=== PATIENT | female | born 1935 | race Caucasian/White ===

== ENCOUNTER → 2017-12-01 10:55 | Outpatient (CLI) | payer MEDICARE, OTHER, SELFPAY ==
[2017-12-01 11:23] LABS: Add Manual Diff / Slide Review NO; Basophils Percent Auto 1.1 % (0-2); Eosinophils Percent Auto 0.9 % (2-4); Hematocrit 36.5 % (36-46); Hemoglobin 12.8 g/dL (12.0-16.0); Lymphocytes Percent Auto 34.7 % (25-40); Mean Corpuscular HGB Conc 35.2 % (30-36); Mean Corpuscular Hemoglobin 32.9 PG (26-34); Mean Corpuscular Volume 93.5 fL (80-100); Monocytes Percent Auto 8.8 % (3-14); Neutrophils Absolute Auto 2200 /uL (3000-5900); Neutrophils Percent Auto 54.5 % (50-75); Platelet Count 419 X10^3/uL (150-400); Red Cell Distribution Width 13.7 % (11.6-14.8); White Blood Cell Count 4.1 X10^3/uL (4.5-11.0)
[2017-12-01 11:38] LABS: Alanine Aminotransferase 19 IU/L (9-52); Albumin 3.9 g/dL (3.5-5.0); Alkaline Phosphatase 72 U/L (38-126); Aspartate Aminotransferase 31 IU/L (14-36); Bilirubin Total 0.7 mg/dL (0.2-1.3); Calcium 10.1 mg/dL (8.4-10.2); Estimated Glomerular Filt Rate 53.1 mL/min (>60); Glucose 104 mg/dL (80-110); Potassium 4.3 mmol/L (3.4-5.1); Sodium 134 mmol/L (137-145)
[2017-12-01 11:43] LABS: Albumin Globulin Ratio 0.7 (1.0-2.8); HEMOLYSIS < 15 (0-50)
[2017-12-01 12:11] LABS: Total Protein 9.9 g/dL (6.3-8.2)
--- NOTE | 2017-12-01 12:11 | TAR.TRANSNT ---
cv protein value 9.9 per Rade. Triage notified
[2017-12-02 13:39] LABS: Free Kappa Light Chain 30.8 mg/L (3.3-19.4); Free Kappa/ Lambda Ratio 7.26 (0.26-1.65); Free Lambda 4.2 mg/L (5.7-26.3)
[2017-12-04 13:20] LABS: Beta-2-Microglobulin 2.74 mg/L (< 2.52)
[2017-12-06 17:15] LABS: Abnormal Protein Band 1 3.5 g/dL (NONE DETECTED); Albumin 3.8 g/dL (3.8-4.8); Alpha 1 Globulin 0.3 g/dL (0.2-0.3); Alpha 2 Globulin 1.1 g/dL (0.5-0.9); Beta 1 Globulin 0.5 g/dL (0.4-0.6); Gamma Globulin 3.7 g/dL (0.8-1.7); Protein, Total 9.6 g/dL (6.1-8.1)
== END ==
PROVIDERS: Family Provider Family Medicine; PCP Family Medicine; Visit Provider Nurse Practitioner Gerontology
DX: C90.00 Multiple myeloma not having achieved remission (principal)
CPT/HCPCS: 36415; 80053; 82232; 83883; 84155; 84165; 85025

== ENCOUNTER → 2017-12-18 10:14 | Outpatient (CLI) | payer MEDICARE, OTHER, SELFPAY ==
--- NOTE | 2017-12-18 | DI.RAD.S_ITS ---
PROCEDURE: XR SKULL<4V INDICATIONS: MULTIPLE MYELOMA IN REMISSION TECHNIQUE: 3 view(s) of the skull acquired. COMPARISON: [facility], CR, BONE SURVEY ADULT METS, 01/19/2016, 9:21. [facility], CR, BONE SURVEY ADULT METS, 01/14/2008, 9:57. [facility], CT, HEAD AND NECK ANGIO, 10/19/2017, 10:14. [facility], , BONE SURVEY ADULT METS, 08/29/2017, 11:33. FINDINGS: Bones: No fractures. 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 Along the posterior margin of the sclerosis is again noted a 5 mm radiolucency, unchanged from last exam, probably present on the 2015 exam but not seen on the 2007 study. There is also an indistinct radiolucency in the far posterior parietal bone, not apparent previously. No other lytic process is apparent. Visualized sinuses appear clear. Soft tissues: No soft tissue calcifications. No suspicious soft tissue densities. IMPRESSION: 1. Small 5 mm lytic lesion in the frontal bone is indeterminant, possibly associated with hyperostosis frontalis. Other possibilities include venous hector, pacchionian granulation or metastatic disease. No interval change from last exam. 2. Ill-defined 6 mm radiolucency in the posterior parietal bone with similar differential although not definite on previous exams. Dictated by: Alexi Garcia M.D. on 12/18/2017 at 11:34 Approved by: Alexi Garcia M.D. on 12/18/2017 at 11:47
--- NOTE | 2018-01-04 09:59 | PC.NURSE ---
Pt notified of stable nature of skull x-ray(indeterminate lytic lesion frontal bone likely related to hyperostosis frontalis) Likely an incidental finding but f/u X-ray scheduled for 3 [facility].Pt notified and is aware of f/u X-ray.Asked her to notify us when it is complete
== END ==
PROVIDERS: Family Provider Family Medicine; PCP Family Medicine; Visit Provider Nurse Practitioner Gerontology
DX: C90.01 Multiple myeloma in remission (principal); R93.7 Abnormal findings on diagnostic imaging of other parts of musculoskeletal system
CPT/HCPCS: 70250

== ENCOUNTER → 2018-01-24 13:57 | Outpatient (CLI) | payer MEDICARE, OTHER, SELFPAY ==
--- NOTE | 2018-01-24 | DI.MRI.S_ITS ---
PROCEDURE: MR CERVICAL SPINE WO CON INDICATIONS: NECK PAIN. RIGHT ARM TINGLING TECHNIQUE: Noncontrast sagittal T1 spin echo and T2 fast spin echo, sagittal STIR, foraminal oblique sagittal T2 fast spin echo, and axial gradient echo or T2 fast spin echo through the cervical spine. COMPARISON: None. FINDINGS: Image quality: Excellent. Alignment and Curvature: Grade 1 retrolisthesis of C3 on C4 and grade one anterolisthesis of C5 on C6. There is grade 1 anterolisthesis of T2 on T3. Bone Marrow: Marrow demonstrates normal overall signal. Bridging osteophyte seen at C4-C5 Spinal Cord: Visualized spinal cord has normal size and signal. No cerebellar tonsillar herniation. Paraspinous Soft Tissues: No paravertebral masses. Prevertebral soft tissues are normal in thickness. C2-C3: Bilateral uncovertebral arthropathy and posterior intervening disc osteophyte complex, bilateral facet arthropathy. Mild canal narrowing. Mild bilateral foraminal stenoses. C3-C4: Bilateral uncovertebral arthropathy and posterior intervening disc osteophyte complex, and bilateral facet arthropathy. Moderate canal stenosis is present with effacement of the anterior and posterior aspect of the thecal sac. There is severe left foraminal stenosis. Moderate to severe right foraminal narrowing C4-C5: Bilateral uncovertebral arthropathy and posterior intervening disc osteophyte complex, and bilateral facet disease. Mild canal narrowing. Moderate right and mild left foraminal stenoses C5-C6: Bilateral uncovertebral arthropathy and posterior intervening disc osteophyte complex, and bilateral facet arthropathy. Moderate canal narrowing. Severe bilateral foraminal narrowing. C6-C7: Bilateral uncovertebral arthropathy and posterior intervening disc osteophyte complex, and bilateral facet disease. Mild canal narrowing. Moderate left mild right foraminal stenoses C7-T1: Normal appearance. There is also moderate canal stenosis at T2-T3. There is probable at least moderate to severe bilateral foraminal stenoses although not well evaluated (in addition to at the T1-T2 level) given cervical spine protocol. IMPRESSION: Diffuse cervical disc degeneration as detailed above with moderate canal stenosis at C3-C4 and C5-C6. Multilevel bilateral cervical foraminal stenoses, most prominently at C3-C4 (bilateral), C5-C6 (bilateral). Moderate canal stenosis at T2-T3 with moderate to severe bilateral foraminal stenoses Moderate to severe bilateral T1-T2 foraminal stenoses Dictated by: Syed Sultana M.D. on 01/24/2018 at 15:08 Approved by: Syed Sultana M.D. on 01/24/2018 at 15:20
== END ==
PROVIDERS: Family Provider Family Medicine; PCP Family Medicine; Visit Provider Family Medicine
DX: M54.2 Cervicalgia (principal); R20.2 Paresthesia of skin; M47.892 Other spondylosis, cervical region; M48.02 Spinal stenosis, cervical region; M48.04 Spinal stenosis, thoracic region
CPT/HCPCS: 72141

== ENCOUNTER → 2018-02-01 13:45 | Outpatient (CLI) | payer MEDICARE, OTHER, SELFPAY | PROVIDERS: Family Provider Family Medicine; PCP Family Medicine; Visit Provider Family Medicine | DX: M54.12 Radiculopathy, cervical region (principal) | CPT/HCPCS: 95885; 95886; 95911 ==

== ENCOUNTER → 2018-02-28 10:42 | Outpatient (CLI) | payer MEDICARE, OTHER, SELFPAY ==
[2018-03-06 09:32] LABS: Alpha 1 Globulin 0.3
[2018-03-06 09:33] LABS: Beta 1 Globulin 0.4
== END ==
PROVIDERS: Family Provider Family Medicine; PCP Family Medicine; Visit Provider Nurse Practitioner Gerontology
DX: C90.00 Multiple myeloma not having achieved remission (principal)
CPT/HCPCS: 36415; 82232; 83883; 84155; 84165

== ENCOUNTER → 2018-03-08 13:46 | Outpatient (CLI) | payer MEDICARE, OTHER, SELFPAY ==
[2018-03-08 14:05] LABS: Add Manual Diff / Slide Review NO; Basophils Percent Auto 0.6 % (0-2); Eosinophils Percent Auto 0.6 % (2-4); Hematocrit 35.5 % (36-46); Hemoglobin 12.2 g/dL (12.0-16.0); Lymphocytes Percent Auto 31.2 % (25-40); Mean Corpuscular HGB Conc 34.3 % (30-36); Mean Corpuscular Hemoglobin 32.2 PG (26-34); Monocytes Percent Auto 9.2 % (3-14); Neutrophils Absolute Auto 4200 /uL (3000-5900); Neutrophils Percent Auto 58.4 % (50-75); Platelet Count 433 X10^3/uL (150-400); Red Blood Cell Count 3.78 X10^6/uL (4.0-5.2); Red Cell Distribution Width 14.4 % (11.6-14.8); White Blood Cell Count 7.1 X10^3/uL (4.5-11.0)
[2018-03-08 14:30] LABS: Alanine Aminotransferase 21 IU/L (9-52); Albumin Globulin Ratio 0.7 (1.0-2.8); Alkaline Phosphatase 66 U/L (38-126); Aspartate Aminotransferase 34 IU/L (14-36); BUN Creatinine Ratio 11.8 (6-22); Bilirubin Total 0.6 mg/dL (0.2-1.3); Blood Urea Nitrogen 13 mg/dL (7-17); Calcium 10.5 mg/dL (8.4-10.2); Carbon Dioxide 25 mmol/L (22-32); Chloride 100 mmol/L (98-107); Estimated Glomerular Filt Rate 47.6 mL/min (>60); Globulin 5.4 g/dL (1.7-4.1); Glucose 99 mg/dL (80-110); HEMOLYSIS < 15 (0-50); Potassium 4.6 mmol/L (3.4-5.1); Sodium 134 mmol/L (137-145); Total Protein 9.4 g/dL (6.3-8.2)
== END ==
PROVIDERS: PCP Family Medicine; Visit Provider Internal Medicine Hematology & Oncology
DX: C90.00 Multiple myeloma not having achieved remission (principal)
CPT/HCPCS: 36415; 80053; 85025

== ENCOUNTER → 2018-04-04 09:19 | Outpatient (CLI) | payer MEDICARE, OTHER, SELFPAY ==
--- NOTE | 2018-04-04 | DI.RAD.S_ITS ---
PROCEDURE: XR SKULL<4V INDICATIONS: MULTIPLE MYELOMA TECHNIQUE: 3 view(s) of the skull acquired. COMPARISON: [facility], CT, HEAD AND NECK ANGIO, 10/19/2017, 10:14. [facility], CT, HEAD WITHOUT CONTRAST, 10/19/2017, 9:36. [facility], CR, BONE SURVEY ADULT METS, 08/29/2017, 11:33. [facility], CT, HEAD WITHOUT CONTRAST, 01/09/2017, 0:44. [facility], CT, HEAD WITHOUT CONTRAST, 11/09/2016, 2:30. [facility], CR, BONE SURVEY ADULT METS, 01/19/2016, 9:21. [facility], CR, BONE SURVEY ADULT METS, 01/14/2008, 9:57. [facility], , XR SKULL<4V, 12/18/2017, 10:16. FINDINGS: Bones: No fractures. No new suspicious bony lesions. Visualized sinuses appear clear. Soft tissues: No soft tissue calcifications. No suspicious soft tissue densities. IMPRESSION: With reference to prior plain films and agrees some degree of concern for possible osteolytic lesions along the calvarium there has been subsequent head CT scans which do not show osteolytic lesions. Overall, in my opinion, recurrent multiple myeloma is not established by plain films given the available CT scanning through the same areas. Dictated by: Obi Baron M.D. on 04/04/2018 at 10:33 Approved by: Obi Baron M.D. on 04/04/2018 at 10:39
== END ==
PROVIDERS: PCP Family Medicine; Visit Provider Nurse Practitioner Gerontology
DX: C90.00 Multiple myeloma not having achieved remission (principal)
CPT/HCPCS: 70250

== ENCOUNTER → 2018-06-04 11:14 | Outpatient (CLI) | payer MEDICARE, OTHER, SELFPAY ==
[2018-06-04 11:49] LABS: Add Manual Diff / Slide Review NO; Basophils Percent Auto 0.9 % (0-2); Eosinophils Percent Auto 0.6 % (2-4); Hematocrit 37.9 % (36-46); Hemoglobin 12.9 g/dL (12.0-16.0); Lymphocytes Percent Auto 23.9 % (25-40); Mean Corpuscular HGB Conc 34.1 % (30-36); Mean Corpuscular Hemoglobin 31.6 PG (26-34); Mean Corpuscular Volume 92.6 fL (80-100); Monocytes Percent Auto 6.8 % (3-14); Neutrophils Absolute Auto 3900 /uL (3000-5900); Neutrophils Percent Auto 67.8 % (50-75); Platelet Count 472 X10^3/uL (150-400); Red Blood Cell Count 4.09 X10^6/uL (4.0-5.2); Red Cell Distribution Width 13.7 % (11.6-14.8); White Blood Cell Count 5.7 X10^3/uL (4.5-11.0)
[2018-06-04 12:09] LABS: Alanine Aminotransferase 18 IU/L (9-52); Albumin 3.9 g/dL (3.5-5.0); Alkaline Phosphatase 66 U/L (38-126); Aspartate Aminotransferase 26 IU/L (14-36); BUN Creatinine Ratio 11.7 (6-22); Bilirubin Total 0.4 mg/dL (0.2-1.3); Blood Urea Nitrogen 14 mg/dL (7-17); Carbon Dioxide 25 mmol/L (22-32); Chloride 103 mmol/L (98-107); Estimated Glomerular Filt Rate 42.9 mL/min (>60); Glucose 123 mg/dL (80-110); HEMOLYSIS < 15 (0-50); Potassium 4.3 mmol/L (3.4-5.1); Sodium 139 mmol/L (137-145)
[2018-06-04 12:38] LABS: Albumin Globulin Ratio 0.7 (1.0-2.8)
[2018-06-04 12:39] LABS: Globulin 5.8 g/dL (1.7-4.1)
[2018-06-04 12:40] LABS: Total Protein 9.7 g/dL (6.3-8.2)
[2018-06-06 14:59] LABS: Free Kappa Light Chain 31.4 mg/L (3.3-19.4); Free Kappa/ Lambda Ratio 5.74 (0.26-1.65); Free Lambda 5.5 mg/L (5.7-26.3)
[2018-06-12 23:43] LABS: Abnormal Protein Band 1 3.5 g/dL (NONE DETECTED); Albumin 3.7 g/dL (3.8-4.8); Alpha 1 Globulin 0.3 g/dL (0.2-0.3); Beta 1 Globulin 0.4 g/dL (0.4-0.6); Gamma Globulin 3.7 g/dL (0.8-1.7)
== END ==
PROVIDERS: Internal Medicine Hematology & Oncology; Family Provider Family Medicine; PCP Family Medicine; Visit Provider Nurse Practitioner Gerontology
DX: C90.00 Multiple myeloma not having achieved remission (principal)
CPT/HCPCS: 36415; 80053; 82784; 83883; 84155; 84165; 85025; 86334

== ENCOUNTER → 2018-08-28 10:42 | Outpatient (CLI) | payer MEDICARE, OTHER, SELFPAY ==
[2018-08-28 11:17] LABS: Alanine Aminotransferase 18 IU/L (9-52); Albumin Globulin Ratio 0.7 (1.0-2.8); Alkaline Phosphatase 68 U/L (38-126); Aspartate Aminotransferase 27 IU/L (14-36); BUN Creatinine Ratio 9.2 (6-22); Bilirubin Total 0.4 mg/dL (0.2-1.3); Blood Urea Nitrogen 11 mg/dL (7-17); Calcium 10.3 mg/dL (8.4-10.2); Carbon Dioxide 28 mmol/L (22-32); Chloride 101 mmol/L (98-107); Estimated Glomerular Filt Rate 42.9 mL/min (>60); Globulin 5.7 g/dL (1.7-4.1); Glucose 106 mg/dL (80-110); HEMOLYSIS < 15 (0-50); Potassium 4.2 mmol/L (3.4-5.1); Sodium 135 mmol/L (137-145)
[2018-08-28 11:18] LABS: Add Manual Diff / Slide Review NO; Basophils Absolute Auto 0 /uL (0-100); Basophils Percent Auto 0.8 % (0-2); Eosinophils Absolute Auto 100 /uL (0-450); Eosinophils Percent Auto 1.6 % (2-4); Hematocrit 37.2 % (36-46); Hemoglobin 12.7 g/dL (12.0-16.0); Lymphocytes Absolute Auto 1500 /uL (1100-4500); Lymphocytes Percent Auto 34.5 % (25-40); Mean Corpuscular HGB Conc 34.3 % (30-36); Mean Corpuscular Volume 93.5 fL (80-100); Monocytes Absolute Auto 400 /uL (0-900); Monocytes Percent Auto 9.3 % (3-14); Neutrophils Absolute Auto 2300 /uL (1500-7000); Neutrophils Percent Auto 53.8 % (50-75); Platelet Count 463 X10^3/uL (150-400); Red Blood Cell Count 3.98 X10^6/uL (4.0-5.2); Red Cell Distribution Width 14.1 % (11.6-14.8); White Blood Cell Count 4.4 X10^3/uL (4.5-11.0)
[2018-08-28 11:34] LABS: Total Protein 9.7 g/dL (6.3-8.2)
--- NOTE | 2018-08-28 11:34 | PC.NURSE ---
Addendum entered by Christen English R.N. 08/28/18 16:40: This note printed off and placed in provider box. Pt coming in for appt on 09/04 and this value is consistent with her previous total protein values. Original Note: critical total protein result received from lab, 9.7. Triage aware.
[2018-08-30 16:43] LABS: Free Kappa Light Chain 27.7 mg/L (3.3-19.4); Free Kappa/ Lambda Ratio 8.73 (0.26-1.65); Free Lambda 3.2 mg/L (5.7-26.3)
[2018-08-31 18:14] LABS: Abnormal Protein Band 1 3.4 g/dL (NONE DETECTED); Albumin 3.8 g/dL (3.8-4.8); Alpha 1 Globulin 0.3 g/dL (0.2-0.3); Beta 1 Globulin 0.5 g/dL (0.4-0.6); Gamma Globulin 3.6 g/dL (0.8-1.7); Protein, Total 9.4 g/dL (6.1-8.1)
== END ==
PROVIDERS: Family Provider Family Medicine; PCP Family Medicine; Visit Provider Nurse Practitioner Gerontology
DX: C90.00 Multiple myeloma not having achieved remission (principal)
CPT/HCPCS: 36415; 80053; 83883; 84155; 84165; 85025

== ENCOUNTER → 2018-10-04 10:59 | Outpatient (REF) | payer MEDICARE, OTHER, SELFPAY ==
[2018-10-04 11:24] LABS: INR 2.8 (0.9-1.3); Prothrombin Time 32.6 SECONDS (10.1-12.7)
== END ==
LOC: LAB 10:59
PROVIDERS: Family Provider Family Medicine; PCP Family Medicine; Visit Provider Family Medicine
DX: I48.0 Paroxysmal atrial fibrillation (principal)
CPT/HCPCS: 85610

== ENCOUNTER → 2018-11-01 08:26 | Outpatient (REF) | payer MEDICARE, OTHER, SELFPAY ==
[2018-11-01 08:39] LABS: INR 2.4 (0.9-1.3); Prothrombin Time 28.7 SECONDS (10.1-12.7)
== END ==
LOC: LAB 08:26
PROVIDERS: Family Provider Family Medicine; PCP Family Medicine; Visit Provider Family Medicine
DX: Z79.01 Long term (current) use of anticoagulants (principal)
CPT/HCPCS: 85610

== ENCOUNTER → 2018-12-17 07:54 | Outpatient (ROUT) | payer MEDICARE, OTHER, SELFPAY ==
[2018-12-17 08:02] LABS: INR 1.7 (0.9-1.3); Prothrombin Time 19.2 SECONDS (10.1-12.7)
== END ==
PROVIDERS: Family Provider Family Medicine; PCP Family Medicine; Visit Provider Family Medicine
DX: Z79.01 Long term (current) use of anticoagulants (principal)
CPT/HCPCS: 85610

== ENCOUNTER → 2018-12-31 08:30 | Outpatient (ROUT) | payer MEDICARE, OTHER, SELFPAY ==
[2018-12-31 08:37] LABS: INR 1.8 (0.9-1.3); Prothrombin Time 20.3 SECONDS (10.1-12.7)
== END ==
PROVIDERS: Family Provider Family Medicine; PCP Family Medicine; Visit Provider Family Medicine
DX: Z79.01 Long term (current) use of anticoagulants (principal)
CPT/HCPCS: 85610

== ENCOUNTER → 2019-01-04 09:26 | Outpatient (CLI) | payer MEDICARE, OTHER, SELFPAY | PROVIDERS: Family Provider Family Medicine; PCP Family Medicine; Visit Provider Family Medicine | DX: Z13.820 Encounter for screening for osteoporosis (principal); Z78.0 Asymptomatic menopausal state; R29.890 Loss of height | CPT/HCPCS: 77080 ==

== ENCOUNTER → 2019-01-14 08:10 | Outpatient (ROUT) | payer MEDICARE, OTHER, SELFPAY ==
[2019-01-14 08:20] LABS: INR 2.4 (0.9-1.3); Prothrombin Time 28.6 SECONDS (10.1-12.7)
== END ==
PROVIDERS: Family Provider Family Medicine; PCP Family Medicine; Visit Provider Family Medicine
DX: Z79.01 Long term (current) use of anticoagulants (principal)
CPT/HCPCS: 85610

== ENCOUNTER → 2019-02-04 08:20 | Outpatient (ROUT) | payer MEDICARE, OTHER, SELFPAY ==
[2019-02-04 08:32] LABS: INR 2.5 (0.9-1.3)
== END ==
PROVIDERS: Family Provider Family Medicine; PCP Family Medicine; Visit Provider Family Medicine
DX: Z79.01 Long term (current) use of anticoagulants (principal)
CPT/HCPCS: 85610

== ENCOUNTER → 2019-03-04 09:30 | Outpatient (ROUT) | payer MEDICARE, OTHER, SELFPAY ==
[2019-03-04 09:36] LABS: INR 2.5 (0.9-1.3); Prothrombin Time 29.5 SECONDS (10.1-12.7)
== END ==
PROVIDERS: Family Provider Family Medicine; PCP Family Medicine; Visit Provider Family Medicine
DX: Z79.01 Long term (current) use of anticoagulants (principal)
CPT/HCPCS: 85610

== ENCOUNTER 2019-05-16 11:35 | Emergency (ER) | payer MEDICARE, OTHER, SELFPAY ==
[2019-05-16] VITALS (11 sets, daily range): BP systolic 138–189; BP diastolic 58–95; PULSE 62–80; RESP 13–22; TEMP 36.4; O2SAT 93–100
[2019-05-16 12:29] LABS: Add Manual Diff / Slide Review NO; Basophils Absolute Auto 100 /uL (0-100); Basophils Percent Auto 1.3 % (0-2); Eosinophils Absolute Auto 100 /uL (0-450); Eosinophils Percent Auto 1.9 % (2-4); Hematocrit 36.6 % (36-46); Hemoglobin 12.9 g/dL (12.0-16.0); Lymphocytes Absolute Auto 1700 /uL (1100-4500); Lymphocytes Percent Auto 35.4 % (25-40); Mean Corpuscular HGB Conc 35.3 % (30-36); Mean Corpuscular Volume 93.5 fL (80-100); Monocytes Absolute Auto 500 /uL (0-900); Monocytes Percent Auto 9.5 % (3-14); Neutrophils Absolute Auto 2500 /uL (1500-7000); Neutrophils Percent Auto 51.9 % (50-75); Platelet Count 355 X10^3/uL (150-400); Red Blood Cell Count 3.92 X10^6/uL (4.0-5.2); Red Cell Distribution Width 13.7 % (11.6-14.8); White Blood Cell Count 4.8 X10^3/uL (4.5-11.0)
[2019-05-16 12:39] LABS: BUN Creatinine Ratio 10.8 (6-22); Blood Urea Nitrogen 13 mg/dL (7-17); Calcium 10.8 mg/dL (8.4-10.2); Carbon Dioxide 30 mmol/L (22-32); Chloride 100 mmol/L (98-107); Estimated Glomerular Filt Rate 42.8 mL/min (>60); Glucose 99 mg/dL (80-110); HEMOLYSIS < 15 (0-50); Potassium 3.9 mmol/L (3.4-5.1); Sodium 135 mmol/L (137-145)
[2019-05-16 12:51] LABS: Troponin I < 0.012 ng/mL (0.01-0.034)
[2019-05-16] MEDS: SODIUM CHLORIDE 0.9% 1,000 ML 150 ML IV (13:08)
--- NOTE | 2019-05-16 14:18 | DI.CT.S_ITS ---
PROCEDURE: CT HEAD/BRAIN WO CON INDICATIONS: vertigo TECHNIQUE: Noncontrast 4.5 mm thick angled axial sections acquired from the foramen magnum to the vertex, with coronal and sagittal reformats. For radiation dose reduction, the following was used: automated exposure control, adjustment of mA and/or kV according to patient size. COMPARISON: [facility], CT, HEAD WITHOUT CONTRAST, 01/09/2017, 0:44. FINDINGS: Image quality: Excellent. CSF spaces: Basal cisterns are patent. No extra-axial fluid collections. Ventricles are normal in size and shape. Brain: No midline shift. No intracranial masses or hemorrhage. Brenner-white matter interface is normal. Skull and face: Calvarium and visualized facial bones are intact, without suspicious lesions. Sinuses: Visualized sinuses and mastoids are clear. IMPRESSION: No acute intracranial disease process. Dictated by: Ana Bruner MD, PhD on 05/16/2019 at 13:38 Approved by: Ana Bruner MD, PhD on 05/16/2019 at 13:40
[2019-05-16 14:28] LABS: Bacteria Urine None Seen
[2019-05-16 14:35] LABS: Culture Indicated Urine Cult Not Indicated; RBC Urine 0-1/HPF (0-5/HPF); WBC Urine 0-1/HPF (0-5/HPF)
[2019-05-16] MEDS: LABETALOL 20 MG/4 ML SYRINGE 10 MG IV (15:35)
--- NOTE | 2019-05-16 16:55 | ED_ITS ---
HPI - Dizziness General Chief Complaint: Dizziness Stated Complaint: ?afibdizzy/throat dry/diff. moving/red face x1hour Time Seen by Provider: 05/16/19 13:28 Source: patient and family Mode of arrival: Ambulatory Limitations: no limitations History of Present Illness HPI Narrative: Patient is brought to the emergency department complaining of dizziness today. Patient states that she was sitting in her chair when she suddenly had a dizzy sensation. She tried to get up, but states that she felt too dizzy to she to down. Patient clarifies that her dizziness a sense of spinning, not of lightheadedness. She states that she is feeling better now. The symptoms lasted at their worst about 10 minutes, and then improved. She states that now, she is not feeling and was able to get up to the bedside commode without difficulty. She denies any nausea or vomiting. no tinnitus. No focal deficits. No difficulty speaking or swallowing, and no visual changes. Patient has a history of Meniere's disease, but states that usually these episodes dizziness are worse than today's, and accompanied by nausea and vomi ting. The patient states she has a mild headache. Related Data Home Medications Medication Instructions Recorded Confirmed cholecalciferol (vitamin D3) 1,000 unit PO DAILY #0 10/01/12 05/16/19 [Vitamin D3] cyanocobalamin (vitamin B-12) 1,000 mcg PO DAILY #0 10/01/12 05/16/19 [Vitamin B-12] warfarin [Coumadin] See Rx Instructions .ROUTE 12/14/16 05/16/19 .COMPLEX #0 Lipo-Flavonoid Plus 1 tab PO DAILY #0 04/12/17 05/16/19 omega 5-tkp-trg-fish oil [Fish Oil] 1,000 mg PO DAILY #0 04/12/17 05/16/19 Ocuvite Vitamin 1 tab PO DAILY 05/16/19 05/16/19 amlodipine 2.5 mg PO DAILY 05/16/19 05/16/19 losartan 100 mg PO DAILY 05/16/19 05/16/19 sotalol 80 mg PO BID 05/16/19 05/16/19 Allergies Allergy/AdvReac Type Severity Reaction Status Date / Time amoxicillin Allergy Mild BREAK OUT Verified 03/07/18 11:07 ampicillin Allergy Mild BREAK OUT Verified 03/07/18 11:07 cephalexin Allergy Mild BREAK OUT Verified 03/07/18 11:07 piroxicam AdvReac Unknown ITCHING Verified 03/07/18 11:07 Review of Systems Constitutional Constitutional: Denies chills, Denies fatigue, Denies fever(s), Denies frequent falls, Denies lethargy and Denies weakness Eyes Eyes: Denies change in vision, Denies eye discharge, Denies irritation and Denies loss of vision ENT Ears, Nose, Mouth, and Throat: Denies change in voice, Reports vertigo, Reports dizziness, Denies neck pain, Denies sore throat and Denies throat swelling Cardiovascular Cardiovascular: Denies chest pain, Denies irregular heart rhythm, Denies lightheadedness, Denies palpitations, Denies dyspnea, Denies dyspnea on exertion and Denies orthopnea Respiratory Respiratory: Denies cough, Denies dyspnea, Denies dyspnea on exertion and Denies wheezing Gastrointestinal Gastrointestinal: Denies abdominal pain, Denies change in bowel habits, Denies diarrhea, Denies nausea and Denies vomiting Genitourinary Genitourinary: Denies hematuria, Denies flank pain, Denies urinary incontinence and Denies urinary urgency Musculoskeletal Musculoskeletal: Denies back pain, Denies muscle weakness, Denies neck pain, Denies numbness and Denies tingling Integumentary/Breasts Skin/Breast: Denies pruritus, Denies erythema, Denies rash and Denies wounds Neurologic Neurologic: Denies behavioral changes, Denies confusion, Reports vertigo, Reports dizziness, Denies frequent falls, Denies loss of vision, Denies numbness, Denies tingling and Denies weakness Psychiatric Psychiatric: Denies anxiety, Denies behavioral changes, Denies confusion, Denies depression, Denies homicidal ideation and Denies suicidal ideation Endocrine Endocrine: Denies fatigue, Denies flushing and Denies palpitations Hematologic/Lymphatic Hematologic/Lymphatic: Denies easy bruising Allergic/Immunologic Allergic/Immunologic: Denies urticaria, Denies throat swelling and Denies wheezing Patient History Medical History (Updated 05/16/19 @ 17:00 by Senait Lerma MD) Acute postoperative pain of knee (Acute) Atrial fibrillation (Acute) Atrial fibrillation with RVR (Acute) CVA (cerebral vascular accident) (Acute) Dehydration (Inactive) Diarrhea (Inactive) Multiple myeloma not having achieved remission (Acute) Vertigo (Acute) Social History Smoking Status: Never smoker Social History Smoking Status: Never smoker alcohol intake frequency: holidays/special occasions only Substance Use Type: does not use Exam Initial Vital Signs Initial Vital Signs: Vital Signs Temperature 97.5 F L 05/16/19 11:40 Pulse Rate 80 05/16/19 11:40 Respiratory Rate 22 05/16/19 11:40 Blood Pressure 189/95 H 05/16/19 11:40 Pulse Oximetry 100 05/16/19 11:40 Const General: cooperative and well developed Nutritional Appearance: well nourished Orientation: alert, awake, oriented x3 and not confused [facility] Head: normocephalic and atraumatic Ears: external ears normal Nose: external nose normal and No nasal discharge Face and sinus: face symmetric and No dry mucous membranes Mouth: oral mucosae normal and moist mucous membranes Teeth and gingiva: dentition normal Eyes General: appearance normal, both eyes and all related structures Eyelids: eyelids normal Conjunctivae: conjunctivae normal Sclera: sclerae normal Pupils: PERRL EOM: EOM intact bilaterally Neck Neck: normal visual inspection, trachea midline, No lymphadenopathy, No midline deformity and No JVD Lymphatic: No lymphedema Chest Chest: normal inspection of the chest Resp Effort & Inspection: normal respiratory effort, able to speak in complete sentences, no respiratory distress and no use of accessory muscles Auscultation: clear to auscultation bilaterally, no rales, no rhonchi and no wheezes Cardio Rate: regular rate Rhythm: regular rhythm Heart Sounds: no click, no gallops, no murmurs and no rubs Pulses: normal peripheral pulses GI Inspection: non-distended Palpation: soft, no hepatosplenomegaly, No guarding, No pulsatile mass and No tender Back/Spine/Pelvis Back: No CVA tenderness Cervical Spine: cervical ROM normal and No pain with cervical ROM Thoracic/Lumbar Spine: thoracic and lumbar spine normal to inspection Skin General: no rashes or lesions noted, No jaundice and No petechiae Neuro General: alert, oriented x3, gait normal and no focal motor deficits Speech: speech normal Extrem General: full ROM, no clubbing, cyanosis or edema, no pedal edema and no calf tenderness Psych Appearance: well kempt Mental Status: mental status grossly normal Attitude: cooperative Thought Content: normal and suicidality Judgment: judgment good Course Course Course Narrative: Patient was worked up in the emergency department with labs, EKG, and head CT, all of which were unremarkable. The patient's blood pressure was found to be quite high upon arrival, and she was treated with labetalol for this the emergency this did bring blood pressure down to a more acceptable 142/60. Workup did not reveal an emergent condition. We have discussed keeping track of the blood pressure at home, and continue the patient's current medication regimen. Patient and family report that this regimen has previously kept patient's blood pressure very well controlled, until today, and as such, I do not see any reason to change the patient's medications. I have discussed wit h her that if the hypertensive readings continue for more than the next several days, she should follow up with her primary care physician to discuss whether her medication need to be adjusted. Patient and daughter agreeable to this plan. We have discussed the usual indications for return. Orders Ordered: Discontinued Medications Diltiazem HCl (Cardizem) 20 mg IV NOW ONE Stop: 05/16/19 14:56 Last Admin: 05/16/19 15:26 Dose: Not Given Documented by: MAMI Sodium Chloride (Normal Saline 0.9%) 1,000 mls @ 150 mls/hr IV CONT OSIRIS Last Infusion: 05/16/19 15:48 Dose: 0 mls/hr Documented by: Admin: 05/16/19 13:08 Dose: 150 mls/hr Documented by: MAMI Labetalol HCl (Trandate) 10 mg IV NOW ONE Stop: 05/16/19 15:23 Last Admin: 05/16/19 15:35 Dose: 10 mg Documented by: MAMI Vital Signs Vital signs: Vital Signs - 8 hr 05/16/19 11:40 05/16/19 12:45 05/16/19 13:07 Temperature 97.5 F L Pulse Rate 80 64 63 Respiratory Rate 22 19 16 Blood Pressure 189/95 H Blood Pressure [Left Arm] 165/71 H 154/63 H Pulse Oximetry 100 98 96 05/16/19 13:30 05/16/19 15:00 05/16/19 15:30 Temperature Pulse Rate 65 64 77 Respiratory Rate 15 17 18 Blood Pressure Blood Pressure [Left Arm] 162/66 H 185/83 H 181/78 H Pulse Oximetry 98 93 98 05/16/19 15:35 05/16/19 15:44 05/16/19 15:49 Temperature Pulse Rate 77 62 63 Respiratory Rate 17 14 Blood Pressure 183/63 H Blood Pressure [Left Arm] 138/58 L 146/68 H Pulse Oximetry 100 98 MDM - Dizziness Medical Records Attestation: I reviewed the patient's medical records. Lab Data Attestation: I reviewed the patient's lab results. Result diagrams: 05/16/19 12:18 05/16/19 12:18 Labs: Lab Results 05/16/19 05/16/19 05/16/19 Range/Units 12:18 12:18 14:22 WBC 4.8 (4.5-11.0) X10^3/uL RBC 3.92 L (4.0-5.2) X10^6/uL Hgb 12.9 (12.0-16.0) g/dL Hct 36.6 (36-46) % MCV 93.5 (80-100) fL MCH 33.0 (26-34) PG MCHC 35.3 (30-36) % RDW 13.7 (11.6-14.8) % Plt Count 355 (150-400) X10^3/uL Neut % (Auto) 51.9 (50-75) % Lymph % (Auto) 35.4 (25-40) % [place] % (Auto) 9.5 (3-14) % Eos % (Auto) 1.9 L (2-4) % Baso % (Auto) 1.3 (0-2) % Neut # (Auto) 2500 (0952-0877) /uL Lymph # (Auto) 1700 (5303-5745) /uL [place] # (Auto) 500 (0-900) /uL Eos # (Auto) 100 (0-450) /uL Baso # (Auto) 100 (0-100) /uL Sodium 135 L (137-145) mmol/L Potassium 3.9 (3.4-5.1) mmol/L Chloride 100 (98-107) mmol/L Carbon Dioxide 30 (22-32) mmol/L BUN 13 (7-17) mg/dL Creatinine 1.20 H (0.52-1.04) mg/dL Estimated GFR 42.8 L (>60) mL/min BUN/Creatinine Ratio 10.8 (6-22) Glucose 99 (80-110) mg/dL Calcium 10.8 H (8.4-10.2) mg/dL Troponin I < 0.012 (0.01-0.034) ng/mL Urine RBC 0-1/hpf (0-5/HPF) Urine WBC 0-1/hpf (0-5/HPF) Urine Bacteria None seen (None) Ur Culture Indicated? Cult not indicated Urine Dip Bedside Urine Glucose Negative Bedside Urine Bilirubin - Negative Bedside Urine Ketone - Negative Urine Specific [place] 1.010 Bedside Urine Occult Blood +/- Bedside Urine pH 7.0 Bedside Urine Protein - Negative Bedside Urine Urobilinogen - Negative Bedside Urine Nitrite - Negative Bedside Urine Leukocytes + [address] scan - head: Radiologist's impression: ROCEDURE: CT HEAD/BRAIN WO CON INDICATIONS: vertigo TECHNIQUE: Noncontrast 4.5 mm thick angled axial sections acquired from the foramen magnum to the vertex, with coronal and sagittal reformats. For radiation dose reduction, the following was used: automated exposure control, adjustment of mA and/or kV according to patient size. COMPARISON: [facility], CT, HEAD WITHOUT CONTRAST, 01/09/2017, 0:44. FINDINGS: Image quality: Excellent. CSF spaces: Basal cisterns are patent. No extra-axial fluid collections. Ventricles are normal in size and shape. Brain: No midline shift. No intracranial masses or hemorrhage. Brenner-white matter interface is normal. Skull and face: Calvarium and visualized facial bones are intact, without suspicious lesions. Sinuses: Visualized sinuses and mastoids are clear. IMPRESSION: No acute intracranial disease process. Dictated by: Ana Bruner MD, PhD on 05/16/2019 at 13:38 Approved by: Ana Bruner MD, PhD on 05/16/2019 at 13:40 ECG Data Attestation: I personally reviewed and interpreted this ECG as follows: (See below) Interpretation: Twelve lead EKG performed May 16, 2019 at 11:48 a.m., as follows: Regular ventricular rhythm with a rate of 73 beats per minute NC interval 194 millisecond QRS duration 83 millisecond QTC interval 430 millisecond No ectopy No significant ST T wave changes Interpretation: Normal sinus rhythm; nonspecific ST T wave abnormality; no signs of acute ischemia; borderline EKG as interpreted by ED MD. Discharge Plan Departure Patient Disposition: Home Clinical Impression: Vertigo Discharge Date/Time: 05/16/19 17:08 Instructions: DI for Vertigo Activity Restrictions/Additional Instructions: Your labs and CT scan look good. You have been given an extra dose of blood pressure medicine in the emergency department, through the IV. You should continue to take your home medications as directed. If you continue to have elevated blood pressures over the next few days, then you will need to make an appointment your primary care physician to discuss whether your current medication regimen is still appropriate. Prescriptions: No Action cyanocobalamin (vitamin B-12) [Vitamin B-12] 1,000 mcg Tablet 1,000 mcg PO DAILY Qty: 0 RF: 0 cholecalciferol (vitamin D3) [Vitamin D3] 1,000 unit Capsule 1,000 unit PO DAILY Qty: 0 RF: 0 warfarin [Coumadin] 5 MG tablet See Rx Instructions .ROUTE .COMPLEX Qty: 0 RF: 0 omega 3-rkc-zjb-fish oil [Fish Oil] 1,000 MG capsule 1,000 mg PO DAILY Qty: 0 RF: 0 Lipo-Flavonoid Plus 1 tab PO DAILY Qty: 0 RF: 0 amlodipine 2.5 mg tablet 2.5 mg PO DAILY RF: 0 sotalol 80 mg tablet 80 mg PO BID RF: 0 losartan 100 mg tablet 100 mg PO DAILY RF: 0 Ocuvite Vitamin 1 tab PO DAILY RF: 0 Referrals: Tainna Cartagena MD [Primary Care Provider] -
--- NOTE | 2019-05-16 17:01 | PC.NURSE ---
HOT DIP PLATER/GUIDE TOUR Note: Ambulated patient down the [place] per MD request. Patient did not complain of dizziness. Patient walked around the nurses station with barley no assists. patient was very stable. RN and MD notified.
== END 2019-05-16 17:08 | disposition home or self-care (01) ==
PROVIDERS: Internal Medicine; Emergency Provider Emergency Medicine; Family Provider Family Medicine; PCP Family Medicine
DX: R42 Dizziness and giddiness (principal)
CPT/HCPCS: 70450; 80048; 81003; 81015; 84484; 85025; 93005; 96361; 96374; 99284; 99285

== ENCOUNTER → 2019-05-31 12:53 | Outpatient (CLI) | payer MEDICARE, OTHER, SELFPAY ==
--- NOTE | 2019-05-31 13:36 | DI.MRI.S_ITS ---
PROCEDURE: MR STROKE Pre- and post-contrast brain MRI, non-contrast brain MR angiogram, pre- and postcontrast neck MR angiogram INDICATIONS: Transient cerebral ischemic attack, unspecified TECHNIQUE: Brain: Noncontrast axial T1 spin echo, axial T2 fast spin echo, sagittal and axial FLAIR, coronal T2 fast spin echo, axial gradient echo, axial diffusion and ADC through the brain. After the administration of contrast, axial 3D VIBE of the cranial vasculature and brain. Brain MRA: Non-contrast 3-D time of flight MR angiogram, with multiple mdtgtps-jdoqsbhis-txewmgtyom (MIP) reformats performed. Neck MRA: Axial and sagittal TruFISP through the neck. Coronal dynamic MR angiogram during administration of contrast in the arterial and venous phases, with 3-dimenstional gvwyaji-qddrplmfw-mrzhlvzufn (MIP) reformats constructed from subtraction images. COMPARISON: [facility], CT, CT HEAD/BRAIN WO CON, 05/16/2019, 14:20. [facility], CT, HEAD AND NECK ANGIO, 10/19/2017, 10:14. FINDINGS: Image quality: Excellent. BRAIN: CSF spaces: Ventricles are normal in size and shape. Basal cisterns are patent. No extra-axial fluid collections. Brain: No intracranial bleeds or mass effects. Brenner-white matter interface is normal. Diffusion weighted images show no acute ischemic insults. Age-appropriate brain parenchymal volume loss can be seen. Scalp foci of T2 hyperintensity can be seen within the periventricular and deep white matter. Brainstem appears normal. Normal intravascular flow voids are present. No abnormal intracranial enhancement. Skull and face: Calvarial marrow signal is normal. Orbits appear normal. Note is made of bilateral lens replacements. Sinuses: Sinuses and mastoids are clear. BRAIN MR ANGIOGRAM: Anterior circulation: Intracranial internal carotid arteries are normal in size and enhancement. The flow within the paired anterior cerebral arteries is normal and symmetric. The flow within the middle cerebral arteries is normal and symmetric. The anterior communicating artery is only faintly seen. No stenoses, occlusions, or aneurysms. Posterior circulation: The distal left vertebral artery demonstrates subtotal narrowing within the V4 segment. The vertebral arteries join to form a normal appearing basilar artery. The flow within the posterior cerebral arteries is normal and symmetric. NECK MR ANGIOGRAM: Carotids: Great vessels demonstrate a conventional anatomy as they arise from the aortic arch. The origins of the common carotid arteries appear patent. The calibers and courses of both common carotid arteries are normal. The bifurcation regions appear normal bilaterally. The internal carotid arteries demonstrate normal course and caliber. Posterior circulation: The origins of both vertebral arteries appear widely patent. On the prior CT angiogram, there was a short segment of occlusion of the mid vertebral artery. This is no longer seen, although there are areas where focal narrowing can be seen within the left vertebral artery within its V2 segment. The right vertebral artery is unremarkable. There is subtotal narrowing seen involving the distal left vertebral artery. The vertebral arteries join to form a normal appearing basilar artery. Miscellaneous: Subclavian arteries appear patent. Pre-contrast images through the neck show no soft tissue abnormalities. IMPRESSION: BRAIN MRI: No findings of acute or subacute infarction can be seen. Note is made of age-appropriate brain parenchymal volume loss and chronic small vessel ischemic changes. BRAIN MR ANGIOGRAM: No significant intracranial arterial abnormality is seen. NECK MR ANGIOGRAM: Several areas of high-grade narrowing can be seen involving the left vertebral artery, including its midportion (V2) and distally (V4). The right vertebral artery is unremarkable. No carotid stenosis is seen. Dictated by: Tariq Michael M.D. on 05/31/2019 at 14:42 Approved by: Tariq Michael M.D. on 05/31/2019 at 14:49
== END ==
PROVIDERS: Family Provider Family Medicine; PCP Family Medicine; Visit Provider Family Medicine
DX: I65.02 Occlusion and stenosis of left vertebral artery (principal)
CPT/HCPCS: 70548; 70553; A9579

== ENCOUNTER → 2019-06-24 12:07 | Outpatient (ROUT) | payer MEDICARE, OTHER, SELFPAY ==
[2019-06-24 12:31] LABS: INR 2.2 (0.9-1.3); Prothrombin Time 26.2 SECONDS (10.1-12.7)
== END ==
PROVIDERS: Family Provider Family Medicine; PCP Family Medicine; Visit Provider Family Medicine
DX: Z79.01 Long term (current) use of anticoagulants (principal)
CPT/HCPCS: 85610

== ENCOUNTER → 2019-07-26 09:40 | Outpatient (ROUT) | payer MEDICARE, OTHER, SELFPAY ==
[2019-07-26 09:49] LABS: INR 1.7 (0.9-1.3); Prothrombin Time 19.7 SECONDS (10.1-12.7)
== END ==
PROVIDERS: Family Provider Family Medicine; PCP Family Medicine; Visit Provider Family Medicine
DX: Z79.01 Long term (current) use of anticoagulants (principal)
CPT/HCPCS: 85610

== ENCOUNTER → 2019-08-12 12:07 | Outpatient (ROUT) | payer MEDICARE, OTHER, SELFPAY ==
[2019-08-12 12:15] LABS: INR 2.2 (0.9-1.3); Prothrombin Time 25.7 SECONDS (10.1-12.7)
== END ==
PROVIDERS: Family Provider Family Medicine; PCP Family Medicine; Visit Provider Family Medicine
DX: Z79.01 Long term (current) use of anticoagulants (principal)
CPT/HCPCS: 85610

== ENCOUNTER → 2019-09-03 11:55 | Outpatient (ROUT) | payer MEDICARE, OTHER, SELFPAY ==
[2019-09-03 12:02] LABS: INR 1.9 (0.9-1.3); Prothrombin Time 21.1 SECONDS (10.1-12.7)
== END ==
PROVIDERS: Family Provider Family Medicine; PCP Family Medicine; Visit Provider Family Medicine
DX: Z79.01 Long term (current) use of anticoagulants (principal)
CPT/HCPCS: 85610

== ENCOUNTER → 2019-09-03 13:11 | Outpatient (CLI) | payer MEDICARE, OTHER, SELFPAY ==
[2019-09-03 13:59] LABS: Add Manual Diff / Slide Review NO; Basophils Absolute Auto 0 /uL (0-100); Basophils Percent Auto 0.8 % (0-2); Eosinophils Absolute Auto 100 /uL (0-450); Hematocrit 36.5 % (36-46); Hemoglobin 12.4 g/dL (12.0-16.0); Lymphocytes Absolute Auto 1900 /uL (1100-4500); Lymphocytes Percent Auto 37.4 % (25-40); Mean Corpuscular Hemoglobin 32.2 PG (26-34); Mean Corpuscular Volume 94.5 fL (80-100); Monocytes Absolute Auto 400 /uL (0-900); Monocytes Percent Auto 7.5 % (3-14); Neutrophils Absolute Auto 2600 /uL (1500-7000); Neutrophils Percent Auto 52.3 % (50-75); Platelet Count 354 X10^3/uL (150-400); Red Blood Cell Count 3.86 X10^6/uL (4.0-5.2); Red Cell Distribution Width 14.2 % (11.6-14.8)
[2019-09-03 14:16] LABS: Alanine Aminotransferase 20 IU/L (<35); Albumin 4.1 g/dL (3.5-5.0); Albumin Globulin Ratio 0.7 (1.0-2.8); Alkaline Phosphatase 62 U/L (38-126); Aspartate Aminotransferase 31 IU/L (14-36); Bilirubin Total 0.5 mg/dL (0.2-1.3); Blood Urea Nitrogen 14 mg/dL (7-17); Calcium 10.7 mg/dL (8.4-10.2); Carbon Dioxide 26 mmol/L (22-32); Chloride 104 mmol/L (98-107); Estimated Glomerular Filt Rate 52.8 mL/min (>60); Globulin 6.2 g/dL (1.7-4.1); Glucose 130 mg/dL (80-110); HEMOLYSIS 19 (0-50); Potassium 4.3 mmol/L (3.4-5.1); Sodium 137 mmol/L (137-145)
[2019-09-03 14:29] LABS: Total Protein 10.3 g/dL (6.3-8.2)
[2019-09-06 16:49] LABS: Abnormal Protein Band 1 3.9 g/dL (NONE DETECTED); Albumin 3.9 g/dL (3.8-4.8); Alpha 1 Globulin 0.3 g/dL (0.2-0.3); Beta 1 Globulin 0.4 g/dL (0.4-0.6); Protein, Total 9.8 g/dL (6.1-8.1)
== END ==
PROVIDERS: Family Provider Family Medicine; PCP Family Medicine
DX: C90.00 Multiple myeloma not having achieved remission (principal); Z79.01 Long term (current) use of anticoagulants
CPT/HCPCS: 80053; 84155; 84165; 85025; 85610

== ENCOUNTER → 2019-10-01 09:41 | Outpatient (ROUT) | payer MEDICARE, OTHER, SELFPAY ==
[2019-10-01 09:49] LABS: INR 3.5 (0.9-1.3); Prothrombin Time 40.2 SECONDS (10.1-12.7)
== END ==
PROVIDERS: Family Provider Family Medicine; PCP Family Medicine; Visit Provider Family Medicine
DX: Z79.01 Long term (current) use of anticoagulants (principal)
CPT/HCPCS: 85610

== ENCOUNTER → 2019-10-07 09:05 | Outpatient (ROUT) | payer MEDICARE, OTHER, SELFPAY ==
[2019-10-07 09:21] LABS: INR 3.2 (0.9-1.3); Prothrombin Time 36.7 SECONDS (10.1-12.7)
== END ==
PROVIDERS: Family Provider Family Medicine; PCP Family Medicine; Visit Provider Family Medicine
DX: Z79.01 Long term (current) use of anticoagulants (principal)
CPT/HCPCS: 85610

== ENCOUNTER → 2019-10-15 09:12 | Outpatient (ROUT) | payer MEDICARE, OTHER, SELFPAY ==
[2019-10-15 09:30] LABS: INR 2.9 (0.9-1.3); Prothrombin Time 32.7 SECONDS (10.1-12.7)
== END ==
PROVIDERS: Family Provider Family Medicine; PCP Family Medicine; Visit Provider Family Medicine
DX: Z79.01 Long term (current) use of anticoagulants (principal)
CPT/HCPCS: 85610

== ENCOUNTER → 2019-10-22 09:18 | Outpatient (ROUT) | payer MEDICARE, OTHER, SELFPAY ==
[2019-10-22 09:31] LABS: INR 2.7 (0.9-1.3); Prothrombin Time 30.4 SECONDS (10.1-12.7)
== END ==
PROVIDERS: Family Provider Family Medicine; PCP Family Medicine; Visit Provider Family Medicine
DX: Z79.01 Long term (current) use of anticoagulants (principal)
CPT/HCPCS: 85610

== ENCOUNTER → 2019-11-12 09:36 | Outpatient (ROUT) | payer MEDICARE, OTHER, SELFPAY ==
[2019-11-12 09:43] LABS: INR 1.3 (0.9-1.3); Prothrombin Time 15.2 SECONDS (10.1-12.7)
== END ==
PROVIDERS: Family Provider Family Medicine; PCP Family Medicine; Visit Provider Family Medicine
DX: Z79.01 Long term (current) use of anticoagulants (principal)
CPT/HCPCS: 85610

== ENCOUNTER → 2019-11-22 08:21 | Outpatient (ROUT) | payer MEDICARE, OTHER, SELFPAY ==
[2019-11-22 08:38] LABS: Prothrombin Time 22.5 SECONDS (10.1-12.7)
== END ==
PROVIDERS: Family Provider Family Medicine; PCP Family Medicine; Visit Provider Family Medicine
DX: Z79.01 Long term (current) use of anticoagulants (principal)
CPT/HCPCS: 85610

== ENCOUNTER → 2019-12-06 09:17 | Outpatient (ROUT) | payer MEDICARE, OTHER, SELFPAY ==
[2019-12-06 09:23] LABS: Prothrombin Time 23.1 SECONDS (10.1-12.7)
== END ==
PROVIDERS: Family Provider Family Medicine; PCP Family Medicine; Visit Provider Family Medicine
DX: Z79.01 Long term (current) use of anticoagulants (principal)
CPT/HCPCS: 85610

== ENCOUNTER → 2019-12-20 09:21 | Outpatient (ROUT) | payer MEDICARE, OTHER, SELFPAY ==
[2019-12-20 09:27] LABS: INR 3.5 (0.9-1.3); Prothrombin Time 40.1 SECONDS (10.1-12.7)
== END ==
PROVIDERS: Family Provider Family Medicine; PCP Family Medicine; Visit Provider Family Medicine
DX: Z79.01 Long term (current) use of anticoagulants (principal)
CPT/HCPCS: 85610

== ENCOUNTER → 2020-01-17 08:46 | Outpatient (ROUT) | payer MEDICARE, OTHER, SELFPAY ==
[2020-01-17 08:52] LABS: INR 3.4 (0.9-1.3); Prothrombin Time 39.1 SECONDS (10.1-12.7)
== END ==
PROVIDERS: Family Provider Family Medicine; PCP Family Medicine; Visit Provider Family Medicine
DX: Z79.01 Long term (current) use of anticoagulants (principal)
CPT/HCPCS: 85610

== ENCOUNTER → 2020-01-29 08:40 | Outpatient (CLI) | payer MEDICARE, OTHER, SELFPAY ==
[2020-01-29 09:29] LABS: Add Manual Diff / Slide Review NO; Basophils Absolute Auto 0 /uL (0-100); Eosinophils Absolute Auto 100 /uL (0-450); Eosinophils Percent Auto 1.9 % (2-4); Hematocrit 34.6 % (36-46); Hemoglobin 12.3 g/dL (12.0-16.0); Lymphocytes Absolute Auto 1600 /uL (1100-4500); Lymphocytes Percent Auto 42.7 % (25-40); Mean Corpuscular HGB Conc 35.5 % (30-36); Mean Corpuscular Hemoglobin 33.8 PG (26-34); Mean Corpuscular Volume 95.2 fL (80-100); Monocytes Absolute Auto 300 /uL (0-900); Monocytes Percent Auto 7.5 % (3-14); Neutrophils Absolute Auto 1700 /uL (1500-7000); Neutrophils Percent Auto 46.9 % (50-75); Platelet Count 326 X10^3/uL (150-400); Red Blood Cell Count 3.63 X10^6/uL (4.0-5.2); Red Cell Distribution Width 13.9 % (11.6-14.8); White Blood Cell Count 3.7 X10^3/uL (4.5-11.0)
[2020-01-29 09:41] LABS: Alanine Aminotransferase 16 IU/L (<35); Albumin 3.8 g/dL (3.5-5.0); Albumin Globulin Ratio 0.7 (1.0-2.8); Alkaline Phosphatase 62 U/L (38-126); Aspartate Aminotransferase 29 IU/L (14-36); BUN Creatinine Ratio 13.6 (6-22); Bilirubin Total 0.5 mg/dL (0.2-1.3); Blood Urea Nitrogen 14 mg/dL (7-17); Calcium 10.1 mg/dL (8.4-10.2); Carbon Dioxide 29 mmol/L (22-32); Chloride 99 mmol/L (98-107); Estimated Glomerular Filt Rate 51.1 mL/min (>60); Globulin 5.8 g/dL (1.7-4.1); Glucose 114 mg/dL (80-110); HEMOLYSIS 17 (0-50); Lactate Dehydrogenase 414 U/L (313-618); Potassium 4.5 mmol/L (3.4-5.1); Sodium 132 mmol/L (137-145); Total Protein 9.6 g/dL (6.3-8.2)
[2020-01-30 05:12] LABS: Immunoglobulin A 6 mg/dL (64-422); Immunoglobulin G, Quantitative 5205 mg/dL (586-1602); Immunoglobulin M, Quantitative 15 mg/dL (26-217)
[2020-01-31 04:08] LABS: Beta-2-Microglobulin 1.9 mg/L (0.6-2.4)
[2020-01-31 18:09] LABS: Albumin 3.5 g/dL (2.9-4.4); Alpha 1 Globulin 0.2 g/dL (0.0-0.4); Alpha 2 Globulin 0.9 g/dL (0.4-1.0); Beta 1 Globulin 0.8 g/dL (0.7-1.3); Gamma Globulin 3.6 g/dL (0.4-1.8); Immunoglobulin A 6 mg/dL (64-422); Immunoglobulin G 5448 mg/dL (586-1602); Immunoglobulin M 16 mg/dL (26-217)
[2020-02-09 14:19] LABS: Free Kappa Lt Chains, Serum 28.3
[2020-02-09 14:20] LABS: Free Lambda Lt Chains,Serum 3.3
== END ==
PROVIDERS: Family Provider Family Medicine; PCP Family Medicine; Referring Provider Internal Medicine Hematology & Oncology; Visit Provider Internal Medicine Hematology & Oncology
DX: C90.00 Multiple myeloma not having achieved remission (principal)
CPT/HCPCS: 36415; 80053; 82232; 82784; 83615; 83883; 84155; 84165; 85025

== ENCOUNTER → 2020-02-04 09:14 | Outpatient (ROUT) | payer MEDICARE, OTHER, SELFPAY ==
[2020-02-04 09:26] LABS: INR 2.9 (0.9-1.3); Prothrombin Time 32.7 SECONDS (10.1-12.7)
== END ==
PROVIDERS: Family Provider Family Medicine; PCP Family Medicine; Visit Provider Family Medicine
DX: Z79.01 Long term (current) use of anticoagulants (principal)
CPT/HCPCS: 85610

== ENCOUNTER → 2020-02-18 08:59 | Outpatient (ROUT) | payer MEDICARE, OTHER, SELFPAY ==
[2020-02-18 09:16] LABS: INR 1.9 (0.9-1.3); Prothrombin Time 21.7 SECONDS (10.1-12.7)
== END ==
PROVIDERS: Family Provider Family Medicine; PCP Family Medicine; Visit Provider Family Medicine
DX: Z79.01 Long term (current) use of anticoagulants (principal)
CPT/HCPCS: 85610

== ENCOUNTER → 2020-03-17 08:40 | Outpatient (ROUT) | payer MEDICARE, OTHER, SELFPAY ==
[2020-03-17 08:52] LABS: Prothrombin Time 53.1 SECONDS (10.1-12.7)
[2020-03-17 08:59] LABS: INR 4.7 (0.9-1.3)
== END ==
PROVIDERS: Family Provider Family Medicine; PCP Family Medicine; Visit Provider Family Medicine
DX: Z79.01 Long term (current) use of anticoagulants (principal)
CPT/HCPCS: 85610

== ENCOUNTER → 2020-03-19 08:39 | Outpatient (ROUT) | payer MEDICARE, OTHER, SELFPAY ==
[2020-03-19 08:47] LABS: INR 2.2 (0.9-1.3); Prothrombin Time 25.2 SECONDS (10.1-12.7)
== END ==
PROVIDERS: Family Provider Family Medicine; PCP Family Medicine; Visit Provider Family Medicine
DX: Z79.01 Long term (current) use of anticoagulants (principal)
CPT/HCPCS: 85610

== ENCOUNTER → 2020-03-24 09:49 | Outpatient (ROUT) | payer MEDICARE, OTHER, SELFPAY ==
[2020-03-24 10:02] LABS: INR 1.7 (0.9-1.3); Prothrombin Time 19.3 SECONDS (10.1-12.7)
== END ==
PROVIDERS: Family Provider Family Medicine; PCP Family Medicine; Visit Provider Family Medicine
DX: Z79.01 Long term (current) use of anticoagulants (principal)
CPT/HCPCS: 85610

== ENCOUNTER → 2020-03-31 09:03 | Outpatient (ROUT) | payer MEDICARE, OTHER, SELFPAY ==
[2020-03-31 09:18] LABS: INR 1.4 (0.9-1.3); Prothrombin Time 16.4 SECONDS (10.1-12.7)
== END ==
PROVIDERS: Family Provider Family Medicine; PCP Family Medicine; Visit Provider Family Medicine
DX: Z79.01 Long term (current) use of anticoagulants (principal)
CPT/HCPCS: 85610

== ENCOUNTER → 2020-04-07 08:49 | Outpatient (ROUT) | payer MEDICARE, OTHER, SELFPAY ==
[2020-04-07 08:57] LABS: INR 2.7 (0.9-1.3); Prothrombin Time 30.6 SECONDS (10.1-12.7)
== END ==
PROVIDERS: Family Provider Family Medicine; PCP Family Medicine; Visit Provider Family Medicine
DX: Z79.01 Long term (current) use of anticoagulants (principal)
CPT/HCPCS: 85610

== ENCOUNTER → 2020-04-15 08:02 | Outpatient (ROUT) | payer MEDICARE, OTHER, SELFPAY ==
[2020-04-15 08:19] LABS: INR 3.9 (0.9-1.3); Prothrombin Time 44.6 SECONDS (10.1-12.7)
== END ==
PROVIDERS: Family Provider Family Medicine; PCP Family Medicine; Visit Provider Family Medicine
DX: Z79.01 Long term (current) use of anticoagulants (principal)
CPT/HCPCS: 85610

== ENCOUNTER → 2020-04-16 08:00 | Outpatient (ROUT) | payer MEDICARE, OTHER, SELFPAY ==
[2020-04-16 08:15] LABS: INR 2.8 (0.9-1.3); Prothrombin Time 31.5 SECONDS (10.1-12.7)
== END ==
PROVIDERS: Family Provider Family Medicine; PCP Family Medicine; Visit Provider Family Medicine
DX: Z79.01 Long term (current) use of anticoagulants (principal)
CPT/HCPCS: 85610

== ENCOUNTER → 2020-04-21 08:47 | Outpatient (ROUT) | payer MEDICARE, OTHER, SELFPAY ==
[2020-04-21 08:55] LABS: INR 2.2 (0.9-1.3); Prothrombin Time 25.3 SECONDS (10.1-12.7)
== END ==
PROVIDERS: Family Provider Family Medicine; PCP Family Medicine; Visit Provider Family Medicine
DX: Z79.01 Long term (current) use of anticoagulants (principal)
CPT/HCPCS: 85610

== ENCOUNTER → 2020-05-05 08:19 | Outpatient (ROUT) | payer MEDICARE, OTHER, SELFPAY ==
[2020-05-05 08:30] LABS: Prothrombin Time 22.9 SECONDS (10.1-12.7)
== END ==
PROVIDERS: Family Provider Family Medicine; PCP Family Medicine; Visit Provider Family Medicine
DX: Z79.01 Long term (current) use of anticoagulants (principal); I48.0 Paroxysmal atrial fibrillation
CPT/HCPCS: 85610

== ENCOUNTER → 2020-05-25 07:55 | Outpatient (ROUT) | payer MEDICARE, OTHER, SELFPAY ==
[2020-05-25 08:04] LABS: Prothrombin Time 22.5 SECONDS (10.1-12.7)
== END ==
PROVIDERS: Family Provider Family Medicine; PCP Family Medicine; Visit Provider Family Medicine
DX: Z79.01 Long term (current) use of anticoagulants (principal)
CPT/HCPCS: 85610

== ENCOUNTER 2020-06-16 06:23 | Emergency (ER) | payer MEDICARE, OTHER, SELFPAY ==
[2020-06-16] VITALS (11 sets, daily range): BP systolic 134–174; BP diastolic 66–118; PULSE 93–111; RESP 14–23; TEMP 36.9; O2SAT 95–98; BMI 27.4
--- NOTE | 2020-06-16 07:03 | ED_ITS ---
HPI - General Adult General Chief complaint: Hypertension Stated complaint: High BP Time Seen by Provider: 06/16/20 06:34 Source: patient and EMS Mode of arrival: EMS Limitations: no limitations History of Present Illness HPI narrative: This is a pleasant 85-year-old female who comes in for hypertension. Patient states that when she ?just did not feel right? and she checked her blood pressure and noted it was 177/108 with a pulse of 117 which is elevated for her. She had similar symptoms on Monday. She states she feels a little bit off balance when she tries to walk. She also had this on Monday as well. Patient states that it lasted most of the day Monday and had resolved by the afternoon. She had similar symptoms today and became concerned because it was still present. Patient states not dizzy feeling but more of an off-balance feeling. She does not have a headache, no vision changes, no numbness, tingling or weakness, no chest pain or shortness of breath. No abdominal pain. She does feel that she is in AFib which she is. She had somewhat slight nausea earlier this morning but no vomiting. She had some loose stools this morning but no black or bloody stools. And she denies any constipation. Patient states that she often has a sensation of being off balance and states sometimes can be as frequently as twice a week. She has a history of atrial fibrillation and is on warfarin, hypertension and has not had her morning antihypertensive medications including amlodipine, losartan or amiodarone. She normally takes these about 8:00 a.m.. She denies any dyslipidemia, no diabetes or chronic kidney disease. She denies any prior heart catheterization for ablation. She has follows with Dr. Early these office for her cardiology care. They did decrease her losartan from 100 mg to 50 mg on her last visit about a month ago. Related Data Home Medications Medication Instructions Recorded Confirmed cholecalciferol (vitamin D3) 1,000 unit PO DAILY #0 10/01/12 09/17/19 [Vitamin D3] cyanocobalamin (vitamin B-12) 1,000 mcg PO DAILY #0 10/01/12 09/17/19 [Vitamin B-12] warfarin [Coumadin] See Rx Instructions .ROUTE 12/14/16 09/17/19 .COMPLEX #0 Lipo-Flavonoid Plus 1 tab PO DAILY #0 04/12/17 09/17/19 omega 2-kwk-xpz-fish oil [Fish Oil] 1,000 mg PO DAILY #0 04/12/17 09/17/19 Ocuvite Vitamin 1 tab PO DAILY 05/16/19 09/17/19 amlodipine 2.5 mg PO DAILY 05/16/19 09/17/19 losartan 100 mg PO DAILY 05/16/19 09/17/19 sotalol 80 mg PO BID 05/16/19 09/17/19 Allergies Allergy/AdvReac Type Severity Reaction Status Date / Time amoxicillin Allergy Mild BREAK OUT Verified 03/07/18 11:07 ampicillin Allergy Mild BREAK OUT Verified 03/07/18 11:07 cephalexin Allergy Mild BREAK OUT Verified 03/07/18 11:07 piroxicam AdvReac Unknown ITCHING Verified 03/07/18 11:07 Review of Systems Review of Systems ROS Unobtainable: All systems reviewed & are unremarkable except as noted in HPI and below Patient History Medical History (Updated 06/16/20 @ 07:38 by Solange Gtz DO) Acute postoperative pain of knee Atrial fibrillation Atrial fibrillation with RVR CVA (cerebral vascular accident) Dehydration Diarrhea Multiple myeloma not having achieved remission Vertigo Surgical History (Updated 06/16/20 @ 07:32 by Solange Gtz DO) History of bilateral knee replacement Social History Smoking Status: Never smoker Smoking Status: Never smoker alcohol intake frequency: holidays/special occasions only Substance Use Type: does not use Exam Narrative Exam Narrative: GEN: well nourished, well appearing elderly female, alert and oriented x 3, patient appears to be in mild distress. HEENT: Atraumatic, pupils are equal round reactive to light, extraocular movements are intact, no nystagmus, nares are clear, TMs are clear with no fluid, there is no conjunctival pallor. Throat is clear without any exudates, erythema, tonsillar enlargement or uvular deviation HEART: Regular rate and rhythm without murmur, clicks, rubs. Pulses are equal in upper and lower extremities LUNGS:Lungs clear to auscultation, no wheezes, rales, crackles, chest moves symmetrically ABD:bowel sounds normal, soft, non-tender, no guarding, rebound, rigidity, no masses noted, no hepatosplenomegaly :No CVA tenderness MSCL: Non-tender, no muscle atrophy, muscles strength 5/5 upper and lower extremities, full range of motion NEURO:CN 2-12 intact, sensation normal, reflexes 2/4 upper and lower extremities. finger nose finger test normal, heel singh test normal Initial Vital Signs Initial Vital Signs: Vital Signs Temperature 98.5 F 06/16/20 06:25 Pulse Rate 111 H 06/16/20 06:25 Respiratory Rate 18 06/16/20 06:25 Blood Pressure 174/99 H 06/16/20 06:25 Pulse Oximetry 97 06/16/20 06:25 Scores NIH Stroke Scale Level of Conciousness: Alert, keenly responsive Ask month/age: Answers both questions correctly. Open/close eyes, close hand: Performs both tasks correctly Best gaze horizontal: Normal Visual lafleur: No visual loss Facial palsy: Normal symetrical movement Left arm drift: No drift for full 10 sec Right arm drift: No drift for full 10 sec Left leg drift: No drift for full 5 sec Right leg drift: No drift for full 5 sec Limb ataxia: Absent Sensory on face/arms/legs: Normal, no sensory loss Best language: No aphasia, normal Dysarthria: Normal Extinction or inattention: No abnormality Total NIH Stroke scale score: 0 Course Orders Ordered: Discontinued Medications Amiodarone HCl (Amiodarone 200 Mg Tablet) 200 mg PO NOW ONE Stop: 06/16/20 07:30 Last Admin: 06/16/20 08:27 Dose: 200 mg Documented by: BERNARD Amlodipine Besylate (Amlodipine 5 Mg Tablet) 2.5 mg PO NOW ONE Stop: 06/16/20 07:30 Last Admin: 06/16/20 08:28 Dose: 2.5 mg Documented by: BERNARD Sodium Chloride (Normal Saline 0.9%) 1,000 mls @ 1,000 mls/hr IV BOLUS ONE Stop: 06/16/20 08:38 Last Admin: 06/16/20 08:27 Dose: 1,000 mls/hr Documented by: BERNARD Losartan Potassium (Losartan 50 Mg Tablet) 50 mg PO NOW ONE Stop: 06/16/20 07:30 Last Admin: 06/16/20 08:25 Dose: 50 mg Documented by: BERNARD Reevaluation(s) Reevaluation #1: Patient is feeling improved we reviewed her lab work, she still in AFib but her heart rate has been improving. Plan for ambulation trial. We did discuss her INR is low at 1.6 she is normally between 2-3. Time: 09:05 Consultations Consultation #1: Spoke with Dr. Cartagena, recommends an additional dose of her Coumadin. Plan to have her follow up this week in the office. Patient is feeling significantly better she still in AFib but her heart rate has been improving. Time: 10:45 Vital Signs Vital signs: Vital Signs - 8 hr 06/16/20 06:25 06/16/20 07:00 06/16/20 07:30 Temperature 98.5 F Pulse Rate 111 H 106 H 100 H Respiratory Rate 18 16 14 Blood Pressure 174/99 H 144/74 H 137/75 Pulse Oximetry 97 97 96 06/16/20 07:56 06/16/20 08:00 06/16/20 08:25 Temperature Pulse Rate 107 H 99 H 102 H Respiratory Rate 16 14 Blood Pressure 153/118 H 134/97 H 134/97 H Pulse Oximetry 98 97 06/16/20 08:30 06/16/20 09:00 Temperature Pulse Rate 93 H 100 H Respiratory Rate 16 14 Blood Pressure 137/75 139/75 Pulse Oximetry 95 96 Medical Decision Making Lab Data Lab results reviewed: Yes I reviewed the patient's lab results. Result diagrams: 06/16/20 07:05 06/16/20 07:05 Labs: Lab Results 06/16/20 06/16/20 06/16/20 Range/Units 07:05 07:05 07:05 WBC 4.0 L (4.5-11.0) X10^3/uL RBC 3.86 L (4.0-5.2) X10^6/uL Hgb 12.3 (12.0-16.0) g/dL Hct 36.7 (36-46) % MCV 95.0 (80-100) fL MCH 31.9 (26-34) PG MCHC 33.6 (30-36) % RDW 14.4 (11.6-14.8) % Plt Count 358 (150-400) X10^3/uL Neut % (Auto) 65.3 (50-75) % Lymph % (Auto) 24.2 L (25-40) % [place] % (Auto) 8.4 (3-14) % Eos % (Auto) 1.2 L (2-4) % Baso % (Auto) 0.9 (0-2) % Neut # (Auto) 2600 (9074-6590) /uL Lymph # (Auto) 1000 L (7705-2940) /uL [place] # (Auto) 300 (0-900) /uL Eos # (Auto) 0 (0-450) /uL Baso # (Auto) 0 (0-100) /uL PT 18.5 H (10.1-12.7) SECONDS INR 1.6 H (0.9-1.3) APTT 40 H (26.4-36.2) SECONDS Sodium 136 L (137-145) mmol/L Potassium 4.1 (3.4-5.1) mmol/L Chloride 104 (98-107) mmol/L Carbon Dioxide 30 (22-32) mmol/L BUN 12 (7-17) mg/dL Creatinine 1.33 H (0.52-1.04) mg/dL Estimated GFR 37.9 L (>60) mL/min BUN/Creatinine Ratio 9.0 (6-22) Glucose 122 H (80-110) mg/dL Calcium 9.9 (8.4-10.2) mg/dL Total Bilirubin 0.5 (0.2-1.3) mg/dL AST 39 H (14-36) IU/L ALT 36 H (<35) IU/L Alkaline Phosphatase 76 (38-126) U/L Total Creatine Kinase (30-135) U/L CK-MB (CK-2) (<2.37) ng/mL CK-MB (CK-2) Rel Index (1.5-5.0) % Troponin I (0.01-0.034) ng/mL Total Protein 10.2 H* (6.3-8.2) g/dL Albumin 4.1 (3.5-5.0) g/dL Globulin 6.1 H (1.7-4.1) g/dL Albumin/Globulin Ratio 0.7 L (1.0-2.8) Lipase 168 (23-300) U/L Urine RBC (0-5/HPF) Urine WBC (0-5/HPF) Urine Bacteria (None) Ur Culture Indicated? Micro UA Comment 06/16/20 06/16/20 Range/Units 07:05 07:49 WBC (4.5-11.0) X10^3/uL RBC (4.0-5.2) X10^6/uL Hgb (12.0-16.0) g/dL Hct (36-46) % MCV (80-100) fL MCH (26-34) PG MCHC (30-36) % RDW (11.6-14.8) % Plt Count (150-400) X10^3/uL Neut % (Auto) (50-75) % Lymph % (Auto) (25-40) % [place] % (Auto) (3-14) % Eos % (Auto) (2-4) % Baso % (Auto) (0-2) % Neut # (Auto) (4878-1604) /uL Lymph # (Auto) (8531-9066) /uL [place] # (Auto) (0-900) /uL Eos # (Auto) (0-450) /uL Baso # (Auto) (0-100) /uL PT (10.1-12.7) SECONDS INR (0.9-1.3) APTT (26.4-36.2) SECONDS Sodium (137-145) mmol/L Potassium (3.4-5.1) mmol/L Chloride (98-107) mmol/L Carbon Dioxide (22-32) mmol/L BUN (7-17) mg/dL Creatinine (0.52-1.04) mg/dL Estimated GFR (>60) mL/min BUN/Creatinine Ratio (6-22) Glucose (80-110) mg/dL Calcium (8.4-10.2) mg/dL Total Bilirubin (0.2-1.3) mg/dL AST (14-36) IU/L ALT (<35) IU/L Alkaline Phosphatase (38-126) U/L Total Creatine Kinase 264 H (30-135) U/L CK-MB (CK-2) 2.30 (<2.37) ng/mL CK-MB (CK-2) Rel Index 0.9 L (1.5-5.0) % Troponin I < 0.012 (0.01-0.034) ng/mL Total Protein (6.3-8.2) g/dL Albumin (3.5-5.0) g/dL Globulin (1.7-4.1) g/dL Albumin/Globulin Ratio (1.0-2.8) Lipase (23-300) U/L Urine RBC None seen (0-5/HPF) Urine WBC None seen (0-5/HPF) Urine Bacteria None seen (None) Ur Culture Indicated? Cult not indicated Micro UA Comment Microscopic normal Urine Dip Bedside Urine Glucose Negative Bedside Urine Bilirubin - Negative Bedside Urine Ketone - Negative Urine Specific [place] 1.015 Bedside Urine Occult Blood +/- Bedside Urine pH 7.5 Bedside Urine Protein +/- 15 Bedside Urine Urobilinogen - Negative Bedside Urine Nitrite - Negative Bedside Urine Leukocytes - Negative Esterase Point of care testing: Urine Dip Bedside Urine Glucose Negative Bedside Urine Bilirubin - Negative Bedside Urine Ketone - Negative Urine Specific [place] 1.015 Bedside Urine Occult Blood +/- Bedside Urine pH 7.5 Bedside Urine Protein +/- 15 Bedside Urine Urobilinogen - Negative Bedside Urine Nitrite - Negative Bedside Urine Leukocytes - Negative Esterase Imaging Data CT scan - head: Radiologist's Impression: [address] [id number] Scan ReportSigned Patient: Monica Rodgers CMR#: [id number]: 5Acct:[id number]/Sex: 85 / FDate of Service: 06/16/20Loc: EDAccession Number: [id number] Procedure: CT head/brain wo con Ordering Provider: Solange Gtz D.O. PROCEDURE: CT HEAD/BRAIN WO CON INDICATIONS: off balance feeling, worse than normal, afib TECHNIQUE: Noncontrast 4.5 mm thick angled axial sections acquired from the foramen magnum to the vertex, with coronal and sagittal reformats. For radiation dose reduction, the following was used: automated exposure control, adjustment of mA and/or kV according to patient size. COMPARISON: [facility], CT, CT HEAD/BRAIN WO CON, 05/16/2019, 14:20. [facility], CT, HEAD WITHOUT CONTRAST, 10/19/2017, 9:36. FINDINGS: Image quality: Excellent. CSF spaces: Basal cisterns are patent. No extra-axial fluid collections. The ventricles are symmetric in size and shape. Brain: No intracranial bleeds or masses. There is cerebral volume loss for age, with resultant ventricular and sulcal prominence. There are periventricular and deep white matter chronic small vessel ischemic changes. There is intracranial internal carotid artery atherosclerosis. Skull and face: Calvarium and visualized facial bones appear intact, without suspicious lesions. Sinuses: Visualized sinuses and mastoids are clear. IMPRESSION: Normal for age. Dictated by: Obi Baron M.D. on 06/16/2020 at 8:08 Approved by: Obi Baron M.D. on 06/16/2020 at 8:08 Chest x-ray: Radiologist's Impression: [place] [id number] [place] [id number] ReportSigned Patient: Monica Rodgers CMR#: [id number]: 5Acct:[id number]/Sex: 85 / FDate of Service: 06/16/20Loc: EDAccession Number: [id number] Procedure: XR chest 1V Ordering Provider: Solange Gtz D.O. PROCEDURE: XR CHEST 1V INDICATIONS: hypertension TECHNIQUE: One view of the chest was acquired. COMPARISON: [facility], CHEST 1 VIEW, 10/19/2017, 9:23. [facility], CHEST 1 VIEW, 11/13/2016, 10:17. FINDINGS: Surgical changes and devices: None. Lungs and pleura: Lungs are clear. No pleural effusions or pneumothorax. Mediastinum: Mediastinal contours appear normal. Heart size is normal. Bones and chest wall: No suspicious bony lesions. Overlying soft tissues appear unremarkable. IMPRESSION: No cardiomegaly or CHF. Dictated by: Obi Baron M.D. on 06/16/2020 at 7:45 Approved by: Obi Baron M.D. on 06/16/2020 at 7:45 ECG Data Attestation: I personally reviewed and interpreted this ECG as follows: Prior ECG tracings: available for review Interpretation: AFib rate of 99, QRS of 90 and QTC of 495. Patient has ST depression in V5, J-point elevation 3 2 and 3, and nonspecific change. Patient has prior EKG from 05/16/2019 which appears similar. Discharge Plan Departure Patient Disposition: Home Clinical Impression: Hypertension, Atrial fibrillation Activity Restrictions/Additional Instructions: Follow-up with Dr. Cartagena in the next week, call for an appointment. Continue home meds as prescribed. I do recommend taking an extra dose of your warfarin today as your INR is only 1.5. Return to the ER for fevers, headaches, new shortness of breath or chest pain, lightheadedness or passing out, persistent vomiting or other new or concerning symptoms. Prescriptions: No Action cyanocobalamin (vitamin B-12) [Vitamin B-12] 1,000 mcg Tablet 1,000 mcg PO DAILY Qty: 0 RF: 0 cholecalciferol (vitamin D3) [Vitamin D3] 1,000 unit Capsule 1,000 unit PO DAILY Qty: 0 RF: 0 warfarin [Coumadin] 5 MG tablet See Rx Instructions .ROUTE .COMPLEX Qty: 0 RF: 0 omega 2-wfm-rsp-fish oil [Fish Oil] 1,000 MG capsule 1,000 mg PO DAILY Qty: 0 RF: 0 Lipo-Flavonoid Plus 1 tab PO DAILY Qty: 0 RF: 0 amlodipine 2.5 mg tablet 2.5 mg PO DAILY RF: 0 sotalol 80 mg tablet 80 mg PO BID RF: 0 losartan 100 mg tablet 100 mg PO DAILY RF: 0 Ocuvite Vitamin 1 tab PO DAILY RF: 0 Referrals: Tianna Cartagena MD [Primary Care Provider] -
[2020-06-16 07:18] LABS: Add Manual Diff / Slide Review NO; Basophils Absolute Auto 0 /uL (0-100); Basophils Percent Auto 0.9 % (0-2); Eosinophils Absolute Auto 0 /uL (0-450); Eosinophils Percent Auto 1.2 % (2-4); Hematocrit 36.7 % (36-46); Hemoglobin 12.3 g/dL (12.0-16.0); INR 1.6 (0.9-1.3); Lymphocytes Absolute Auto 1000 /uL (1100-4500); Lymphocytes Percent Auto 24.2 % (25-40); Mean Corpuscular HGB Conc 33.6 % (30-36); Mean Corpuscular Hemoglobin 31.9 PG (26-34); Monocytes Absolute Auto 300 /uL (0-900); Monocytes Percent Auto 8.4 % (3-14); Neutrophils Absolute Auto 2600 /uL (1500-7000); Neutrophils Percent Auto 65.3 % (50-75); Platelet Count 358 X10^3/uL (150-400); Prothrombin Time 18.5 SECONDS (10.1-12.7); Red Blood Cell Count 3.86 X10^6/uL (4.0-5.2); Red Cell Distribution Width 14.4 % (11.6-14.8)
[2020-06-16 07:21] LABS: PTT Partial Thromboplastin Tim 40 SECONDS (26.4-36.2)
[2020-06-16 07:22] LABS: Alanine Aminotransferase 36 IU/L (<35); Albumin 4.1 g/dL (3.5-5.0); Alkaline Phosphatase 76 U/L (38-126); Aspartate Aminotransferase 39 IU/L (14-36); Bilirubin Total 0.5 mg/dL (0.2-1.3); Blood Urea Nitrogen 12 mg/dL (7-17); Calcium 9.9 mg/dL (8.4-10.2); Carbon Dioxide 30 mmol/L (22-32); Chloride 104 mmol/L (98-107); Creatine Kinase 264 U/L (30-135); Estimated Glomerular Filt Rate 37.9 mL/min (>60); Glucose 122 mg/dL (80-110); HEMOLYSIS < 15 (0-50); Lipase 168 U/L (23-300); Potassium 4.1 mmol/L (3.4-5.1); Sodium 136 mmol/L (137-145)
[2020-06-16 07:29] LABS: Albumin Globulin Ratio 0.7 (1.0-2.8); Globulin 6.1 g/dL (1.7-4.1)
[2020-06-16 07:30] LABS: Total Protein 10.2 g/dL (6.3-8.2)
--- NOTE | 2020-06-16 07:30 | DI.CT.S_ITS ---
PROCEDURE: CT HEAD/BRAIN WO CON INDICATIONS: off balance feeling, worse than normal, afib TECHNIQUE: Noncontrast 4.5 mm thick angled axial sections acquired from the foramen magnum to the vertex, with coronal and sagittal reformats. For radiation dose reduction, the following was used: automated exposure control, adjustment of mA and/or kV according to patient size. COMPARISON: [facility], CT, CT HEAD/BRAIN WO CON, 05/16/2019, 14:20. [facility], CT, HEAD WITHOUT CONTRAST, 10/19/2017, 9:36. FINDINGS: Image quality: Excellent. CSF spaces: Basal cisterns are patent. No extra-axial fluid collections. The ventricles are symmetric in size and shape. Brain: No intracranial bleeds or masses. There is cerebral volume loss for age, with resultant ventricular and sulcal prominence. There are periventricular and deep white matter chronic small vessel ischemic changes. There is intracranial internal carotid artery atherosclerosis. Skull and face: Calvarium and visualized facial bones appear intact, without suspicious lesions. Sinuses: Visualized sinuses and mastoids are clear. IMPRESSION: Normal for age. Dictated by: Obi Baron M.D. on 06/16/2020 at 8:08 Approved by: Obi Baron M.D. on 06/16/2020 at 8:08
[2020-06-16 07:33] LABS: Troponin I < 0.012 ng/mL (0.01-0.034)
[2020-06-16 07:37] LABS: CKMB % Relative Index 0.9 % (1.5-5.0)
[2020-06-16 08:23] LABS: Bacteria Urine None Seen; RBC Urine None Seen (0-5/HPF); WBC Urine None Seen (0-5/HPF)
[2020-06-16] MEDS: LOSARTAN 50 MG TABLET PO (08:25)
[2020-06-16] MEDS: SODIUM CHLORIDE 0.9% 1,000 ML 1000 ML IV (08:27)
[2020-06-16] MEDS: AMIODARONE 200 MG TABLET PO (08:27)
[2020-06-16] MEDS: AMLODIPINE 5 MG TABLET 2.5 MG PO (08:28)
[2020-06-16 08:29] LABS: Culture Indicated Urine Cult Not Indicated; Urine Comments Microscopic Normal
--- NOTE | 2020-06-24 17:25 | PC.NURSE ---
late entry, iv ns 200mg infused on 06/16/20 at 1000.
== END 2020-06-16 10:58 | disposition home or self-care (01) ==
PROVIDERS: Emergency Medicine; Emergency Provider Emergency Medicine; Family Provider Family Medicine; PCP Family Medicine
DX: I10 Essential (primary) hypertension (principal); I48.91 Unspecified atrial fibrillation; R26.81 Unsteadiness on feet; Z79.01 Long term (current) use of anticoagulants
CPT/HCPCS: 36415; 70450; 71045; 80053; 81003; 81015; 82550; 82553; 83690; 84484; 85025; 85610; 85730; 93005; 96360; 96361; 99284

== ENCOUNTER → 2020-06-19 08:33 | Outpatient (CLI) | payer MEDICARE, OTHER, SELFPAY ==
[2020-06-18 15:28] LABS: COVID19 -Nasal RAPID Negative (Negative)
--- NOTE | 2020-06-28 10:34 | P.PFT.S_ITS ---
Pulmonary Function Test Referral & Results Date Patient Seen: 06/19/20 Requesting provider: Harry Diaz Results: The spirometry demonstrates an FVC of 2.05 L which is 85% of predicted. The FEV1 was measured at 1.56 L which is 88% of predicted. The FEV1/FVC ratio was 76 which is 104% of predicted. Following the administration of bronchodilator there was a 21% improvement in FEV1 and a 92% improvement in FEF 25-75%. Lung volumes show an SVC of 2.23 L which is 86% of predicted. The diffusing capacity was measured at 17.75 which is 73% of predicted. No hemoglobin value was provided, so no correction for potential anemia could be made, if appropriate. The maximum voluntary ventilation was reduced Interpretation: This study demonstrates perhaps mild obstructive lung disease based on reduction FEV1 although the FEV1/FVC ratio is preserved. However there was a 21% improvement in FEV1 and a 90+% improvement in FEF 25-75% after bronchodilator suggesting an element of reversible lung disease. Shape of flow volume loop however does not support any significant obstructive lung disease being present. Lung volumes were minimally reduced suggesting at worst perhaps very mild rest rictive lung disease There is also minimal reduction diffusing capacity raising the possibility of potential disease at the capillary alveolar level Clinical correlation suggested
== END ==
PROVIDERS: Family Provider Family Medicine; PCP Family Medicine; Referring Provider Physician Assistant; Visit Provider Physician Assistant
DX: Z11.59 Encounter for screening for other viral diseases (principal); Z79.899 Other long term (current) drug therapy
CPT/HCPCS: 87635; 94060; 94726; 94729

== ENCOUNTER → 2020-06-23 10:55 | Outpatient (ROUT) | payer MEDICARE, OTHER, SELFPAY ==
[2020-06-23 11:04] LABS: INR 2.5 (0.9-1.3); Prothrombin Time 28.2 SECONDS (10.1-12.7)
== END ==
PROVIDERS: Family Provider Family Medicine; PCP Family Medicine; Visit Provider Family Medicine
DX: I48.0 Paroxysmal atrial fibrillation (principal); Z79.01 Long term (current) use of anticoagulants
CPT/HCPCS: 85610

== ENCOUNTER → 2020-07-21 08:51 | Outpatient (ROUT) | payer MEDICARE, OTHER, SELFPAY ==
[2020-07-21 08:56] LABS: INR 1.7 (0.9-1.3); Prothrombin Time 19.3 SECONDS (10.1-12.7)
== END ==
PROVIDERS: Family Provider Family Medicine; PCP Family Medicine; Visit Provider Family Medicine
DX: Z79.01 Long term (current) use of anticoagulants (principal)
CPT/HCPCS: 85610

== ENCOUNTER → 2020-08-04 08:11 | Outpatient (ROUT) | payer MEDICARE, OTHER, SELFPAY ==
[2020-08-04 08:18] LABS: INR 1.5 (0.9-1.3); Prothrombin Time 17.8 SECONDS (10.1-12.7)
== END ==
PROVIDERS: Family Provider Family Medicine; PCP Family Medicine; Visit Provider Family Medicine
DX: Z79.01 Long term (current) use of anticoagulants (principal)
CPT/HCPCS: 85610

== ENCOUNTER → 2020-08-11 07:58 | Outpatient (ROUT) | payer MEDICARE, OTHER, SELFPAY ==
[2020-08-11 08:09] LABS: INR 1.8 (0.9-1.3)
== END ==
PROVIDERS: Family Provider Family Medicine; PCP Family Medicine; Visit Provider Family Medicine
DX: Z79.01 Long term (current) use of anticoagulants (principal)
CPT/HCPCS: 85610

== ENCOUNTER → 2020-08-18 07:47 | Outpatient (ROUT) | payer MEDICARE, OTHER, SELFPAY ==
[2020-08-18 07:54] LABS: INR 1.8 (0.9-1.3); Prothrombin Time 20.7 SECONDS (10.1-12.7)
== END ==
PROVIDERS: Family Provider Family Medicine; PCP Family Medicine; Visit Provider Family Medicine
DX: Z79.01 Long term (current) use of anticoagulants (principal)
CPT/HCPCS: 85610

== ENCOUNTER → 2020-08-25 08:17 | Outpatient (ROUT) | payer MEDICARE, OTHER, SELFPAY ==
[2020-08-25 08:24] LABS: INR 2.5 (0.9-1.3); Prothrombin Time 28.6 SECONDS (10.1-12.7)
== END ==
PROVIDERS: Family Provider Family Medicine; PCP Family Medicine; Visit Provider Family Medicine
DX: Z79.01 Long term (current) use of anticoagulants (principal)
CPT/HCPCS: 85610

== ENCOUNTER → 2020-09-08 08:29 | Outpatient (ROUT) | payer MEDICARE, OTHER, SELFPAY ==
[2020-09-08 08:55] LABS: INR 2.1 (0.9-1.3); Prothrombin Time 23.9 SECONDS (10.1-12.7)
== END ==
PROVIDERS: Family Provider Family Medicine; PCP Family Medicine; Visit Provider Family Medicine
DX: I48.0 Paroxysmal atrial fibrillation (principal); Z79.01 Long term (current) use of anticoagulants
CPT/HCPCS: 85610

== ENCOUNTER → 2020-09-29 10:46 | Outpatient (ROUT) | payer MEDICARE, OTHER, SELFPAY ==
[2020-09-29 11:10] LABS: INR 1.8 (0.9-1.3); Prothrombin Time 20.3 SECONDS (10.1-12.7)
== END ==
PROVIDERS: Family Provider Family Medicine; PCP Family Medicine; Visit Provider Family Medicine
DX: Z79.01 Long term (current) use of anticoagulants (principal)
CPT/HCPCS: 85610

== ENCOUNTER → 2020-10-06 07:44 | Outpatient (ROUT) | payer MEDICARE, OTHER, SELFPAY ==
[2020-10-06 07:52] LABS: INR 1.7 (0.9-1.3); Prothrombin Time 18.9 SECONDS (10.1-12.7)
== END ==
PROVIDERS: Family Provider Family Medicine; PCP Family Medicine; Visit Provider Family Medicine
DX: Z79.01 Long term (current) use of anticoagulants (principal)
CPT/HCPCS: 85610

== ENCOUNTER 2020-10-08 06:29 | Observation (INO) | payer MEDICARE, OTHER, SELFPAY ==
[2020-10-08] VITALS (17 sets, daily range): BP systolic 124–187; BP diastolic 67–87; PULSE 63–87; RESP 14–21; TEMP 36.4–36.8; O2SAT 92–99; BMI 26.9
[2020-10-08 06:40] LABS: Add Manual Diff / Slide Review NO; Basophils Absolute Auto 0 /uL (0-100); Basophils Percent Auto 0.6 % (0-2); Eosinophils Absolute Auto 100 /uL (0-450); Hematocrit 36.2 % (36-46); Hemoglobin 12.1 g/dL (12.0-16.0); Lymphocytes Absolute Auto 4100 /uL (1100-4500); Lymphocytes Percent Auto 58.8 % (25-40); Mean Corpuscular HGB Conc 33.3 % (30-36); Mean Corpuscular Hemoglobin 31.4 PG (26-34); Mean Corpuscular Volume 94.2 fL (80-100); Monocytes Absolute Auto 600 /uL (0-900); Monocytes Percent Auto 9.3 % (3-14); Neutrophils Absolute Auto 2000 /uL (1500-7000); Neutrophils Percent Auto 29.3 % (50-75); Platelet Count 370 X10^3/uL (150-400); Red Blood Cell Count 3.85 X10^6/uL (4.0-5.2); Red Cell Distribution Width 14.4 % (11.6-14.8); White Blood Cell Count 6.9 X10^3/uL (4.5-11.0)
[2020-10-08 06:47] LABS: INR 2.1 (0.9-1.3); Prothrombin Time 23.1 SECONDS (10.1-12.7)
[2020-10-08 06:50] LABS: PTT Partial Thromboplastin Tim 42 SECONDS (26.4-36.2)
--- NOTE | 2020-10-08 06:51 | DI.CT.S_ITS ---
PROCEDURE: CT HEAD/BRAIN WO CON INDICATIONS: Dizziness, fall on blood thinners TECHNIQUE: Noncontrast 4.5 mm thick angled axial sections acquired from the foramen magnum to the vertex, with coronal and sagittal reformats. For radiation dose reduction, the following was used: automated exposure control, adjustment of mA and/or kV according to patient size. COMPARISON: [facility], CT, CT HEAD/BRAIN WO CON, 06/16/2020, 7:48. FINDINGS: Image quality: Excellent. CSF spaces: Basal cisterns are patent. No extra-axial fluid collections. The ventricles are symmetric in size and shape. Brain: No intracranial bleeds or masses. There is cerebral volume loss for age, with resultant ventricular and sulcal prominence. There are periventricular and deep white matter chronic small vessel ischemic changes. There is intracranial internal carotid artery atherosclerosis. Skull and face: Calvarium and visualized facial bones appear intact, without suspicious lesions. Sinuses: Visualized sinuses and mastoids are clear. IMPRESSION: 1. CT head without acute intracranial abnormalities or acute calvarial fractures. 2. Age-related senescent changes and sequela of chronic small vessel ischemic disease. No significant discrepancy with the manager shift radiology preliminary report. Dictated by: Leonidas Alamo M.D. on 10/08/2020 at 7:26 Approved by: Leonidas Alamo M.D. on 10/08/2020 at 7:28
[2020-10-08 06:56] LABS: Alanine Aminotransferase 44 IU/L (<35); Albumin Globulin Ratio 0.6 (1.0-2.8); Alkaline Phosphatase 83 U/L (38-126); Aspartate Aminotransferase 53 IU/L (14-36); Bilirubin Total 0.7 mg/dL (0.2-1.3); Blood Urea Nitrogen 15 mg/dL (7-17); Calcium 10.2 mg/dL (8.4-10.2); Carbon Dioxide 25 mmol/L (22-32); Chloride 103 mmol/L (98-107); Creatine Kinase 129 U/L (30-135); Estimated Glomerular Filt Rate 40.7 mL/min (>60); Globulin 6.2 g/dL (1.7-4.1); Glucose 147 mg/dL (80-110); HEMOLYSIS 16 (0-50); Potassium 3.4 mmol/L (3.4-5.1); Sodium 135 mmol/L (137-145)
[2020-10-08 07:08] LABS: Troponin I < 0.012 ng/mL (0.01-0.034)
[2020-10-08 07:11] LABS: CKMB % Relative Index 0.8 % (1.5-5.0); Creatine Kinase MB 1.09 ng/mL (<2.37)
[2020-10-08 07:13] LABS: Total Protein 10.2 g/dL (6.3-8.2)
--- NOTE | 2020-10-08 07:28 | ED.DIZZY ---
HPI - Dizziness General Chief Complaint: Dizziness Stated Complaint: Dizzy Time Seen by Provider: 10/08/20 06:29 Source: patient and EMS Mode of arrival: EMS Limitations: no limitations History of Present Illness HPI Narrative: 87-year-old female nonsmoker with history of AFib, stroke stroke, multiple myeloma presents by EMS for evaluation of dizziness with fall and head injury. She states she went to bed in her normal state of health when upon waking this morning attempted to get out of bed and ambulate to the restroom. She was profoundly dizzy and fell back into her bed before taking a few steps and falling and striking her head. She denies any loss of consciousness, nausea or vomiting. She denies any chest pain or shortness of breath. She denies any neck or back pain. She states she has had a few falls in the past week or so. She lives at home alone with very little support. She is dizzy when laying still and it is worse when she moves. She denies any recent changes in medications or diet. She denies any runny nose, sore throat or cough. She has had no ear pain. She denies any obvious focal neurologic findings such as numbness, tingling or weakness Related Data Home Medications Medication Instructions Recorded Confirmed cholecalciferol (vitamin D3) 1,000 unit PO DAILY #0 10/01/12 09/17/19 [Vitamin D3] cyanocobalamin (vitamin B-12) 1,000 mcg PO DAILY #0 10/01/12 09/17/19 [Vitamin B-12] warfarin [Coumadin] See Rx Instructions .ROUTE 12/14/16 09/17/19 .COMPLEX #0 Lipo-Flavonoid Plus 1 tab PO DAILY #0 04/12/17 09/17/19 omega 7-gnb-zkx-fish oil [Fish Oil] 1,000 mg PO DAILY #0 04/12/17 09/17/19 Ocuvite Vitamin 1 tab PO DAILY 05/16/19 09/17/19 amlodipine 2.5 mg PO DAILY 05/16/19 09/17/19 losartan 100 mg PO DAILY 05/16/19 09/17/19 sotalol 80 mg PO BID 05/16/19 09/17/19 Allergies Allergy/AdvReac Type Severity Reaction Status Date / Time amoxicillin Allergy Mild BREAK OUT Verified 03/07/18 11:07 ampicillin Allergy Mild BREAK OUT Verified 03/07/18 11:07 cephalexin Allergy Mild BREAK OUT Verified 03/07/18 11:07 piroxicam AdvReac Unknown ITCHING Verified 03/07/18 11:07 Review of Systems Constitutional Constitutional: Denies chills, Denies fatigue, Denies fever(s), Denies frequent falls, Denies lethargy and Denies weakness Eyes Eyes: Denies change in vision, Denies eye discharge, Denies irritation and Denies loss of vision ENT Ears, Nose, Mouth, and Throat: Denies change in voice, Reports dizziness, Denies neck pain, Denies sore throat and Denies throat swelling Cardiovascular Cardiovascular: Denies chest pain, Denies irregular heart rhythm, Denies lightheadedness, Denies palpitations, Denies dyspnea, Denies dyspnea on exertion and Denies orthopnea Respiratory Respiratory: Denies cough, Denies dyspnea, Denies dyspnea on exertion and Denies wheezing Gastrointestinal Gastrointestinal: Denies abdominal pain, Denies change in bowel habits, Denies diarrhea, Denies nausea and Denies vomiting Musculoskeletal Musculoskeletal: Denies neck pain and Denies numbness Integumentary/Breasts Skin/Breast: Denies pruritus, Denies erythema, Denies rash and Denies wounds Neurologic Neurologic: Denies behavioral changes, Denies confusion, Reports dizziness, Denies frequent falls, Denies loss of vision, Denies numbness and Denies weakness Psychiatric Psychiatric: Denies anxiety, Denies behavioral changes, Denies confusion, Denies depression, Denies homicidal ideation and Denies suicidal ideation Endocrine Endocrine: Denies fatigue, Denies flushing and Denies palpitations Hematologic/Lymphatic Hematologic/Lymphatic: Denies easy bruising Allergic/Immunologic Allergic/Immunologic: Denies urticaria, Denies throat swelling and Denies wheezing Patient History Medical History Acute postoperative pain of knee Atrial fibrillation Atrial fibrillation with RVR CVA (cerebral vascular accident) Dehydration Diarrhea Multiple myeloma not having achieved remission Vertigo Surgical History History of bilateral knee replacement Social History household members: none Smoking Status: Never smoker Smoking Status: Never smoker alcohol intake frequency: holidays/special occasions only Substance Use Type: does not use Exam Narrative Exam Narrative: GENERAL: [85] year old patient appears stated age. Well-nourished, well-developed patient, in mild distress. HEAD: Atraumatic. Normocephalic. EYES: Pupils equal round and reactive. Extraocular motions intact. No scleral icterus. No injection or drainage. Horizontal nystagmus while at rest, fast which to the left ENT: Nose without bleeding, purulent drainage. Throat without erythema, tonsillar hypertrophy or exudate. Airway patent. NECK: Trachea midline. Non tender CARDIOVASCULAR: Regular rate and rhythm without murmurs, gallops, or rubs. RESPIRATORY: Clear to auscultation. Breath sounds equal bilaterally. No wheezes, rales, or rhonchi. GASTROINTESTINAL: Abdomen soft, non-tender, nondistended. EXTREMITIES: No edema or joint tenderness. BACK: Nontender without deformity or crepitance. No flank tenderness. NEURO: AOx3. SKIN: No rash or erythema of visible areas NIH Stroke Scale 1a. LOC: Patient is alert and keenly responsive (0) 1b. LOC Questions: Patient answers both LOC questions accurately (0) 1c. LOC Commands: Patient performs both tasks correctly (0) 2. Best Gaze: Normal (0) 3. Visual: No visual loss (0) 4. Facial palsy: Normal symmetrical movements (0) 5. Motor arm: No drift (0) 6. Motor leg: No drift (0) 7. Limb ataxia: Absent (0) 8. Sensory: Normal (0) 9. Best language: No aphasia; normal (0) 10. Dysarthria: Normal (0) 11. Extinction and inattention: No abnormality (0) NIHSS: 0 Initial Vital Signs Initial Vital Signs: Vital Signs Temperature 97.8 F 10/08/20 06:29 Pulse Rate 82 10/08/20 06:29 Respiratory Rate 16 10/08/20 06:29 Blood Pressure 187/87 H 10/08/20 06:29 Pulse Oximetry 98 10/08/20 06:29 Course Course Course Narrative: patient orthostatic vitals evaluated and reassuring. No change in dizziness with position. Unable to ambulate safely, too unstable and dizzy Orders Ordered: ED Orders 10/08/20 06:30 EKG-12 Lead Stat 10/08/20 06:36 Complete Blood Count AUTO DIFF Stat Comprehensive Metabolic Panel Stat Partial Thromboplastin Time Stat Prothrombin Time INR Stat Troponin & CK Cardiac Panel Stat 10/08/20 06:51 CT head/brain wo con Stat 10/08/20 11:05 COVID19 - ADMIT ([facility] [employer] swab/PCR) Stat 10/08/20 12:05 EC echo doppler complete Stat MR stroke Stat Sodium Chloride (Normal Saline 0.9%) 1,000 mls @ 125 mls/hr IV CONT OSIRIS Last Admin: 10/08/20 12:30 Dose: 125 mls/hr Documented by: SHAKIR Discontinued Medications Aspirin (Aspirin 81 Mg Chew Tab) 324 mg PO NOW ONE Stop: 10/08/20 10:03 Last Admin: 10/08/20 10:57 Dose: 324 mg Documented by: MAMI Meclizine HCl (Meclizine Hcl 12.5 Mg Tablet) 25 mg PO NOW ONE Stop: 10/08/20 07:33 Last Admin: 10/08/20 08:33 Dose: 25 mg Documented by: LISSETTE Vital Signs Vital signs: Vital Signs - 8 hr 10/08/20 06:29 10/08/20 07:25 10/08/20 07:30 Temperature 97.8 F Pulse Rate 82 71 71 Pulse Rate [Orthostatic Lying] Pulse Rate [Orthostatic Sitting] Pulse Rate [Orthostatic Standing] Respiratory Rate 16 15 15 Blood Pressure 187/87 H 156/67 H Blood Pressure [Orthostatic Lying] Blood Pressure [Orthostatic Sitting] Blood Pressure [Orthostatic Standing] Pulse Oximetry 98 92 93 10/08/20 08:00 10/08/20 08:07 10/08/20 08:09 Temperature Pulse Rate 75 75 84 Pulse Rate [Orthostatic Lying] Pulse Rate [Orthostatic Sitting] Pulse Rate [Orthostatic Standing] Respiratory Rate 16 15 17 Blood Pressure 174/74 H 169/79 H 168/78 H Blood Pressure [Orthostatic Lying] Blood Pressure [Orthostatic Sitting] Blood Pressure [Orthostatic Standing] Pulse Oximetry 95 95 99 10/08/20 08:11 10/08/20 08:13 10/08/20 08:30 Temperature Pulse Rate 87 72 Pulse Rate [Orthostatic Lying] 75 Pulse Rate [Orthostatic Sitting] 84 Pulse Rate [Orthostatic Standing] 87 Respiratory Rate 21 16 Blood Pressure 169/79 H 163/76 H Blood Pressure [Orthostatic Lying] 169/79 H Blood Pressure [Orthostatic Sitting] 168/78 H Blood Pressure [Orthostatic Standing] 169/79 H Pulse Oximetry 99 96 10/08/20 09:00 10/08/20 09:30 10/08/20 10:00 Temperature Pulse Rate 66 66 74 Pulse Rate [Orthostatic Lying] Pulse Rate [Orthostatic Sitting] Pulse Rate [Orthostatic Standing] Respiratory Rate 14 15 17 Blood Pressure 157/70 H 152/68 H 161/76 H Blood Pressure [Orthostatic Lying] Blood Pressure [Orthostatic Sitting] Blood Pressure [Orthostatic Standing] Pulse Oximetry 96 96 98 10/08/20 11:06 Temperature Pulse Rate 71 Pulse Rate [Orthostatic Lying] Pulse Rate [Orthostatic Sitting] Pulse Rate [Orthostatic Standing] Respiratory Rate 17 Blood Pressure 156/76 H Blood Pressure [Orthostatic Lying] Blood Pressure [Orthostatic Sitting] Blood Pressure [Orthostatic Standing] Pulse Oximetry 99 MDM - Dizziness Lab Data Result diagrams: 10/08/20 06:36 10/08/20 06:36 Labs: Lab Results 10/08/20 10/08/20 10/08/20 Range/Units 06:36 06:36 06:36 WBC 6.9 (4.5-11.0) X10^3/uL RBC 3.85 L (4.0-5.2) X10^6/uL Hgb 12.1 (12.0-16.0) g/dL Hct 36.2 (36-46) % MCV 94.2 (80-100) fL MCH 31.4 (26-34) PG MCHC 33.3 (30-36) % RDW 14.4 (11.6-14.8) % Plt Count 370 (150-400) X10^3/uL Neut % (Auto) 29.3 L (50-75) % Lymph % (Auto) 58.8 H (25-40) % [place] % (Auto) 9.3 (3-14) % Eos % (Auto) 2.0 (2-4) % Baso % (Auto) 0.6 (0-2) % Neut # (Auto) 2000 (4525-3913) /uL Lymph # (Auto) 4100 (6433-8743) /uL [place] # (Auto) 600 (0-900) /uL Eos # (Auto) 100 (0-450) /uL Baso # (Auto) 0 (0-100) /uL PT 23.1 H (10.1-12.7) SECONDS INR 2.1 H (0.9-1.3) APTT 42 H (26.4-36.2) SECONDS Sodium 135 L (137-145) mmol/L Potassium 3.4 (3.4-5.1) mmol/L Chloride 103 (98-107) mmol/L Carbon Dioxide 25 (22-32) mmol/L BUN 15 (7-17) mg/dL Creatinine 1.25 H (0.52-1.04) mg/dL Estimated GFR 40.7 L (>60) mL/min BUN/Creatinine Ratio 12.0 (6-22) Glucose 147 H (80-110) mg/dL Calcium 10.2 (8.4-10.2) mg/dL Total Bilirubin 0.7 (0.2-1.3) mg/dL AST 53 H (14-36) IU/L ALT 44 H (<35) IU/L Alkaline Phosphatase 83 (38-126) U/L Total Creatine Kinase 129 (30-135) U/L CK-MB (CK-2) 1.09 (<2.37) ng/mL CK-MB (CK-2) Rel Index 0.8 L (1.5-5.0) % Troponin I < 0.012 (0.01-0.034) ng/mL Total Protein 10.2 H* (6.3-8.2) g/dL Albumin 4.0 (3.5-5.0) g/dL Globulin 6.2 H (1.7-4.1) g/dL Albumin/Globulin Ratio 0.6 L (1.0-2.8) SARS-CoV-2 (PCR) (Negative) 10/08/20 Range/Units 11:05 WBC (4.5-11.0) X10^3/uL RBC (4.0-5.2) X10^6/uL Hgb (12.0-16.0) g/dL Hct (36-46) % MCV (80-100) fL MCH (26-34) PG MCHC (30-36) % RDW (11.6-14.8) % Plt Count (150-400) X10^3/uL Neut % (Auto) (50-75) % Lymph % (Auto) (25-40) % [place] % (Auto) (3-14) % Eos % (Auto) (2-4) % Baso % (Auto) (0-2) % Neut # (Auto) (5802-7969) /uL Lymph # (Auto) (1246-1081) /uL [place] # (Auto) (0-900) /uL Eos # (Auto) (0-450) /uL Baso # (Auto) (0-100) /uL PT (10.1-12.7) SECONDS INR (0.9-1.3) APTT (26.4-36.2) SECONDS Sodium (137-145) mmol/L Potassium (3.4-5.1) mmol/L Chloride (98-107) mmol/L Carbon Dioxide (22-32) mmol/L BUN (7-17) mg/dL Creatinine (0.52-1.04) mg/dL Estimated GFR (>60) mL/min BUN/Creatinine Ratio (6-22) Glucose (80-110) mg/dL Calcium (8.4-10.2) mg/dL Total Bilirubin (0.2-1.3) mg/dL AST (14-36) IU/L ALT (<35) IU/L Alkaline Phosphatase (38-126) U/L Total Creatine Kinase (30-135) U/L CK-MB (CK-2) (<2.37) ng/mL CK-MB (CK-2) Rel Index (1.5-5.0) % Troponin I (0.01-0.034) ng/mL Total Protein (6.3-8.2) g/dL Albumin (3.5-5.0) g/dL Globulin (1.7-4.1) g/dL Albumin/Globulin Ratio (1.0-2.8) SARS-CoV-2 (PCR) Negative (Negative) Imaging Data CT scan - head: Radiologist's Impression: [address] [id number] Scan ReportSigned Patient: Monica Rodgers CMR#: [id number]: [id number]:[id number]/Sex: 85 / FDate of Service: 10/08/20Loc: EDAccession Number: [id number] Procedure: CT head/brain wo con Ordering Provider: Kilo Giordano D.O. PROCEDURE: CT HEAD/BRAIN WO CON INDICATIONS: Dizziness, fall on blood thinners TECHNIQUE: Noncontrast 4.5 mm thick angled axial sections acquired from the foramen magnum to the vertex, with coronal and sagittal reformats. For radiation dose reduction, the following was used: automated exposure control, adjustment of mA and/or kV according to patient size. COMPARISON: [facility], CT, CT HEAD/BRAIN WO CON, 06/16/2020, 7:48. FINDINGS: Image quality: Excellent. CSF spaces: Basal cisterns are patent. No extra-axial fluid collections. The ventricles are symmetric in size and shape. Brain: No intracranial bleeds or masses. There is cerebral volume loss for age, with resultant ventricular and sulcal prominence. There are periventricular and deep white matter chronic small vessel ischemic changes. There is intracranial internal carotid artery atherosclerosis. Skull and face: Calvarium and visualized facial bones appear intact, without suspicious lesions. Sinuses: Visualized sinuses and mastoids are clear. IMPRESSION: 1. CT head without acute intracranial abnormalities or acute calvarial fractures. 2. Age-related senescent changes and sequela of chronic small vessel ischemic disease. No significant discrepancy with the contact lens molder radiology preliminary report. Dictated by: Leonidas Alamo M.D. on 10/08/2020 at 7:26 Approved by: Leonidas Alamo M.D. on 10/08/2020 at 7:28 ECG Data Interpretation: EKG is normal sinus rhythm rate [ 78] and free of any signs of ischemia or ectopy. No ST segmental elevation or depression. No T wave inversions Discharge Plan Departure Patient Disposition: Admitted as Observation Clinical Impression: Brain TIA, Dizziness Admit Date/Time: 10/08/20 11:06 Admit Provider: Tianna Cartagena
--- NOTE | 2020-10-08 08:14 | PC.NURSE ---
Patient stated that she was feeling dizzy and shaky. She did not feel comfortable walking to the restroom for an ambulation trial.
[2020-10-08] MEDS: MECLIZINE HCL 12.5 MG TABLET 25 MG PO (08:33)
[2020-10-08] MEDS: ASPIRIN 81 MG CHEW TAB 324 MG PO (10:57)
--- NOTE | 2020-10-08 12:05 | DI.MRI.S_ITS ---
PROCEDURE: MR STROKE Pre- and post-contrast brain MRI, non-contrast brain MR angiogram, pre- and postcontrast neck MR angiogram INDICATIONS: dizziness, ataxia TECHNIQUE: Brain: Noncontrast axial T1 spin echo, axial T2 fast spin echo, sagittal and axial FLAIR, coronal T2 fast spin echo, axial gradient echo, axial diffusion and ADC through the brain. After the administration of contrast, axial 3D VIBE of the cranial vasculature and brain. Brain MRA: Non-contrast 3-D time of flight MR angiogram, with multiple glxctmw-omzcycmpq-wfmcsuygvy (MIP) reformats performed. Neck MRA: Axial and sagittal TruFISP through the neck. Coronal dynamic MR angiogram during administration of contrast in the arterial and venous phases, with 3-dimenstional lztwrqf-cqwbtowsd-lfcsmddiug (MIP) reformats constructed from subtraction images. COMPARISON: [facility], , MR STROKE, 05/31/2019, 13:27. FINDINGS: Image quality: Excellent. BRAIN: CSF spaces: Ventricles are symmetric in size and shape. Basal cisterns are patent. No extra-axial fluid collections. Brain: No intracranial hemorrhage or mass effect. Scattered foci of T2/FLAIR hyperintense signal in the subcortical and periventricular white matter are compatible with mild chronic microvascular ischemic changes. Diffusion weighted images show no acute ischemic insults. Brainstem appears normal. No abnormal intracranial enhancement. Skull and face: Calvarial marrow signal is normal. Thinning of the intra-articular lenses is compatible with prior cataracts/cataract surgery Sinuses: Sinuses and mastoids are clear. BRAIN MR ANGIOGRAM: Anterior circulation: Intracranial internal carotid arteries are normal in size and enhancement. The flow within the paired anterior cerebral arteries is normal and symmetric. The flow within the middle cerebral arteries is normal and symmetric. The anterior communicating artery is seen. No stenoses, occlusions, or aneurysms. Posterior circulation: There is high-grade narrowing of the V4 portion of the left distal vertebral artery that appears more severe when compared to the MRA from 05/31/2019. The visualized portions of the vertebral arteries demonstrate normal caliber, and join to form a normal appearing basilar artery. The flow within the posterior cerebral arteries is normal and symmetric. No stenoses, occlusions, or aneurysms. NECK MR ANGIOGRAM: Carotids: Great vessels demonstrate a conventional anatomy as they arise from the aortic arch. The origins of the common carotid arteries appear patent. The calibers and courses of both common carotid arteries are normal. The bifurcation regions appear normal bilaterally. The internal carotid arteries demonstrate normal course and caliber. Posterior circulation: There is moderate to high-grade narrowing in the distal feet 2 segment of the left vertebral artery. The V3 segment and the proximal V4 segment also appear narrowed. The right vertebral artery is patent. Miscellaneous: Subclavian arteries appear patent. Pre-contrast images through the neck show no soft tissue abnormalities. IMPRESSION: BRAIN MRI: No acute intracranial hemorrhage or infarct. No abnormal intracranial enhancement. Mild chronic microvascular ischemic changes. BRAIN MR ANGIOGRAM: No hemodynamically significant arterial stenosis or occlusion. 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 Findings appear to have progressed when compared to the MRA from 05/31/2019. Dictated by: Thaddeus Peters M.D. on 10/08/2020 at 15:56 Approved by: Thaddeus Peters M.D. on 10/08/2020 at 16:12
--- NOTE | 2020-10-08 12:05 | DI.ECHO.S_ITS ---
[facility] +---------+ : : [address] [place] : : : : [id number] : : : : Phone: [phone] Echocardiogram Report + + :Name: VANDANA OLIVER Study Date: 10/08/2020 Height: 64 in : :[facility] ReadingLocation: Weight: 157 lb : : Gender: Female BSA: 1.8 m2 : :: 1935 Age: 85 yrs BP: 161/76 mmHg: :Reason For Study: STROKE ADMISSION : :Ordering Physician: ARGELIA, : :BOYD Performed By: Donya Monroy : :Referring: BOYD STOUT : + + Interpretation Summary Left ventricular systolic function remains normal with an estimated ejection fraction of 65 to 70% without any focal wall motion abnormality. There is mild concentric LVH with probable moderate diastolic dysfunction with possible elevated filling pressures. The right ventricle appears normal in size and systolic function and appears unchanged from the previous study. Right ventricular systolic pressure is estimated at 26 mmHg with a CVP of 3 mmHg and is likely unchanged from the previous study. The left atrium is mildly enlarged while right atrial size is normal and both are grossly unchanged since the previous exam. There is mild mitral and aortic valve calcific sclerosis without functional abnormality and mild pulmonic valve regurgitation that is unchanged.but no other functional valvular abnormality. Procedure: A two-dimensional transthoracic echocardiogram with color flow and Doppler was performed. The study quality was technically adequate. Comparison is made with the echocardiogram of 11/09/2016. The patient was in sinus rhythm with heart rates between 60-75 bpm during the exam. Left Ventricle: The left ventricle is normal in size. There is mild concentric left ventricular hypertrophy. There is mild proximal septal thickening noted. Left ventricular systolic function appears normal without focal wall motion abnormalities. The ejection fraction is estimated to be 65- 70%. This is unchanged compared to the previous study. Diastolic parameters suggest a pseudonormalization pattern, consistent with probable elevated filling pressures. Right Ventricle: The right ventricle is normal in size and function. This is unchanged compared to the previous study. Atria: The left atrium is mildly dilated. Right atrial size is normal. This is unchanged compared to the previous study. There is no Doppler evidence for an interatrial shunt. Mitral Valve: There is moderate mitral annular calcification. The mitral valve leaflets are mildly calcified. There is no mitral valve stenosis. There is trace mitral regurgitation. Aortic Valve: The aortic valve is trileaflet. The aortic valve opens well. There is no aortic valve stenosis. No aortic regurgitation is present. Tricuspid Valve: The tricuspid valve is not well visualized, but is grossly normal. There is trace tricuspid regurgitation. The right ventricular systolic pressure is estimated to be at least 26 mmHg based on an estimated right atrial pressure of 3 mm Hg. This is unchanged compared to the previous study. Pulmonic Valve: The pulmonic valve is not well visualized. There is mild pulmonic regurgitation. This is unchanged compared to the previous study. Great Vessels: The aortic root is normal size. The dimensions of the ascending aorta are normal. The IVC is of normal diameter and collapses greater than 50% with a sniff. This suggests a low right atrial pressure of 3 mm Hg. Pericardium/ Pleura There is no pericardial effusion. There is no pleural effusion. MMode/2D Measurements & Calculations LVIDd: 4.7 cm LVOT diam: 2.2 cm LVIDs: 2.9 cm Ao root diam: 3.2 cm FS: 38.9 % asc Aorta Diam: 3.1 cm EPSS: 0.93 cm Ao Arch Diam (Prox Trans): 2.6 cm IVSd: 1.2 cm LVPWd: 1.1 cm LV arreola. diameter/BSA (cm/m^2): 2.7 LV sys. diameter/BSA (cm/m^2): 1.6 LA A2 area: 22.1 cm2 RA long axis: 4.9 cm LA A4 area: 20.3 cm2 RA area: 14.8 cm2 LA length (vol): 5.6 cm RA vol: 38.1 ml LA vol: 68.3 ml RA : 21.6 ml/m2 LA vol index: 38.7 ml/m2 IVC diam: 0.35 cm RVD1 (basal): 2.5 cm TAPSE: 2.7 cm Doppler Measurements & Calculations Ao V2 max: 135.3 cm/sec LVOT Max Eliezer: 106.6 cm/sec Ao V2 mean: 92.6 cm/sec LV V1 max P.5 mmHg Ao max P.3 mmHg LV V1 VTI: 28.1 cm Ao mean P.0 mmHg PRISCILLA(I,D): 3.4 cm2 Ao V2 VTI: 30.3 cm PRISCILLA(V,D): 2.9 cm2 sev ratio: 0.93 PRISCILLA indexed to BSA (cm^2/m^2): 1.9 MV E max eliezer: 96.6 cm/sec TR max eliezer: 240.6 cm/sec Med Peak E' Eliezer: 4.5 cm/sec TR max P.1 mmHg E/E' med: 21.3 PA V2 max: 88.0 cm/sec Lat Peak E' Eliezer: 6.7 cm/sec PA V2 mean: 59.5 cm/sec E/E' lat: 14.4 PA mean P.7 mmHg E/e' average: 17.9 PA pr(Accel): 70.4 mmHg MV dec time: 0.27 sec MVA(VTI): 2.6 cm2 MV V2 mean: 62.7 cm/sec SV(LVOT): 103.7 ml MV mean P.8 mmHg MV V2 VTI: 39.9 cm Reading Physician:03:36 PM
--- NOTE | 2020-10-08 12:12 | PC.NURSE ---
Addendum entered by Jenny Rubio R.N. 10/08/20 14:40: Patient verbalized feeling anxious prior to scheduled MRI. MD notified, Ativan ordered and administered. Original Note: Assumed care of patient at 1119. Patient arrived via stretcher from the ED. Transferred to bed, 1p assist. Patient denies dizziness at this time. Tele placed, HR regular, murmer noted, pulses equal bilaterally, no edema noted. Patient reports last fall on Monday (10/05). Small bruise noted on R elbow. Does not use walker or cane at home. BT active x 4, patient reports last bowel movement 10/07. Patient on NS 125cc/hr, IV in R AC, patent. Patient voiding BSC.
[2020-10-08] MEDS: SODIUM CHLORIDE 0.9% 1,000 ML 125 ML IV (12:30)
[2020-10-08 12:44] LABS: COVID19 - ADMIT (NP swab/PCR) Negative (Negative)
[2020-10-08] MEDS: LORazepam 0.5 MG TABLET PO (14:20)
[2020-10-08 15:10] LABS: Magnesium 2.1 mg/dL (1.6-2.3)
--- NOTE | 2020-10-08 16:29 | PC.NURSE ---
Shift note: Patient returned to the floor from MRI at 1610, reconnect to tele, notified ICU staff, and reconnect patient to IV fluids.
--- NOTE | 2020-10-08 18:38 | P.HP_ITS ---
History of Present Illness History of Present Illness Date Patient Seen: 10/08/20 Time Patient Seen: 18:38 Date of Onset of Symptoms: 10/08/20 Chief complaint: Dizzy Narrative: This very pleasant 85-year-old female who is well known to me pre sents to the emergency room for complaints of severe persistent dizziness. She has a long history of vertigo as well as atrial fibrillation has been quite symptomatic over the last several years and then difficulty with medications. She has however been doing very well over the last several months until today. In the ER she was found to have horizontal nystagmus not associated with movement and was persistently unable to stand. Due to this and history of falls on Coumadin she had a CT scan of her head that was unremarkable. Her symptoms persisted and it was felt that hospitalization with further evaluation for a central deficit causing the dizziness or posterior circulation contributing to the dizziness was felt to be warranted. Past medical history: 1. Atrial fibrillation with chronic anticoagulation 2. Chronic kidney disease stage 3 3. Vertigo 4. Monoclonal gammopathy has been very stable over many years 5. Hypertension 6. Previous TIA 7. COPD, mild 8. Depression, currently mild and being treated 9. Degenerative joint disease with significant impact on knees and back 10. Cervical radiculopathy 11. Hyponatremia 10. Psoriasis 11. Meniere's disease Allergies to amoxicillin and ampicillin cephalexin causes hives and proxy cam causes itching and patient did not do well on sotalol or hydrochlorothiazide Past surgical history 1. Two thousand six she had lumbar spinal stenosis laminectomy decompression June 2008 she had right hammertoe surgery 3. Lumbar laminectomy 10/05/2009 4. Left total knee replacement 03/18/2011 5. Right total knee replacement November of 2014 6. 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 Hemorrhoid banding Family history: Father age 85 Mom at age 90 Patient with a sister who had breast cancer Sister with colon cancer in her 60s One brother who is healthy Social history. Patient is within the last 2 years. She lives alone independently in in a [place]. She has 2 sons and a daughter. Her daughter lives here in town. Health related behavior Patient never has used tobacco Patient does not drink alcohol Tdap in 2011; flu shot 05/01/2020; Pneumovax 07/10/2008 Patient History Medical History Acute postoperative pain of knee Atrial fibrillation Atrial fibrillation with RVR CVA (cerebral vascular accident) Dehydration Diarrhea Multiple myeloma not having achieved remission Vertigo Surgical History History of bilateral knee replacement Family & Social History Social History: household members none Prior Living Arrangements House Safety & Behavioral: Feels Safe in Current Yes Environment Been Physically Hurt or No Threatened By a Person Suicidal Ideation Description None Suicide Plan Description No Plan Tobacco & Substance use: Smoking Status Never smoker alcohol intake frequency holiday/special occasion Substance Use Type does not use Meds Home Medications and Allergies Home Medications Medication Instructions Recorded Confirmed Type cholecalciferol (vitamin D3) 1,000 unit PO DAILY #0 10/01/12 10/08/20 History [Vitamin D3] cyanocobalamin (vitamin B-12) 1,000 mcg PO DAILY #0 10/01/12 10/08/20 History [Vitamin B-12] warfarin [Coumadin] See Rx Instructions .ROUTE 12/14/16 10/08/20 History .COMPLEX #0 Lipo-Flavonoid Plus 1 tab PO DAILY #0 04/12/17 10/08/20 History omega 3-qup-fpg-fish oil [Fish Oil] 1,000 mg PO DAILY #0 04/12/17 10/08/20 History Ocuvite Vitamin 1 tab PO DAILY 05/16/19 10/08/20 History amlodipine 2.5 mg PO DAILY 05/16/19 10/08/20 History losartan 100 mg PO DAILY 05/16/19 10/08/20 History sotalol 80 mg PO BID 05/16/19 10/08/20 History Allergies Allergy/AdvReac Type Severity Reaction Status Date / Time amoxicillin Allergy Mild BREAK OUT Verified 03/07/18 11:07 ampicillin Allergy Mild BREAK OUT Verified 03/07/18 11:07 cephalexin Allergy Mild BREAK OUT Verified 03/07/18 11:07 piroxicam AdvReac Unknown ITCHING Verified 03/07/18 11:07 Review of Systems Review of Systems Narrative: negative ros other than hpi Exam Vital Signs (past 8 hours): - 10/08/20 11:06 10/08/20 11:19 10/08/20 14:58 Temperature 97.8 F 97.5 F L Pulse Rate 71 77 67 Respiratory Rate 17 16 16 Blood Pressure 156/76 H 162/82 H 124/68 Pulse Oximetry 99 97 95 10/08/20 16:32 Temperature Pulse Rate Respiratory Rate Blood Pressure Pulse Oximetry 95 Oxygen Delivery Method Room Air Oxygen Flow Rate 0 Narrative Exam Narrative: Patient is alert and oriented x3 in no apparent distress. She is lying in a hospital bed with no symptoms. She appears younger than her stated age of 85 HEENT is unremarkable. Specifically do not see any nystagmus Neck: Supple without adenopathy or bruit or thyromegaly Chest: Clear to auscultation without wheezes rhonchi or crackles Cor: Regular rate and rhythm with no evidence of ectopy or atrial fibrillation with a unchanged 2/6 murmur Abdomen: Positive bowel sounds, soft, nontender, nondistended, no hepatosplenomegaly, no guarding Extremities: No edema, pulses intact Neurologic exam is nonfocal Objective Labs Result Diagrams: 10/08/20 06:36 10/08/20 06:36 Labs: Laboratory Results - last 24 hr 10/08/20 10/08/20 10/08/20 06:36 06:36 06:36 WBC 6.9 RBC 3.85 L Hgb 12.1 Hct 36.2 MCV 94.2 MCH 31.4 MCHC 33.3 RDW 14.4 Plt Count 370 Neut % (Auto) 29.3 L Lymph % (Auto) 58.8 H Bureau % (Auto) 9.3 Eos % (Auto) 2.0 Baso % (Auto) 0.6 Neut # (Auto) 2000 Lymph # (Auto) 4100 Bureau # (Auto) 600 Eos # (Auto) 100 Baso # (Auto) 0 PT 23.1 H INR 2.1 H APTT 42 H Sodium 135 L Potassium 3.4 Chloride 103 Carbon Dioxide 25 BUN 15 Creatinine 1.25 H Estimated GFR 40.7 L BUN/Creatinine Ratio 12.0 Glucose 147 H Calcium 10.2 Magnesium Total Bilirubin 0.7 AST 53 H ALT 44 H Alkaline Phosphatase 83 Total Creatine Kinase 129 CK-MB (CK-2) 1.09 CK-MB (CK-2) Rel Index 0.8 L Troponin I < 0.012 Total Protein 10.2 H* Albumin 4.0 Globulin 6.2 H Albumin/Globulin Ratio 0.6 L SARS-CoV-2 (PCR) 10/08/20 10/08/20 06:36 11:05 WBC RBC Hgb Hct MCV MCH MCHC RDW Plt Count Neut % (Auto) Lymph % (Auto) Bureau % (Auto) Eos % (Auto) Baso % (Auto) Neut # (Auto) Lymph # (Auto) Bureau # (Auto) Eos # (Auto) Baso # (Auto) PT INR APTT Sodium Potassium Chloride Carbon Dioxide BUN Creatinine Estimated GFR BUN/Creatinine Ratio Glucose Calcium Magnesium 2.1 Total Bilirubin AST ALT Alkaline Phosphatase Total Creatine Kinase CK-MB (CK-2) CK-MB (CK-2) Rel Index Troponin I Total Protein Albumin Globulin Albumin/Globulin Ratio SARS-CoV-2 (PCR) Negative Assessment & Plan Assessment & Plan narrative: 65 minutes spent with patient consulting with nursing and reviewing chart and workup in the ER and meeting with patient and formulating a plan and documenting. 85-year-old female well known to me with episode of what sounds like severe vertigo. It was more debilitating and has been previously and patient was not able to stand was not able to get out of bed. Oddly enough she slept very soundly yesterday and the wonder if this had to do with positioning. She was admitted to the hospital for further workup and to rule out central etiology of her dizziness such as CVA. Her initial CT scan was negative. Plan: Will admit to the hospital and do MRI, MRA stroke protocol as well as echo Will continue telemetry Will continue outpatient medications. Will consult physical therapy Assessment 2. Hypertension Plan: Appears well controlled. Will continue outpatient medications losartan amlodipine and will monitor blood pressure Assessment 3. Atrial fibrillation, paroxysmal on chronic anticoagulation. No acute issues Plan: Continue on amiodarone. Will continue on Coumadin. Will do daily INRs. Assessment 4. Hypo magnesemia Plan: Will check magnesium Assessment 5. Degenerative joint disease without acute symptoms N: Will continue to follow Assessment 6. Previous history of hyponatremia without current symptoms. Will stop her IV fluid Code status is do not resuscitate. Initially this was put in as a full code but I discussed with patient and she does not want any heroic efforts and wants to be DNR. COVID-19 COVID-19 status: Negative Quality VTE Deep Vein Thrombosis/Pulmonary Embolism Present on Admission: No
[2020-10-08] MEDS: WARFARIN 5 MG TABLET PO (19:04)
[2020-10-08] MEDS: SERTRALINE 50 MG TABLET PO (20:26)
[2020-10-08] MEDS: DOCUSATE 100 MG CAPSULE PO (20:26)
[2020-10-09] VITALS: O2SAT 97
[2020-10-09 01:10] VITALS: BP 122/70; PULSE 61; RESP 18; TEMP 36.3; O2SAT 96
[2020-10-09 05:01] LABS: Add Manual Diff / Slide Review NO; Basophils Absolute Auto 0 /uL (0-100); Basophils Percent Auto 0.9 % (0-2); Eosinophils Absolute Auto 100 /uL (0-450); Eosinophils Percent Auto 1.9 % (2-4); Hematocrit 34.3 % (36-46); Hemoglobin 11.5 g/dL (12.0-16.0); Lymphocytes Absolute Auto 1300 /uL (1100-4500); Lymphocytes Percent Auto 23.8 % (25-40); Mean Corpuscular HGB Conc 33.5 % (30-36); Mean Corpuscular Hemoglobin 31.4 PG (26-34); Mean Corpuscular Volume 93.7 fL (80-100); Monocytes Absolute Auto 500 /uL (0-900); Monocytes Percent Auto 9.4 % (3-14); Neutrophils Absolute Auto 3500 /uL (1500-7000); Platelet Count 338 X10^3/uL (150-400); Red Blood Cell Count 3.66 X10^6/uL (4.0-5.2); Red Cell Distribution Width 14.4 % (11.6-14.8); White Blood Cell Count 5.5 X10^3/uL (4.5-11.0)
[2020-10-09 05:10] LABS: Alanine Aminotransferase 46 IU/L (<35); Albumin 3.6 g/dL (3.5-5.0); Albumin Globulin Ratio 0.7 (1.0-2.8); Alkaline Phosphatase 57 U/L (38-126); Aspartate Aminotransferase 54 IU/L (14-36); BUN Creatinine Ratio 10.4 (6-22); Bilirubin Total 0.4 mg/dL (0.2-1.3); Blood Urea Nitrogen 13 mg/dL (7-17); Calcium 9.9 mg/dL (8.4-10.2); Carbon Dioxide 32 mmol/L (22-32); Chloride 104 mmol/L (98-107); Estimated Glomerular Filt Rate 40.7 mL/min (>60); Globulin 5.5 g/dL (1.7-4.1); Glucose 94 mg/dL (80-110); HEMOLYSIS < 15 (0-50); Potassium 4.3 mmol/L (3.4-5.1); Sodium 136 mmol/L (137-145); Total Protein 9.1 g/dL (6.3-8.2)
[2020-10-09 05:14] LABS: INR 2.2 (0.9-1.3); Prothrombin Time 24.1 SECONDS (10.1-12.7)
[2020-10-09] MEDS: PANTOPRAZOLE 20 MG TABLET PO (06:23)
[2020-10-09 08:00] VITALS: BP 159/80; PULSE 66; RESP 19; TEMP 36.9; O2SAT 97
--- NOTE | 2020-10-09 08:55 | PM.DS.1 ---
History of Present Illness History of Present Illness Chief complaint: Dizzy Narrative: This very pleasant 85-year-old female who is well known to me presents to the emergency room for complaints of severe persistent dizziness. She has a long history of vertigo as well as atrial fibrillation has been quite symptomatic over the last several years and then difficulty with medications. She has however been doing very well over the last several months until today. In the ER she was found to have horizontal nystagmus not associated with movement and was persistently unable to stand. Due to this and history of falls on Coumadin she had a CT scan of her head that was unremarkable. Her symptoms persisted and it was felt that hospitalization with further evaluation for a central deficit causing the dizziness or posterior circulation contributing to the dizziness was felt to be warranted. Past medical history: 1. Atrial fibrillation with chronic anticoagulation 2. Chronic kidney disease stage 3 3. Vertigo 4. Monoclonal gammopathy has been very stable over many years 5. Hypertension 6. Previous TIA 7. COPD, mild 8. Depression, currently mild and being treated 9. Degenerative joint disease with significant impact on knees and back 10. Cervical radiculopathy 11. Hyponatremia 10. Psoriasis 11. Meniere's disease Allergies to amoxicillin and ampicillin cephalexin causes hives and proxy cam causes itching and patient did not do well on sotalol or hydrochlorothiazide Past surgical history 1. Two thousand six she had lumbar spinal stenosis laminectomy decompression June 2008 she had right hammertoe surgery 3. Lumbar laminectomy 10/05/2009 4. Left total knee replacement 03/18/2011 5. Right total knee replacement November of 2014 6. 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 Hemorrhoid banding Family history: Father age 85 Mom at age 90 Patient with a sister who had breast cancer Sister with colon cancer in her 60s One brother who is healthy Social history. Patient is within the last 2 years. She lives alone independently in in a [place]. She has 2 sons and a daughter. Her daughter lives here in town. Health related behavior Patient never has used tobacco Patient does not drink alcohol Tdap in 2011; flu shot 05/01/2020; Pneumovax 07/10/2008 Discharge Providers Provider Date of admission: 10/08/20 11:06 Discharge Date: 10/09/20 Primary care physician: Tianna Cartagena MD Consults: 10/08/20 18:56 Consult to Physical Therapy Evaluate & Treat Comment: Physician Instructions: Evaluate and Treat Discharge provider: Tianna Cartagena MD Summary Hospital Course Discharge Diagnosis: Vertigo, improved Rule out TIA or CVA which MRI/MRA stroke protocol showed no significant change from 2019 there was significant and slightly worsening vertebral artery narrowing and I suspect this is the etiology of her symptoms that occurred after sleeping for a long time in 1 position. Echo showed no significant change Paroxysmal atrial fibrillation, remained in sinus rhythm with a well-controlled rate Hypertension, well controlled Hospital Course: 35 minutes spent with patient in preparing for discharge Patient admitted with vertigo and unable to supervisor drying and softening the ER which completely resolved by the time that she was on the floor. She was monitored overnight and ambulated with PT in the a.m. and her symptoms were completely resolved and there was no significant abnormalities found on her workup and she was discharged home in stable condition on her same outpatient medications and we will start atorvastatin 10 mg daily when I see her at follow-up next week. Status at Discharge Cognitive/behavioral status at discharge: oriented Functional status at discharge: independent ambulation Overall status at discharge: patient is back to baseline Exam Vital Signs (past 8 hours): - 10/09/20 01:10 10/09/20 08:00 Temperature 97.3 F L 98.4 F Pulse Rate 61 66 Respiratory Rate 18 19 Blood Pressure 122/70 159/80 H Pulse Oximetry 96 97 Oxygen Delivery Method Room Air Oxygen Flow Rate 0 Narrative Exam Narrative: Afebrile, vital signs are stable Alert and oriented x3 in no apparent distress HEENT unremarkable. No nystagmus Chest: Clear to auscultation without wheezes rhonchi or crackles Cor: Regular rate and rhythm without murmur, no ectopy Abdomen: Positive bowel sounds, soft, nontender, nondistended Extremities: No edema Neurologic exam nonfocal Objective Labs Result Diagrams: 10/09/20 04:40 10/09/20 04:40 Labs: Laboratory Results - last 24 hr 10/08/20 10/08/20 10/09/20 06:36 11:05 04:40 WBC RBC Hgb Hct MCV MCH MCHC RDW Plt Count Neut % (Auto) Lymph % (Auto) Crane % (Auto) Eos % (Auto) Baso % (Auto) Neut # (Auto) Lymph # (Auto) Crane # (Auto) Eos # (Auto) Baso # (Auto) PT 24.1 H INR 2.2 H Sodium Potassium Chloride Carbon Dioxide BUN Creatinine Estimated GFR BUN/Creatinine Ratio Glucose Calcium Magnesium 2.1 Total Bilirubin AST ALT Alkaline Phosphatase Total Protein Albumin Globulin Albumin/Globulin Ratio SARS-CoV-2 (PCR) Negative 10/09/20 10/09/20 04:40 04:40 WBC 5.5 RBC 3.66 L Hgb 11.5 L Hct 34.3 L MCV 93.7 MCH 31.4 MCHC 33.5 RDW 14.4 Plt Count 338 Neut % (Auto) 64.0 D Lymph % (Auto) 23.8 L D Crane % (Auto) 9.4 Eos % (Auto) 1.9 L Baso % (Auto) 0.9 Neut # (Auto) 3500 Lymph # (Auto) 1300 Crane # (Auto) 500 Eos # (Auto) 100 Baso # (Auto) 0 PT INR Sodium 136 L Potassium 4.3 Chloride 104 Carbon Dioxide 32 BUN 13 Creatinine 1.25 H Estimated GFR 40.7 L BUN/Creatinine Ratio 10.4 Glucose 94 Calcium 9.9 Magnesium Total Bilirubin 0.4 AST 54 H ALT 46 H Alkaline Phosphatase 57 Total Protein 9.1 H Albumin 3.6 Globulin 5.5 H Albumin/Globulin Ratio 0.7 L SARS-CoV-2 (PCR) FOR[facility]LY [facility], [facility] Medical History Acute postoperative pain of knee Atrial fibrillation Atrial fibrillation with RVR CVA (cerebral vascular accident) Dehydration Diarrhea Multiple myeloma not having achieved remission Vertigo Surgical History History of bilateral knee replacement Social History household members: none Smoking Status: Never smoker Discharge Plan Discharge Plan Patient Disposition: Home Discharge orders & Medications Prescriptions: New amiodarone 200 mg Tablet 200 mg PO DAILY Qty: 60 RF: 0 sertraline [Zoloft] 50 mg Tablet 50 mg PO BEDTIME Qty: 1 RF: 0 Continued cyanocobalamin (vitamin B-12) [Vitamin B-12] 1,000 mcg Tablet 1,000 mcg PO DAILY Qty: 0 RF: 0 cholecalciferol (vitamin D3) [Vitamin D3] 1,000 unit Capsule 1,000 unit PO DAILY Qty: 0 RF: 0 warfarin [Coumadin] 5 MG tablet See Rx Instructions .ROUTE .COMPLEX Qty: 0 RF: 0 omega 9-ahr-nnj-fish oil [Fish Oil] 1,000 MG capsule 1,000 mg PO DAILY Qty: 0 RF: 0 Lipo-Flavonoid Plus 1 tab PO DAILY Qty: 0 RF: 0 amlodipine 2.5 mg tablet 2.5 mg PO DAILY RF: 0 Ocuvite Vitamin 1 tab PO DAILY RF: 0 Changed losartan 100 mg tablet 50 mg PO DAILY Qty: 0 RF: 0 Discontinued sotalol 80 mg tablet 80 mg PO BID RF: 0 Follow up/Referrals: Tianna Cartagena MD [Primary Care Provider] - Discharge Data Primary Care Provider: Tianna Cartagena Attending Provider: Tianna Cartagena Quality VTE Deep Vein Thrombosis/Pulmonary Embolism Present on Admission: No
--- NOTE | 2020-10-09 09:40 | PT.IIE ---
Surgical History (Last Reviewed 10/08/20 @ 18:39 by Tianna Cartagena MD) History of bilateral knee replacement Medical History (Last Reviewed 10/08/20 @ 18:39 by Tianna Cartagena MD) Acute postoperative pain of knee Atrial fibrillation Atrial fibrillation with RVR CVA (cerebral vascular accident) Dehydration Diarrhea Multiple myeloma not having achieved remission Vertigo Physical Therapy Inpatient Evaluation/Re-Eval M1 PT/OT-IP Prior Functional Status Start: 10/09/20 11:16 Freq: NEEDED Status: Active Protocol: Document 10/09/20 09:40 AB (Rec: 10/09/20 11:32 AB [id number]) Medical Review Prior Functional Status Medical History Reviewed Yes Communication able to make needs known Mobility and Gait pt stated that she is independent with all mobilities and ambulation without AD Social History Household Members none Living Arrangements House Number of Floors (Floors) One Floor Number of Stairs To Enter/Railing? 1 step to enter with B rail/ bars Home Environment High Toilet,Walk in Shower Home Equipment Four Wheel Walker,Straight Cane,Shower Seat without Backrest,Hand Held Shower,Grab Bars Near Toilet,Grab Bars In Shower Additional Social History Comment stated that she has children that lives ~ 1-3 block away from her and checked on her. M2 PT-IP Current Condition Start: 10/09/20 11:16 Freq: NEEDED Status: Active Protocol: Document 10/09/20 09:40 AB (Rec: 10/09/20 11:32 AB [id number]) Physical Therapy Current Condition Current Condition Evaluation Date 10/09/20 Treatment Diagnosis dizziness; difficulty in walking Onset Date 10/08/20 M3 PT-IP Subjective Start: 10/09/20 11:16 Freq: NEEDED Status: Active Protocol: Document 10/09/20 09:40 AB (Rec: 10/09/20 11:32 AB [email or web address]) Subjective Physical Therapy Visit Type Type Initial Evaluation Visit Start Time 09:40 Visit Stop Time 10:00 Total Visit Minutes 20 Number of APPLICATION ENGINEER Visits 0 Physical Therapy Visit Comments Patient Comments pt is agreeable to do PT Therapy Pain Assessment Pain Present Pain Present Denied Pain M4 PT-IP Mobility and Gait Start: 10/09/20 11:16 Freq: NEEDED Status: Active Protocol: Document 10/09/20 09:40 AB (Rec: 10/09/20 11:32 AB [email or web address]) PT-Bed Mobility Assessment Supine to Sit Supine to Sit Independent Sit to Supine Sit to Supine Independent PT-Transfer Assessment Sit to and From Stand Sit to and from Stand Standby Assistance Equipment Transfer Assistive Device Gait Belt Orthotic/Prosthetic Devices or Brace: No Transfers Transfer Destination Bed Transfer Technique ambulated without AD Transfer Ability Level of Assist Standby Assistance,Contact Guard Assistance Comments Mobility Comments pt stated that she does not have dizziness any more and has not c/o pain. completed sit to stand from chair SBA and ambulated to the bed without AD SBA. completed bed mobility supine <>sit mod I. pt then ambulated in room without AD ~ 40 ft SBA to CGA with (+) LOB with pt needing to reach for the wall. pt stated that she has balance problems even before hospitalization but able to manage at home and uses a cart for support when she has to go do her groceries. pt educated on safety and use of AD but pt refused. pt stated that she usually have her shoes on even inside the house and that she can balance herself better with her shoes. pt does not have her shoes here in the hospital. pt educated on increasing aware to posture and COG and weight shifting during ambulation and to slow down. ambulated again without AD and applying more awareness to body movement and pt completed without LOB. pt sat back on chair. call light and table placed within reach. Gait Assessment Gait Gait Assistance Required: Standby Assistance,Contact Guard Assist Distance (Feet) 40 Able to Maintain Weight Bearing Status Yes During Gait Assistive Devices Assistive Device None,Gait Belt Orthotic/Prosthetic Devices or Brace: No Gait Deviations General Gait Pattern Antalgic,Decreased Stride Length,Decreased Feet Clearance,Step-to Gait Factors Limiting Gait Function Factors Limiting Gait Function Decreased Activity Tolerance, Decreased Strength,Poor Balance,Poor Safety Awareness Stair Climbing Assessment Evaluation Level of Assist On Stairs Standby Assistance Devices Stair Climbing Assistive Devices Left Railing,Right Railing Technique/Endurance Stair Climbing Direction Ascend and Descend Stair Climbing Technique Step to Step Number of Steps Climbed 1 Query Text: Stair Climbing Set # Repetitions (reps) 2 PT-Balance Assessment Sitting Balance and Reactions Static Sitting Balance Ability Good Dynamic Sitting Balance Ability Good Standing Balance and Reactions Static Standing Balance Ability Good Dynamic Standing Balance Ability Fair Device Used without AD M5 PT-IP Objective Assessments Start: 10/09/20 11:16 Freq: NEEDED Status: Active Protocol: Document 10/09/20 09:40 AB (Rec: 10/09/20 11:32 AB [email or web address]) Orientation Orientation/Cognition Level of Alertness Alert Orientation Name,Age,Birthday,Month,Date, Year,Day of Week,Place, Situation Language Function Ability No Deficits Noted Safety Awareness Understands Safety Issues Memory Description No Deficits Noted M6 PT-IP Treatment Start: 10/09/20 11:16 Freq: NEEDED Status: Active Protocol: Document 10/09/20 09:40 AB (Rec: 10/09/20 11:32 AB [email or web address]) Physical Therapy Treatment Education Education Provided Safety M7 PT-IP Assessment and Plan Start: 10/09/20 11:16 Freq: NEEDED Status: Active Protocol: Document 10/09/20 09:40 AB (Rec: 10/09/20 11:32 AB [email or web address]) PT Summary Assessment and Plan Potential Rehabilitation Potential Good Status of Condition at Evaluation Stable Summary Impairments Pain,ROM,Strength,Balance, Coordination,Sensation,Tone, Cognition,Bed Mobility, Transfers,Gait,Activity Tolerance Assessment Summary pt rquiring SBA to CGA with mobility and ambulation without AD. educated pt on safety and use of AD but pt refused to use AD. informed regarding PT for balance training but pt also refused. stated that she had it before and does not want it again. Goals Transfer Goal Independent Gait Goal Independent Gait Distance 150 Days to Meet Goals 5 Frequency of Treatment Frequency Of Treatment Once a Day Treatment Plan Physical Therapy Treatment Plan Bed Mobility Training,Transfer Training,Gait Training, Therapeutic Exercise,Balance Retraining,Discharge Planning, Hot or Cold Pack,Neuromuscular Re-ed,Coordination Retraining Precautions Other Precautions falls Recommendations To Nursing Amount of Assist Needed 1 Person Assist Discharge Recommendations PT Discharge Recommendations Home with Assistance, Outpatient PT Transportation Needs at Discharge Private Vehicle
[2020-10-09] MEDS: DOCUSATE 100 MG CAPSULE PO (09:50)
[2020-10-09] MEDS: AMIODARONE 200 MG TABLET PO (09:51)
[2020-10-09] MEDS: AMLODIPINE 5 MG TABLET 2.5 MG PO (09:51)
[2020-10-09] MEDS: LOSARTAN 50 MG TABLET PO (09:53)
--- NOTE | 2020-10-09 10:40 | PC.NURSE ---
Addendum entered by Jenny Rubio R.N. 10/09/20 11:15: Patient given discharge instructions, verbalized understanding to f/u with Dr. Cartagena in one week. Education given regarding medication, fall risk, symptoms worsening and activity. Patient verbalized understanding. IV removed. Patient tolerated. Patient discharged via wheelchair with aide assist. Original Note: Patient A/O x 4. Ambulated with PT this AM. Tolerated. Denies pain. Lungs CTA. Voiding. Denies constipation, last BM 10/07/20. BT active x 4. Patient denies dizziness, lightheadedness, chest pain or SOB. HR WNL, pulses equal. IV site is patent. Patient denies further needs at this time.
--- NOTE | 2020-10-09 14:20 | CM.DPNOTE ---
Reviewed this admission w/Dr Cartagena this morning who expected no needs from this CURATORIAL SPECIALIST. Patient discharged back home w/assist from family, cleared by the therapy team for return home w/ outpatient PT follow up No needs from this CURATORIAL SPECIALIST before patient left the acute care floor, confirmed by JAYNE Alvarado. NANCY
== END 2020-10-09 11:16 | disposition home or self-care (01) ==
LOC: ED 10:03 → AC 11:07
PROVIDERS: Emergency Medicine; Admitting Provider Family Medicine; Emergency Provider Emergency Medicine; Family Provider Family Medicine; PCP Family Medicine; Referring Provider Emergency Medicine; Visit Provider Family Medicine
DX: R42 Dizziness and giddiness (principal); W01.10XA Fall on same level from slipping, tripping and stumbling with subsequent striking against unspecified object, initial encounter; Z91.81 History of falling; Y92.003 Bedroom of unspecified non-institutional (private) residence as the place of occurrence of the external cause; Z79.01 Long term (current) use of anticoagulants; N18.30 Chronic kidney disease, stage 3 unspecified; J44.9 Chronic obstructive pulmonary disease, unspecified; Z86.73 Personal history of transient ischemic attack (TIA), and cerebral infarction without residual deficits; F32.9 Major depressive disorder, single episode, unspecified; I48.0 Paroxysmal atrial fibrillation; Z20.822 Contact with and (suspected) exposure to COVID-19; I12.9 Hypertensive chronic kidney disease with stage 1 through stage 4 chronic kidney disease, or unspecified chronic kidney disease
CPT/HCPCS: 36415; 70450; 70548; 70553; 80053; 82550; 82553; 83735; 84484; 85025; 85610; 85730; 87635; 93005; 93306; 96360; 96361; 97161; 99284; G0378; A9579

== ENCOUNTER → 2020-10-19 09:43 | Outpatient (ROUT) | payer MEDICARE, OTHER, SELFPAY ==
[2020-10-08 11:26] VITALS: BMI 26.9
[2020-10-19 10:01] LABS: INR 2.8 (0.9-1.3); Prothrombin Time 31.8 SECONDS (10.1-12.7)
== END ==
PROVIDERS: Family Provider Family Medicine; PCP Family Medicine; Visit Provider Family Medicine
DX: Z79.01 Long term (current) use of anticoagulants (principal)
CPT/HCPCS: 85610

== ENCOUNTER → 2020-10-26 11:57 | Outpatient (ROUT) | payer MEDICARE, OTHER, SELFPAY ==
[2020-10-08 11:26] VITALS: BMI 26.9
[2020-10-26 12:09] LABS: INR 2.8 (0.9-1.3); Prothrombin Time 30.8 SECONDS (10.1-12.7)
== END ==
PROVIDERS: Family Provider Family Medicine; PCP Family Medicine; Visit Provider Family Medicine
DX: Z79.01 Long term (current) use of anticoagulants (principal)
CPT/HCPCS: 85610

== ENCOUNTER 2020-11-09 10:15 | Outpatient (RCR) | payer MEDICARE, OTHER, SELFPAY ==
[2020-10-08 11:26] VITALS: BMI 26.9
--- NOTE | 2020-10-20 16:00 | PT.OIE ---
Current Diagnoses Dizziness and giddiness (10/20/20) History of falling (10/20/20) Past Medical History (Last Reviewed 10/08/20 @ 18:39 by Tianna Cartagena MD) Acute postoperative pain of knee Atrial fibrillation Atrial fibrillation with RVR CVA (cerebral vascular accident) Dehydration Diarrhea Multiple myeloma not having achieved remission Vertigo Past Surgical History (Last Reviewed 10/08/20 @ 18:39 by Tianna Cartagena MD) History of bilateral knee replacement Visit Care Team Role Provider Type Tianna Cartagena MD Attending Provider Physician Family Provider Primary Care Provider Referring Provider Specialty: Family Practice Address: [address] [place] [address], [facility] Email: [email or web address] Physical Therapy Initial Evaluation PT-OP-A Visit Information Start: 10/20/20 08:13 Freq: Status: Active Protocol: Document 10/20/20 10:15 AMB (Rec: 10/20/20 11:59 AMB [id number]) Out-Patient Physical Therapy Visit Information Visit Information Visit Type Initial Evaluation Visit Start Time 10:15 Visit Stop Time 11:00 Total Visit Minutes 45 Visit Number 1 PT-OP-B Current Condition Start: 10/20/20 08:13 Freq: Status: Active Protocol: Document 10/20/20 10:15 AMB (Rec: 10/20/20 10:37 AMB [id number]) Current Condition History of Current Condition Onset Date chronic Current Complaints dizziness History of Current Condition Pt describes dizziness years ago that was diagnosed as Meniere's, but this dizziness is different, and she hasn't had that dizziness in years. Specificially she did have dizziness two different days at about 5am. Can feel it coming on. Denies nausea, denies neck pain, denies spinning. Moving from sit to stand brings on sx, is on blood pressure medication, just had it lowered by 50mg a few months ago. MRI showed vertebral artery severe occlusion. 3 falls in the last 6 months- in the yard on uneven terrain. May, September instances of dizziness approximately. Prior Functional Status Baseline Function- ADL's Modified Independent Baseline Function- Mobility Modified Independent Current Functional Impairments (Reported) Functional Limitations- ADL's Limited in standing and walking due to orthopedic issues. Unable to get up from floor without UE support. Personal Factors Other Personal Factors That May Effect Lives alone, hx a fib, history Therapy/Recovery of TIA, history lumbar surgery with continued back pain PT-OP-C Subjective Start: 10/20/20 08:13 Freq: Status: Active Protocol: Document 10/20/20 10:15 AMB (Rec: 10/20/20 15:55 AMB [email or web address]) Patient Questionnaires Dizziness Handicap Inventory DHI Score 58 DHI Functional Impairment 40 to 59% Impaired (Score 40- 59) PT-OP-G Mobility & Gait Start: 10/20/20 08:13 Freq: Status: Active Protocol: Document 10/20/20 10:15 AMB (Rec: 10/20/20 15:55 AMB [email or web address]) OP Gait Assessment Comments Gait Comments Stiffness in back and knees limit walking/standing PT-OP-O Vestibular Start: 10/20/20 08:13 Freq: Status: Active Protocol: Document 10/20/20 10:15 AMB (Rec: 10/20/20 15:55 AMB [email or web address]) Vestibular Assessment Vestibular Function Tests mCTSIB Position 1 WNL mCTSIB Position 2 3 seconds mCTSIB Position 3 5 seconds mCTSIB Position 4 2 seconds Comments Vestibular Comments deferred testing that required cervical extension, end range cervical rotation secondary to severe vertebral stenosis per recent MRA PT-OP-T Assessment and Plan Start: 10/20/20 08:13 Freq: Status: Active Protocol: Document 10/20/20 10:15 AMB (Rec: 10/20/20 16:08 AMB [email or web address]) Physical Therapy Assessment Rehab Potential Rehabilitation Potential Good Evaluation Complexity Number of Personal Factors/Comorbidities 1-2 Number of Body Systems Impaired 4 or More Clinical Presentation at Evaluation Evolving Impairments Impairments Balance,Functional Mobility, Gait,Vestibular Goals Three Impairment Dizziness Short Term Goal (STG) Monica will move from sit to stand without dizziness. STG Duration 4 weeks Two Impairment Gait Short Term Goal (STG) Monica will ambulate for 6 minutes without loss of balance over smooth terrain without assistive device. STG Duration 4 weeks Shear Operator Automatic Goal (LTG) Monica will ambulate over uneven terrain with SBA without assistive device. LTG Duration 8 weeks One Impairment Balance Short Term Goal (STG) Monica will improve her static balance, so that she can balance with eyes closed without loss of balance for 15 seconds. STG Duration 4 weeks Assessment Summary Assessment Monica attends physical therapy concerned about two instances of dizziness, denies spinning nausea, more of a dysequilibrium per her report, months apart. 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 Therefore much of a standard vestiblar eval was deferred. She did have difficulty with walking with horizontal head turns and eyes closed and foam static balance. She also has general deconditioning/ back pain/ LE weakness that impair her balance. Should also consider orthostatic hypotension considering her medication and description of symptoms. Considering her age , history of falls, and anticoagulation status she would benefit from physical therapy to reduce her falls. Managing her dizziness will be challenging considering her vetebral artery occlusion, but we will work on that as much as we can. Physical Therapy Plan Frequency and Duration Frequency of Treatment 2x/Week Duration of Treatment 8 weeks Plan of Care Start Date 10/20/20 Plan of Care End Date 12/15/20 Therapeutic Interventions Therapeutic Interventions Balance Training,Gait Training ,Home Exercise Program,Manual Therapy,Self-Care/Home Management,Therapeutic Activities,Therapeutic Exercises,Vestibular Rehabilitation Modalities Cold Pack/Ice Massage,Hot Packs
--- NOTE | 2020-10-20 16:00 | PT.OPPOC ---
Physical, Occupational & Speech Therapy At [facility] Current Diagnoses Dizziness and giddiness (10/20/20) History of falling (10/20/20) Visit Care Team Role Provider Type Tianna Cartagena MD Attending Provider Physician Family Provider Primary Care Provider Referring Provider Specialty: Family Practice Address: [address] [place] [address], [place], [place], [facility] Email: [email or web address] Plan Of Care PT-OP-T Assessment and Plan Start: 10/20/20 08:13 Freq: Status: Active Protocol: Document 10/20/20 10:15 AMB (Rec: 10/20/20 16:08 AMB [email or web address]) Physical Therapy Assessment Rehab Potential Rehabilitation Potential Good Evaluation Complexity Number of Personal Factors/Comorbidities 1-2 Number of Body Systems Impaired 4 or More Clinical Presentation at Evaluation Evolving Impairments Impairments Balance,Functional Mobility, Gait,Vestibular Goals Three Impairment Dizziness Short Term Goal (STG) Monica will move from sit to stand without dizziness. STG Duration 4 weeks Two Impairment Gait Short Term Goal (STG) Monica will ambulate for 6 minutes without loss of balance over smooth terrain without assistive device. STG Duration 4 weeks Mcc Goal (LTG) Monica will ambulate over uneven terrain with SBA without assistive device. LTG Duration 8 weeks One Impairment Balance Short Term Goal (STG) Monica will improve her static balance, so that she can balance with eyes closed without loss of balance for 15 seconds. STG Duration 4 weeks Assessment Summary Assessment Monica attends physical therapy concerned about two instances of dizziness, denies spinning nausea, more of a dysequilibrium per her report, months apart. 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 Therefore much of a standard vestiblar eval was deferred. She did have difficulty with walking with horizontal head turns and eyes closed and foam static balance. She also has general deconditioning/ back pain/ LE weakness that impair her balance. Should also consider orthostatic hypotension considering her medication and description of symptoms. Considering her age , history of falls, and anticoagulation status she would benefit from physical therapy to reduce her falls. Managing her dizziness will be challenging considering her vetebral artery occlusion, but we will work on that as much as we can. Physical Therapy Plan Frequency and Duration Frequency of Treatment 2x/Week Duration of Treatment 8 weeks Plan of Care Start Date 10/20/20 Plan of Care End Date 12/15/20 Therapeutic Interventions Therapeutic Interventions Balance Training,Gait Training ,Home Exercise Program,Manual Therapy,Self-Care/Home Management,Therapeutic Activities,Therapeutic Exercises,Vestibular Rehabilitation Modalities Cold Pack/Ice Massage,Hot Packs Plan of Care Dates Plan of Care Start Date 10/20/20 Plan of Care End Date 12/15/20 Electronically Signed by: Lubna Quach, PT 10/21/20 0842 Please Sign and Return: I have reviewed this Plan of Care and certify that the skilled therapy services above are required to meet the patient?s needs. Physician Signature Date Printed Name and Credentials Clinical Instructor Signature Printed Name and Credentials
--- NOTE | 2020-10-28 13:20 | PT.OTN ---
Current Diagnoses Dizziness and giddiness (10/28/20) History of falling (10/28/20) Physical Therapy Treatment Note PT-OP-A Visit Information Start: 10/20/20 08:13 Freq: Status: Active Protocol: Document 10/28/20 08:15 AMB (Rec: 10/28/20 09:00 AMB [id number]) Out-Patient Physical Therapy Visit Information Visit Information Visit Type Treatment Note Visit Start Time 08:15 Visit Stop Time 09:00 Total Visit Minutes 45 Visit Number 2 PT-OP-B Current Condition Start: 10/20/20 08:13 Freq: Status: Active Protocol: Document 10/20/20 10:15 AMB (Rec: 10/20/20 10:37 AMB [id number]) Current Condition History of Current Condition Onset Date chronic Current Complaints dizziness History of Current Condition Pt describes dizziness years ago that was diagnosed as Meniere's, but this dizziness is different, and she hasn't had that dizziness in years. Specificially she did have dizziness two different days at about 5am. Can feel it coming on. Denies nausea, denies neck pain, denies spinning. Moving from sit to stand brings on sx, is on blood pressure medication, just had it lowered by 50mg a few months ago. MRI showed vertebral artery severe occlusion. 3 falls in the last 6 months- in the yard on uneven terrain. May, instances of dizziness approximately. Prior Functional Status Baseline Function- ADL's Modified Independent Baseline Function- Mobility Modified Independent Current Functional Impairments (Reported) Functional Limitations- ADL's Limited in standing and walking due to orthopedic issues. Unable to get up from floor without UE support. Personal Factors Other Personal Factors That May Effect Lives alone, hx a fib, history Therapy/Recovery of TIA, history lumbar surgery with continued back pain PT-OP-C Subjective Start: 10/20/20 08:13 Freq: Status: Active Protocol: Document 10/28/20 13:16 AMB (Rec: 10/28/20 13:20 AMB [email or web address]) OP-PT Subjective Patient Comments Patient Comments Monica had to cancel an appointment last week due to dizziness. It happened twice last week. She can feel it coming on even when she is sitting in her chair, and then sometimes takes meclizine which she thinks helps. Sx last a while, difficulty walking once she stands up and it lasts until she goes back to sleep. Never had the sx during the day. Sometimes at night. PT-OP-G Mobility & Gait Start: 10/20/20 08:13 Freq: Status: Active Protocol: Document 10/20/20 10:15 AMB (Rec: 10/20/20 15:55 AMB [email or web address]) OP Gait Assessment Comments Gait Comments Stiffness in back and knees limit walking/standing PT-OP-O Vestibular Start: 10/20/20 08:13 Freq: Status: Active Protocol: Document 10/20/20 10:15 AMB (Rec: 10/20/20 15:55 AMB [email or web address]) Vestibular Assessment Vestibular Function Tests mCTSIB Position 1 WNL mCTSIB Position 2 3 seconds mCTSIB Position 3 5 seconds mCTSIB Position 4 2 seconds Comments Vestibular Comments deferred testing that required cervical extension, end range cervical rotation secondary to severe vertebral stenosis per recent MRA PT-OP-Q Treatments Start: 10/20/20 08:13 Freq: Status: Active Protocol: Document 10/28/20 08:15 AMB (Rec: 10/28/20 13:16 AMB [email or web address]) Neuro Re-Education Treatment Vestibular Rehabilitation VOR Retraining Details NBOS Background white Distance From Target 5' Speed slow Other Activities 1 Details orthostatic check Comments supine 136/70 standing 126/68 PT-OP-T Assessment and Plan Start: 10/20/20 08:13 Freq: Status: Active Protocol: Document 10/28/20 08:15 AMB (Rec: 10/28/20 09:00 AMB [id number]) Physical Therapy Assessment Assessment Summary Assessment Monica did not show signs of orthostatic hypotension. Supine 136/70; standing 126/68 . Physical Therapy Plan Next Visit Focus/Plan Next Visit Plan Recheck how VOR is tolerated
--- NOTE | 2020-11-09 11:02 | PT.OTN ---
Current Diagnoses Dizziness and giddiness (11/09/20) History of falling (11/09/20) Physical Therapy Treatment Note PT-OP-A Visit Information Start: 10/20/20 08:13 Freq: Status: Active Protocol: Document 11/09/20 10:19 AMB (Rec: 11/09/20 10:46 AMB [id number]) Out-Patient Physical Therapy Visit Information Visit Information Visit Type Treatment Note Visit Start Time 10:15 Visit Stop Time 11:00 Total Visit Minutes 45 Visit Number 3 PT-OP-B Current Condition Start: 10/20/20 08:13 Freq: Status: Active Protocol: Document 10/20/20 10:15 AMB (Rec: 10/20/20 10:37 AMB [id number]) Current Condition History of Current Condition Onset Date chronic Current Complaints dizziness History of Current Condition Pt describes dizziness years ago that was diagnosed as Meniere's, but this dizziness is different, and she hasn't had that dizziness in years. Specificially she did have dizziness two different days at about 5am. Can feel it coming on. Denies nausea, denies neck pain, denies spinning. Moving from sit to stand brings on sx, is on blood pressure medication, just had it lowered by 50mg a few months ago. MRI showed vertebral artery severe occlusion. 3 falls in the last 6 months- in the yard on uneven terrain. May, instances of dizziness approximately. Prior Functional Status Baseline Function- ADL's Modified Independent Baseline Function- Mobility Modified Independent Current Functional Impairments (Reported) Functional Limitations- ADL's Limited in standing and walking due to orthopedic issues. Unable to get up from floor without UE support. Personal Factors Other Personal Factors That May Effect Lives alone, hx a fib, history Therapy/Recovery of TIA, history lumbar surgery with continued back pain PT-OP-C Subjective Start: 10/20/20 08:13 Freq: Status: Active Protocol: Document 11/09/20 10:19 AMB (Rec: 11/09/20 10:46 AMB [id number]) OP-PT Subjective Patient Comments Patient Comments Yesterday morning had a little difficulty getting out of bed , so took some meclinzine and slept for another hour and then got up and felt ok. Today feels fine. PT-OP-G Mobility & Gait Start: 10/20/20 08:13 Freq: Status: Active Protocol: Document 10/20/20 10:15 AMB (Rec: 10/20/20 15:55 AMB [email or web address]) OP Gait Assessment Comments Gait Comments Stiffness in back and knees limit walking/standing PT-OP-O Vestibular Start: 10/20/20 08:13 Freq: Status: Active Protocol: Document 10/20/20 10:15 AMB (Rec: 10/20/20 15:55 AMB [email or web address]) Vestibular Assessment Vestibular Function Tests mCTSIB Position 1 WNL mCTSIB Position 2 3 seconds mCTSIB Position 3 5 seconds mCTSIB Position 4 2 seconds Comments Vestibular Comments deferred testing that required cervical extension, end range cervical rotation secondary to severe vertebral stenosis per recent MRA PT-OP-Q Treatments Start: 10/20/20 08:13 Freq: Status: Active Protocol: Document 11/09/20 11:00 AMB (Rec: 11/09/20 11:02 AMB [email or web address]) Neuro Re-Education Treatment Balance Activities 3 Details sit to stand Reps/Duration 10 2 Details stepping Comments fwd/lateral/backward with UE support 1 Details corner balance (HEP) Comments NBOS EC; semi tandem EO HT PT-OP-T Assessment and Plan Start: 10/20/20 08:13 Freq: Status: Active Protocol: Document 11/09/20 10:57 AMB (Rec: 11/09/20 11:00 AMB [email or web address]) Physical Therapy Assessment Goals Three Impairment Dizziness Short Term Goal (STG) Monica will move from sit to stand without dizziness. STG Duration Intermittent- able to do so in the clinic Two Impairment Gait Short Term Goal (STG) Monica will ambulate for 6 minutes without loss of balance over smooth terrain without assistive device. STG Duration MET Intermediate Goal (LTG) Monica will ambulate over uneven terrain with SBA without assistive device. LTG Duration NOT MET One Impairment Balance Short Term Goal (STG) Monica will improve her static balance, so that she can balance with eyes closed without loss of balance for 15 seconds. STG Duration PROGRESS MADE Assessment Summary Assessment Monica continues to have intermittent dizziness with sit to independent living instructor the mornings/ overnight. We could not reproduce her dizziness in the clinic. Given that her symptoms were not reproduceable, we worked on a home exercise program for her balance and then discharged her. She continues to have intermittent dizziness with sit to stand. She states she can feel it coming on, and sx sound more cardiovascular in nature, but she reports that meclizine helps, which would be more vestibular. Did not check for BPPV due to artery occlusion, but symptoms do not sound like BPPV as they last for a long period of time and she does not have any dizziness with rolling over in bed. Physical Therapy Plan Discharge Physical Therapy Discharge Reasons Plateau in Progress
== END 2020-11-10 08:38 | disposition home or self-care (01) ==
LOC: PHYS 10:15
PROVIDERS: Family Provider Family Medicine; PCP Family Medicine; Referring Provider Family Medicine; Visit Provider Family Medicine
DX: R42 Dizziness and giddiness (principal); Z91.81 History of falling
CPT/HCPCS: 97112; 97162

== ENCOUNTER → 2020-11-09 11:53 | Outpatient (ROUT) | payer MEDICARE, OTHER, SELFPAY ==
[2020-10-08 11:26] VITALS: BMI 26.9
[2020-11-09 12:01] LABS: INR 3.2 (0.9-1.3); Prothrombin Time 36.8 SECONDS (10.1-12.7)
== END ==
PROVIDERS: Family Provider Family Medicine; PCP Family Medicine; Visit Provider Family Medicine
DX: Z79.01 Long term (current) use of anticoagulants (principal)
CPT/HCPCS: 85610

== ENCOUNTER → 2020-11-27 10:43 | Outpatient (ROUT) | payer MEDICARE, OTHER, SELFPAY ==
[2020-10-08 11:26] VITALS: BMI 26.9
[2020-11-27 10:52] LABS: INR 2.7 (0.9-1.3); Prothrombin Time 31.1 SECONDS (10.1-12.7)
== END ==
PROVIDERS: Family Provider Family Medicine; PCP Family Medicine; Visit Provider Family Medicine
DX: S80.01XA Contusion of right knee, initial encounter (principal); L03.115 Cellulitis of right lower limb; G45.9 Transient cerebral ischemic attack, unspecified; I48.91 Unspecified atrial fibrillation; Z79.01 Long term (current) use of anticoagulants
CPT/HCPCS: 85610

== ENCOUNTER → 2020-11-27 10:51 | Outpatient (CLI) | payer MEDICARE, OTHER, SELFPAY ==
[2020-10-08 11:26] VITALS: BMI 26.9
--- NOTE | 2020-11-27 10:54 | DI.RAD.S_ITS ---
PROCEDURE: XR KNEE RT 3V INDICATIONS: right knee pain TECHNIQUE: 3 views of the knee were acquired. COMPARISON: [facility], KNEE 1-2 VIEWS RIGHT, 12/18/2014, 17:11. [facility], KNEE 1-2 VIEWS LEFT, 03/18/2011, 10:43. FINDINGS: Bones: No fractures or dislocations. No suspicious bony lesions. Soft tissues: No joint effusion. No suspicious soft tissue calcifications. IMPRESSION: Prior right total knee arthroplasty, no evidence of device loosening or disruption. Normal alignment. Dictated by: Obi Baron M.D. on 11/27/2020 at 12:45 Approved by: Obi Baron M.D. on 11/27/2020 at 12:45
== END ==
PROVIDERS: Family Provider Family Medicine; PCP Family Medicine; Referring Provider Family Medicine; Visit Provider Family Medicine
DX: M25.561 Pain in right knee (principal); S80.01XA Contusion of right knee, initial encounter; L03.115 Cellulitis of right lower limb; G45.9 Transient cerebral ischemic attack, unspecified; I48.91 Unspecified atrial fibrillation; Z79.01 Long term (current) use of anticoagulants; Z96.651 Presence of right artificial knee joint
CPT/HCPCS: 73562; 85610

== ENCOUNTER → 2020-12-03 07:42 | Outpatient (ROUT) | payer MEDICARE, OTHER, SELFPAY ==
[2020-10-08 11:26] VITALS: BMI 26.9
[2020-12-03 07:48] LABS: INR 4.1 (0.9-1.3); Prothrombin Time 48.7 SECONDS (10.1-12.7)
== END ==
PROVIDERS: Family Provider Family Medicine; PCP Family Medicine; Visit Provider Family Medicine
DX: Z79.01 Long term (current) use of anticoagulants (principal)
CPT/HCPCS: 85610

== ENCOUNTER → 2020-12-11 09:04 | Outpatient (ROUT) | payer MEDICARE, OTHER, SELFPAY ==
[2020-10-08 11:26] VITALS: BMI 26.9
[2020-12-11 09:13] LABS: INR 2.3 (0.9-1.3); Prothrombin Time 25.9 SECONDS (10.1-12.7)
== END ==
PROVIDERS: Family Provider Family Medicine; PCP Family Medicine; Visit Provider Family Medicine
DX: Z79.01 Long term (current) use of anticoagulants (principal)
CPT/HCPCS: 85610

== ENCOUNTER → 2020-12-18 09:12 | Outpatient (ROUT) | payer MEDICARE, OTHER, SELFPAY ==
[2020-10-08 11:26] VITALS: BMI 26.9
[2020-12-18 09:33] LABS: INR 3.2 (0.9-1.3); Prothrombin Time 36.4 SECONDS (10.1-12.7)
== END ==
PROVIDERS: Family Provider Family Medicine; PCP Family Medicine; Visit Provider Family Medicine
DX: Z79.01 Long term (current) use of anticoagulants (principal)
CPT/HCPCS: 36415; 85610

== ENCOUNTER → 2020-12-25 08:48 | Outpatient (ROUT) | payer MEDICARE, OTHER, SELFPAY ==
[2020-10-08 11:26] VITALS: BMI 26.9
[2020-12-25 08:54] LABS: INR 2.7 (0.9-1.3); Prothrombin Time 31.4 SECONDS (10.1-12.7)
== END ==
PROVIDERS: Family Provider Family Medicine; PCP Family Medicine; Visit Provider Family Medicine
DX: Z79.01 Long term (current) use of anticoagulants (principal)
CPT/HCPCS: 85610

== ENCOUNTER → 2021-01-01 08:45 | Outpatient (ROUT) | payer MEDICARE, OTHER, SELFPAY ==
[2020-10-08 11:26] VITALS: BMI 26.9
[2021-01-01 08:54] LABS: INR 3.5 (0.9-1.3); Prothrombin Time 40.3 SECONDS (10.1-12.7)
== END ==
PROVIDERS: Family Provider Family Medicine; PCP Family Medicine; Visit Provider Family Medicine
DX: Z79.01 Long term (current) use of anticoagulants (principal)
CPT/HCPCS: 85610

== ENCOUNTER → 2021-01-11 08:51 | Outpatient (ROUT) | payer MEDICARE, OTHER, SELFPAY ==
[2020-10-08 11:26] VITALS: BMI 26.9
[2021-01-11 09:00] LABS: INR 2.2 (0.9-1.3); Prothrombin Time 25.7 SECONDS (10.1-12.7)
== END ==
PROVIDERS: Family Provider Family Medicine; PCP Family Medicine; Visit Provider Family Medicine
DX: Z79.01 Long term (current) use of anticoagulants (principal)
CPT/HCPCS: 85610

== ENCOUNTER → 2021-01-18 08:18 | Outpatient (ROUT) | payer MEDICARE, OTHER, SELFPAY ==
[2020-10-08 11:26] VITALS: BMI 26.9
[2021-01-18 08:27] LABS: INR 2.7 (0.9-1.3); Prothrombin Time 31.4 SECONDS (10.1-12.7)
== END ==
PROVIDERS: Family Provider Family Medicine; PCP Family Medicine; Visit Provider Family Medicine
DX: Z79.01 Long term (current) use of anticoagulants (principal)
CPT/HCPCS: 85610

== ENCOUNTER → 2021-02-02 08:24 | Outpatient (ROUT) | payer MEDICARE, OTHER, SELFPAY ==
[2020-10-08 11:26] VITALS: BMI 26.9
[2021-02-02 08:38] LABS: INR 3.4 (0.9-1.3); Prothrombin Time 39.5 SECONDS (10.1-12.7)
== END ==
PROVIDERS: Family Provider Family Medicine; PCP Family Medicine; Visit Provider Family Medicine
DX: Z79.01 Long term (current) use of anticoagulants (principal)
CPT/HCPCS: 85610

== ENCOUNTER → 2021-02-16 08:16 | Outpatient (ROUT) | payer MEDICARE, OTHER, SELFPAY ==
[2020-10-08 11:26] VITALS: BMI 26.9
[2021-02-16 08:23] LABS: INR 2.9 (0.9-1.3); Prothrombin Time 33.6 SECONDS (10.1-12.7)
== END ==
PROVIDERS: Family Provider Family Medicine; PCP Family Medicine; Visit Provider Family Medicine
DX: Z79.01 Long term (current) use of anticoagulants (principal)
CPT/HCPCS: 85610

== ENCOUNTER → 2021-02-23 07:54 | Outpatient (ROUT) | payer MEDICARE, OTHER, SELFPAY ==
[2020-10-08 11:26] VITALS: BMI 26.9
== END ==
PROVIDERS: Family Provider Family Medicine; PCP Family Medicine; Visit Provider Family Medicine
DX: Z79.01 Long term (current) use of anticoagulants (principal)
CPT/HCPCS: 85610

== ENCOUNTER → 2021-03-09 08:08 | Outpatient (ROUT) | payer MEDICARE, OTHER, SELFPAY ==
[2020-10-08 11:26] VITALS: BMI 26.9
[2021-03-09 08:17] LABS: Prothrombin Time 22.6 SECONDS (10.1-12.7)
== END ==
PROVIDERS: Family Provider Family Medicine; PCP Family Medicine; Visit Provider Family Medicine
DX: Z79.1 Long term (current) use of non-steroidal anti-inflammatories (NSAID) (principal)
CPT/HCPCS: 85610

== ENCOUNTER → 2021-03-22 10:14 | Outpatient (ROUT) | payer MEDICARE, OTHER, SELFPAY ==
[2020-10-08 11:26] VITALS: BMI 26.9
[2021-03-22 10:35] LABS: INR 1.4 (0.9-1.3)
== END ==
PROVIDERS: Family Provider Family Medicine; PCP Family Medicine; Visit Provider Family Medicine
DX: Z79.01 Long term (current) use of anticoagulants (principal)
CPT/HCPCS: 85610

== ENCOUNTER → 2021-03-29 08:17 | Outpatient (ROUT) | payer MEDICARE, OTHER, SELFPAY ==
[2020-10-08 11:26] VITALS: BMI 26.9
[2021-03-29 08:34] LABS: INR 2.1 (0.9-1.3); Prothrombin Time 23.6 SECONDS (10.1-12.7)
== END ==
PROVIDERS: Family Provider Family Medicine; PCP Family Medicine; Visit Provider Family Medicine
DX: Z79.01 Long term (current) use of anticoagulants (principal)
CPT/HCPCS: 85610

== ENCOUNTER → 2021-04-06 08:14 | Outpatient (ROUT) | payer MEDICARE, OTHER, SELFPAY ==
[2020-10-08 11:26] VITALS: BMI 26.9
[2021-04-06 08:41] LABS: Prothrombin Time 22.7 SECONDS (10.1-12.7)
== END ==
PROVIDERS: Family Provider Family Medicine; PCP Family Medicine; Visit Provider Family Medicine
DX: Z79.01 Long term (current) use of anticoagulants (principal)
CPT/HCPCS: 85610

== ENCOUNTER → 2021-04-20 11:11 | Outpatient (ROUT) | payer MEDICARE, OTHER, SELFPAY ==
[2020-10-08 11:26] VITALS: BMI 26.9
[2021-04-20 11:45] LABS: INR 2.1 (0.9-1.3); Prothrombin Time 24.3 SECONDS (10.1-12.7)
== END ==
PROVIDERS: Family Provider Family Medicine; PCP Family Medicine; Visit Provider Family Medicine
DX: Z79.01 Long term (current) use of anticoagulants (principal)
CPT/HCPCS: 85610

== ENCOUNTER → 2021-05-17 09:58 | Outpatient (ROUT) | payer MEDICARE, OTHER, SELFPAY ==
[2020-10-08 11:26] VITALS: BMI 26.9
[2021-05-17 10:20] LABS: INR 3.4 (0.9-1.3); Prothrombin Time 38.9 SECONDS (10.1-12.7)
== END ==
PROVIDERS: Family Provider Family Medicine; PCP Family Medicine; Visit Provider Family Medicine
DX: I48.0 Paroxysmal atrial fibrillation (principal); Z79.01 Long term (current) use of anticoagulants
CPT/HCPCS: 85610

== ENCOUNTER → 2021-05-25 08:27 | Outpatient (ROUT) | payer MEDICARE, OTHER, SELFPAY ==
[2020-10-08 11:26] VITALS: BMI 26.9
[2021-05-25 08:37] LABS: INR 1.9 (0.9-1.3); Prothrombin Time 21.1 SECONDS (10.1-12.7)
== END ==
PROVIDERS: Family Provider Family Medicine; PCP Family Medicine; Visit Provider Family Medicine
DX: Z79.01 Long term (current) use of anticoagulants (principal)
CPT/HCPCS: 85610

== ENCOUNTER → 2021-06-01 08:04 | Outpatient (ROUT) | payer MEDICARE, OTHER, SELFPAY ==
[2020-10-08 11:26] VITALS: BMI 26.9
[2021-06-01 08:15] LABS: INR 2.4 (0.9-1.3); Prothrombin Time 27.4 SECONDS (10.1-12.7)
== END ==
PROVIDERS: Family Provider Family Medicine; PCP Family Medicine; Visit Provider Family Medicine
DX: Z79.01 Long term (current) use of anticoagulants (principal)
CPT/HCPCS: 85610

== ENCOUNTER → 2021-06-02 13:27 | Outpatient (CLI) | payer MEDICARE, OTHER, SELFPAY ==
[2020-10-08 11:26] VITALS: BMI 26.9
[2021-06-02 15:39] LABS: Alanine Aminotransferase 75 IU/L (<35); Albumin 3.9 g/dL (3.5-5.0); Albumin Globulin Ratio 0.7 (1.0-2.8); Alkaline Phosphatase 79 U/L (38-126); Aspartate Aminotransferase 70 IU/L (14-36); Bilirubin Total 0.4 mg/dL (0.2-1.3); Bilirubin Unconjugated 0.1 mg/dL (0.0-1.1); Globulin 5.4 g/dL (1.7-4.1); HEMOLYSIS 17 (0-50); Total Protein 9.3 g/dL (6.3-8.2)
[2021-06-02 16:11] LABS: Thyroid Stimulating Hormone 3.38 uIU/mL (0.47-4.68)
== END ==
PROVIDERS: Family Provider Family Medicine; PCP Family Medicine; Referring Provider Internal Medicine Cardiovascular Disease; Visit Provider Internal Medicine Cardiovascular Disease
DX: I48.91 Unspecified atrial fibrillation (principal); I48.0 Paroxysmal atrial fibrillation
CPT/HCPCS: 36415; 80076; 84443

== ENCOUNTER → 2021-06-15 10:21 | Outpatient (ROUT) | payer MEDICARE, OTHER, SELFPAY ==
[2020-10-08 11:26] VITALS: BMI 26.9
[2021-06-15 10:31] LABS: INR 1.8 (0.9-1.3)
== END ==
PROVIDERS: Family Provider Family Medicine; PCP Family Medicine; Visit Provider Family Medicine
DX: I48.0 Paroxysmal atrial fibrillation (principal); Z79.01 Long term (current) use of anticoagulants
CPT/HCPCS: 85610

== ENCOUNTER → 2021-06-29 08:59 | Outpatient (ROUT) | payer MEDICARE, OTHER, SELFPAY ==
[2020-10-08 11:26] VITALS: BMI 26.9
[2021-06-29 09:17] LABS: INR 1.8 (0.9-1.3); Prothrombin Time 20.8 SECONDS (10.1-12.7)
== END ==
PROVIDERS: Family Provider Family Medicine; PCP Family Medicine; Visit Provider Family Medicine
DX: Z79.01 Long term (current) use of anticoagulants (principal)
CPT/HCPCS: 85610

== ENCOUNTER → 2021-07-20 08:36 | Outpatient (ROUT) | payer MEDICARE, OTHER, SELFPAY ==
[2020-10-08 11:26] VITALS: BMI 26.9
[2021-07-20 08:51] LABS: INR 2.2 (0.9-1.3); Prothrombin Time 25.9 SECONDS (10.1-12.7)
== END ==
PROVIDERS: Family Provider Family Medicine; PCP Family Medicine; Visit Provider Family Medicine
DX: Z79.01 Long term (current) use of anticoagulants (principal)
CPT/HCPCS: 85610

== ENCOUNTER 2021-07-30 23:29 | Emergency (ER) | payer MEDICARE, OTHER, SELFPAY ==
[2020-10-08 11:26] VITALS: BMI 26.9
[2021-07-30 23:35] VITALS: BP 190/85; PULSE 82; RESP 20; TEMP 36.8; O2SAT 94
--- NOTE | 2021-07-30 23:38 | DI.US.S_ITS ---
PROCEDURE: US PERIPH VENOUS LOW EXTREM LT INDICATIONS: LEFT MEDIAL THIGH PAIN TECHNIQUE: Real-time imaging, as well as color and pulse Doppler interrogation, were performed of the lower extremity deep veins from the inguinal ligament to the popliteal fossa. COMPARISON: None. FINDINGS: The common femoral, femoral and popliteal veins are normally compressible, and free of intraluminal thrombus. Color and pulse Doppler demonstrate normal phasic intraluminal flow. There is normal augmentation response to distal compression maneuver. IMPRESSION: No evidence of deep venous thrombosis, left lower extremity Approved by: Figueroa Agrawal M.D. on 07/30/2021 at 23:51
--- NOTE | 2021-07-30 23:38 | ED_ITS ---
HPI - Extremity Problem General Chief complaint: Extremity Problem,Nontraumatic Stated complaint: upper left leg pain Time Seen by Provider: 07/30/21 23:31 History of Present Illness HPI Narrative: 86F nonsmoker with a history of AFib with RVR on Coumadin, prior stroke and multiple orthopedic surgeries presents with her son in the chief complaint of left anterior medial thigh pain for the past few weeks. She states she has no injury, no overuse and no memorable E vent that contributed to her pain. She denies any back pain, numbness, tingling or weakness. She denies any fever or chills. She denies any redness or swelling. She has had no loss of control of bowel or bladder. She states her pain worsens when she lifts her left leg up. It does not hurt with palpation. She states the pain improves after moving around a bit. She denies any change in her medications, specifically her anticoagulation, she denies missing any doses. Related Data Home Medications Medication Instructions Recorded Confirmed cholecalciferol (vitamin D3) 25 1,000 unit PO DAILY #0 10/01/12 10/08/20 mcg (1,000 unit) capsule (Vitamin D3) cyanocobalamin (vitamin B-12) 1,000 mcg PO DAILY #0 10/01/12 10/08/20 1,000 mcg tablet (Vitamin B-12) warfarin 5 mg tablet (Coumadin) See Rx Instructions .ROUTE 12/14/16 10/08/20 .COMPLEX #0 Lipo-Flavonoid Plus 1 tab PO DAILY #0 04/12/17 10/08/20 omega 2-fzs-wrw-fish oil 1,000 mg 1,000 mg PO DAILY #0 04/12/17 10/08/20 (120 mg-180 mg) capsule (Fish Oil) Ocuvite Vitamin 1 tab PO DAILY 05/16/19 10/08/20 amlodipine 2.5 mg tablet 2.5 mg PO DAILY 05/16/19 10/08/20 Previous Rx's Medication Instructions Recorded amiodarone 200 mg tablet 200 mg PO DAILY #60 tab 10/09/20 losartan 100 mg tablet 50 mg PO DAILY #0 tab 10/09/20 sertraline 50 mg tablet (Zoloft) 50 mg PO BEDTIME #1 tab 10/09/20 Allergies Allergy/AdvReac Type Severity Reaction Status Date / Time amoxicillin Allergy Mild BREAK OUT Verified 03/07/18 11:07 ampicillin Allergy Mild BREAK OUT Verified 03/07/18 11:07 cephalexin Allergy Mild BREAK OUT Verified 03/07/18 11:07 piroxicam AdvReac Unknown ITCHING Verified 03/07/18 11:07 Review of Systems Review of Systems Narrative: GENERAL: Denies chills, fatigue, malaise, fever, sweats. HEENT: Denies sinus pain, ear pain, sore throat, difficulty swallowing, dizziness. RESPIRATORY: Denies dyspnea, cough, wheezing, hemoptysis, sputum. CARDIOVASCULAR: Denies chest pain, palpitations, orthopnea, edema, GASTROINTESTINAL: Denies nausea, vomiting, abdominal pain, diarrhea, constipation, melena. : Denies dysuria, frequency, incontinence, hematuria, urinary retention. MUSCULOSKELETAL: See HPI SKIN: Denies rash, skin lesions, or other NEUROLOGIC: Denies weakness, headache, numbness, change in speech, confusion, seizures, incoordination. PSYCHIATRIC: No concerning psychosocial issues. 12 point review of systems is negative except for those stated above Patient History Medical History Acute postoperative pain of knee Atrial fibrillation Atrial fibrillation with RVR CVA (cerebral vascular accident) Dehydration Diarrhea Multiple myeloma not having achieved remission Vertigo Surgical History History of bilateral knee replacement Social History household members: none Smoking Status: Never smoker Smoking Status: Never smoker alcohol intake frequency: holidays/special occasions only Substance Use Type: does not use Exam Narrative Exam Narrative: GENERAL: [86 year old patient appears stated age. Well-developed patient, in mild distress. HEAD: Atraumatic. Normocephalic. EYES: Pupils equal round and reactive. Extraocular motions intact. No scleral icterus. No injection or drainage. ENT: Nose without bleeding, purulent drainage. Throat without erythema, tonsillar hypertrophy or exudate. Airway patent. NECK: Trachea midline. Non tender CARDIOVASCULAR: Irregular rate and rhythm without murmurs, gallops, or rubs. RESPIRATORY: Clear to auscultation. Breath sounds equal bilaterally. No wheezes, rales, or rhonchi. GASTROINTESTINAL: Abdomen soft, non-tender, nondistended. EXTREMITIES: No swelling, erythema, warmth of left hip or anterior thigh. No pain on palpation of thigh, hip, groin, knee. No pain with passive ROM or axial loading. Pain only when patient attempts to actively lift leg off cart. Distal sensation and pulses in tact. BACK: Nontender without deformity or crepitance. No flank tenderness. NEURO: AOx3. SKIN: No rash or erythema of visible areas Initial Vital Signs Initial Vital Signs: Vital Signs Temperature 98.2 F 07/30/21 23:35 Pulse Rate 82 07/30/21 23:35 Respiratory Rate 20 07/30/21 23:35 Blood Pressure 190/85 H 07/30/21 23:35 Pulse Oximetry 94 07/30/21 23:35 Course Orders Ordered: ED Orders 07/30/21 23:38 US periph venous low extrem lt Stat XR hip w pel if done LT 2V Stat Vital Signs Vital signs: Vital Signs - 8 hr 07/30/21 23:35 07/31/21 00:58 Temperature 98.2 F Pulse Rate 82 71 Respiratory Rate 20 20 Blood Pressure 190/85 H 137/63 Pulse Oximetry 94 91 MDM - Extremity (Nontraumatic) Imaging Data Xray Pelvis: Radiologist's Impression: [address] [address] XRay Report Signed Patient: Monica Rodgers MR#: [id number] : 1935 Acct:[id number] Age/Sex: 86 / F Date of Service: 07/30/21 Loc: ED Accession Number: [id number] ?? Procedure: XR hip w pel if done LT 2V Ordering Provider: Nathan Sprague D.O. PROCEDURE:? XR HIP W PEL IF DONE LT 2V ? INDICATIONS:? left groin and hip pain ? TECHNIQUE:? Single view of the pelvis and single additional view of the left hip was obtained. ? COMPARISON:? [facility], , HIP 2V RIGHT, 10/29/2008, 10:02. ? FINDINGS:? ? Bones:? No fractures or dislocations.? No suspicious bony lesions.? The visualized pelvic ring appears intact.? Bilateral acetabular joint space narrowing.? Degenerative disc disease noted in the lower lumbar spine ? Soft tissues:? No suspicious soft tissue calcifications or masses.? ? IMPRESSION:? ? Degenerative arthritis without fracture or subluxation ? ? ? Approved by: Figueroa Agrawal M.D. on 07/30/2021 at 23:13? [facility] Narrative Medical decision making narrative: Patient with a few weeks of left anterior leg pain despite no injury or reported overuse. Physical exam is very reassuring and there is no swelling, redness, warmth, induration, fluctuance, bruising or other abnormal finding. Patient has no pain on palpation, with passive range of motion or axial loading of her lower extremity. Her pain only occurs with active flexion at the hip, when she is recurring and using her own musculature. X-ray shows no fracture, only arthritis. Ultrasound is unremarkable and shows no DVT. Cellulitis is considered but thought unlikely given lack of erythema, warmth or reproduction of pain with palpation. Other vascular abnormalities considered but patient has intact distal pulses and sensation as well as reassuring ultrasound. History and physical are most consistent with soft tissue musculoskeletal injury, inflammation or spasm. We talked about the use of pain medications or muscle relaxers but patient would prefer to hold off for now given the fact that they will make her dizzy, lightheaded and more likely to fall, particularly concerning given the recent bad weather. She will follow closely with her PCP. She has been given extensive return precautions and is had questions answered to her apparent satisfaction Discharge Plan Departure Patient Disposition: Home Clinical Impression: Acute pain of left thigh Instructions: DI for Leg Pain Activity Restrictions/Additional Instructions: *You have been diagnosed with [chronic thigh pain. Your history, physical exam and images are very reassuring. There is no evidence of fracture or dislocation. There is no evidence of a blood clot or infection. As we discussed your story and exam suggest a likely musculoskeletal source of pain. *What to do: *Please continue to take your regular medications as directed. [ ] New medication prescriptions sent to your pharmacy: [ ] [ ] New medication written as a paper prescription [x ] No new medications given *Please follow up with your primary care provider in 2-3 days, call for an appointment. Let them know you were seen in the Emergency Department and that we ask that you be seen in follow up. We will electronically transmit a record of today's note if your PCP is in our system *If you do not have a primary care provider please contact the [facility] Resource line at [phone]. They will ask some questions about your medical history and help get you set up with a doctor in the community. *Return to Emergency Department if you should have any new, worsening or concerning symptoms, such as [fever greater than 101 F, shaking chills, worsening pain, persistent vomiting or other bothersome symptoms] Prescriptions: No Action cyanocobalamin (vitamin B-12) [Vitamin B-12] 1,000 mcg Tablet 1,000 mcg PO DAILY Qty: 0 0RF cholecalciferol (vitamin D3) [Vitamin D3] 1,000 unit Capsule 1,000 unit PO DAILY Qty: 0 0RF warfarin [Coumadin] 5 MG tablet See Rx Instructions .ROUTE .COMPLEX Qty: 0 0RF Label Comments: PATIENT TOOK 2.5 MG 10/07 Rx Instructions: 5 mg x 4 days. then 2.5mg. repeat omega 3-vbd-kxc-fish oil [Fish Oil] 1,000 MG capsule 1,000 mg PO DAILY Qty: 0 0RF Lipo-Flavonoid Plus 1 tab PO DAILY Qty: 0 0RF Label Comments: patient states takes sometimes. amlodipine 2.5 mg tablet 2.5 mg PO DAILY 0RF Ocuvite Vitamin 1 tab PO DAILY 0RF amiodarone 200 mg Tablet 200 mg PO DAILY Qty: 60 0RF sertraline [Zoloft] 50 mg Tablet 50 mg PO BEDTIME Qty: 1 0RF losartan 100 mg tablet 50 mg PO DAILY Qty: 0 0RF Label Comments: Patient only takes 50 mg Referrals: Tianna Cartagena MD [Primary Care Provider] -
--- NOTE | 2021-07-30 23:38 | DI.RAD.S_ITS ---
PROCEDURE: XR HIP W PEL IF DONE LT 2V INDICATIONS: left groin and hip pain TECHNIQUE: Single view of the pelvis and single additional view of the left hip was obtained. COMPARISON: [facility], , HIP 2V RIGHT, 10/29/2008, 10:02. FINDINGS: Bones: No fractures or dislocations. No suspicious bony lesions. The visualized pelvic ring appears intact. Bilateral acetabular joint space narrowing. Degenerative disc disease noted in the lower lumbar spine Soft tissues: No suspicious soft tissue calcifications or masses. IMPRESSION: Degenerative arthritis without fracture or subluxation Approved by: Figueroa Agrawal M.D. on 07/30/2021 at 23:13
[2021-07-31 00:58] VITALS: BP 137/63; PULSE 71; RESP 20; O2SAT 91
== END 2021-07-31 01:22 | disposition home or self-care (01) ==
PROVIDERS: Emergency Provider Emergency Medicine; Family Provider Family Medicine; PCP Family Medicine
DX: M79.652 Pain in left thigh (principal); Z79.01 Long term (current) use of anticoagulants
CPT/HCPCS: 73502; 93971; 99281; 99284

== ENCOUNTER → 2021-08-02 11:29 | Outpatient (CLI) | payer MEDICARE, OTHER, SELFPAY ==
[2020-10-08 11:26] VITALS: BMI 26.9
--- NOTE | 2021-08-02 | DI.RAD.S_ITS ---
PROCEDURE: XR LUMBAR SPINE 2-3V INDICATIONS: Radiculopathy, lumbar region TECHNIQUE: 3 views of the lumbar spine were acquired. COMPARISON: [facility], , L-SPINE 2-3 VIEWS, 08/08/2008, 9:07. FINDINGS: Bones: 5 [id number]-[id number] vertebrae are present. Trace levo curvature centered at the L3 level. Trace multilevel retrolisthesis. Multilevel disc degeneration, most notably and severe at the L4-L5 and L5-S1 levels. Prominent multilevel flowing syndesmophytes again noted. Moderate L4-L5 and L5-S1 facet joint arthropathy.. No vertebral body compression fractures. No suspicious bony lesions. Soft tissues: Overlying bowel gas pattern is normal. No suspicious soft tissue calcifications. Vascular calcifications indicate atherosclerosis. IMPRESSION: 1. Multilevel spondylosis. 2. Multilevel flowing syndesmophytes redemonstrated which can be associated with ankylosing spondylitis in the appropriate clinical setting. Dictated by: Sam SALAZAR Interpreted: Fransisco Darden MD on 08/02/2021 at 11:59 Transcribed by: GUILLAUME on 08/02/2021 at 12:00 Approved by: Fransisco Darden M.D. on 08/02/2021 at 16:33
== END ==
PROVIDERS: Family Provider Family Medicine; PCP Family Medicine; Referring Provider Family Medicine; Visit Provider Family Medicine
DX: M47.26 Other spondylosis with radiculopathy, lumbar region (principal); M47.27 Other spondylosis with radiculopathy, lumbosacral region
CPT/HCPCS: 72100

== ENCOUNTER → 2021-08-09 11:40 | Outpatient (ROUT) | payer MEDICARE, OTHER, SELFPAY ==
[2020-10-08 11:26] VITALS: BMI 26.9
[2021-08-09 11:55] LABS: INR 1.9 (0.9-1.3); Prothrombin Time 21.3 SECONDS (10.1-12.7)
== END ==
PROVIDERS: Family Provider Family Medicine; PCP Family Medicine; Visit Provider Family Medicine
DX: Z79.01 Long term (current) use of anticoagulants (principal)
CPT/HCPCS: 85610

== ENCOUNTER → 2021-09-07 10:33 | Outpatient (ROUT) | payer MEDICARE, OTHER, SELFPAY ==
[2020-10-08 11:26] VITALS: BMI 26.9
[2021-09-07 10:44] LABS: INR 2.2 (0.9-1.3); Prothrombin Time 24.5 SECONDS (10.1-12.7)
== END ==
PROVIDERS: Family Provider Family Medicine; PCP Family Medicine; Visit Provider Family Medicine
DX: Z79.01 Long term (current) use of anticoagulants (principal); I48.0 Paroxysmal atrial fibrillation
CPT/HCPCS: 85610

== ENCOUNTER → 2021-10-05 10:04 | Outpatient (ROUT) | payer MEDICARE, OTHER, SELFPAY ==
[2020-10-08 11:26] VITALS: BMI 26.9
[2021-10-05 10:12] LABS: INR 2.4 (0.9-1.3); Prothrombin Time 26.8 SECONDS (10.1-12.7)
== END ==
PROVIDERS: Family Provider Family Medicine; PCP Family Medicine; Visit Provider Family Medicine
DX: Z79.01 Long term (current) use of anticoagulants (principal)
CPT/HCPCS: 85610

== ENCOUNTER → 2021-11-03 09:04 | Outpatient (ROUT) | payer MEDICARE, OTHER, SELFPAY ==
[2020-10-08 11:26] VITALS: BMI 26.9
[2021-11-03 09:11] LABS: Prothrombin Time 22.7 SECONDS (10.1-12.7)
== END ==
PROVIDERS: Family Provider Family Medicine; PCP Family Medicine; Visit Provider Family Medicine
DX: Z79.01 Long term (current) use of anticoagulants (principal)
CPT/HCPCS: 85610

== ENCOUNTER → 2021-12-01 10:38 | Outpatient (ROUT) | payer MEDICARE, OTHER, SELFPAY ==
[2020-10-08 11:26] VITALS: BMI 26.9
[2021-12-01 10:48] LABS: INR 2.8 (0.9-1.3); Prothrombin Time 32.5 SECONDS (10.1-12.7)
== END ==
PROVIDERS: Family Provider Family Medicine; PCP Family Medicine; Visit Provider Family Medicine
DX: Z79.01 Long term (current) use of anticoagulants (principal)
CPT/HCPCS: 85610

== ENCOUNTER → 2021-12-29 10:03 | Outpatient (ROUT) | payer MEDICARE, OTHER, SELFPAY ==
[2020-10-08 11:26] VITALS: BMI 26.9
[2021-12-29 10:18] LABS: Prothrombin Time 22.6 SECONDS (10.1-12.7)
== END ==
PROVIDERS: Family Provider Family Medicine; PCP Family Medicine; Visit Provider Family Medicine
DX: Z79.01 Long term (current) use of anticoagulants (principal)
CPT/HCPCS: 85610

== ENCOUNTER → 2022-02-01 10:13 | Outpatient (ROUT) | payer MEDICARE, OTHER, SELFPAY ==
[2020-10-08 11:26] VITALS: BMI 26.9
[2022-02-01 10:27] LABS: Prothrombin Time 22.8 SECONDS (10.1-12.7)
== END ==
PROVIDERS: Family Provider Family Medicine; PCP Family Medicine; Visit Provider Family Medicine
DX: Z79.01 Long term (current) use of anticoagulants (principal)
CPT/HCPCS: 85610

== ENCOUNTER → 2022-03-02 10:56 | Outpatient (ROUT) | payer MEDICARE, OTHER, SELFPAY ==
[2020-10-08 11:26] VITALS: BMI 26.9
[2022-03-02 11:17] LABS: INR 2.6 (0.9-1.3); Prothrombin Time 30.2 SECONDS (10.1-12.7)
== END ==
PROVIDERS: Family Provider Family Medicine; PCP Family Medicine; Visit Provider Family Medicine
DX: Z79.01 Long term (current) use of anticoagulants (principal)
CPT/HCPCS: 85610

== ENCOUNTER → 2022-04-11 09:37 | Outpatient (ROUT) | payer MEDICARE, OTHER, SELFPAY ==
[2020-10-08 11:26] VITALS: BMI 26.9
[2022-04-11 10:06] LABS: INR 1.9 (0.9-1.3); Prothrombin Time 22.1 SECONDS (10.1-12.7)
== END ==
PROVIDERS: Family Provider Family Medicine; PCP Family Medicine; Visit Provider Family Medicine
DX: Z79.01 Long term (current) use of anticoagulants (principal)
CPT/HCPCS: 85610

== ENCOUNTER → 2022-05-09 09:10 | Outpatient (ROUT) | payer MEDICARE, OTHER, SELFPAY ==
[2020-10-08 11:26] VITALS: BMI 26.9
[2022-05-09 09:23] LABS: INR 1.9 (0.9-1.3); Prothrombin Time 21.7 SECONDS (10.1-12.7)
== END ==
PROVIDERS: Family Provider Family Medicine; PCP Family Medicine; Visit Provider Family Medicine
DX: I48.0 Paroxysmal atrial fibrillation (principal); Z79.01 Long term (current) use of anticoagulants
CPT/HCPCS: 85610

== ENCOUNTER → 2022-06-08 09:53 | Outpatient (ROUT) | payer MEDICARE, OTHER, SELFPAY ==
[2020-10-08 11:26] VITALS: BMI 26.9
[2022-06-08 10:01] LABS: INR 2.1 (0.9-1.3); Prothrombin Time 23.9 SECONDS (10.1-12.7)
== END ==
PROVIDERS: Family Provider Family Medicine; PCP Family Medicine; Visit Provider Family Medicine
DX: I48.0 Paroxysmal atrial fibrillation (principal); Z79.01 Long term (current) use of anticoagulants
CPT/HCPCS: 85610

== ENCOUNTER → 2022-07-11 08:46 | Outpatient (ROUT) | payer MEDICARE, OTHER, SELFPAY ==
[2020-10-08 11:26] VITALS: BMI 26.9
[2022-07-11 09:05] LABS: INR 2.3 (0.9-1.3); Prothrombin Time 26.5 SECONDS (10.1-12.7)
== END ==
PROVIDERS: Family Provider Family Medicine; PCP Family Medicine; Visit Provider Family Medicine
DX: Z79.01 Long term (current) use of anticoagulants (principal)
CPT/HCPCS: 85610

== ENCOUNTER → 2022-08-12 09:46 | Outpatient (ROUT) | payer MEDICARE, OTHER, SELFPAY ==
[2020-10-08 11:26] VITALS: BMI 26.9
== END ==
PROVIDERS: Family Provider Family Medicine; PCP Family Medicine; Visit Provider Family Medicine
DX: Z79.01 Long term (current) use of anticoagulants (principal)
CPT/HCPCS: 85610

== ENCOUNTER → 2022-09-09 08:56 | Outpatient (ROUT) | payer MEDICARE, OTHER, SELFPAY ==
[2020-10-08 11:26] VITALS: BMI 26.9
[2022-09-09 09:09] LABS: Prothrombin Time 22.8 SECONDS (10.1-12.7)
== END ==
PROVIDERS: Family Provider Family Medicine; PCP Family Medicine; Visit Provider Family Medicine
DX: Z79.01 Long term (current) use of anticoagulants (principal)
CPT/HCPCS: 85610

== ENCOUNTER → 2022-10-11 10:12 | Outpatient (ROUT) | payer MEDICARE, OTHER, SELFPAY ==
[2020-10-08 11:26] VITALS: BMI 26.9
[2022-10-11 10:39] LABS: Prothrombin Time 23.5 SECONDS (10.1-12.7)
== END ==
PROVIDERS: Family Provider Family Medicine; PCP Family Medicine; Visit Provider Family Medicine
DX: Z79.01 Long term (current) use of anticoagulants (principal)
CPT/HCPCS: 85610

== ENCOUNTER → 2022-11-08 09:52 | Outpatient (ROUT) | payer MEDICARE, OTHER, SELFPAY ==
[2020-10-08 11:26] VITALS: BMI 26.9
[2022-11-08 10:06] LABS: Prothrombin Time 22.6 SECONDS (10.1-12.7)
== END ==
PROVIDERS: Family Provider Family Medicine; PCP Family Medicine; Visit Provider Family Medicine
DX: Z79.01 Long term (current) use of anticoagulants (principal)
CPT/HCPCS: 85610

== ENCOUNTER 2022-11-27 20:47 | Inpatient (IN) | payer MEDICARE, OTHER, SELFPAY ==
[2020-10-08 11:26] VITALS: BMI 26.9
[2022-11-27] VITALS (10 sets, daily range): BP systolic 139–169; BP diastolic 65–74; PULSE 79–93; RESP 26; TEMP 38.2–38.8; O2SAT 90–96; BMI 27.4
--- NOTE | 2022-11-27 21:10 | PC.NURSE ---
pt c/o right shoulder pain, denies any injury, has been unable to tolerate food or fluids today, did tolerate some fluid prior to coming to ed
--- NOTE | 2022-11-27 21:11 | DI.RAD.S_ITS ---
PROCEDURE: XR CHEST 1V INDICATIONS: suspected sepsis TECHNIQUE: One view of the chest was acquired. COMPARISON: [facility], CR, XR CHEST 1V, 06/16/2020, 7:01. FINDINGS: Surgical changes and devices: None. Lungs and pleura: Lungs are clear. No pleural effusions or pneumothorax. Mediastinum: Mediastinal contours appear normal. Heart size is normal. Bones and chest wall: No suspicious bony lesions. Overlying soft tissues appear unremarkable. IMPRESSION: 1. No acute cardiopulmonary disease. Dictated by: Jose Edge M.D. on 11/27/2022 at 22:30 Approved by: Jose Edge M.D. on 11/27/2022 at 22:31
[2022-11-27] MEDS: SODIUM CHLORIDE 0.9% 1,000 ML 1000 ML IV (21:24)
[2022-11-27] MEDS: ONDANSETRON 4 MG/2 ML INJ IV (21:24)
[2022-11-27 21:26] LABS: Add Manual Diff / Slide Review NO; Basophils Absolute Auto 0 /uL (0-100); Basophils Percent Auto 0.2 % (0-2); Eosinophils Absolute Auto 0 /uL (0-450); Hematocrit 34.5 % (36-46); Hemoglobin 11.6 g/dL (12.0-16.0); Lymphocytes Absolute Auto 500 /uL (1100-4500); Lymphocytes Percent Auto 2.8 % (25-40); Mean Corpuscular HGB Conc 33.5 % (30-36); Mean Corpuscular Hemoglobin 30.4 PG (26-34); Mean Corpuscular Volume 90.8 fL (80-100); Monocytes Absolute Auto 700 /uL (0-900); Monocytes Percent Auto 4.1 % (3-14); Neutrophils Absolute Auto 15800 /uL (1500-7000); Neutrophils Percent Auto 92.9 % (50-75); Platelet Count 285 X10^3/uL (150-400); Red Cell Distribution Width 14.6 % (11.6-14.8)
[2022-11-27 21:31] LABS: INR 1.8 (0.9-1.3); Prothrombin Time 20.7 SECONDS (10.1-12.7)
[2022-11-27 21:34] LABS: PTT Partial Thromboplastin Tim 42 SECONDS (26-36)
[2022-11-27 21:36] LABS: Alanine Aminotransferase 60 IU/L (<35); Albumin Globulin Ratio 0.7 (1.0-2.8); Alkaline Phosphatase 71 U/L (38-126); Aspartate Aminotransferase 76 IU/L (14-36); BUN Creatinine Ratio 12.7 (6-22); Blood Urea Nitrogen 16 mg/dL (7-17); Calcium 9.4 mg/dL (8.4-10.2); Carbon Dioxide 24 mmol/L (22-32); Chloride 102 mmol/L (98-107); Estimated Glomerular Filt Rate 41 mL/min (>60); Globulin 5.6 g/dL (1.7-4.1); Glucose 186 mg/dL (80-110); HEMOLYSIS < 15 (0-50); Lactate (Lactic Acid) 1.7 mmol/L (0.7-2.1); Lipase 44 U/L (23-300); Potassium 3.9 mmol/L (3.4-5.1); Sodium 134 mmol/L (137-145); Total Protein 9.6 g/dL (6.3-8.2)
--- NOTE | 2022-11-27 21:50 | ED.NAVMDI ---
HPI - Nausea/Vomiting/Diarrhea General Chief complaint: Nausea/Vomiting/Diarrhea Stated complaint: Shaking, shoulder pain, can't keep water down Time Seen by Provider: 11/27/22 21:14 Source: patient and family Mode of arrival: Wheelchair History of Present Illness HPI Narrative: 87-year-old woman with a history of AFib anticoagulated on warfarin, chronic kidney disease, stable MUGA, COPD, prior TIA and hypertension who presents with 2 days of right shoulder pain. In trying to figure out exactly where that shoulder pain is radiates from the posterior lower thorax all the way up to the mid scapula. It is worse with moving. She notes that she is generally been feeling unwell but has not been coughing. 36 hours ago she started having shaking, mild headache and today she is been vomiting all day. She states she is been having bouts of diarrhea each time she vomits. Not complaining of palpitations or cough. Aside from global weakness secondary to feeling unwell no specific neurologic complaints. Related Data Home Medications Medication Instructions Recorded Confirmed cholecalciferol (vitamin D3) 25 1,000 unit PO DAILY ##0 10/01/12 10/08/20 mcg (1,000 unit) capsule (Vitamin D3) cyanocobalamin (vitamin B-12) 1,000 mcg PO DAILY ##0 10/01/12 10/08/20 1,000 mcg tablet (Vitamin B-12) warfarin 5 mg tablet (Coumadin) See Rx Instructions .Route 12/14/16 10/08/20 .COMPLEX ##0 Lipo-Flavonoid Plus 1 tab PO DAILY ##0 04/12/17 10/08/20 omega [id number]-fish oil 1,000 mg 1,000 mg PO DAILY ##0 04/12/17 10/08/20 (120 mg-180 mg) capsule (Fish Oil) Ocuvite Vitamin 1 tab PO DAILY 05/16/19 10/08/20 amlodipine 2.5 mg tablet 2.5 mg PO DAILY 05/16/19 10/08/20 Previous Rx's Medication Instructions Recorded amiodarone 200 mg tablet 200 mg PO DAILY #60 tabs 10/09/20 losartan 100 mg tablet 50 mg PO DAILY #0 tabs 10/09/20 sertraline 50 mg tablet (Zoloft) 50 mg PO BEDTIME #1 tab 03/12/21 Allergies Allergy/AdvReac Type Severity Reaction Status Date / Time amoxicillin Allergy Mild BREAK OUT Verified 03/07/18 11:07 ampicillin Allergy Mild BREAK OUT Verified 03/07/18 11:07 cephalexin Allergy Mild BREAK OUT Verified 03/07/18 11:07 piroxicam AdvReac Unknown ITCHING Verified 03/07/18 11:07 Review of Systems Review of Systems Narrative: Pertinent positive and negative findings as per HPI Patient History Medical History Acute postoperative pain of knee Atrial fibrillation Atrial fibrillation with RVR CVA (cerebral vascular accident) Dehydration Diarrhea Multiple myeloma not having achieved remission Vertigo Surgical History History of bilateral knee replacement Social History household members: none Smoking Status: Never smoker Smoking Status: Never smoker alcohol intake frequency: holidays/special occasions only Substance Use Type: does not use Exam Initial Vital Signs Initial Vital Signs: Vital Signs Temperature 100.8 F H 11/27/22 20:50 Pulse Rate 88 11/27/22 20:50 Respiratory Rate 26 H 11/27/22 20:50 Blood Pressure 169/74 H 11/27/22 20:50 Pulse Oximetry 96 11/27/22 20:50 Oxygen Delivery Method Room Air 11/27/22 20:50 General: Older-appearing woman who appears to feel unwell but is able to cooperate with history and exam. HEENT: Moist mucous membranes, normal sclera with reactive pupils, Neck: No JVD, supple Respiratory: Lungs are clear to auscultation, no wheezing no rales no rhonchi. Full and symmetrical air movement Chest: Area of tenderness is essentially entire right posterior thorax almost to right flank. There is no point specific area. There is no skin rashes over the area to suggest zoster. Cardiac: Irregular, rate controlled with no obvious murmurs. Murmurs no bruits Abdomen: Soft, nontender, good bowel tones, no specific flank pain Skin: Warm and dry, no rashes Neurologic: Globally weak but otherwise Grossly neurologically intact with no obvious asymmetries or abnormalities Extremities: No trauma, well perfused, no lower extremity edema Psych: Cooperative, appropriate insight and affect Course Orders Ordered: ED Orders 11/27/22 21:10 Blood Culture Stat Complete Blood Count AUTO DIFF Stat Comprehensive Metabolic Panel Stat Lactate (Lactic Acid) Stat Lipase Stat PTT Partial Thromboplastin Jake Stat Procalcitonin Stat Prothrombin Time INR Stat 11/27/22 21:11 XR chest 1V Stat EKG-12 Lead Stat 11/27/22 21:58 CT chest abd pel w con Stat 11/27/22 22:35 Urinalysis and Microscopic Stat Acetaminophen (Acetaminophen 325 Mg Tablet) 650 mg PO Q6H PRN PRN Reason: Fever/Mild Pain (1-3) Amlodipine Besylate (Amlodipine 5 Mg Tablet) 2.5 mg PO DAILY [facility] Calcium Carbonate (Calcium Carbonate 500 Mg Tab) 1,000 mg PO Q4HR PRN PRN Reason: Dyspepsia Cyanocobalamin (Cyanocobalamin (Vitamin B-12) 500 Mcg Tablet) 1,000 mcg PO DAILY [facility] Enoxaparin Sodium (Enoxaparin 40 Mg/0.4 Ml Syringe) 40 mg SUBCUT DAILY [facility] Sodium Chloride (Normal Saline 0.9%) 1,000 mls @ 100 mls/hr IV CONT OSIRIS Last Admin: 11/28/22 04:45 Dose: 100 mls/hr Documented By: CON Losartan Potassium (Losartan 50 Mg Tablet) 50 mg PO DAILY [facility] Naloxone HCl (Naloxone 0.4 Mg/Ml Vial) 0.2 mg IV Q2MIN PRN PRN Reason: Opiate Reversal Ondansetron HCl (Ondansetron 4 Mg/2 Ml Inj) 4 mg IV Q8HR PRN PRN Reason: Nausea And Vomiting Discontinued Medications Acetaminophen (Acetaminophen 325 Mg Tablet) 650 mg PO NOW ONE Stop: 11/27/22 22:40 Last Admin: 11/27/22 22:44 Dose: 650 mg Documented By: CARLOTTA Hydromorphone HCl (Hydromorphone 0.5 Mg Inj) 0.5 mg IV Q15MIN PRN PRN Reason: Pain, Last Admin: 11/28/22 01:54 Dose: 0.5 mg Documented By: Admin: 11/28/22 00:15 Dose: 0.5 mg Documented By: CARLOTTA Sodium Chloride (Normal Saline 0.9%) 1,000 mls @ 1,000 mls/hr IV BOLUS ONE Stop: 11/27/22 22:10 Last Infusion: 04/30/23 22:30 Dose: 0 mls/hr Documented By: Admin: 11/27/22 21:24 Dose: 1,000 mls/hr Documented By: CARLOTTA Meropenem 500 mg/ Sodium (Chloride) 100 mls @ 200 mls/hr IV NOW ONE Stop: 11/27/22 21:59 Last Infusion: 11/28/22 00:00 Dose: 0 mls/hr Documented By: Admin: 11/27/22 22:45 Dose: 200 mls/hr Documented By: CARLOTTA Ondansetron HCl (Ondansetron 4 Mg Odt) 4 mg SL NOW PRN PRN Reason: Nausea And Vomiting Ondansetron HCl (Ondansetron 4 Mg/2 Ml Inj) 4 mg IV NOW PRN PRN Reason: Nausea And Vomiting Last Admin: 11/27/22 21:24 Dose: 4 mg Documented By: CARLOTTA Vital Signs Vital signs: Vital Signs - 8 hr 11/27/22 22:40 11/27/22 21:30 11/27/22 21:30 Temperature 101.8 F H Pulse Rate 81 Blood Pressure 150/67 H Pulse Oximetry 93 11/27/22 22:00 11/27/22 22:00 11/27/22 22:30 Temperature Pulse Rate 89 93 H Blood Pressure 164/70 H Pulse Oximetry 94 90 L 11/28/22 00:00 11/27/22 23:00 11/27/22 23:30 Temperature 101.7 F H Pulse Rate 81 79 Blood Pressure Pulse Oximetry 92 92 11/27/22 23:58 11/27/22 23:58 11/28/22 00:00 Temperature Pulse Rate 82 Blood Pressure 139/65 133/63 Pulse Oximetry 95 11/28/22 00:00 Temperature Pulse Rate 81 Blood Pressure Pulse Oximetry 94 MDM - Nausea/Vomiting/Diarrhea Lab Data 11/27/22 21:10 11/27/22 21:10 Labs: Lab Results 11/27/22 11/27/22 11/27/22 Range/Units 21:10 21:10 21:10 WBC 17.0 H (4.5-11.0) X10^3/uL RBC 3.80 L (4.0-5.2) X10^6/uL Hgb 11.6 L (12.0-16.0) g/dL Hct 34.5 L (36-46) % MCV 90.8 (80-100) fL MCH 30.4 (26-34) PG MCHC 33.5 (30-36) % RDW 14.6 (11.6-14.8) % Plt Count 285 (150-400) X10^3/uL Neut % (Auto) 92.9 H (50-75) % Lymph % (Auto) 2.8 L (25-40) % Stone % (Auto) 4.1 (3-14) % Eos % (Auto) 0.0 L (2-4) % Baso % (Auto) 0.2 (0-2) % Neut # (Auto) 32839 H (0648-2244) /uL Lymph # (Auto) 500 L (2795-5743) /uL Stone # (Auto) 700 (0-900) /uL Eos # (Auto) 0 (0-450) /uL Baso # (Auto) 0 (0-100) /uL PT 20.7 H (10.1-12.7) SECONDS INR 1.8 H (0.9-1.3) APTT 42 H (26-36) SECONDS Sodium 134 L (137-145) mmol/L Potassium 3.9 (3.4-5.1) mmol/L Chloride 102 (98-107) mmol/L Carbon Dioxide 24 (22-32) mmol/L BUN 16 (7-17) mg/dL Creatinine 1.26 H (0.52-1.04) mg/dL Estimated GFR 41 L (>60) mL/min BUN/Creatinine Ratio 12.7 (6-22) Glucose 186 H (80-110) mg/dL Lactate (0.7-2.1) mmol/L Calcium 9.4 (8.4-10.2) mg/dL Total Bilirubin 1.0 (0.2-1.3) mg/dL AST 76 H (14-36) IU/L ALT 60 H (<35) IU/L Alkaline Phosphatase 71 (38-126) U/L Total Protein 9.6 H (6.3-8.2) g/dL Albumin 4.0 (3.5-5.0) g/dL Globulin 5.6 H (1.7-4.1) g/dL Albumin/Globulin Ratio 0.7 L (1.0-2.8) Lipase 44 (23-300) U/L Procalcitonin 3.20 H (<0.5) ng/mL Urine Color Urine Appearance Urine pH (4.5-8.0) Ur Specific [place] (1.000-1.035) Urine Protein (Negative) Urine Glucose (UA) (Negative) g/dL Urine Ketones (NEGATIVE) Urine Occult Blood (Negative) Urine Nitrate (Negative) Urine Bilirubin (NEGATIVE) Urine Urobilinogen (0.2) E.U./dL Ur Leukocyte Esterase (NEGATIVE) Urine RBC (0-5/HPF) Urine WBC (0-5/HPF) Ur Squamous Epith Cells (0-5/HPF) Urine Bacteria (None) Ur Culture Indicated? 11/27/22 11/27/22 Range/Units 21:10 22:35 WBC (4.5-11.0) X10^3/uL RBC (4.0-5.2) X10^6/uL Hgb (12.0-16.0) g/dL Hct (36-46) % MCV (80-100) fL MCH (26-34) PG MCHC (30-36) % RDW (11.6-14.8) % Plt Count (150-400) X10^3/uL Neut % (Auto) (50-75) % Lymph % (Auto) (25-40) % Stone % (Auto) (3-14) % Eos % (Auto) (2-4) % Baso % (Auto) (0-2) % Neut # (Auto) (3954-9133) /uL Lymph # (Auto) (6690-0144) /uL Stone # (Auto) (0-900) /uL Eos # (Auto) (0-450) /uL Baso # (Auto) (0-100) /uL PT (10.1-12.7) SECONDS INR (0.9-1.3) APTT (26-36) SECONDS Sodium (137-145) mmol/L Potassium (3.4-5.1) mmol/L Chloride (98-107) mmol/L Carbon Dioxide (22-32) mmol/L BUN (7-17) mg/dL Creatinine (0.52-1.04) mg/dL Estimated GFR (>60) mL/min BUN/Creatinine Ratio (6-22) Glucose (80-110) mg/dL Lactate 1.7 (0.7-2.1) mmol/L Calcium (8.4-10.2) mg/dL Total Bilirubin (0.2-1.3) mg/dL AST (14-36) IU/L ALT (<35) IU/L Alkaline Phosphatase (38-126) U/L Total Protein (6.3-8.2) g/dL Albumin (3.5-5.0) g/dL Globulin (1.7-4.1) g/dL Albumin/Globulin Ratio (1.0-2.8) Lipase (23-300) U/L Procalcitonin (<0.5) ng/mL Urine Color Yellow Urine Appearance Clear Urine pH 7.5 (4.5-8.0) Ur Specific [place] 1.015 (1.000-1.035) Urine Protein Trace H (Negative) Urine Glucose (UA) Negative (Negative) g/dL Urine Ketones 1+ H (NEGATIVE) Urine Occult Blood Trace-intact (Negative) Urine Nitrate Negative (Negative) Urine Bilirubin Negative (NEGATIVE) Urine Urobilinogen 0.2 (0.2) E.U./dL Ur Leukocyte Esterase Negative (NEGATIVE) Urine RBC 1-5/hpf (0-5/HPF) Urine WBC 0-1/hpf (0-5/HPF) Ur Squamous Epith Cells 0-1 /hpf (0-5/HPF) Urine Bacteria Occasional (0-1) (None) Ur Culture Indicated? Cult not indicated MDM Narrative Medical decision making narrative: CC: Right shoulder pain with persistent vomiting. Acute problem with uncertain prognosis Complicating co-morbidities: Anticoagulated, hypertension, hyperlipidemia, chronic atrial fibrillation Data collected from: patient, son and [id number] Social determinants of health that may influence the patients condition: Age Medical records reviewed: Discharge summary from September of 2020 is reviewed Differential considered: Given the area of concern in her age differential is wide and includes everything from musculoskeletal abnormalities to pulmonary abnormalities including pneumothorax, liver abnormality is radiating up to her shoulder and upper abdominal issues. Acute coronary syndrome remains within the differential. Exam documented above, pertinent findings include: Appears generally unwell but able to cooperate with exam. Right sided entire thorax pain without point tenderness. Lab Test results independently reviewed as above. Pertinent findings: CBC shows significant leukocytosis 17 with neutrophils at 92.9. No significant change to hemoglobin and hematocrit at 11.6 and 35.4 Chemistries appear stable with stable mildly elevated AST ALT and creatinine. Lipase is within normal limits Procalcitonin is elevated INR is 1.8 Catheterization urine sample is unremarkable Independently reviewed EKG as above Imaging studies independently reviewed: Chest x-ray does not show obvious abnormalities, no pneumothorax, pleural effusion, obvious rib fractures for air under her diaphragm CT chest/abd/pelvis does not show an obvious source for infection. There is evidence for sequelae of chronic pancreatitis, cholelithiasis without CT evidence of cholecystitis, no acute pulmonary findings. Treatments: With concern for sepsis after history physical and seeing this significant leukocytosis she is given a L of fluid. She is not hypotensive or tachycardic. Would like to start antibiotics she is allergic to Keflex and ampicillin both listed as critical. We will begin with carbapenem and narrow antibiotic choice as issues or further elucidated. Discussion: 87-year-old woman who presents with right-sided posterior thoracic pain, tachycardia meeting sepsis criteria with a white count at 17,000 with vomiting for the last 12 hours. Presumption is bacterial etiology however workup his proved unremarkable. There is no evidence pneumonia, intra-abdominal pathology or abscess. Urine is unremarkable and there is no skin changes to suggest cellulitis. Close examination of the right shoulder indicates pain consistent with osteoarthritis but no warmth, redness or dramatic tenderness that would suggest a septic arthritis in the joint. She is meeting septic criteria and there certainly is concern for infection. Will continue with antibiotics. At no point has she been hypotensive. She was febrile and was given Tylenol in the emergency department. Care is reviewed with Dr Medrano, covering for Dr Cartagena and she will be admitted for further observation and concern for high probability of bacteremia and positive blood cultures within the 1st 24 hours. Findings reviewed with patient questions are answered and she will be admitted. Discharge Plan Departure Patient Disposition: Admitted as Observation Clinical Impression: Nausea & vomiting Sepsis Qualifiers: Sepsis type: sepsis due to unspecified organism Sepsis acute organ dysfunction status: unspecified Qualified Code(s): A41.9 - Sepsis, unspecified organism Leukocytosis Qualifiers: Leukocytosis type: unspecified Qualified Code(s): D72.829 - Elevated white blood cell count, unspecified Acute shoulder pain Qualifiers: Laterality: right Qualified Code(s): M25.511 - Pain in right shoulder Admit Date/Time: 11/28/22 00:18 Admit Provider: Peace Medrano
--- NOTE | 2022-11-27 21:58 | DI.CT.S_ITS ---
PROCEDURE: CT CHEST ABD PEL W CON INDICATIONS: pain, sepsis unclear source TECHNIQUE: After the administration of intravenous contrast, axial sections acquired from the supraclavicular neck to the pubic symphysis. Coronal and sagittal reformats were performed. For radiation dose reduction, the following was used: automated exposure control, adjustment of mA and/or kV according to patient size. COMPARISON: [facility], CT, KIDNEY/ URETER/BLADDER, 01/29/2011, 3:58. FINDINGS: Image quality: There is beam hardening artifact from patient's upper extremities. CHEST: Lower Neck: No lymphadenopathy by size criteria. Thyroid: Visualized thyroid demonstrates no discrete nodules. Axillae: No lymphadenopathy by size criteria. Chest Wall: Unremarkable. Lungs and Airways: No acute consolidation. There is mild dependent atelectasis bilaterally. There is a small subpleural nodule laterally in the left lower lobe measuring up to 0.5 cm which appears unchanged from the prior study. The trachea and central airways are patent. Pleura: No pneumothorax or pleural effusions. Heart: Heart size is normal. No pericardial effusion. Thoracic Vessels: The aorta and pulmonary arteries are normal in size. Mediastinum and Tracy: No lymphadenopathy by size criteria. Esophagus: No wall thickening. No hiatal hernia. ABDOMEN: Liver: No mass lesion. Gallbladder: There are dependent filling defects within the gallbladder likely representing small clustered noncalcified gallstones. No wall thickening or pericholecystic fluid. Biliary ducts: No biliary ductal dilatation. Pancreas: There are small punctate calcifications within the pancreatic head and uncinate process suggests sequelae of chronic pancreatitis. Spleen: Normal in size. Adrenal Glands: No adrenal nodules. Kidneys and Ureters: No hydronephrosis. Stomach and Bowel: Stomach, small bowel loops, and colon are normal in caliber and wall thickness. The appendix is normal. There is colonic diverticulosis without acute diverticulitis. Peritoneum: No abnormal intraperitoneal fluid. No free air. Ventral Wall: No hernia. Abdominal Nodes: No retroperitoneal or mesenteric adenopathy by size criteria. Vessels: Aorta and inferior vena cava are normal in size. PELVIS: Pelvic Organs: There is a densely calcified right exophytic fibroid along the lower uterine segment. Bladder: Unremarkable. Pelvic Nodes: No enlarged lymph nodes. Miscellaneous: No inguinal hernias are seen. Bones: Visualized osseous structures demonstrate no suspicious focal lesions. IMPRESSION: 1. No definite acute abnormality in the chest, abdomen, or pelvis. 2. Colonic diverticulosis without acute diverticulitis. 3. Punctate pancreatic calcifications suggesting sequelae of chronic pancreatitis. 4. Cholelithiasis without CT evidence of acute cholecystitis. Dictated by: Jose Edge M.D. on 11/27/2022 at 23:26 Approved by: Jose Edge M.D. on 11/27/2022 at 23:37
[2022-11-27] MEDS: ACETAMINOPHEN 325 MG TABLET 650 MG PO (22:44)
[2022-11-27] MEDS: MEROPENEM 500 MG in SODIUM CHLORIDE 0.9% 100 ML 200 MG IV (22:45)
--- NOTE | 2022-11-27 22:55 | PC.NURSE ---
attempted to get pt up to [facility] to obtain urine specimen, pt unable to stand and was assisted back to the stretcher
--- NOTE | 2022-11-27 23:02 | PC.NURSE ---
cath urine obtained with 125 ml clear urine returned
[2022-11-27 23:18] LABS: Bacteria Urine Occasional (0-1); Culture Indicated Urine Cult Not Indicated; RBC Urine 1-5/HPF (0-5/HPF); Squamous Epithelial Cell Urine 0-1 /HPF (0-5/HPF); WBC Urine 0-1/HPF (0-5/HPF)
[2022-11-27 23:56] LABS: Appearance Urine UA CLEAR; Bilirubin Urine UA NEGATIVE (NEGATIVE); Color Urine UA YELLOW; Glucose Urine UA NEGATIVE (Negative); Ketones Urine UA 1+ (NEGATIVE); Leukocyte Esterase Urine UA NEGATIVE (NEGATIVE); Nitrite Urine UA NEGATIVE (Negative); Occult Blood Urine UA TRACE-INTACT (Negative); Protein Urine UA TRACE (Negative); Specific Gravity Urine UA 1.015 (1.000-1.035); Urobilinogen Urine UA 0.2 E.U./dL (0.2)
[2022-11-27 23:57] LABS: pH Urine UA 7.5 (4.5-8.0)
[2022-11-28] VITALS (17 sets, daily range): BP systolic 94–133; BP diastolic 47–82; PULSE 73–106; RESP 16–24; TEMP 36.6–38.7; O2SAT 92–98; BMI 25.5
[2022-11-28] MEDS: HYDROMORPHONE 0.5 MG INJ IV ×2 (00:15→01:54)
--- NOTE | 2022-11-28 02:10 | PC.NURSE ---
pt repositioned for comfort, pain med given and lights dimmed
[2022-11-28 02:56] LABS: COVID19 -Nasal RAPID Negative (Negative)
[2022-11-28] MEDS: SODIUM CHLORIDE 0.9% 1,000 ML 100 ML IV ×2 (04:45→14:25)
[2022-11-28 07:32] LABS: Acinetobacter calcoa-baumannii Not Detected (Not Detect); Bacteroides fragilis Not Detected (Not Detect); Candida albicans Not Detected (Not Detect); Candida auris Not Detected (Not Detect); Candida glabrata Not Detected (Not Detect); Candida krusei Not Detected (Not Detect); Candida parapsilosis Not Detected (Not Detect); Candida tropicalis Not Detected (Not Detect); Cryptococcus neoformans/gatti Not Detected (Not Detect); Enterobacter cloacae complex Not Detected (Not Detect); Enterobacterales Not Detected (Not Detect); Enterococcus faecalis Not Detected (Not Detect); Enterococcus faecium Not Detected (Not Detect); Haemophilus influenzae Not Detected (Not Detect); Klebsiella aerogenes Not Detected (Not Detect); Listeria monocytogenes Not Detected (Not Detect); Neisseria meningitidis Not Detected (Not Detect); Proteus species Not Detected (Not Detect); Pseudomonas aeruginosa Not Detected (Not Detect); Salmonella species Not Detected (Not Detect); Serratia marcescens Not Detected (Not Detect); Staphylococcus epidermidis Not Detected (Not Detect); Staphylococcus lugdunensis Not Detected (Not Detect); Staphylococcus species Not Detected (Not Detect); Stenotrophomonas maltophilia Not Detected (Not Detect); Streptococcus agalactiae (Gr B DETECTED (Not Detect); Streptococcus pneumonia Not Detected (Not Detect); Streptococcus pyogenes (Gr A) Not Detected (Not Detect); Streptococcus species DETECTED (Not Detect)
[2022-11-28] MEDS: AMLODIPINE 5 MG TABLET 2.5 MG PO (08:09)
[2022-11-28] MEDS: CYANOCOBALAMIN (VITAMIN B-12) 500 MCG TABLET 1000 MCG PO (08:09)
[2022-11-28] MEDS: ENOXAPARIN 40 MG/0.4 ML SYRINGE SUBCUT (08:10)
[2022-11-28] MEDS: LOSARTAN 50 MG TABLET PO (08:10)
[2022-11-28 09:29] LABS: Hematocrit 32.7 % (36-46); Hemoglobin 11.1 g/dL (12.0-16.0); Mean Corpuscular HGB Conc 33.9 % (30-36); Mean Corpuscular Hemoglobin 30.9 PG (26-34); Mean Corpuscular Volume 91.1 fL (80-100); Platelet Count 248 X10^3/uL (150-400); Red Blood Cell Count 3.59 X10^6/uL (4.0-5.2); Red Cell Distribution Width 14.6 % (11.6-14.8); White Blood Cell Count 19.7 X10^3/uL (4.5-11.0)
[2022-11-28] MEDS: MEROPENEM 500 MG in SODIUM CHLORIDE 0.9% 100 ML 200 MG IV (09:33)
[2022-11-28 09:46] LABS: Neutrophils Absolute Manual 17730 /uL (3000-5900); Total Cells Counted 100
[2022-11-28 09:47] LABS: RBC Morphology Normal Morphology
[2022-11-28 09:52] LABS: NT-proBNP (BNP-Adult 18+) 6170 pg/mL (<450)
[2022-11-28 09:59] LABS: Procalcitonin 3.99 ng/mL (<0.5)
--- NOTE | 2022-11-28 13:42 | DI.RAD.S_ITS ---
PROCEDURE: XR SHOULDER RT MIN 2V INDICATIONS: pain; sepsis TECHNIQUE: 3 views of the shoulder were acquired. COMPARISON: None. FINDINGS: Bones: No fractures or dislocations. No suspicious bony lesions. Visualized ribs appear intact. Periarticular osteophyte formation at the acromioclavicular and glenohumeral joints. Soft tissues: No suspicious soft tissue calcifications. IMPRESSION: Osteoarthritis. No acute fracture. No osseous lesion. If symptoms and/or clinical suspicion for pathology persist, further assessment with repeat, or advanced imaging (e.g., CT, MRI, or bone scan) may be helpful for further assessment. Dictated by: Amina Corcoran M.D. on 11/28/2022 at 14:48 Approved by: Amina Corcoran M.D. on 11/28/2022 at 14:49
--- NOTE | 2022-11-28 13:42 | DI.ECHO.S_ITS ---
[facility]---------[facility] +---------+ : : [address] : : : : [id number] : : : : Phone: [phone] Echocardiogram Report + + :Name: VANDANA OLIVER Study Date: 11/28/2022 Height: 64 in : :[facility] ReadingLocation: Weight: 148 lb : : Gender: Female BSA: 1.7 m2 : :: 1935 Age: 87 yrs BP: 107/56 mmHg: :Reason For Study: ATRIAL FIBRILLATION : :Ordering Physician: CLAYTON, : :LUCÍA Performed By: Donya Monroy : :Referring: LUCÍA ARNOLD : + + Interpretation Summary 1) Normal left ventricular thickness, size, wall motion, and systolic function (EF 60-65%). 2) Borderline enlarged right ventricular size with normal function. 3) No significant valvular stenoses or regurgitation. 4) Compared to the Echo done 10/08/2020, no significant change. Procedure: A two-dimensional transthoracic echocardiogram with color flow and Doppler was performed. The study quality was technically adequate. Comparison is made with the echocardiogram of 10/08/2020. The patient was in atrial fibrillation with heart rates between 75-115 bpm during the exam. Left Ventricle: Proximal septal thickening is noted. The left ventricle is normal in size and wall thickness. The ejection fraction is estimated to be 60-65%. Diastolic function could not be accurately assessed due to atrial fibrillation. Right Ventricle: The right ventricle is borderline dilated. The right ventricular systolic function is normal. Atria: The left atrium is moderately dilated. The right atrium is mildly dilated. There is no Doppler evidence for an interatrial shunt. Mitral Valve: There is moderate mitral annular calcification. The mitral valve leaflets are mildly calcified. The mitral papillary muscle appears thickened and/or calcified. The mitral valve mean gradient is 3.7 mmHg. There is trace mitral regurgitation. Aortic Valve: The aortic valve is trileaflet. The aortic valve is mildly calcified. There is mild aortic valve sclerosis. There is no aortic valve stenosis. No aortic regurgitation is present. Tricuspid Valve: The tricuspid valve is not well visualized, but is grossly normal. There is mild tricuspid regurgitation. The right ventricular systolic pressure is estimated to be at least 40 mmHg based on an estimated right atrial pressure of 3 mm Hg. Pulmonic Valve: The pulmonic valve is not well seen, but is grossly normal. There is mild to moderate pulmonic regurgitation. Great Vessels: The aortic root is normal size. The dimensions of the ascending aorta are normal. The IVC is of normal diameter and collapses greater than 50% with a sniff. This suggests a low right atrial pressure of 3 mm Hg. Pericardium/ Pleura There is no pericardial effusion. There is no pleural effusion. MMode/2D Measurements & Calculations LVIDd: 4.4 cm LVOT diam: 2.0 cm LVIDs: 3.1 cm Ao root diam: 3.3 cm FS: 29.7 % asc Aorta Diam: 3.4 cm IVSd: 0.90 cm Ao Arch Diam (Prox Trans): 2.8 cm LVPWd: 1.1 cm LV arreola. diameter/BSA (cm/m^2): 2.6 LV sys. diameter/BSA (cm/m^2): 1.8 LA A2 area: 21.9 cm2 RA long axis: 4.9 cm LA A4 area: 21.9 cm2 RA area: 18.9 cm2 LA length (vol): 5.3 cm RA vol: 61.6 ml LA vol: 76.5 ml RA : 35.8 ml/m2 LA vol index: 44.4 ml/m2 IVC diam: 1.0 cm RVD1 (basal): 4.1 cm TAPSE: 2.0 cm Doppler Measurements & Calculations Ao V2 max: 129.6 cm/sec LVOT Max Eliezer: 91.5 cm/sec Ao V2 mean: 94.3 cm/sec LV V1 max P.3 mmHg Ao max P.7 mmHg LV V1 VTI: 16.5 cm Ao mean P.9 mmHg PRISCILLA(I,D): 2.1 cm2 Ao V2 VTI: 23.6 cm PRISCILLA(V,D): 2.1 cm2 sev ratio: 0.70 PRISCILLA indexed to BSA (cm^2/m^2): 1.2 MV E max eliezer: 147.7 cm/sec TR max eliezer: 303.2 cm/sec MV A max eliezer: 2.7 cm/sec TR max P.8 mmHg MV E/A: 54.8 PA V2 max: 91.5 cm/sec Med Peak E' Eliezer: 7.2 cm/sec PA V2 mean: 63.5 cm/sec E/E' med: 20.7 PA mean P.8 mmHg Lat Peak E' Eliezer: 11.4 cm/sec PA pr(Accel): 55.0 mmHg E/E' lat: 12.9 E/e' average: 16.8 MV dec time: 0.19 sec MVA(VTI): 2.1 cm2 MV V2 mean: 86.0 cm/sec SV(LVOT): 49.4 ml MV mean P.7 mmHg MV V2 VTI: 24.1 cm Reading Physician:04:51 PM
--- NOTE | 2022-11-28 13:47 | P.HP_ITS ---
History of Present Illness History of Present Illness Date Patient Seen: 11/28/22 Time Patient Seen: 13:47 Date of Onset of Symptoms: 11/26/22 Chief complaint: Shaking, shoulder pain, can't keep water down Narrative: This is a very pleasant 87-year-old female who is well known to me. She is a history of degenerative arthritis with multiple joint replacements, spinal stenosis with lumbar radiculopathy, hypertension, AFib, hyponatremia, psoriasis, mono clonal gammopathy of undetermined significance, COPD and TIA who presents to the ER with a 24 hour history of chills and rigors without known fever or source. She lives alone but her son and [id number] live block and a half away. She denies any diarrhea or bright red blood per rectum or black tarry stools. Denies any urinary symptoms. She has had pretty significant right sh oulder pain. This all started when she woke up having shaking chills and then she had some headaches on Monday. She went to sleep and then felt better and then on Monday had recurrent issues and phoned her son at 5:00 a.m. and he got home at 8:00 a.m. because he was out of town and took her to the ER. She was vomiting for 12 hours prior. She denied any abdominal pain. She denied any chest pain or shortness of breath or PND orthopnea. She denied any cough. She denied any rashes. In the ER workup was remarkable for a significantly elevated procalcitonin but normal lactate. She had normal chest x-ray and CT of her chest abdomen and pelvis was unrevealing. Blood cultures were taken urinalysis was unremarkable and culture not indicated. She was found to have a significant leukocytosis with vomiting and meet the criteria for sepsis with unknown source. She was started on meropenem due to multiple drug allergies. Today and my visit she is feeling better is not having the shaking chills, rigors or pain. She does not have much appetite but has eaten a little bit. She is drinking a lot a water. Twelve point review of systems is negative other than above Specifically no chest pain, no joint pain other than the right shoulder and she had no fall or injury to the right shoulder. She is diffuse arthritis and GI symptoms negative No URI symptoms No cough or runny nose No further headache. She did have a headache on Monday Past medical history: 1. AFib, paroxysmal 2. Chronic anticoagulation 3. Hypertension 4. Previous TIA with no residual 5. Hypomagnesemia 6. Hyponatremia 7. Depression 8. COPD 9. 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 Chronic kidney disease, stage III 11. Monoclonal gammopathy of undetermined significance 12. Psoriasis Allergy to ampicillin, amoxicillin and cephalexin as well as piroxicam Past surgical history: 1. Lumbar spinal stenosis status post laminectomy and decompression 03/20/2006 2. Lumbar laminectomy 10/05/2009 3. Left total knee replacements 03/18/2011 4. Right total knee replacement 5. Colonoscopy September 2011 Social history: Patient lives here in [facility]. She is retired. She is a . She is a son named rakan and a son named Michael in the daughter name Mony Health related behavior: Patient has never smoked and does not drink on a regular basis. Family history Father at 85 unknown causes Mom at 90, old age Sister from breast cancer, sister had colon cancer in her 60s [facility] Medical History Acute postoperative pain of knee Atrial fibrillation Atrial fibrillation with RVR CVA (cerebral vascular accident) Dehydration Diarrhea Multiple myeloma not having achieved remission Vertigo Surgical History History of bilateral knee replacement Social History household members: none Smoking Status: Never smoker Meds Home Medications and Allergies Home Medications Medication Instructions Recorded Confirmed Type cholecalciferol (vitamin D3) 25 1,000 unit PO DAILY ##0 10/01/12 10/08/20 History mcg (1,000 unit) capsule (Vitamin D3) cyanocobalamin (vitamin B-12) 1,000 mcg PO DAILY ##0 10/01/12 10/08/20 History 1,000 mcg tablet (Vitamin B-12) warfarin 5 mg tablet (Coumadin) See Rx Instructions .Route 12/14/16 10/08/20 History .COMPLEX ##0 Lipo-Flavonoid Plus 1 tab PO DAILY ##0 04/12/17 10/08/20 History omega [id number]-[id number]-fish oil 1,000 mg 1,000 mg PO DAILY ##0 04/12/17 10/08/20 History (120 mg-180 mg) capsule (Fish Oil) Ocuvite Vitamin 1 tab PO DAILY 05/16/19 10/08/20 History amlodipine 2.5 mg tablet 2.5 mg PO DAILY 05/16/19 10/08/20 History amiodarone 200 mg tablet 200 mg PO DAILY #60 tabs 10/09/20 Rx losartan 100 mg tablet 50 mg PO DAILY #0 tabs 10/09/20 10/08/20 Rx sertraline 50 mg tablet (Zoloft) 50 mg PO BEDTIME #1 tab 10/09/20 Rx Allergies Allergy/AdvReac Type Severity Reaction Status Date / Time amoxicillin Allergy Mild BREAK OUT Verified 03/07/18 11:07 ampicillin Allergy Mild BREAK OUT Verified 03/07/18 11:07 cephalexin Allergy Mild BREAK OUT Verified 03/07/18 11:07 piroxicam AdvReac Unknown ITCHING Verified 03/07/18 11:07 Exam Vital Signs (past 8 hours): - 11/28/22 08:08 11/28/22 08:10 11/28/22 07:00 Temperature 98.2 F Pulse Rate 106 H 106 H Respiratory Rate 18 Blood Pressure 109/82 109/82 Pulse Oximetry 92 Oxygen Delivery Method Nasal Cannula Oxygen Flow Rate 2 Fraction of Inspired Oxygen 11/28/22 09:20 Temperature Pulse Rate Respiratory Rate Blood Pressure Pulse Oximetry Oxygen Delivery Method Nasal Cannula Oxygen Flow Rate 2 Fraction of Inspired Oxygen 28 Fraction of Inspired Oxygen 28 Oxygen Delivery Method Nasal Cannula Oxygen Flow Rate 2 Narrative Exam Narrative: Afebrile with vital signs stable but systolic blood pressure in the low 1 100s and heart rate low 100s. O2 sats stable on 2 L nasal cannula oxygen Patient is alert and oriented x3 sitting upright in bed appears younger than her stated age in no apparent distress with no increased work of breathing HEENT is unremarkable mucous membranes are slightly dry Neck: Supple without adenopathy, thyromegaly, jugular venous distention or bruits Chest: Clear to auscultation without wheezes rhonchi or crackles Cor: Irregularly irregular rhythm at a well-controlled rate in 100 Abdomen: Positive bowel sounds, soft, nontender, nondistended Extremities: No evidence of joint effusions or erythema or increased warmth. Well-healed knee replacement scars. Patient has tenderness over her AC joint of her right shoulder. There is no overlying skin changes and range of motion slightly decreased abduction and forward flexion. There is no significant edema and pulses intact Neurologic exam is nonfocal. I did not get patient out of bed. Objective Labs 11/28/22 09:15 11/27/22 21:10 Labs: Laboratory Results - last 24 hr 11/27/22 11/27/22 11/27/22 21:10 21:10 21:10 WBC 17.0 H RBC 3.80 L Hgb 11.6 L Hct 34.5 L MCV 90.8 MCH 30.4 MCHC 33.5 RDW 14.6 Plt Count 285 Neut % (Auto) 92.9 H Lymph % (Auto) 2.8 L Geary % (Auto) 4.1 Eos % (Auto) 0.0 L Baso % (Auto) 0.2 Neut # (Auto) 27394 H Lymph # (Auto) 500 L Geary # (Auto) 700 Eos # (Auto) 0 Baso # (Auto) 0 Total Counted Seg Neutrophils % Band Neutrophils % Lymphocytes % (Manual) Monocytes % (Manual) Neutrophils # (Manual) RBC Morphology PT 20.7 H INR 1.8 H APTT 42 H Sodium 134 L Potassium 3.9 Chloride 102 Carbon Dioxide 24 BUN 16 Creatinine 1.26 H Estimated GFR 41 L BUN/Creatinine Ratio 12.7 Glucose 186 H Lactate Calcium 9.4 Total Bilirubin 1.0 AST 76 H ALT 60 H Alkaline Phosphatase 71 NT-Pro-B Natriuret Pep Total Protein 9.6 H Albumin 4.0 Globulin 5.6 H Albumin/Globulin Ratio 0.7 L Lipase 44 Procalcitonin 3.20 H Urine Color Urine Appearance Urine pH Ur Specific [place] Urine Protein Urine Glucose (UA) Urine Ketones Urine Occult Blood Urine Nitrate Urine Bilirubin Urine Urobilinogen Ur Leukocyte Esterase Urine RBC Urine WBC Ur Squamous Epith Cells Urine Bacteria Ur Culture Indicated? A.calcoaceticus-baumannii cmplx PCR Bacteroides fragilis Micki albicans (PCR) Micki auris (PCR) C. glabrata (PCR) C. krusei (PCR) C. parapsilosis (PCR) C. tropicalis (PCR) SARS-CoV-2 (PCR) C. neoform/gattii (PCR) Enterobacterales (PCR) E. cloacae complex PCR Enterococc faecalis PCR Enterococc faecium PCR E. coli (PCR) H. influenzae (PCR) Klebsiella aerogenes (PCR) Klebsiella oxytoca PCR Klebsiella pneumoniae List. monocytogenes PCR N. meningitidis (PCR) Proteus species (PCR) Salmonella spp. (PCR) Serratia marcescens PCR Staphylococcus sp PCR Staph aureus (PCR) Staph epidermidis (PCR) Staph lugdunensis PCR S. maltophilia (PCR) Streptococcus sp PCR Group A Strep (PCR) Strep agalactiae (PCR) Strep pneumoniae (PCR) P. aeruginosa (PCR) 11/27/22 11/27/22 11/28/22 21:10 22:35 01:52 WBC RBC Hgb Hct MCV MCH MCHC RDW Plt Count Neut % (Auto) Lymph % (Auto) Geary % (Auto) Eos % (Auto) Baso % (Auto) Neut # (Auto) Lymph # (Auto) Geary # (Auto) Eos # (Auto) Baso # (Auto) Total Counted Seg Neutrophils % Band Neutrophils % Lymphocytes % (Manual) Monocytes % (Manual) Neutrophils # (Manual) RBC Morphology PT INR APTT Sodium Potassium Chloride Carbon Dioxide BUN Creatinine Estimated GFR BUN/Creatinine Ratio Glucose Lactate 1.7 Calcium Total Bilirubin AST ALT Alkaline Phosphatase NT-Pro-B Natriuret Pep Total Protein Albumin Globulin Albumin/Globulin Ratio Lipase Procalcitonin Urine Color Yellow Urine Appearance Clear Urine pH 7.5 Ur Specific [place] 1.015 Urine Protein Trace H Urine Glucose (UA) Negative Urine Ketones 1+ H Urine Occult Blood Trace-intact Urine Nitrate Negative Urine Bilirubin Negative Urine Urobilinogen 0.2 Ur Leukocyte Esterase Negative Urine RBC 1-5/hpf Urine WBC 0-1/hpf Ur Squamous Epith Cells 0-1 /hpf Urine Bacteria Occasional (0-1) Ur Culture Indicated? Cult not indicated A.calcoaceticus-baumannii cmplx PCR Bacteroides fragilis Micki albicans (PCR) Micki auris (PCR) C. glabrata (PCR) C. krusei (PCR) C. parapsilosis (PCR) C. tropicalis (PCR) SARS-CoV-2 (PCR) Negative C. neoform/gattii (PCR) Enterobacterales (PCR) E. cloacae complex PCR Enterococc faecalis PCR Enterococc faecium PCR E. coli (PCR) H. influenzae (PCR) Klebsiella aerogenes (PCR) Klebsiella oxytoca PCR Klebsiella pneumoniae List. monocytogenes PCR N. meningitidis (PCR) Proteus species (PCR) Salmonella spp. (PCR) Serratia marcescens PCR Staphylococcus sp PCR Staph aureus (PCR) Staph epidermidis (PCR) Staph lugdunensis PCR S. maltophilia (PCR) Streptococcus sp PCR Group A Strep (PCR) Strep agalactiae (PCR) Strep pneumoniae (PCR) P. aeruginosa (PCR) 11/28/22 11/28/22 11/28/22 06:10 09:15 09:15 WBC 19.7 H RBC 3.59 L Hgb 11.1 L Hct 32.7 L MCV 91.1 MCH 30.9 MCHC 33.9 RDW 14.6 Plt Count 248 Neut % (Auto) Lymph % (Auto) Geary % (Auto) Eos % (Auto) Baso % (Auto) Neut # (Auto) Lymph # (Auto) Geary # (Auto) Eos # (Auto) Baso # (Auto) Total Counted 100 Seg Neutrophils % 80.0 H Band Neutrophils % 10.0 H Lymphocytes % (Manual) 6.0 L Monocytes % (Manual) 4.0 Neutrophils # (Manual) 16619 H RBC Morphology Normal morphology PT INR APTT Sodium Potassium Chloride Carbon Dioxide BUN Creatinine Estimated GFR BUN/Creatinine Ratio Glucose Lactate Calcium Total Bilirubin AST ALT Alkaline Phosphatase NT-Pro-B Natriuret Pep 6170 H Total Protein Albumin Globulin Albumin/Globulin Ratio Lipase Procalcitonin 3.99 H Urine Color Urine Appearance Urine pH Ur Specific [place] Urine Protein Urine Glucose (UA) Urine Ketones Urine Occult Blood Urine Nitrate Urine Bilirubin Urine Urobilinogen Ur Leukocyte Esterase Urine RBC Urine WBC Ur Squamous Epith Cells Urine Bacteria Ur Culture Indicated? A.calcoaceticus-baumannii cmplx PCR Not detected Bacteroides fragilis Not detected Micki albicans (PCR) Not detected Micki auris (PCR) Not detected C. glabrata (PCR) Not detected C. krusei (PCR) Not detected C. parapsilosis (PCR) Not detected C. tropicalis (PCR) Not detected SARS-CoV-2 (PCR) C. neoform/gattii (PCR) Not detected Enterobacterales (PCR) Not detected E. cloacae complex PCR Not detected Enterococc faecalis PCR Not detected Enterococc faecium PCR Not detected E. coli (PCR) Not detected H. influenzae (PCR) Not detected Klebsiella aerogenes (PCR) Not detected Klebsiella oxytoca PCR Not detected Klebsiella pneumoniae Not detected List. monocytogenes PCR Not detected N. meningitidis (PCR) Not detected Proteus species (PCR) Not detected Salmonella spp. (PCR) Not detected Serratia marcescens PCR Not detected Staphylococcus sp PCR Not detected Staph aureus (PCR) Not detected Staph epidermidis (PCR) Not detected Staph lugdunensis PCR Not detected S. maltophilia (PCR) Not detected Streptococcus sp PCR Detected H Group A Strep (PCR) Not detected Strep agalactiae (PCR) Detected H Strep pneumoniae (PCR) Not detected P. aeruginosa (PCR) Not detected Assessment & Plan Assessment & Plan narrative: 87-year-old female admitted with sepsis secondary leukocytosis and vomiting as well as borderline hypotension with blood culture showing strep but not final. Unclear source. Patient appears to be improving on current antibiotic choice. Plan: Admit to the hospital for further treatment and evaluation Will do echo to rule out infectious vegetations Will do x-ray of her shoulder to rule out osteomyelitis but may need to do further inquiry Will do urine culture Will continue meropenem but q.12 due to creatinine clearance Will continue with IV fluids and watch closely for fluid overload Will repeat labs tomorrow. Assessment 2. Paroxysmal atrial fibrillation currently in AFib and on chronic anticoagulation Plan: Will start outpatient amiodarone 100 mg daily. Will do daily INRs. Will start warfarin as an outpatient. Shakes 5 mg 4 days a week and 2.5 on 3 days a week Assessment 3. Hypertension with low blood pressures related to sepsis Plan: Hold losartan and amlodipine for now Assessment 4. Hypomagnesemia Plan: Will check magnesium Assessment 5. History of hyponatremia Plan: Will continue to monitor Assessment 6. Depression Plan: Continue outpatient sertraline Assessment 7. Monoclonal gammopathy of undetermined significance without acute issues Plan: Will follow Assessment 8. Chronic kidney disease with slight worsening suspect related to infection and borderline dehydration Plan: Will continue to monitor, meropenem at renal dosing and will recheck tomorrow. Will follow closely. Will continue IV fluids at 100 for now Assessment 9. DVT prophylaxis Plan: Continue Lovenox but changed to 30 mg due to kidneys and will recheck INR tomorrow and then stop at that time Code status is DNR 75 minutes spent with patient, discussing with physicians, nursing, pharmacy, evaluating workup, meeting with patient discussing with family inpatient plan, formulating plan and documentation
[2022-11-28 13:56] LABS: BUN Creatinine Ratio 13.6 (6-22); Blood Urea Nitrogen 15 mg/dL (7-17); Calcium 8.7 mg/dL (8.4-10.2); Carbon Dioxide 24 mmol/L (22-32); Chloride 106 mmol/L (98-107); Estimated Glomerular Filt Rate 49 mL/min (>60); Glucose 143 mg/dL (80-110); HEMOLYSIS < 15 (0-50); Potassium 3.6 mmol/L (3.4-5.1); Sodium 134 mmol/L (137-145)
[2022-11-28] MEDS: AMIODARONE 200 MG TABLET 100 MG PO (14:10)
[2022-11-28] MEDS: HYDROCODONE/ACET 5/325 TABLET 1 TAB PO ×2 (14:36→20:34)
[2022-11-28] MEDS: MEROPENEM 2 GM in SODIUM CHLORIDE 0.9% 100 ML IV (14:47)
--- NOTE | 2022-11-28 14:58 | CM.DANOTE ---
Patient is an 87 yo female who was admitted on 11/28/22 today for Weakness/Pain. Pt has M[place] and [place] for insurance and her PCP is Dr. Tianna Cartagena. EMR was reviewed. Per MD, pt with hx of AFIB, COPD, TIA and admitted for sepsis of unknown etiology. Per RN, pt had difficulty in the ED standing due to pain and weakness. PT ordered and pending. SW met bedside with pt and son/MARILU Tsang and explained role and they confirm pt still resides at home in [place] alone but MARILU Tsang lives about 2 blocks away. Pt now has [facility] that comes in 3x a week for 4 hours a day to assist with chores, cleaning, meal prep, etc.. Pt states she typically uses a quad cane for ambulation but has a walker for longer distances if needed. Pt denies any recent hx of HH or SNF, but states she has a hx of SNF quite a few years ago after she had knee replacement. Pt confirms that her pain seems better controlled but still below baseline and feeling fatigued and weak. Plan: SW to follow closely for PT eval and pt progress towards determining if pt will be safe for d/c back home with family support and parttime [facility] and r/o HH and SNF. LEVI Nuñez Discharge Planning/Care Management CM Discharge Assessment Start: 11/28/22 14:55 Freq: Status: Active Protocol: Document 11/28/22 14:55 BF (Rec: 11/28/22 14:57 BF [id number]) Discharge Planning Assessment Assigned Project Manager Finance LEVI Donald DPOA/Assigned Designee Name remy Tsang Contact Information [phone] Advance Directives? Yes Advance Directives on File Yes History Provided By Patient,Family Member,Medical Record Has Patient been admitted in last 30 No days? Prior Living Arrangements House Household Members none Comment does have [facility] 3x week for 4 hours a day Type of transporation used prior to Relies on Others admit Independent with ADL's Yes: mostly Is patient alert and oriented? Yes Needs Assistance With Meal Prep,Managing Medications ,Home Chores / Shopping Caregiver for Another No DME Already Rented / Owned FWW / Walker,Cane Patient/Family Preference Snf Facility,Home with Home Health Comment Pending progress and PT eval, r/o HH vs SNF Barriers to Discharge No Discharge Plan Home with Home Health Transportation Arrangement son bedside and if safe for home can transport Additional Comment Pending progress and PT eval, r/o HH vs SNF Whiteboard Updated in Patient Room with Yes name and ext. # of Project Manager Finance Review Status In Process Please Provide Date Initial DC 11/28/22 Assessment Was Performed Next Review Type Continued Stay Review
[2022-11-28] MEDS: WARFARIN 5 MG TABLET PO (16:34)
[2022-11-28] MEDS: SERTRALINE 50 MG TABLET 75 MG PO (20:26)
[2022-11-28] MEDS: ONDANSETRON 4 MG/2 ML INJ IV (22:20)
[2022-11-29] VITALS (7 sets, daily range): BP systolic 103–132; BP diastolic 56–77; PULSE 88–125; RESP 15–18; TEMP 36.7–37.3; O2SAT 94–97
[2022-11-29] MEDS: SODIUM CHLORIDE 0.9% 1,000 ML 100 ML IV (00:52)
[2022-11-29] MEDS: MEROPENEM 2 GM in SODIUM CHLORIDE 0.9% 100 ML IV ×2 (01:36→14:06)
[2022-11-29] MEDS: HYDROCODONE/ACET 5/325 TABLET 1 TAB PO (05:28)
--- NOTE | 2022-11-29 06:25 | PC.NURSE ---
Pt requested to sleep in chair for the night, 1P w FWW pivot to chair. Pt was then 2PA FWW from chair to bedside commode and back to bed in hydrometer tester.
[2022-11-29 06:30] LABS: INR 1.6 (0.9-1.3); Prothrombin Time 18.7 SECONDS (10.1-12.7)
[2022-11-29 06:33] LABS: Add Manual Diff / Slide Review NO; Basophils Absolute Auto 0 /uL (0-100); Basophils Percent Auto 0.1 % (0-2); Eosinophils Absolute Auto 0 /uL (0-450); Hematocrit 34.3 % (36-46); Hemoglobin 11.4 g/dL (12.0-16.0); Lymphocytes Absolute Auto 1800 /uL (1100-4500); Lymphocytes Percent Auto 10.7 % (25-40); Mean Corpuscular HGB Conc 33.3 % (30-36); Mean Corpuscular Hemoglobin 30.4 PG (26-34); Mean Corpuscular Volume 91.2 fL (80-100); Monocytes Absolute Auto 900 /uL (0-900); Monocytes Percent Auto 5.3 % (3-14); Neutrophils Absolute Auto 14300 /uL (1500-7000); Neutrophils Percent Auto 83.9 % (50-75); PTT Partial Thromboplastin Tim 37 SECONDS (26-36); Platelet Count 268 X10^3/uL (150-400); Red Blood Cell Count 3.76 X10^6/uL (4.0-5.2); Red Cell Distribution Width 14.7 % (11.6-14.8)
[2022-11-29 06:35] LABS: Magnesium 1.9 mg/dL (1.6-2.3)
[2022-11-29 06:37] LABS: Alanine Aminotransferase 94 IU/L (<35); Albumin 2.9 g/dL (3.5-5.0); Albumin Globulin Ratio 0.6 (1.0-2.8); Alkaline Phosphatase 60 U/L (38-126); Aspartate Aminotransferase 186 IU/L (14-36); BUN Creatinine Ratio 12.4 (6-22); Bilirubin Total 0.6 mg/dL (0.2-1.3); Blood Urea Nitrogen 13 mg/dL (7-17); Calcium 8.9 mg/dL (8.4-10.2); Carbon Dioxide 23 mmol/L (22-32); Chloride 107 mmol/L (98-107); Estimated Glomerular Filt Rate 51 mL/min (>60); Globulin 4.9 g/dL (1.7-4.1); Glucose 111 mg/dL (80-110); HEMOLYSIS < 15 (0-50); Potassium 3.8 mmol/L (3.4-5.1); Sodium 136 mmol/L (137-145); Total Protein 7.8 g/dL (6.3-8.2)
[2022-11-29] MEDS: ACETAMINOPHEN 325 MG TABLET 650 MG PO ×2 (08:25→18:05)
[2022-11-29] MEDS: ONDANSETRON 4 MG/2 ML INJ IV (08:25)
[2022-11-29] MEDS: CYANOCOBALAMIN (VITAMIN B-12) 500 MCG TABLET 1000 MCG PO (08:25)
[2022-11-29] MEDS: AMIODARONE 200 MG TABLET 100 MG PO (08:25)
[2022-11-29] MEDS: ENOXAPARIN 30 MG/0.3 ML SYRINGE SUBCUT (08:26)
--- NOTE | 2022-11-29 12:50 | CM.DPC ---
Addendum entered by Nancy Vazquez R.N. 11/29/22 15:51: Cont: [facility] may not be able to accomidate. Called over at [facility] and spoke to Olga. She will call their pharmacy to see what the cost is, let her know that it is currently every 12 hours. Did show patient the ipad list of skilled facilities. She would rather be close to here, but is aware, may need to go to [facility] depending upon ABO. Will ask Miranda business assistant, to go ahead and [facility] and , in case it is verified that she will need a week of IV ABO. Will follow up with Dr. Cartagena as well. Olga at [facility] will call back regarding the cost of Mirapenum. Addendum entered by Nancy Vazquez R.N. 11/29/22 15:45: Spoke to patient, and met with son, Sharan, who was in the room. Let them know that there is a chance that she will need IV ABO. Have not yet heard back from Dr. Cartagena, have a message out to her. Gave patient and son some options. Home infusion is not an option, family can't assist, and patient can't do. Patient would like to come to [facility], but is currently on q 12 hours Mirapenum, and unsure if this will change. Did go over home health agencies via ipad, no preferences. Went over residential facilities, since she is Medicare, showed her all options. Let her know that if she stays on Mirapenum, Addendum entered by Nancy Vazquez R.N. 11/29/22 15:11: Just noted in Dr. Cartagena's note that patient may need a week of IV ABO. Dr. Cartagena has left, but want to confirm this with her. Left her a message at the clinic, asked medical receptionist medical assistant to call this [employer] Manager [employer] back, for if this is the situation, will need home PICC or mid line, and will need to find out what she will be on, and how often. If patient can go home with home health, will need to have home infusion set up, but unknown who could do this, as patient may not be able to . May need residential for this. Awaiting Dr. Cartagena to call back. Original Note: DCP Cont: Met with patient. Introduced self and role. Patient was sitting up in bed, pleasant, alert and oriented. Confirmed that she resides alone here in [place]. She resides alone, but has family in the area. She has caregivers through [employer] [facility], one named Madelin. Confirmed that they do come in three times a week, mostly with house keeping, she can do the cooking. She indicated that she has [employer], she wanted them to only come in three hours, but they have a minimal of four hours. She stated that her spouse about 5 years ago, and she had caregivers in the home then. Discussed home health options, asked if she had to pay for this. Let her know that it's covered by her insurance. She is open to this. She has no preferences upon agencies, can go over this later. She has not yet worked with [facility]. Did mention short term rehab if needed, patient does not want. P: DCP to continue to follow. Will see how she does with [facility], and will go ahead and complete a face to face. Nancy Vazquez RN/Gas Distribution Plant Operator
--- NOTE | 2022-11-29 13:41 | PM.PN.1 ---
Subjective Subjective Date Patient Seen: 11/29/22 Time Patient Seen: 13:41 Interval history: Patient is feeling better than she did yesterday but did have nausea again this morning. She thinks it might be related to the pain pill. When asked why she is taken a pain pill she states that her hip was hurting because they been rolling her over in bed quite frequently. She is currently working with Physical therapy and they got her up to the bathroom without significant difficulty and she seems to be doing okay on room air. Her O2 sats overnight were 94-97% on 1 L nasal cannula. She is tolerating p.o. with out difficulty but is still does not have much of an appetite. Patient denies any abdominal pain or chest pain or lightheadedness or dizziness. Denies any shortness of breath or cough. Exam Vital Signs (past 8 hours): - 11/29/22 08:47 11/29/22 07:00 11/29/22 12:00 Temperature 98.6 F 98.0 F Pulse Rate 96 H 88 Respiratory Rate 16 15 Blood Pressure 115/63 104/61 Pulse Oximetry 97 94 Oxygen Delivery Method Nasal Cannula Oxygen Flow Rate 1 1 11/29/22 09:00 Temperature Pulse Rate Respiratory Rate Blood Pressure Pulse Oximetry 94 Oxygen Delivery Method Nasal Cannula Oxygen Flow Rate 1 Fraction of Inspired Oxygen 28 Oxygen Delivery Method Nasal Cannula Oxygen Flow Rate 1 Narrative Exam Narrative: Afebrile vital signs are stable but blood pressure is low 104-115/61-63. Patient currently in the mid 90s on room air for O2 sat. Patient is alert and oriented no apparent distress sitting upright on hospital bed HEENT is unremarkable Neck: Supple without adenopathy Chest: Clear to auscultation without wheezes rhonchi or crackles Cor: Irregularly irregular rhythm with a rate in the 90s Abdomen: Positive bowel sounds, soft Extremities: No edema. No tenderness with palpation of the right shoulder today or of the right thoracic spine or lumbar spine or posterior superior iliac crest Objective Labs 11/29/22 05:25 11/29/22 05:25 Labs: Laboratory Results - last 24 hr 11/28/22 11/29/22 11/29/22 13:35 05:25 05:25 WBC 17.0 H RBC 3.76 L Hgb 11.4 L Hct 34.3 L MCV 91.2 MCH 30.4 MCHC 33.3 RDW 14.7 Plt Count 268 Neut % (Auto) 83.9 H Lymph % (Auto) 10.7 L Mills % (Auto) 5.3 Eos % (Auto) 0.0 L Baso % (Auto) 0.1 Neut # (Auto) 23493 H Lymph # (Auto) 1800 Mills # (Auto) 900 Eos # (Auto) 0 Baso # (Auto) 0 PT 18.7 H INR 1.6 H APTT 37 H Sodium 134 L Potassium 3.6 Chloride 106 Carbon Dioxide 24 BUN 15 Creatinine 1.10 H Estimated GFR 49 L BUN/Creatinine Ratio 13.6 Glucose 143 H Calcium 8.7 Magnesium Total Bilirubin AST ALT Alkaline Phosphatase Total Protein Albumin Globulin Albumin/Globulin Ratio 11/29/22 11/29/22 05:25 05:25 WBC RBC Hgb Hct MCV MCH MCHC RDW Plt Count Neut % (Auto) Lymph % (Auto) Mills % (Auto) Eos % (Auto) Baso % (Auto) Neut # (Auto) Lymph # (Auto) Mills # (Auto) Eos # (Auto) Baso # (Auto) PT INR APTT Sodium 136 L Potassium 3.8 Chloride 107 Carbon Dioxide 23 BUN 13 Creatinine 1.05 H Estimated GFR 51 L BUN/Creatinine Ratio 12.4 Glucose 111 H Calcium 8.9 Magnesium 1.9 Total Bilirubin 0.6 AST 186 H ALT 94 H Alkaline Phosphatase 60 Total Protein 7.8 Albumin 2.9 L Globulin 4.9 H Albumin/Globulin Ratio 0.6 L PFSH Medical History Acute postoperative pain of knee Atrial fibrillation Atrial fibrillation with RVR CVA (cerebral vascular accident) Dehydration Diarrhea Multiple myeloma not having achieved remission Vertigo Surgical History History of bilateral knee replacement Social History household members: none Smoking Status: Never smoker Assessment & Plan Assessment & Plan narrative: Assessment & Plan narrative: 87-year-old female admitted with sepsis secondary leukocytosis and vomiting as well as borderline hypotension with blood culture showing strep but not final.? Unclear source.? Patient appears to be improving on current antibiotic choice. Plan: Patient is doing much better clinically but still has borderline blood pressures and is off her outpatient antihypertensives which include amlodipine 2.5 mg daily and losartan 50 mg daily She is taking in p.o. without difficulty so we will stop her IV fluids. Echo did not show any abnormalities including vegetations etc.. An x-ray of her shoulder showed only arthritis would without any fracture. Blood culture shows group B beta strep but susceptibilities are pending. Patient is on meropenem and still has a leukocytosis although this is improved from yesterday and she is been afebrile and clinically seems to be improving. I will await susceptibilities before changing antibiotics. She will likely need a week of IV antibiotics. Assessment 2. Paroxysmal atrial fibrillation currently in AFib and on chronic anticoagulation Plan:? Patient is on her outpatient amiodarone which is 100 mg daily. She is been started on her Coumadin. Her protime was subtherapeutic today. She will continue the same with daily INRs. We will go ahead and hold the Lovenox. Assessment 3. Hypertension with low blood pressures related to sepsis Plan: Hold losartan and amlodipine for now. Reviewed echo which did not show any evidence of systolic or diastolic heart failure and really unremarkable echo Assessment 4. Hypomagnesemia Plan:? Magnesium level stable. Will continue oral magnesium or restarted today. Assessment 5. History of hyponatremia Plan:? Will continue to monitor. Improved with IV fluids. Will stop IV fluids and recheck tomorrow Assessment 6.? Depression Plan: Continue outpatient sertraline Assessment 7. Monoclonal gammopathy of undetermined significance without acute issues Plan: Will follow Assessment 8. Chronic kidney disease with slight worsening suspect related to infection and borderline dehydration Plan:? Will continue to monitor, meropenem at renal dosing and will recheck tomorrow.? Improved. Will recheck tomorrow Assessment 9. DVT prophylaxis Plan: On Coumadin. Will go ahead and stop Lovenox Assessment 10. Right shoulder pain with x-ray showing osteoarthritis and overall seems improved. Unclear if this is just related to exacerbation of osteoarthritis related to shaking chills Plan: Will continue to follow Disposition: Hopefully patient will be able to go home with home health. She is working with physical therapy. Code status is DNR 60 minutes spent with patient, discussing with physicians, nursing, pharmacy, evaluating workup, meeting with patient discussing with family inpatient plan, formulating plan and documentation
[2022-11-29] MEDS: MAGNESIUM OXIDE 400 MG TABLET PO (14:07)
--- NOTE | 2022-11-29 14:33 | PC.NURSE ---
0800: a/o, voices needs. 1-2 pa bed mobility. reports pain to R shoulder, PRN apap given w/ morning meds. 1300: pain to R shoulder improved, agreeable to an ice pack. tolerated amb hallway w/ FWW w/ PT. has steady gait, tolerating RA. Dr boles here to see patient. d/c IVF, cont w/ IV abx. when b/p's improve, she can return home and plan is for: d/c home w/ HH, plus she has a regular caregiver. 1500: sitting up in her chair looking out the window visiting w/ her son. call light w/in reach.
--- NOTE | 2022-11-29 15:12 | PT.IIE ---
Current Diagnoses Sepsis, unspecified organism (11/28/22) Surgical History (Last Reviewed 11/28/22 @ 13:48 by Tianna Cartagena MD) History of bilateral knee replacement Medical History (Last Reviewed 11/28/22 @ 13:48 by Tianna Cartagena MD) Acute postoperative pain of knee Atrial fibrillation Atrial fibrillation with RVR CVA (cerebral vascular accident) Dehydration Diarrhea Multiple myeloma not having achieved remission Vertigo Physical Therapy Inpatient Evaluation/Re-Eval M1 PT/OT-IP Prior Functional Status Start: 11/28/22 14:08 Freq: NEEDED Status: Active Protocol: Document 11/29/22 14:48 ES (Rec: 11/29/22 15:12 ES [id number]) Medical Review Prior Functional Status Medical History Reviewed Yes Diet/Fluid Consistency Regular Communication WFL with hearing aids Mobility and Gait Indep with quad cane Activities of Daily Living and IADL's Indep Prior Functional Level (Other details) Drives Social History Household Members none Living Arrangements House Number of Floors (Floors) One Floor Number of Stairs To Enter/Railing? 2 with grab bar Home Environment High Toilet,Walk in Shower Home Equipment Four Wheel Walker,Quad Cane, Lift Recliner,Grab Bars Near Toilet,Grab Bars In Shower Employment Status Retired Additional Social History Comment Has adjustable bed. Sons live nearby and stop by daily. Has caregivers 3x/wek for 4 hours to assist with housework and meals. M2 PT-IP Current Condition Start: 11/28/22 14:08 Freq: NEEDED Status: Active Protocol: Document 11/29/22 14:48 ES (Rec: 11/29/22 15:12 ES [id number]) Physical Therapy Current Condition Current Condition Evaluation Date 11/29/22 Treatment Diagnosis Sepsis, R shoulder pain Onset Date 11/27/22 M3 PT-IP Subjective Start: 11/28/22 14:08 Freq: NEEDED Status: Active Protocol: Document 11/29/22 14:48 ES (Rec: 11/29/22 15:12 ES [id number]) Subjective Physical Therapy Visit Type Type Initial Evaluation Visit Start Time 13:06 Visit Stop Time 13:55 Total Visit Minutes 49 Physical Therapy Visit Comments Patient Comments Patient alert in bed, son present. Patient agreeable to work with PT. She reported she is no longer having shoulder pain, but is having some R- sided back pain which is chronic for her but is being exacerbated by being rolled and scooted in bed. M4 PT-IP Mobility and Gait Start: 11/28/22 14:08 Freq: NEEDED Status: Active Protocol: Document 11/29/22 14:48 ES (Rec: 11/29/22 15:12 ES [id number]) PT-Bed Mobility Assessment Rolling Type of Rolling Bilateral Level of Assist Minimal Assistance Supine to Sit Supine to Sit Standby Assistance,Head of Bed Elevated,Bedrails Scooting Scooting to Edge of Bed Standby Assistance PT-Transfer Assessment Sit to and From Stand Sit to and from Stand Standby Assistance,Use of Upper Extremities Equipment Transfer Assistive Device Gait Belt,Front Wheeled Walker ,4 Wheeled Walker Transfers Transfer Destination Chair,Toilet Transfer Technique Stand Step Pivot Transfer Ability Level of Assist Standby Assistance,Use of Upper Extremities Comments Mobility Comments Cues for hand placement for safety. Min cues for appropriate use of brakes. Gait Assessment Gait Gait Assistance Required: Standby Assistance Distance (Feet) 230 Assistive Devices Assistive Device Gait Belt,4 Wheeled Walker Gait Deviations General Gait Pattern Decreased Stride Length, Decreased Feet Clearance, Flexed Trunk Factors Limiting Gait Function Factors Limiting Gait Function Decreased Strength Comments Gait Comments Ambulated 2x115 ft with one seated rest break due to fatigue. Stair Climbing Assessment Evaluation Level of Assist On Stairs Contact Guard Assistance Devices Stair Climbing Assistive Devices Left Railing,Right Railing Technique/Endurance Stair Climbing Direction Ascend and Descend Stair Climbing Technique Step to Step Number of Steps Climbed 3 Query Text: Stair Climbing Set # Repetitions (reps) 1 Comments Stair Climbing Comments Fatigued and mildly short of breath after stairs, requiring seated rest. PT-Balance Assessment Sitting Balance and Reactions Static Sitting Balance Ability Good Dynamic Sitting Balance Ability Good Standing Balance and Reactions Static Standing Balance Ability Good Dynamic Standing Balance Ability Fair Device Used FWW/4WW M5 PT-IP Objective Assessments Start: 11/28/22 14:08 Freq: NEEDED Status: Active Protocol: Document 11/29/22 14:48 ES (Rec: 11/29/22 15:12 ES [id number]) Orientation Orientation/Cognition Level of Alertness Alert Orientation Name,Age,Birthday,Month,Date, Year,Day of Week,Place, Situation Language Function Ability No Deficits Noted Safety Awareness Understands Safety Issues Memory Description No Deficits Noted Gross Range of Motion Upper Extremity ROM Assessment Within Functional Limits Lower Extremity ROM Assessment Within Functional Limits Strength Upper Extremity Strength Assessment Within Functional Limits Lower Extremity Strength Assessment Within Functional Limits Coordination Assessment Gross Coordination Gross Coordination WNL M6 PT-IP Treatment Start: 11/28/22 14:08 Freq: NEEDED Status: Active Protocol: Document 11/29/22 14:48 ES (Rec: 11/29/22 15:12 ES [id number]) Physical Therapy Treatment Education Education Provided Safety M7 PT-IP Assessment and Plan Start: 11/28/22 14:08 Freq: NEEDED Status: Active Protocol: Document 11/29/22 14:48 ES (Rec: 11/29/22 15:12 ES [id number]) PT Summary Assessment and Plan Potential Rehabilitation Potential Good Status of Condition at Evaluation Stable Summary Impairments Strength,Bed Mobility, Transfers,Gait,Activity Tolerance Assessment Summary Patient is a 87 year old female who presents with impaired functional mobility below her baseline due to general weakness and deconditioning, decreased aerobic capacity, and chronic low back pain. She maintained SPO2 at 94% on room air throughout treatment, and denied lightheadedness/ dizziness. She was able to ambulate household distances with 4WW though fatigued and mildly short of breath with exertion. She will benefit from further PT to increase strength and endurance in order to return to PLOF. She may benefit from HHPT to progress independence and activity tolerance at d/c to be able to reach all goals. Goals Bed Mobility Goal Independent Transfer Goal Independent,Four Wheeled Walker Gait Goal Independent,Cane Gait Distance 300 Other Goals Patient will be able to ascend /descend 2 stairs with single rail and quad cane. Patient will be able to demonstrate correct use of 4WW brakes during transfers without cues. Days to Meet Goals 5 Frequency of Treatment Frequency Of Treatment Once a Day Treatment Plan Physical Therapy Treatment Plan Bed Mobility Training,Transfer Training,Gait Training, Therapeutic Exercise,Post Op Education,Discharge Planning, Neuromuscular Re-ed,Manual Therapy Recommendations To Nursing Amount of Assist Needed 1 Person Assist Discharge Recommendations PT Discharge Recommendations Home with Assistance,Home Health Transportation Needs at Discharge Private Vehicle
[2022-11-29] MEDS: WARFARIN 5 MG TABLET PO (18:06)
[2022-11-29] MEDS: WARFARIN 5 MG TABLET 2.5 MG PO (18:06)
--- NOTE | 2022-11-29 19:24 | PC.NURSE ---
son reports nightgown missing, it was fairly new, and it was w/ her purple robe. the purple robe is in the bag in her room. charge nurse followed up w/ above info and spoke w/ the son and patient.
[2022-11-29] MEDS: SERTRALINE 50 MG TABLET 75 MG PO (21:52)
[2022-11-30] VITALS (7 sets, daily range): BP systolic 119–143; BP diastolic 65–74; PULSE 87–96; RESP 16–19; TEMP 36.5–37.2; O2SAT 93–97
[2022-11-30] MEDS: MEROPENEM 2 GM in SODIUM CHLORIDE 0.9% 100 ML IV ×2 (02:17→13:33)
[2022-11-30] MEDS: ONDANSETRON 4 MG/2 ML INJ IV ×2 (04:31→13:33)
[2022-11-30] MEDS: ACETAMINOPHEN 325 MG TABLET 650 MG PO ×2 (04:31→23:35)
[2022-11-30 06:11] LABS: Add Manual Diff / Slide Review NO; Basophils Absolute Auto 0 /uL (0-100); Basophils Percent Auto 0.2 % (0-2); Eosinophils Absolute Auto 0 /uL (0-450); Eosinophils Percent Auto 0.3 % (2-4); Hematocrit 30.6 % (36-46); Hemoglobin 10.6 g/dL (12.0-16.0); Lymphocytes Absolute Auto 900 /uL (1100-4500); Lymphocytes Percent Auto 8.6 % (25-40); Mean Corpuscular HGB Conc 34.6 % (30-36); Mean Corpuscular Hemoglobin 31.3 PG (26-34); Mean Corpuscular Volume 90.5 fL (80-100); Monocytes Absolute Auto 600 /uL (0-900); Monocytes Percent Auto 5.7 % (3-14); Neutrophils Absolute Auto 9100 /uL (1500-7000); Neutrophils Percent Auto 85.2 % (50-75); Platelet Count 253 X10^3/uL (150-400); Red Blood Cell Count 3.38 X10^6/uL (4.0-5.2); Red Cell Distribution Width 14.6 % (11.6-14.8); White Blood Cell Count 10.7 X10^3/uL (4.5-11.0)
[2022-11-30 06:22] LABS: Alanine Aminotransferase 85 IU/L (<35); Albumin 2.9 g/dL (3.5-5.0); Albumin Globulin Ratio 0.6 (1.0-2.8); Alkaline Phosphatase 53 U/L (38-126); Amylase 42 U/L (30-110); Aspartate Aminotransferase 159 IU/L (14-36); BUN Creatinine Ratio 12.9 (6-22); Bilirubin Total 0.6 mg/dL (0.2-1.3); Blood Urea Nitrogen 11 mg/dL (7-17); Calcium 8.6 mg/dL (8.4-10.2); Carbon Dioxide 26 mmol/L (22-32); Chloride 104 mmol/L (98-107); Estimated Glomerular Filt Rate > 60 mL/min (>60); Globulin 4.8 g/dL (1.7-4.1); Glucose 110 mg/dL (80-110); HEMOLYSIS < 15 (0-50); Lipase 30 U/L (23-300); Potassium 3.7 mmol/L (3.4-5.1); Sodium 132 mmol/L (137-145); Total Protein 7.7 g/dL (6.3-8.2)
--- NOTE | 2022-11-30 08:16 | CM.DPC ---
DCP Cont: Olga at [facility] stated that the [facility] is approximately $143.00 a day, but can review, and Catarina at [facility] can accept, will need mid line or picc. Will need to follow up with Dr. Cartagena, left her a message at her clinic, did not yet hear back. It is noted that susceptibilities are pending. P: DCP to continue to follow. Will attempt to reach Dr. Cartagena, or speak to her today regarding plan of Iv abo. Nancy Vazquez RN/Screw Remover
--- NOTE | 2022-11-30 08:50 | PT.IPTN ---
Current Diagnoses Sepsis, unspecified organism (11/28/22) Physical Therapy Treatment Note M2 PT-IP Current Condition Start: 11/28/22 14:08 Freq: NEEDED Status: Active Protocol: Document 11/29/22 14:48 ES (Rec: 11/29/22 15:12 ES [id number]) Physical Therapy Current Condition Current Condition Evaluation Date 11/29/22 Treatment Diagnosis Sepsis, R shoulder pain Onset Date 11/27/22 M3 PT-IP Subjective Start: 11/28/22 14:08 Freq: NEEDED Status: Active Protocol: Document 11/30/22 09:15 TS (Rec: 11/30/22 09:28 TS [id number]) Subjective Physical Therapy Visit Type Type Treatment Note Visit Start Time 08:50 Visit Stop Time 09:08 Total Visit Minutes 18 Number of QUILTING SUPERVISOR Visits 1 Physical Therapy Visit Comments Patient Comments Pt found resting in chair, son in room, reports her shoulder pain is getting better but continues to have low back pain. M4 PT-IP Mobility and Gait Start: 11/28/22 14:08 Freq: NEEDED Status: Active Protocol: Document 11/30/22 09:15 TS (Rec: 11/30/22 09:28 TS [id number]) PT-Transfer Assessment Sit to and From Stand Sit to and from Stand Standby Assistance,Use of Upper Extremities Equipment Transfer Assistive Device Gait Belt,4 Wheeled Walker Comments Mobility Comments Pt found resting in chair, agreeable to PT. Sit to stand with 4WW x1 SBA, required cue for locking of brakes before standing, BUE support on arms of chair. Pt ambulated in hallway ~ 250' SBA with flexed posture, step thru gait, no signs of buckling or LOB but required cue for avoidance of wall. Stairs x6 SBA with BUE handrail assist, provided cues for feet fully on step, heel hanging off edge. Stand to sit SBA into chair, demonstrated good eccentric control. Pt was left in chair with call light nearby, son in room. Gait Assessment Gait Gait Assistance Required: Standby Assistance Distance (Feet) 250 Assistive Devices Assistive Device Gait Belt,4 Wheeled Walker Gait Deviations General Gait Pattern Decreased Stride Length, Decreased Feet Clearance, Flexed Trunk Factors Limiting Gait Function Factors Limiting Gait Function Decreased Strength Comments Gait Comments See mobility comments. Stair Climbing Assessment Evaluation Level of Assist On Stairs Standby Assistance Devices Stair Climbing Assistive Devices Left Railing,Right Railing Technique/Endurance Stair Climbing Direction Ascend and Descend Stair Climbing Technique Step to Step Number of Steps Climbed 6 Stair Climbing Set # Repetitions (reps) 1 Comments Stair Climbing Comments Pt continues to be midly SOB. See mobiltiy comments. PT-Balance Assessment Sitting Balance and Reactions Static Sitting Balance Ability Good Dynamic Sitting Balance Ability Good Standing Balance and Reactions Static Standing Balance Ability Good Dynamic Standing Balance Ability Fair Device Used 4WW M5 PT-IP Objective Assessments Start: 11/28/22 14:08 Freq: NEEDED Status: Active Protocol: Document 11/29/22 14:48 ES (Rec: 11/29/22 15:12 ES [id number]) Orientation Orientation/Cognition Level of Alertness Alert Orientation Name,Age,Birthday,Month,Date, Year,Day of Week,Place, Situation Language Function Ability No Deficits Noted Safety Awareness Understands Safety Issues Memory Description No Deficits Noted Gross Range of Motion Upper Extremity ROM Assessment Within Functional Limits Lower Extremity ROM Assessment Within Functional Limits Strength Upper Extremity Strength Assessment Within Functional Limits Lower Extremity Strength Assessment Within Functional Limits Coordination Assessment Gross Coordination Gross Coordination WNL M6 PT-IP Treatment Start: 11/28/22 14:08 Freq: NEEDED Status: Active Protocol: Document 11/30/22 09:15 TS (Rec: 11/30/22 09:28 TS [id number]) Physical Therapy Treatment Education Education Provided Safety M7 PT-IP Assessment and Plan Start: 11/28/22 14:08 Freq: NEEDED Status: Active Protocol: Document 11/30/22 09:15 TS (Rec: 11/30/22 09:28 TS [id number]) PT Summary Assessment and Plan Potential Rehabilitation Potential Good Status of Condition at Evaluation Stable Summary Impairments Strength,Bed Mobility, Transfers,Gait,Activity Tolerance Assessment Summary Pt is progressing well with her mobility. She is SBA for sit to stands, ambulation w/ 4WW and stairs. Pt demonstrating some decreased safety awareness requiring cues for locking of brakes with 4WW and avoidance of wilson w/4WW in hallway. She continues to SOB after stairs but recovers quickly, Spo2 mid 90's. PT recommends pt return home with assist from family and HHPT when medically stable. Goals Bed Mobility Goal Independent Transfer Goal Independent,Four Wheeled Walker Gait Goal Independent,Cane Gait Distance 300 Other Goals Patient will be able to ascend /descend 2 stairs with single rail and quad cane. Patient will be able to demonstrate correct use of 4WW brakes during transfers without cues. Days to Meet Goals 5 Frequency of Treatment Frequency Of Treatment Once a Day Treatment Plan Physical Therapy Treatment Plan Bed Mobility Training,Transfer Training,Gait Training, Therapeutic Exercise,Post Op Education,Discharge Planning, Neuromuscular Re-ed,Manual Therapy Recommendations To Nursing Amount of Assist Needed 1 Person Assist Discharge Recommendations PT Discharge Recommendations Home with Assistance,Home Health Transportation Needs at Discharge Private Vehicle
[2022-11-30] MEDS: ENOXAPARIN 30 MG/0.3 ML SYRINGE SUBCUT (08:54)
[2022-11-30] MEDS: CYANOCOBALAMIN (VITAMIN B-12) 500 MCG TABLET 1000 MCG PO (08:54)
[2022-11-30] MEDS: MAGNESIUM OXIDE 400 MG TABLET PO (08:54)
[2022-11-30] MEDS: AMIODARONE 200 MG TABLET 100 MG PO (08:54)
--- NOTE | 2022-11-30 11:40 | CM.DPC ---
DCP Cont: Pharmacist had contacted Dr. Cartagena, and indicated that patient could go home on oral antibiotics, most likely tomorrow. Met with patient, she is happy that she can go home, is ok with home health. Patient is ok with [facility], did bring in ipad with lists. Called Storm at [facility], stated that they could possibly see patient on Monday. Gave him her information, he has access to [facility]. Did complete face to face, orders, and did fax to [facility]. Will update him upon discharge. P: DCP to continue to follow. Plan is home with [facility], they will just need update and DC Summary. Nancy Vazquez RN/Scroll Saw Operator
[2022-11-30 11:53] LABS: INR 2.1 (0.9-1.3); Prothrombin Time 24.2 SECONDS (10.1-12.7)
[2022-11-30] MEDS: HYDROCODONE/ACET 5/325 TABLET 1 TAB PO (13:33)
--- NOTE | 2022-11-30 17:19 | PM.PN.1 ---
Subjective Subjective Interval history: Patient is feeling much better today. She is more of an appetite. She got up to times. She feels very stiff and slow because she is been lying in the bed but is not having any focal complaints. Her right shoulder pain is improved. She is urinating normally and having bowel movements. Twelve point review of systems is otherwise negative Exam Vital Signs (past 8 hours): - 11/30/22 13:13 11/30/22 14:42 Temperature 97.7 F Pulse Rate 96 H Respiratory Rate 16 Blood Pressure 143/65 H Pulse Oximetry 97 97 Oxygen Delivery Method Room Air Oxygen Flow Rate 0 Fraction of Inspired Oxygen 28 Oxygen Delivery Method Room Air Oxygen Flow Rate 0 Narrative Exam Narrative: Afebrile vital signs are stable. Blood pressure is starting to come back up 143/65. O2 sat continues to be stable on room air. Patient is alert and oriented no apparent distress HEENT unremarkable no lesions in the mouth Neck: Supple without adenopathy Chest: Clear to auscultation without wheezes rhonchi or crackles Cor: Irregular rhythm with rate in the 90s Abdomen: Positive bowel sounds x4, nontender, nondistended Extremities: No significant edema. Pulses intact. No evidence of tenderness to palpation over the joints or erythema or calor Neurologic exam is nonfocal Objective Labs 11/30/22 05:30 11/30/22 05:30 Labs: Laboratory Results - last 24 hr 11/28/22 11/30/22 11/30/22 06:10 05:30 05:30 WBC 10.7 RBC 3.38 L Hgb 10.6 L Hct 30.6 L MCV 90.5 MCH 31.3 MCHC 34.6 RDW 14.6 Plt Count 253 Neut % (Auto) 85.2 H Lymph % (Auto) 8.6 L [place] % (Auto) 5.7 Eos % (Auto) 0.3 L Baso % (Auto) 0.2 Neut # (Auto) 9100 H Lymph # (Auto) 900 L [place] # (Auto) 600 Eos # (Auto) 0 Baso # (Auto) 0 PT INR Sodium 132 L Potassium 3.7 Chloride 104 Carbon Dioxide 26 BUN 11 Creatinine 0.85 Estimated GFR > 60 BUN/Creatinine Ratio 12.9 Glucose 110 Calcium 8.6 Total Bilirubin 0.6 AST 159 H ALT 85 H Alkaline Phosphatase 53 Total Protein 7.7 Albumin 2.9 L Globulin 4.8 H Albumin/Globulin Ratio 0.6 L Amylase 42 Lipase 30 A.calcoaceticus-baumannii cmplx PCR Not detected Bacteroides fragilis Not detected Micki albicans (PCR) Not detected Micki auris (PCR) Not detected C. glabrata (PCR) Not detected C. krusei (PCR) Not detected C. parapsilosis (PCR) Not detected C. tropicalis (PCR) Not detected C. neoform/gattii (PCR) Not detected Enterobacterales (PCR) Not detected E. cloacae complex PCR Not detected Enterococc faecalis PCR Not detected Enterococc faecium PCR Not detected E. coli (PCR) Not detected H. influenzae (PCR) Not detected Klebsiella aerogenes (PCR) Not detected Klebsiella oxytoca PCR Not detected Klebsiella pneumoniae Not detected List. monocytogenes PCR Not detected N. meningitidis (PCR) Not detected Proteus species (PCR) Not detected Salmonella spp. (PCR) Not detected Serratia marcescens PCR Not detected Staphylococcus sp PCR Not detected Staph aureus (PCR) Not detected Staph epidermidis (PCR) Not detected Staph lugdunensis PCR Not detected S. maltophilia (PCR) Not detected Streptococcus sp PCR Detected H Group A Strep (PCR) Not detected Strep agalactiae (PCR) Detected H Strep pneumoniae (PCR) Not detected P. aeruginosa (PCR) Not detected 11/30/22 11:23 WBC RBC Hgb Hct MCV MCH MCHC RDW Plt Count Neut % (Auto) Lymph % (Auto) [place] % (Auto) Eos % (Auto) Baso % (Auto) Neut # (Auto) Lymph # (Auto) [place] # (Auto) Eos # (Auto) Baso # (Auto) PT 24.2 H D INR 2.1 H Sodium Potassium Chloride Carbon Dioxide BUN Creatinine Estimated GFR BUN/Creatinine Ratio Glucose Calcium Total Bilirubin AST ALT Alkaline Phosphatase Total Protein Albumin Globulin Albumin/Globulin Ratio Amylase Lipase A.calcoaceticus-baumannii cmplx PCR Bacteroides fragilis Micki albicans (PCR) Micki auris (PCR) C. glabrata (PCR) C. krusei (PCR) C. parapsilosis (PCR) C. tropicalis (PCR) C. neoform/gattii (PCR) Enterobacterales (PCR) E. cloacae complex PCR Enterococc faecalis PCR Enterococc faecium PCR E. coli (PCR) H. influenzae (PCR) Klebsiella aerogenes (PCR) Klebsiella oxytoca PCR Klebsiella pneumoniae List. monocytogenes PCR N. meningitidis (PCR) Proteus species (PCR) Salmonella spp. (PCR) Serratia marcescens PCR Staphylococcus sp PCR Staph aureus (PCR) Staph epidermidis (PCR) Staph lugdunensis PCR S. maltophilia (PCR) Streptococcus sp PCR Group A Strep (PCR) Strep agalactiae (PCR) Strep pneumoniae (PCR) P. aeruginosa (PCR) PFSH Medical History Acute postoperative pain of knee Atrial fibrillation Atrial fibrillation with RVR CVA (cerebral vascular accident) Dehydration Diarrhea Multiple myeloma not having achieved remission Vertigo Surgical History History of bilateral knee replacement Social History household members: none Smoking Status: Never smoker Assessment & Plan Assessment & Plan narrative: Assessment & Plan narrative: 87-year-old female admitted with sepsis secondary leukocytosis and vomiting as well as borderline hypotension with blood culture showing strep but not final.? Unclear source.? Patient appears to be improving on current antibiotic choice. Plan: Patient is doing much better clinically again today. blood pressures coming up, wbc wnl, afebrile. She is taking in p.o. without difficulty. off ivf for 24 hours and stable Echo did not show any abnormalities including vegetations etc..? An x-ray of her shoulder showed only arthritis would without any fracture. Blood culture shows group B beta strep and sensitivities are back and reviewed. Will d/c tomorrow on po levoquin 750mg po q 48 hours likely for 2 weeks pending culture done yesterday being clear. Will continue meropenem until discharge Assessment 2. Paroxysmal atrial fibrillation currently in AFib and on chronic anticoagulation Plan:? Patient is on her outpatient amiodarone which is 100 mg daily.? She is been started on her Coumadin.? Her protime was therapeutic today.? She will continue the same with daily INRs.? We will go ahead and hold the Lovenox. Assessment 3. Hypertension with low blood pressures related to sepsis now with blood pressures coming back up as patient continues to improve Plan: Will restart losartan and and continue to hold amlodipine for now.? Reviewed echo which did not show any evidence of systolic or diastolic heart failure and really unremarkable echo Assessment 4. Hypomagnesemia Plan:? Magnesium level stable.? Will continue oral magnesium or restarted today. Assessment 5. History of hyponatremia Plan:? Will continue to monitor.? Improved with IV fluids but recurred after IV fluids stopped and patient is back to her baseline without symptoms Assessment 6.? Depression Plan: Continue outpatient sertraline Assessment 7. Monoclonal gammopathy of undetermined significance without acute issues Plan: Will follow Assessment 8. Chronic kidney disease with slight worsening suspect related to infection and borderline dehydration. Plan:? Will continue to monitor, meropenem at renal dosing and will recheck tomorrow.? Improved.? Will recheck tomorrow. Will plan to dismiss chart home with Levaquin every other day. Assessment 9. DVT prophylaxis Plan:? On Coumadin.? Assessment 10. Right shoulder pain with x-ray showing osteoarthritis and overall seems improved.? Unclear if this is just related to exacerbation of osteoarthritis related to shaking chills Plan: Will continue to follow Disposition: Hopefully patient will be able to go home with home health.? She is working with physical therapy. Anticipate that patient will go home tomorrow if she continues to do well. Will plan to give her her 1st dose of Levaquin tomorrow before she leaves and then it will be every 48 hours for 2 weeks as long as her culture yesterday was negative. She would then go home on all her same home medications but hold the amlodipine and monitor her blood pressure and follow up with me next week. Home health face sheet was signed today. Code status is DNR 60 minutes spent with patient, discussing with physicians, nursing, pharmacy, evaluating workup, meeting with patient discussing with family inpatient plan, formulating plan and documentation
--- NOTE | 2022-11-30 17:32 | P.DS_ITS ---
History of Present Illness History of Present Illness Chief complaint: Shaking, shoulder pain, can't keep water down Narrative: This is a very pleasant 87-year-old female who is well known to me. She is a history of degenerative arthritis with multiple joint replacements, spinal stenosis with lumbar radiculopathy, hypertension, AFib, hyponatremia, psoriasis, mono clonal gammopathy of undetermined significance, COPD and TIA who presents to the ER with a 24 hour history of chills and rigors without known fever or source. She lives alone but her son and [id number] live block and a half away. She denies any diarrhea or bright red blood per rectum or black tarry stools. Denies any urinary symptoms. She has had pretty significant right shoulder pain. This all started when she woke up having shaking chills and then she had some headaches on Monday. She went to sleep and then felt better and then on Monday had recurrent issues and phoned her son at 5:00 a.m. and he got home at 8:00 a.m. because he was out of town and took her to the ER. She was vomiting for 12 hours prior. She denied any abdominal pain. She denied any chest pain or shortness of breath or PND orthopnea. She denied any cough. She denied any rashes. In the ER workup was remarkable for a significantly elevated procalcitonin but normal lactate. She had normal chest x-ray and CT of her chest abdomen and pelvis was unrevealing. Blood cultures were taken urinalysis was unremarkable and culture not indicated. She was found to have a significant leukocytosis with vomiting and meet the criteria for sepsis with unknown source. She was started on meropenem due to multiple drug allergies. Today and my visit she is feeling better is not having the shaking chills, rigors or pain. She does not have much appetite but has eaten a little bit. She is drinking a lot a water. Twelve point review of systems is negative other than above Specifically no chest pain, no joint pain other than the right shoulder and she had no fall or injury to the right shoulder. She is diffuse arthritis and GI symptoms negative No URI symptoms No cough or runny nose No further headache. She did have a headache on Monday Past medical history: 1. AFib, paroxysmal 2. Chronic anticoagulation 3. Hypertension 4. Previous TIA with no residual 5. Hypomagnesemia 6. Hyponatremia 7. Depression 8. COPD 9. 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 Chronic kidney disease, stage III 11. Monoclonal gammopathy of undetermined significance 12. Psoriasis Allergy to ampicillin, amoxicillin and cephalexin as well as piroxicam Past surgical history: 1. Lumbar spinal stenosis status post laminectomy and decompression 03/20/2006 2. Lumbar laminectomy 10/05/2009 3. Left total knee replacements 03/18/2011 4. Right total knee replacement 5. Colonoscopy September 2011 Social history: Patient lives here in [facility]. She is retired. She is a . She is a son named rakan and a son named Michael in the daughter name Mony Health related behavior: Patient has never smoked and does not drink on a regular basis. Family history Father at 85 unknown causes Mom at 90, old age Sister from breast cancer, sister had colon cancer in her 60s Discharge Providers Provider Date of admission: 11/28/22 10:38 Discharge Date: 12/01/22 Primary care physician: Tianna Cartagena MD Consults: 11/28/22 13:46 Consult to Physical Therapy Evaluate & Treat Comment: osteoarthritis, sepsis Physician Instructions: Evaluate and Treat 11/30/22 11:15 Consult to Home Health Routine Comment: Reason For Exam: Home Health RN, P.T, O.T. Discharge provider: Tianna Cartagena MD Exam Vital Signs (past 8 hours): - 11/30/22 13:13 11/30/22 14:42 Temperature 97.7 F Pulse Rate 96 H Respiratory Rate 16 Blood Pressure 143/65 H Pulse Oximetry 97 97 Oxygen Delivery Method Room Air Oxygen Flow Rate 0 Fraction of Inspired Oxygen 28 Oxygen Delivery Method Room Air Oxygen Flow Rate 0 Objective Labs 12/01/22 06:00 12/01/22 06:00 Labs: Laboratory Results - last 24 hr 11/28/22 11/30/22 11/30/22 06:10 05:30 05:30 WBC 10.7 RBC 3.38 L Hgb 10.6 L Hct 30.6 L MCV 90.5 MCH 31.3 MCHC 34.6 RDW 14.6 Plt Count 253 Neut % (Auto) 85.2 H Lymph % (Auto) 8.6 L [place] % (Auto) 5.7 Eos % (Auto) 0.3 L Baso % (Auto) 0.2 Neut # (Auto) 9100 H Lymph # (Auto) 900 L [place] # (Auto) 600 Eos # (Auto) 0 Baso # (Auto) 0 PT INR Sodium 132 L Potassium 3.7 Chloride 104 Carbon Dioxide 26 BUN 11 Creatinine 0.85 Estimated GFR > 60 BUN/Creatinine Ratio 12.9 Glucose 110 Calcium 8.6 Total Bilirubin 0.6 AST 159 H ALT 85 H Alkaline Phosphatase 53 Total Protein 7.7 Albumin 2.9 L Globulin 4.8 H Albumin/Globulin Ratio 0.6 L Amylase 42 Lipase 30 A.calcoaceticus-baumannii cmplx PCR Not detected Bacteroides fragilis Not detected Micki albicans (PCR) Not detected Micki auris (PCR) Not detected C. glabrata (PCR) Not detected C. krusei (PCR) Not detected C. parapsilosis (PCR) Not detected C. tropicalis (PCR) Not detected C. neoform/gattii (PCR) Not detected Enterobacterales (PCR) Not detected E. cloacae complex PCR Not detected Enterococc faecalis PCR Not detected Enterococc faecium PCR Not detected E. coli (PCR) Not detected H. influenzae (PCR) Not detected Klebsiella aerogenes (PCR) Not detected Klebsiella oxytoca PCR Not detected Klebsiella pneumoniae Not detected List. monocytogenes PCR Not detected N. meningitidis (PCR) Not detected Proteus species (PCR) Not detected Salmonella spp. (PCR) Not detected Serratia marcescens PCR Not detected Staphylococcus sp PCR Not detected Staph aureus (PCR) Not detected Staph epidermidis (PCR) Not detected Staph lugdunensis PCR Not detected S. maltophilia (PCR) Not detected Streptococcus sp PCR Detected H Group A Strep (PCR) Not detected Strep agalactiae (PCR) Detected H Strep pneumoniae (PCR) Not detected P. aeruginosa (PCR) Not detected 11/30/22 11:23 WBC RBC Hgb Hct MCV MCH MCHC RDW Plt Count Neut % (Auto) Lymph % (Auto) [place] % (Auto) Eos % (Auto) Baso % (Auto) Neut # (Auto) Lymph # (Auto) [place] # (Auto) Eos # (Auto) Baso # (Auto) PT 24.2 H D INR 2.1 H Sodium Potassium Chloride Carbon Dioxide BUN Creatinine Estimated GFR BUN/Creatinine Ratio Glucose Calcium Total Bilirubin AST ALT Alkaline Phosphatase Total Protein Albumin Globulin Albumin/Globulin Ratio Amylase Lipase A.calcoaceticus-baumannii cmplx PCR Bacteroides fragilis Micki albicans (PCR) Micki auris (PCR) C. glabrata (PCR) C. krusei (PCR) C. parapsilosis (PCR) C. tropicalis (PCR) C. neoform/gattii (PCR) Enterobacterales (PCR) E. cloacae complex PCR Enterococc faecalis PCR Enterococc faecium PCR E. coli (PCR) H. influenzae (PCR) Klebsiella aerogenes (PCR) Klebsiella oxytoca PCR Klebsiella pneumoniae List. monocytogenes PCR N. meningitidis (PCR) Proteus species (PCR) Salmonella spp. (PCR) Serratia marcescens PCR Staphylococcus sp PCR Staph aureus (PCR) Staph epidermidis (PCR) Staph lugdunensis PCR S. maltophilia (PCR) Streptococcus sp PCR Group A Strep (PCR) Strep agalactiae (PCR) Strep pneumoniae (PCR) P. aeruginosa (PCR) PFSH Medical History Acute postoperative pain of knee Atrial fibrillation Atrial fibrillation with RVR CVA (cerebral vascular accident) Dehydration Diarrhea Multiple myeloma not having achieved remission Vertigo Surgical History History of bilateral knee replacement Social History household members: none Smoking Status: Never smoker Discharge Assessment & Plan Assessment and Plan Assessment: 87-year-old female admitted with sepsis secondary leukocytosis and vomiting as well as borderline hypotension with blood culture showing strep but not final.? Unclear source.? Patient appears to be improving on current antibiotic choice. Doing well, blood pressures staying up, wbc wnl, afebrile. She is taking in p.o. without difficulty. off ivf for 24 hours and stable Echo did not show any abnormalities including vegetations etc..? An x-ray of her shoulder showed only arthritis would without any fracture. #Sepsis Blood culture shows group B beta strep and sensitivities are back and reviewed.? Will d/c tomorrow on po levoquin 750mg po q 48 hours likely for 2 weeks pending culture done yesterday being clear.? Will continue meropenem until discharge #Paroxysmal atrial fibrillation currently in AFib and on chronic anticoagulation Patient is on her outpatient amiodarone which is 100 mg daily.? She is been started on her Coumadin.? Her protime was therapeutic yesterday.? She will continue the same with daily INRs.? We will go ahead and hold the Lovenox. #Hypertension with low blood pressures related to sepsis now with blood pressures coming back up as patient continues to improve Will restart losartan and and continue to hold amlodipine for now.? Reviewed echo which did not show any evidence of systolic or diastolic heart failure and really unremarkable echo #Hypomagnesemia Magnesium level stable.? Will continue oral magnesium or restarted today. #History of hyponatremia Improved with IV fluids but recurred after IV fluids stopped and patient is back to her baseline without symptoms #Depression Continue outpatient sertraline #Monoclonal gammopathy of undetermined significance without acute issues stable follow #Chronic kidney disease with slight worsening suspect related to infection and borderline dehydration. received ivf and meropenem at renal dosing and will recheck tomorrow. dc on levaquin qad. #DVT prophylaxis On Coumadin.? #Right shoulder pain with x-ray showing osteoarthritis and overall seems improved.? Unclear if this is just related to exacerbation of osteoarthritis related to shaking chills stable will continue to follow Disposition: Home with Darron TURCIOS today.? Working well with PT and using RW. Will give one dose of levaquin out the door then q48 for 2 weeks -- script sent to [facility]. Hold amlodipine until she sees PCP Dr. Cartagena as outpt. Discharge Plan Discharge Plan Patient Disposition: Home Provider Discharge Comment: darron turcios per CM discharge after oral levaquin dose Discharge orders & Medications Prescriptions: New levofloxacin 750 mg tablet 750 mg PO Q48H Qty: 7 0RF levofloxacin 750 mg tablet 750 mg PO Q48H Qty: 7 0RF Continued cyanocobalamin (vitamin B-12) [Vitamin B-12] 1,000 mcg Tablet 1,000 mcg PO DAILY Qty: 0 cholecalciferol (vitamin D3) [Vitamin D3] 1,000 unit Capsule 1,000 unit PO DAILY Qty: 0 warfarin [Coumadin] 5 MG tablet See Rx Instructions .ROUTE .COMPLEX Qty: 0 Patient Comments: PATIENT TOOK 2.5 MG 10/07 Rx Instructions: 5 mg x 4 days. then 2.5mg. repeat omega 1-xau-nff-fish oil [Fish Oil] 1,000 MG capsule 1,000 mg PO DAILY Qty: 0 Lipo-Flavonoid Plus 1 tab PO DAILY Qty: 0 Patient Comments: patient states takes sometimes. Ocuvite Vitamin 1 tab PO DAILY amiodarone 200 mg Tablet 200 mg PO DAILY Qty: 60 0RF sertraline [Zoloft] 50 mg Tablet 50 mg PO BEDTIME Qty: 1 0RF losartan 100 mg tablet 50 mg PO DAILY Qty: 0 0RF Patient Comments: Patient only takes 50 mg Discontinued amlodipine 2.5 mg tablet 2.5 mg PO DAILY Follow up/Referrals: Tianna Cartagena MD [Primary Care Provider] - Visit Report/Discharge Packet Stand Alone Forms: Patient Portal/API, Stroke Signs & Symptoms Discharge Data Primary Care Provider: Tianna Cartagena Discharges patient from system. Discharge Date/Time: 12/01/22 10:15
[2022-11-30] MEDS: LOSARTAN 50 MG TABLET PO (17:40)
[2022-11-30] MEDS: SERTRALINE 50 MG TABLET 75 MG PO (20:03)
[2022-12-01] VITALS: BP 128/81; PULSE 95; RESP 16; TEMP 37.2; O2SAT 95
[2022-12-01] MEDS: MEROPENEM 2 GM in SODIUM CHLORIDE 0.9% 100 ML IV (02:50)
[2022-12-01 06:00] VITALS: BP 125/72; PULSE 98; RESP 16; TEMP 36.7; O2SAT 96
[2022-12-01 06:44] LABS: Add Manual Diff / Slide Review NO; Basophils Absolute Auto 0 /uL (0-100); Basophils Percent Auto 0.5 % (0-2); Eosinophils Absolute Auto 100 /uL (0-450); Eosinophils Percent Auto 0.9 % (2-4); Hematocrit 32.4 % (36-46); Hemoglobin 11.1 g/dL (12.0-16.0); Lymphocytes Absolute Auto 2100 /uL (1100-4500); Lymphocytes Percent Auto 21.4 % (25-40); Mean Corpuscular HGB Conc 34.3 % (30-36); Mean Corpuscular Volume 90.3 fL (80-100); Monocytes Absolute Auto 800 /uL (0-900); Monocytes Percent Auto 8.1 % (3-14); Neutrophils Absolute Auto 6800 /uL (1500-7000); Neutrophils Percent Auto 69.1 % (50-75); Platelet Count 340 X10^3/uL (150-400); Red Blood Cell Count 3.59 X10^6/uL (4.0-5.2); Red Cell Distribution Width 14.5 % (11.6-14.8); White Blood Cell Count 9.9 X10^3/uL (4.5-11.0)
[2022-12-01 06:53] LABS: INR 2.1 (0.9-1.3); Prothrombin Time 24.4 SECONDS (10.1-12.7)
[2022-12-01 07:03] LABS: Alanine Aminotransferase 82 IU/L (<35); Albumin 3.3 g/dL (3.5-5.0); Albumin Globulin Ratio 0.6 (1.0-2.8); Alkaline Phosphatase 60 U/L (38-126); Aspartate Aminotransferase 113 IU/L (14-36); BUN Creatinine Ratio 12.1 (6-22); Bilirubin Total 0.8 mg/dL (0.2-1.3); Blood Urea Nitrogen 12 mg/dL (7-17); Calcium 9.1 mg/dL (8.4-10.2); Carbon Dioxide 28 mmol/L (22-32); Chloride 101 mmol/L (98-107); Estimated Glomerular Filt Rate 55 mL/min (>60); Globulin 5.2 g/dL (1.7-4.1); Glucose 96 mg/dL (80-110); HEMOLYSIS < 15 (0-50); Potassium 3.7 mmol/L (3.4-5.1); Sodium 132 mmol/L (137-145); Total Protein 8.5 g/dL (6.3-8.2)
[2022-12-01 07:21] VITALS: O2SAT 96
[2022-12-01] MEDS: AMIODARONE 200 MG TABLET 100 MG PO (08:39)
[2022-12-01] MEDS: CYANOCOBALAMIN (VITAMIN B-12) 500 MCG TABLET 1000 MCG PO (08:39)
[2022-12-01 08:40] VITALS: BP 125/72; PULSE 96
[2022-12-01] MEDS: LOSARTAN 50 MG TABLET PO (08:40)
[2022-12-01] MEDS: MAGNESIUM OXIDE 400 MG TABLET PO (08:40)
[2022-12-01] MEDS: ENOXAPARIN 30 MG/0.3 ML SYRINGE SUBCUT (08:40)
--- NOTE | 2022-12-01 08:51 | PM.DS.1 ---
History of Present Illness History of Present Illness Date Patient Seen: 12/01/22 Time Patient Seen: 08:51 Chief complaint: Shaking, shoulder pain, can't keep water down Narrative: CC: I feel ready to go home Feeling well today, she is up and ambulating, labs are normalized, feels ready to go home with HH. will continue levaquiin 750 qd for two weeks adn f/u with PCP as outpt. Discharge Providers Provider Date of admission: 11/28/22 10:38 Discharge Date: 12/01/22 Primary care physician: Tianna Cartagena MD Consults: 11/28/22 13:46 Consult to Physical Therapy Evaluate & Treat Comment: osteoarthritis, sepsis Physician Instructions: Evaluate and Treat 11/30/22 11:15 Consult to Home Health Routine Comment: Reason For Exam: Home Health RN, P.T, O.T. Discharge provider: Linden Joseph MD Summary Hospital Course Discharge Diagnosis: #Sepsis #Paroxysmal atrial fibrillation currently in AFib and on chronic anticoagulation #Hypertension with low blood pressures related to sepsis now with blood pressures coming back up as patient continues to improve #Hypomagnesemia #History of hyponatremia #Depression #Monoclonal gammopathy of undetermined significance without acute issues #Chronic kidney disease with slight worsening suspect related to infection and borderline dehydration. #DVT prophylaxis #Right shoulder pain with x-ray showing osteoarthritis and overall seems improved. Hospital Course: Ms. Rodgers was admitted for evident sepsis without initial source. She did well on meropenem and eventually some group B strep did grow from blood cultures - she was looking well by DoD and will continue levaquin qad for 2 weeks and f/u with PCP Status at Discharge Cognitive/behavioral status at discharge: at baseline, oriented Functional status at discharge: uses cane/walker Overall status at discharge: patient is progressing back to baseline Exam Vital Signs (past 8 hours): - 12/01/22 06:00 12/01/22 07:21 12/01/22 08:40 Temperature 98.1 F Pulse Rate 98 H 96 H Respiratory Rate 16 Blood Pressure 125/72 125/72 Pulse Oximetry 96 96 Oxygen Delivery Method Room Air Oxygen Flow Rate 0 Fraction of Inspired Oxygen 28 Oxygen Delivery Method Room Air Oxygen Flow Rate 0 Narrative Exam Narrative: alert elder sitting in chair Const General: cooperative and comfortable HENMT Head: normal to inspection Resp Auscultation: clear to auscultation bilaterally Cardio Rate: regular rate Rhythm: regular rhythm Heart Sounds: S1 normal and S2 normal GI Auscultation: normal bowel sounds Neuro General: patient alert, patient awake and patient oriented x3 Extrem General: no pedal edema Objective Labs 12/01/22 06:00 12/01/22 06:00 Labs: Laboratory Results - last 24 hr 11/30/22 12/01/22 12/01/22 11:23 06:00 06:00 WBC 9.9 RBC 3.59 L Hgb 11.1 L Hct 32.4 L MCV 90.3 MCH 31.0 MCHC 34.3 RDW 14.5 Plt Count 340 Neut % (Auto) 69.1 Lymph % (Auto) 21.4 L Ellis % (Auto) 8.1 Eos % (Auto) 0.9 L Baso % (Auto) 0.5 Neut # (Auto) 6800 Lymph # (Auto) 2100 Ellis # (Auto) 800 Eos # (Auto) 100 Baso # (Auto) 0 PT 24.2 H D 24.4 H INR 2.1 H 2.1 H Sodium Potassium Chloride Carbon Dioxide BUN Creatinine Estimated GFR BUN/Creatinine Ratio Glucose Calcium Total Bilirubin AST ALT Alkaline Phosphatase Total Protein Albumin Globulin Albumin/Globulin Ratio 12/01/22 06:00 WBC RBC Hgb Hct MCV MCH MCHC RDW Plt Count Neut % (Auto) Lymph % (Auto) Ellis % (Auto) Eos % (Auto) Baso % (Auto) Neut # (Auto) Lymph # (Auto) Ellis # (Auto) Eos # (Auto) Baso # (Auto) PT INR Sodium 132 L Potassium 3.7 Chloride 101 Carbon Dioxide 28 BUN 12 Creatinine 0.99 Estimated GFR 55 L BUN/Creatinine Ratio 12.1 Glucose 96 Calcium 9.1 Total Bilirubin 0.8 AST 113 H ALT 82 H Alkaline Phosphatase 60 Total Protein 8.5 H Albumin 3.3 L Globulin 5.2 H Albumin/Globulin Ratio 0.6 L PFSH Medical History Acute postoperative pain of knee Atrial fibrillation Atrial fibrillation with RVR CVA (cerebral vascular accident) Dehydration Diarrhea Multiple myeloma not having achieved remission Vertigo Surgical History History of bilateral knee replacement Social History household members: none Smoking Status: Never smoker Discharge Assessment & Plan Assessment and Plan Assessment: 87-year-old female admitted with sepsis secondary leukocytosis and vomiting as well as borderline hypotension with blood culture showing strep but not final.? Unclear source.? Patient appears to be improving on current antibiotic choice. Doing well, blood pressures staying up, wbc wnl, afebrile. She is taking in p.o. without difficulty. off ivf for 24 hours and stable Echo did not show any abnormalities including vegetations etc..? An x-ray of her shoulder showed only arthritis would without any fracture. #Sepsis Blood culture shows group B beta strep and sensitivities are back and reviewed.? Will d/c tomorrow on po levoquin 750mg po q 48 hours likely for 2 weeks pending culture done yesterday being clear.? Will continue meropenem until discharge #Paroxysmal atrial fibrillation currently in AFib and on chronic anticoagulation Patient is on her outpatient amiodarone which is 100 mg daily.? She is been started on her Coumadin.? Her protime was therapeutic yesterday.? She will continue the same with daily INRs.? We will go ahead and hold the Lovenox. #Hypertension with low blood pressures related to sepsis now with blood pressures coming back up as patient continues to improve Will restart losartan and and continue to hold amlodipine for now.? Reviewed echo which did not show any evidence of systolic or diastolic heart failure and really unremarkable echo #Hypomagnesemia Magnesium level stable.? Will continue oral magnesium or restarted today. #History of hyponatremia Improved with IV fluids but recurred after IV fluids stopped and patient is back to her baseline without symptoms #Depression Continue outpatient sertraline #Monoclonal gammopathy of undetermined significance without acute issues stable follow #Chronic kidney disease with slight worsening suspect related to infection and borderline dehydration. received ivf and meropenem at renal dosing and will recheck tomorrow. dc on levaquin qad. #DVT prophylaxis On Coumadin.? #Right shoulder pain with x-ray showing osteoarthritis and overall seems improved.? Unclear if this is just related to exacerbation of osteoarthritis related to shaking chills stable will continue to follow Disposition: Home with [facility] today.? Working well with PT and using RW. Will give one dose of levaquin out the door then q48 for 2 weeks -- script [email or web address]. Hold amlodipine until she sees PCP Dr. Cartagena as outpt. Discharge Plan Discharge Plan Patient Disposition: Home Provider Discharge Comment: [facility] per CM discharge after oral levaquin dose Discharge orders & Medications Prescriptions: New levofloxacin 750 mg tablet 750 mg PO Q48H Qty: 7 0RF levofloxacin 750 mg tablet 750 mg PO Q48H Qty: 7 0RF Continued cyanocobalamin (vitamin B-12) [Vitamin B-12] 1,000 mcg Tablet 1,000 mcg PO DAILY Qty: 0 cholecalciferol (vitamin D3) [Vitamin D3] 1,000 unit Capsule 1,000 unit PO DAILY Qty: 0 warfarin [Coumadin] 5 MG tablet See Rx Instructions .ROUTE .COMPLEX Qty: 0 Patient Comments: PATIENT TOOK 2.5 MG 10/07 Rx Instructions: 5 mg x 4 days. then 2.5mg. repeat omega 3-mwj-msm-fish oil [Fish Oil] 1,000 MG capsule 1,000 mg PO DAILY Qty: 0 Lipo-Flavonoid Plus 1 tab PO DAILY Qty: 0 Patient Comments: patient states takes sometimes. Ocuvite Vitamin 1 tab PO DAILY amiodarone 200 mg Tablet 200 mg PO DAILY Qty: 60 0RF sertraline [Zoloft] 50 mg Tablet 50 mg PO BEDTIME Qty: 1 0RF losartan 100 mg tablet 50 mg PO DAILY Qty: 0 0RF Patient Comments: Patient only takes 50 mg Discontinued amlodipine 2.5 mg tablet 2.5 mg PO DAILY Follow up/Referrals: Tianna Cartagena MD [Primary Care Provider] - Visit Report/Discharge Packet Stand Alone Forms: Patient Portal/API, Stroke Signs & Symptoms Discharge Data Primary Care Provider: Tianna Cartagena Discharges patient from system. Discharge Date/Time: 12/01/22 10:15
--- NOTE | 2022-12-01 08:57 | CM.DPC ---
DCP Cont: Dr. Joseph came by and is planning on discharging patient home today. Called Storm at [facility] and left him a message about patient discharging home. As soon as DC Summary is completed, will fax it over. Have already sent orders, face to face. He does have access to [employer] as well, and can also access. P: Patient is discharging home with [facility]. Nancy Vazquez RN/[place]
[2022-12-01 09:01] VITALS: BP 125/67; PULSE 84; RESP 16; TEMP 36.3; O2SAT 95
[2022-12-01] MEDS: levoFLOXacin 250 MG TABLET 750 MG PO (09:28)
== END 2022-12-01 10:15 | disposition home health service (06) | DRG 872 ==
LOC: ED 11-28 00:11 → AC 11-28 00:18
PROVIDERS: Admitting Provider Family Medicine; Emergency Provider Emergency Medicine; Family Provider Family Medicine; PCP Family Medicine; Referring Provider Emergency Medicine; Visit Provider Family Medicine
DX: A40.1 Sepsis due to streptococcus, group B (principal); E87.1 Hypo-osmolality and hyponatremia; I48.0 Paroxysmal atrial fibrillation; F32.A Depression, unspecified; E83.42 Hypomagnesemia; I95.9 Hypotension, unspecified; I12.9 Hypertensive chronic kidney disease with stage 1 through stage 4 chronic kidney disease, or unspecified chronic kidney disease; N18.9 Chronic kidney disease, unspecified; Z20.822 Contact with and (suspected) exposure to COVID-19; Z79.01 Long term (current) use of anticoagulants; Z66 Do not resuscitate
CPT/HCPCS: 36415; 71045; 71260; 73030; 74177; 80048; 80053; 81001; 82150; 83605; 83690; 83735; 83880; 84145; 85025; 85610; 85730; 87040; 87077; 87147; 87154; 87186; 87205; 87635; 93005; 93306; 94760; 96365; 96375; 97116; 97162; 99284; 99285; C9803; G0378; J1170; J1650; J2185; J2405; Q9967

== ENCOUNTER → 2022-12-15 12:20 | Outpatient (ROUT) | payer MEDICARE, OTHER, SELFPAY ==
[2022-11-28 04:52] VITALS: BMI 25.5
[2022-12-15 12:34] LABS: INR 4.2 (0.9-1.3); Prothrombin Time 48.7 SECONDS (10.1-12.7)
== END ==
PROVIDERS: Family Provider Family Medicine; PCP Family Medicine; Visit Provider Family Medicine
DX: Z79.01 Long term (current) use of anticoagulants (principal)
CPT/HCPCS: 85610

== ENCOUNTER → 2022-12-19 10:17 | Outpatient (ROUT) | payer MEDICARE, OTHER, SELFPAY ==
[2022-11-28 04:52] VITALS: BMI 25.5
[2022-12-19 10:48] LABS: INR 2.8 (0.9-1.3)
== END ==
PROVIDERS: Family Provider Family Medicine; PCP Family Medicine; Visit Provider Family Medicine
DX: I48.91 Unspecified atrial fibrillation (principal)
CPT/HCPCS: 85610

== ENCOUNTER → 2023-01-02 10:27 | Outpatient (ROUT) | payer MEDICARE, OTHER, SELFPAY ==
[2022-11-28 04:52] VITALS: BMI 25.5
[2023-01-02 10:37] LABS: INR 3.5 (0.9-1.3)
== END ==
PROVIDERS: Family Provider Family Medicine; PCP Family Medicine; Visit Provider Family Medicine
DX: Z79.01 Long term (current) use of anticoagulants (principal)
CPT/HCPCS: 85610

== ENCOUNTER 2023-01-04 10:07 | Inpatient (IN) | payer MEDICARE, OTHER, SELFPAY ==
[2022-11-28 04:52] VITALS: BMI 25.5
[2023-01-04] VITALS (16 sets, daily range): BP systolic 138–190; BP diastolic 61–81; PULSE 68–82; RESP 15–22; TEMP 35.8–37.2; O2SAT 94–98; BMI 26.7; BMI 26.9
--- NOTE | 2023-01-04 10:47 | DI.MRI.S_ITS ---
PROCEDURE: MR HEAD/BRAIN WO CON INDICATIONS: Right eye vision loss TECHNIQUE: Non-contrast axial T1 spin echo, axial T2 fast spin echo, sagittal and axial FLAIR, coronal T2 fast spin echo, axial gradient echo, axial diffusion and ADC through the brain. COMPARISON: [facility], MR, MR STROKE, 10/08/2020, 15:02. [facility], CT, CT ANGIO HEAD AND NECK, 01/04/2023, 10:58. FINDINGS: Image quality: Excellent. CSF spaces: Ventricles appear symmetric in size and shape. Basal cisterns are patent. No extra-axial fluid collections. Brain: No intracranial bleeds or mass effects. There is cerebral volume loss for age. There are periventricular and deep white matter chronic small vessel ischemic changes. Brainstem appears normal. Diffusion-weighted images show a small area of subtle restricted water diffusion in the region of the posterior body of the right posterior periventricular deep white matter measuring 6 mm consistent with a late subacute focal lacunar infarction. No other areas of restricted water diffusion. No chronic ischemic insults. Age-related volume loss and mild small vessel ischemic change. Normal intravascular flow voids are present. Skull and face: Calvarial bone marrow is normal in signal. Orbits are normal. Sinuses: Sinuses and mastoids are clear. IMPRESSION: 1. Small focal posterior right posterior periventricular white matter lacunar infarction, likely late subacute. 2. Age-related volume loss and mild small vessel ischemic change. Dictated by: Enoc Zeng M.D. on 01/04/2023 at 12:51 Approved by: Enoc Zeng M.D. on 01/04/2023 at 13:00
--- NOTE | 2023-01-04 10:47 | DI.ECHO.S_ITS ---
[facility]---------+ [facility] +---------+ : : [address] : [place] : : : : [id number] : : : : Phone: [phone]+ Echocardiogram Report + + :Name: VANDANA OLIVER Study Date: 01/05/2023 Height: 64 in : :[facility] ReadingLocation: Weight: 156 lb: : Gender: Female BSA: 1.8 m2 : :: 1935 Age: 87 yrs : :Reason For Study: RIGHT EYE VISION LOSS : :Ordering Physician: YOSEPH, : :KIKA Performed By: Donya Monroy : :Referring: KIKA HAMEED : + + Interpretation Summary 1) Normal left ventricular thickness, size, wall motion, and systolic function (EF 60-65%). 2) Normal right ventricular size and function. 3) Calcifc mitral and aortic valve with no significant stenoses or regurgitation. 4) Compared to the Echo done 11/28/2022, no significant change. Procedure: A two-dimensional transthoracic echocardiogram with color flow and Doppler was performed. The study quality was technically adequate. Comparison is made with the echocardiogram of 11/28/2022. The patient was in sinus rhythm with heart rates between 65-70 bpm during the exam. Left Ventricle: The left ventricle is normal in size and wall thickness. The ejection fraction is estimated to be 60-65%. Left ventricular systolic function appears normal without focal wall motion abnormalities. Right Ventricle: The right ventricle is normal in size and function. Atria: The left atrium is mildly dilated. Right atrial size is normal. There is no Doppler evidence for an interatrial shunt. Mitral Valve: The mitral valve leaflets are mildly calcified. There is moderate mitral annular calcification. The mitral papillary muscle appears thickened and/or calcified. The mitral valve mean gradient is 2.1 mmHg. There is trace mitral regurgitation. Aortic Valve: The aortic valve is trileaflet. The aortic valve is mildly calcified. There is mild aortic valve sclerosis. There is no aortic valve stenosis. No aortic regurgitation is present. Tricuspid Valve: The tricuspid valve is normal in structure and function. There is mild tricuspid regurgitation. The right ventricular systolic pressure is estimated to be at least 35 mmHg based on an estimated right atrial pressure of 3 mm Hg. Pulmonic Valve: The pulmonic valve leaflets are thin and pliable; valve motion is normal. There is mild to moderate pulmonic regurgitation. Great Vessels: The aortic root is normal size. The dimensions of the ascending aorta are normal. The IVC is of normal diameter and collapses greater than 50% with a sniff. This suggests a low right atrial pressure of 3 mm Hg. Pericardium/ Pleura There is no pericardial effusion. There is no pleural effusion. MMode/2D Measurements & Calculations LVIDd: 5.3 cm LVOT diam: 1.9 cm LVIDs: 3.7 cm Ao root diam: 3.2 cm FS: 31.1 % asc Aorta Diam: 3.5 cm EPSS: 1.3 cm Ao Arch Diam (Prox Trans): 2.8 cm IVSd: 0.87 cm LVPWd: 0.93 cm LV arreola. diameter/BSA (cm/m^2): 3.0 LV sys. diameter/BSA (cm/m^2): 2.1 LA A2 area: 21.7 cm2 RA long axis: 4.2 cm LA A4 area: 18.0 cm2 RA area: 13.9 cm2 LA length (vol): 5.1 cm RA vol: 39.3 ml LA vol: 64.6 ml RA : 22.3 ml/m2 LA vol index: 36.7 ml/m2 IVC diam: 1.1 cm RVD1 (basal): 3.7 cm TAPSE: 2.5 cm Doppler Measurements & Calculations Ao V2 max: 138.0 cm/sec LVOT Max Eliezer: 118.4 cm/sec Ao V2 mean: 104.8 cm/sec LV V1 max P.6 mmHg Ao max P.6 mmHg LV V1 VTI: 25.6 cm Ao mean P.7 mmHg PRISCILLA(I,D): 2.2 cm2 Ao V2 VTI: 33.5 cm PRISCILLA(V,D): 2.5 cm2 sev ratio: 0.76 PRISCILLA indexed to BSA (cm^2/m^2): 1.2 MV E max eliezer: 108.0 cm/sec TR max eliezer: 283.5 cm/sec MV A max eliezer: 97.7 cm/sec TR max P.2 mmHg MV E/A: 1.1 PA V2 max: 106.9 cm/sec Med Peak E' Eliezer: 6.7 cm/sec PA V2 mean: 72.6 cm/sec E/E' med: 16.1 PA mean P.4 mmHg Lat Peak E' Eliezer: 6.3 cm/sec PA pr(Accel): 29.3 mmHg E/E' lat: 17.2 E/e' average: 16.6 MV dec time: 0.20 sec MVA(VTI): 2.0 cm2 MV V2 mean: 66.3 cm/sec SV(LVOT): 73.4 ml MV mean P.1 mmHg MV V2 VTI: 37.0 cm Reading Physician:09:02 AM
--- NOTE | 2023-01-04 10:48 | DI.CT.S_ITS ---
PROCEDURE: CT ANGIO HEAD AND NECK INDICATIONS: Right eye vision loss TECHNIQUE: Pre-contrast 4.5 mm thick sections acquired from the foramen magnum to the vertex. After the administration of intravenous contrast, 1 mm thick sections acquired from the aortic arch through the [place] of [place]. Post-contrast 4.5 mm thick sections then re-acquired from the foramen magnum to the vertex. 3-dimensional ajctbsg-upbycbomn-gfjholuuhy (MIP) and/or volume rendering reformats were acquired of the central intracranial vasculature and neck separately. For radiation dose reduction, the following was used: automated exposure control, adjustment of mA and/or kV according to patient size. COMPARISON: [facility], CT, HEAD AND NECK ANGIO, 10/19/2017, 10:14. FINDINGS: Image quality: Mild streak artifact can be seen through the skull base. Limited by bolus timing, with venous contamination. BRAIN: CSF spaces: Ventricles are normal in size and shape. Basal cisterns are patent. No extra-axial fluid collections. Brain: No midline shift. No intracranial bleeds or masses. Brenner-white matter interface appears intact. Skull and face: Calvarium and facial bones appear intact, without suspicious lesions. Orbits appear normal. Sinuses: Sinuses and mastoids are clear. HEAD CT ANGIOGRAPHY: Anterior circulation: Intracranial internal carotid arteries are normal in size and flow. The flow within the paired anterior cerebral arteries is normal and symmetric. The flow within the middle cerebral arteries is normal and symmetric. The anterior communicating artery is seen. No aneurysms are seen. Posterior circulation: Visualized portions of the vertebral arteries demonstrate normal caliber, and join to form a normal appearing basilar artery. Flow within the posterior cerebral arteries is normal and symmetric. No aneurysms are seen. NECK CT ANGIOGRAPHY: Carotid system: The great vessels demonstrate a conventional anatomy as they arise from the aortic arch. The origins of the common carotid arteries appear patent. The common carotid arteries demonstrate normal caliber and courses. The bifurcation regions are both widely patent. The internal carotid arteries demonstrate normal calibers and courses. Posterior circulation: The origins of the vertebral arteries both appear widely patent. The more superior extracranial portions of both vertebral arteries also demonstrate normal courses and calibers. They join to form a normal appearing basilar artery. Soft tissues: Visualized neck soft tissues demonstrate no suspicious abnormalities. Bones: No suspicious bony lesions. Visualized cervical spine appears normally aligned. At least moderate cervical spine degenerative change can be seen. IMPRESSION: No imaging explanation is found for this patient's presenting symptoms. No significant intracranial arterial abnormality is seen. Within the arteries of the neck, no hemodynamically significant stenosis can be seen. (The previously seen left V2 segment occlusion has resolved.) Additional findings: At least moderate cervical spine degenerative change Any quantitative measurements of stenosis were performed using NASCET criteria. Dictated by: Tariq Michael M.D. on 01/04/2023 at 10:29 Approved by: Tariq Michael M.D. on 01/04/2023 at 10:35
--- NOTE | 2023-01-04 10:49 | ED.NEUROSD ---
HPI - Neuro Symptoms/Deficit General Chief Complaint: Neuro Symptoms/Deficit Stated Complaint: sent by , possible stroke in eye Time Seen by Provider: 01/04/23 10:23 History of Present Illness HPI Narrative: Patient is sent here by her posting machine operator Dr. 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 Patient was in the office yesterday for complaints color vision distortions in her right eye. She awoke with this Monday morning last week. She had a blue color temp to her vision. Now is just ?fuzzy? vision in the right eye. Denies denies any facial droop slurred speech limb weakness or numbness. No facial droop. Fast exam is negative. Patient denies any prior history of stroke. Denies any eye pain. She states she had extensive eye exam yesterday at the ophthalmology office. Her eye was dilated. Medical records from the office impression retinal artery branch occlusion right eye.. On exam large plaque at 1st bifurcation of central retinal already, attenuation of the inferior artery with blanching of inferior retina. Superior visual field defect right eye. Related Data Home Medications Medication Instructions Recorded Confirmed cholecalciferol (vitamin D3) 25 1,000 unit PO DAILY ##0 10/01/12 01/04/23 mcg (1,000 unit) capsule (Vitamin D3) cyanocobalamin (vitamin B-12) 1,000 mcg PO DAILY ##0 10/01/12 01/04/23 1,000 mcg tablet (Vitamin B-12) warfarin 5 mg tablet (Coumadin) See Rx Instructions .Route 12/14/16 01/04/23 .COMPLEX ##0 omega 1-dyo-pjr-fish oil 1,000 mg 1,000 mg PO DAILY ##0 04/12/17 01/04/23 (120 mg-180 mg) capsule (Fish Oil) Ocuvite Vitamin 1 tab PO DAILY 05/16/19 01/04/23 amiodarone 200 mg tablet 100 mg PO DAILY 01/04/23 01/04/23 magnesium oxide 400 mg (241.3 mg 400 mg PO DAILY 01/04/23 01/04/23 magnesium) tablet Previous Rx's Medication Instructions Recorded losartan 100 mg tablet 50 mg PO DAILY #0 tabs 10/09/20 sertraline 50 mg tablet (Zoloft) 50 mg PO BEDTIME #1 tab 10/09/20 Allergies Allergy/AdvReac Type Severity Reaction Status Date / Time hydrochlorothiazide Allergy Severe unknown Verified 01/04/23 10:38 sotalol Allergy Severe unknown Verified 01/04/23 10:38 amoxicillin Allergy Mild BREAK OUT Verified 01/04/23 10:38 ampicillin Allergy Mild BREAK OUT Verified 01/04/23 10:38 cephalexin Allergy Mild BREAK OUT Verified 01/04/23 10:38 piroxicam AdvReac Unknown ITCHING Verified 01/04/23 10:38 Review of Systems Review of Systems Narrative: GENERAL: negative chills, fatigue, malaise, fever, sweats. HEENT: negative sinus pain, ear pain, sore throat RESPIRATORY: negative dyspnea, cough CARDIOVASCULAR: negative chest pain, palpitations GASTROINTESTINAL: negative nausea, vomiting, abdominal pain : negative dysuria, frequency, hematuria MUSCULOSKELETAL: negative muscle or bony pain SKIN: negative rash, skin lesions NEUROLOGIC: negative weakness, numbness, positive vision loss ROS Unobtainable: All systems reviewed & are unremarkable except as noted in HPI and below Patient History Medical History Acute postoperative pain of knee Atrial fibrillation Atrial fibrillation with RVR CVA (cerebral vascular accident) Dehydration Diarrhea Multiple myeloma not having achieved remission Vertigo Surgical History History of bilateral knee replacement Social History household members: none Smoking Status: Never smoker alcohol intake: current Smoking Status: Never smoker alcohol intake frequency: holidays/special occasions only Substance Use Type: does not use Exam Narrative Exam Narrative: GENERAL: in no distress, not toxic not dyspneic HEAD: Normocephalic. EYES: Pupils equal round ENT: Mucous membranes moist. NECK: Trachea midline. CARDIOVASCULAR: Regular rate and rhythm without murmurs RESPIRATORY: Clear to auscultation. Breath sounds equal bilaterally. No wheezes, rales, or rhonchi. GASTROINTESTINAL: Abdomen soft, non-tender EXTREMITIES: No gross deformities. BACK: No flank tenderness. NEURO: AOx4. Fast exam is negative clear speech no facial droop light touch intact bilateral face hands and feet with strong equal assistant producer. Negative pronator drift. On peripheral lafleur patient unable to see superior visual field on the right eye. SKIN: Warm and dry PSYCH: Not anxious, is cooperative Initial Vital Signs Initial Vital Signs: Vital Signs Pulse Rate 81 01/04/23 10:26 Respiratory Rate 22 01/04/23 10:26 Pulse Oximetry 97 01/04/23 10:26 Scores NIH Stroke Scale Level of Conciousness: Alert, keenly responsive Ask month/age: Answers both questions correctly. Open/close eyes, close hand: Performs both tasks correctly Best gaze horizontal: Normal Visual lafleur: Partial hemianopia Facial palsy: Normal symetrical movement Left arm drift: No drift for full 10 sec Right arm drift: No drift for full 10 sec Left leg drift: No drift for full 5 sec Right leg drift: No drift for full 5 sec Limb ataxia: Absent Sensory on face/arms/legs: Normal, no sensory loss Best language: No aphasia, normal Dysarthria: Normal Extinction or inattention: No abnormality Total NIH Stroke scale score: 1 Course Orders Ordered: Discontinued Medications Acetaminophen (Acetaminophen 325 Mg Tablet) 650 mg PO Q6H PRN PRN Reason: Fever/Mild Pain (1-3) Cyanocobalamin (Cyanocobalamin (Vitamin B-12) 500 Mcg Tablet) 1,000 mcg PO DAILY [facility] Last Admin: 01/05/23 09:35 Dose: 1,000 mcg Documented By: ROMA Fish Oil (Fish Oil 1,000 Mg Capsule) 1,000 mg PO DAILY [facility] Last Admin: 01/05/23 09:35 Dose: 1,000 mg Documented By: ROMA Sodium Chloride (Normal Saline 0.9%) 500 mls @ 1,000 mls/hr IV BOLUS ONE Stop: 01/04/23 11:21 Last Infusion: 01/04/23 11:58 Dose: 0 mls/hr Documented By: Admin: 01/04/23 11:27 Dose: 1,000 mls/hr Documented By: RLS Losartan Potassium (Losartan 50 Mg Tablet) 50 mg PO DAILY [facility] Losartan Potassium (Losartan 50 Mg Tablet) 50 mg PO BEDTIME [facility] Last Admin: 01/04/23 22:27 Dose: 50 mg Documented By: YUDELKA Lutein (Vit C/E/Zn/Coppr/Lutein/Zeaxan Capsule) 1 cap PO DAILY [facility] Last Admin: 01/05/23 09:35 Dose: 1 cap Documented By: ROMA Magnesium Oxide (Magnesium Oxide 400 Mg Tablet) 400 mg PO DAILY [facility] Last Admin: 01/05/23 09:35 Dose: 400 mg Documented By: ROMA Naloxone HCl (Naloxone 0.4 Mg/Ml Vial) 0.2 mg IV Q2MIN PRN PRN Reason: Opiate Reversal Ondansetron HCl (Ondansetron 4 Mg/2 Ml Inj) 4 mg IV Q8HR PRN PRN Reason: Nausea And Vomiting Sertraline HCl (Sertraline 50 Mg Tablet) 50 mg PO BEDTIME [facility] Last Admin: 01/04/23 21:24 Dose: Not Given Documented By: YUDELKA Sertraline HCl (Sertraline 50 Mg Tablet) 50 mg PO DAILY [facility] Last Admin: 01/05/23 09:35 Dose: 50 mg Documented By: ROMA Tramadol HCl (Tramadol 50 Mg Tablet) 50 mg PO TID PRN PRN Reason: Pain, Moderate (4-6) Vitamin D (Cholecalciferol (Vitamin D3) 1,000 Unit Tablet) 1,000 unit PO DAILY [facility] Last Admin: 01/05/23 09:35 Dose: 1,000 unit Documented By: ROMA Warfarin Sodium (Warfarin 5 Mg Tablet) 2.5 mg PO 1700 [facility] Warfarin Sodium (Warfarin 5 Mg Tablet) 2.5 mg PO 1800 [facility] Last Admin: 01/04/23 22:28 Dose: 2.5 mg Documented By: YUDELKA Vital Signs Vital signs: Vital Signs - 8 hr 01/04/23 10:40 01/04/23 10:26 01/04/23 10:30 Temperature 99.0 F Pulse Rate 72 81 78 Respiratory Rate 19 22 Blood Pressure 151/72 H Pulse Oximetry 98 97 96 Oxygen Delivery Method Room Air 01/04/23 10:35 01/04/23 10:35 01/04/23 11:06 Temperature Pulse Rate 75 82 Respiratory Rate 15 Blood Pressure 151/72 H Pulse Oximetry 96 94 Oxygen Delivery Method 01/04/23 11:30 01/04/23 12:25 01/04/23 12:26 Temperature Pulse Rate 75 80 77 Respiratory Rate 21 22 20 Blood Pressure Pulse Oximetry 96 97 Oxygen Delivery Method Room Air 01/04/23 12:26 01/04/23 12:30 01/04/23 12:30 Temperature Pulse Rate 74 Respiratory Rate 18 Blood Pressure 190/81 H 184/67 H Pulse Oximetry 96 Oxygen Delivery Method Room Air MDM - Neuro Symptoms/Deficit Lab Data 01/05/23 04:36 01/05/23 04:36 Labs: Lab Results 01/04/23 01/04/23 01/04/23 Range/Units 10:36 10:36 10:36 WBC 6.2 (4.5-11.0) X10^3/uL RBC 3.60 L (4.0-5.2) X10^6/uL Hgb 11.0 L (12.0-16.0) g/dL Hct 32.3 L (36-46) % MCV 89.7 (80-100) fL MCH 30.4 (26-34) PG MCHC 33.9 (30-36) % RDW 13.9 (11.6-14.8) % Plt Count 367 (150-400) X10^3/uL Neut % (Auto) 55.8 (50-75) % Lymph % (Auto) 33.1 (25-40) % [place] % (Auto) 9.3 (3-14) % Eos % (Auto) 1.2 L (2-4) % Baso % (Auto) 0.6 (0-2) % Neut # (Auto) 3500 (5362-6130) /uL Lymph # (Auto) 2100 (6876-0027) /uL [place] # (Auto) 600 (0-900) /uL Eos # (Auto) 100 (0-450) /uL Baso # (Auto) 0 (0-100) /uL PT 31.9 H D (10.1-12.7) SECONDS INR 2.8 H (0.9-1.3) APTT 52 H (26-36) SECONDS Sodium 136 L (137-145) mmol/L Potassium 3.6 (3.4-5.1) mmol/L Chloride 103 (98-107) mmol/L Carbon Dioxide 28 (22-32) mmol/L BUN 9 (7-17) mg/dL Creatinine 1.05 H (0.52-1.04) mg/dL Estimated GFR 51 L (>60) mL/min BUN/Creatinine Ratio 8.6 (6-22) Glucose 115 H (80-110) mg/dL Calcium 9.6 (8.4-10.2) mg/dL Total Bilirubin 0.6 (0.2-1.3) mg/dL AST 40 H (14-36) IU/L ALT 28 (<35) IU/L Alkaline Phosphatase 81 (38-126) U/L Total Creatine Kinase 66 (30-135) U/L CK-MB (CK-2) TNP CK-MB (CK-2) Rel Index TNP Troponin I < 0.012 (0.01-0.034) ng/mL Total Protein 9.1 H (6.3-8.2) g/dL Albumin 3.5 (3.5-5.0) g/dL Globulin 5.6 H (1.7-4.1) g/dL Albumin/Globulin Ratio 0.6 L (1.0-2.8) Imaging Data MRI brain: Radiologist's Impression: [address] [address] Magnetic Resonance Report Signed Patient: Monica Rodgers MR#: [id number] : 1935 Acct:[id number] Age/Sex: 87 / F Date of Service: 01/04/23 Loc: ED Accession Number: [id number] ?? Procedure: MR head/brain wo con Ordering Provider: Tyrell Sawyer MD PROCEDURE:? MR HEAD/BRAIN WO CON ? INDICATIONS:? Right eye vision loss ? TECHNIQUE:? Non-contrast axial T1 spin echo, axial T2 fast spin echo, sagittal and axial FLAIR, coronal T2 fast spin echo, axial gradient echo, axial diffusion and ADC through the brain.? ? COMPARISON:? [facility], MR, MR STROKE, 10/08/2020, 15:02.? [facility], CT, CT ANGIO HEAD AND NECK, 01/04/2023, 10:58. ? FINDINGS:? Image quality:? Excellent.? ? CSF spaces:? Ventricles appear symmetric in size and shape.? Basal cisterns are patent.? No extra-axial fluid collections.? ? Brain:? No intracranial bleeds or mass effects.? There is cerebral volume loss for age.? There are periventricular and deep white matter chronic small vessel ischemic changes.? Brainstem appears normal.? Diffusion-weighted images show a small area of subtle restricted water diffusion in the region of the posterior body of the right posterior periventricular deep white matter measuring 6 mm consistent with a late subacute focal lacunar infarction.? No other areas of restricted water diffusion.? No chronic ischemic insults.? Age-related volume loss and mild small vessel ischemic change.? Normal intravascular flow voids are present.? ? Skull and face:? Calvarial bone marrow is normal in signal.? Orbits are normal.? ? Sinuses:? Sinuses and mastoids are clear.? ? IMPRESSION:? 1. Small focal posterior right posterior periventricular white matter lacunar infarction, likely late subacute. ? 2. Age-related volume loss and mild small vessel ischemic change.? ? ? Dictated by: Enoc Zeng M.D. on 01/04/2023 at 12:51 ? ? Approved by: Enoc Zeng M.D. on 01/04/2023 at 13:00 ? CTA - brain/neck: Radiologist's Impression: [address] [address] [address] Scan Report Signed Patient: Monica Rodgers MR#: [id number] : 1935 Acct:[id number] Age/Sex: 87 / F Date of Service: 01/04/23 Loc: ED Accession Number: [id number] ?? Procedure: CT angio head and neck Ordering Provider: Tyrell Sawyer MD PROCEDURE:? CT ANGIO HEAD AND NECK ? INDICATIONS:? Right eye vision loss ? TECHNIQUE:? Pre-contrast 4.5 mm thick sections acquired from the foramen magnum to the vertex.? After the administration of intravenous contrast, 1 mm thick sections acquired from the aortic arch through the [place] of [place].? Post-contrast 4.5 mm thick sections then re-acquired from the foramen magnum to the vertex.? 3-dimensional lrixmnd-nlhwuxupl-eeojlmneoq (MIP) and/or volume rendering reformats were acquired of the central intracranial vasculature and neck separately. For radiation dose reduction, the following was used:? automated exposure control, adjustment of mA and/or kV according to patient size.? ? COMPARISON:? [facility], CT, HEAD AND NECK ANGIO, 10/19/2017, 10:14. ? FINDINGS:? Image quality:? Mild streak artifact can be seen through the skull base. Limited by bolus timing, with venous contamination.? ? BRAIN:? CSF spaces:? Ventricles are normal in size and shape.? Basal cisterns are patent.? No extra-axial fluid collections.? ? Brain:? No midline shift.? No intracranial bleeds or masses.? Bernner-white matter interface appears intact.? ? Skull and face:? Calvarium and facial bones appear intact, without suspicious lesions.? Orbits appear normal.? ? Sinuses:? Sinuses and mastoids are clear.? ? HEAD CT ANGIOGRAPHY:? Anterior circulation:? Intracranial internal carotid arteries are normal in size and flow.? The flow within the paired anterior cerebral arteries is normal and symmetric.? The flow within the middle cerebral arteries is normal and symmetric.? The anterior communicating artery is seen.? No aneurysms are seen.? ? Posterior circulation:? Visualized portions of the vertebral arteries demonstrate normal caliber, and join to form a normal appearing basilar artery.? Flow within the posterior cerebral arteries is normal and symmetric.? No aneurysms are seen.? ? NECK CT ANGIOGRAPHY:? Carotid system:? The great vessels demonstrate a conventional anatomy as they arise from the aortic arch.? The origins of the common carotid arteries appear patent.? The common carotid arteries demonstrate normal caliber and courses.? The bifurcation regions are both widely patent.? The internal carotid arteries demonstrate normal calibers and courses.? ? Posterior circulation:? The origins of the vertebral arteries both appear widely patent.? The more superior extracranial portions of both vertebral arteries also demonstrate normal courses and calibers.? They join to form a normal appearing basilar artery.? ? Soft tissues:? Visualized neck soft tissues demonstrate no suspicious abnormalities.? ? Bones:? No suspicious bony lesions.? Visualized cervical spine appears normally aligned.? At least moderate cervical spine degenerative change can be seen. ? ? IMPRESSION:? ? No imaging explanation is found for this patient's presenting symptoms.? ? No significant intracranial arterial abnormality is seen.? ? Within the arteries of the neck, no hemodynamically significant stenosis can be seen.? (The previously seen left V2 segment occlusion has resolved.) ? ? ? Additional findings:? At least moderate cervical spine degenerative change? ? Any quantitative measurements of stenosis were performed using NASCET criteria.? ? ? Dictated by: Tariq Michael M.D. on 01/04/2023 at 10:29 ? ? Approved by: Tariq Michael M.D. on 01/04/2023 at 10:35 ? MDM Narrative Medical decision making narrative: Patient is sent here by her posting machine operator Dr. 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 Patient was in the office yesterday for complaints color vision distortions in her right eye. She awoke with this Monday morning last week. She had a blue color temp to her vision. Now is just ?fuzzy? vision in the right eye. Denies denies any facial droop slurred speech limb weakness or numbness. No facial droop. Fast exam is negative. Patient denies any prior history of stroke. Denies any eye pain. She states she had extensive eye exam yesterday at the ophthalmology office. Her eye was dilated. Medical records from the office impression retinal artery branch occlusion right eye.. On exam large plaque at 1st bifurcation of central retinal already, attenuation of the inferior artery with blanching of inferior retina. Superior visual field defect right eye. After history and exam CBC CMP troponin EKG CT angiogram head neck MRI brain MDM CC: Right eye vision loss Complicating co-morbidities: History of stroke history atrial fibrillation Data collected from: Patient Medical records reviewed: Office paper records from yesterday ophthalmology Differential considered: Includes but not limited to stroke glaucoma TIA cataracts Exam documented above, pertinent findings include: Loss of superior visual field right eye Lab Test results independently reviewed as above. Pertinent findings: WBC 6.2 hemoglobin 11.0 INR 2.8 sodium 136 creatinine 1.05 GFR 51 Independently reviewed EKG Sinus rhythm rate [address] elevation or depression Imaging studies independently reviewed: CT angiogram head and neck MRI brain small focal posterior right posterior periventricular white matter lacunar infarction Consultations: 10:[address] [facility] tele stroke neurologist, dr robbins, she instructed to follow common protocol for stroke workup. CT angiogram head and neck and MRI of the brain but patient outside window for any intervention. 12:[address] Cartagena, patient's primary care provider. At this time she would hold on admission. She would like to see MRI results. She does not see reason or indication to admit patient has onset was more than 5 days ago. Patient is on warfarin. INR is 2.8. Call her back after MRI report 1:[address] Cartagena MRI reports. She will admit patient. She would like to at blood culture urine culture and echocardiogram Treatments: Normal saline Re-evaluations: Reviewed results with patient. She does agree for admission for balance of workup for her stroke in the right eye. Discussion: Appropriate for admission for balance of workup for patient stroke. Reviewed with patient agrees for admit. Reviewed with primary care provider and agrees for admission. Diagnosis: Orbital stroke Discharge Plan Departure Patient Disposition: Admitted as Observation Clinical Impression: CVA (cerebral vascular accident) Admit Date/Time: 01/04/23 13:13 Admit Provider: Tianna Cartagena
[2023-01-04 11:11] LABS: Add Manual Diff / Slide Review NO; Basophils Absolute Auto 0 /uL (0-100); Basophils Percent Auto 0.6 % (0-2); Eosinophils Absolute Auto 100 /uL (0-450); Eosinophils Percent Auto 1.2 % (2-4); Hematocrit 32.3 % (36-46); Lymphocytes Absolute Auto 2100 /uL (1100-4500); Lymphocytes Percent Auto 33.1 % (25-40); Mean Corpuscular HGB Conc 33.9 % (30-36); Mean Corpuscular Hemoglobin 30.4 PG (26-34); Mean Corpuscular Volume 89.7 fL (80-100); Monocytes Absolute Auto 600 /uL (0-900); Monocytes Percent Auto 9.3 % (3-14); Neutrophils Absolute Auto 3500 /uL (1500-7000); Neutrophils Percent Auto 55.8 % (50-75); Platelet Count 367 X10^3/uL (150-400); Red Cell Distribution Width 13.9 % (11.6-14.8); White Blood Cell Count 6.2 X10^3/uL (4.5-11.0)
[2023-01-04 11:12] LABS: INR 2.8 (0.9-1.3); Prothrombin Time 31.9 SECONDS (10.1-12.7)
[2023-01-04 11:14] LABS: PTT Partial Thromboplastin Tim 52 SECONDS (26-36)
[2023-01-04 11:16] LABS: Alanine Aminotransferase 28 IU/L (<35); Albumin 3.5 g/dL (3.5-5.0); Albumin Globulin Ratio 0.6 (1.0-2.8); Alkaline Phosphatase 81 U/L (38-126); Aspartate Aminotransferase 40 IU/L (14-36); BUN Creatinine Ratio 8.6 (6-22); Bilirubin Total 0.6 mg/dL (0.2-1.3); Blood Urea Nitrogen 9 mg/dL (7-17); Calcium 9.6 mg/dL (8.4-10.2); Carbon Dioxide 28 mmol/L (22-32); Chloride 103 mmol/L (98-107); Creatine Kinase 66 U/L (30-135); Estimated Glomerular Filt Rate 51 mL/min (>60); Globulin 5.6 g/dL (1.7-4.1); Glucose 115 mg/dL (80-110); HEMOLYSIS < 15 (0-50); Potassium 3.6 mmol/L (3.4-5.1); Sodium 136 mmol/L (137-145); Total Protein 9.1 g/dL (6.3-8.2)
[2023-01-04 11:27] LABS: Troponin I < 0.012 ng/mL (0.01-0.034)
[2023-01-04] MEDS: SODIUM CHLORIDE 0.9% 500 ML 1000 ML IV (11:27)
--- NOTE | 2023-01-04 16:03 | OT.IP.EVAL ---
Past Medical History (Last Reviewed 01/04/23 @ 11:24 by Tyrell Sawyer MD) Acute postoperative pain of knee Atrial fibrillation Atrial fibrillation with RVR CVA (cerebral vascular accident) Dehydration Diarrhea Multiple myeloma not having achieved remission Vertigo Surgical History (Last Reviewed 01/04/23 @ 11:24 by Tyrell Sawyer MD) History of bilateral knee replacement Occupational Therapy Inpatient Evaluation/Re-Eval M1 PT/OT-IP Prior Functional Status Start: 01/04/23 16:45 Freq: NEEDED Status: Active Protocol: Document 01/04/23 16:45 [facility] (Rec: 01/04/23 17:08 [facility] [id number]) Medical Review Prior Functional Status Medical History Reviewed Yes Communication Indep with hearing aids Mobility and Gait Indep with quad cane and 4WW, has been using 4WW more due to low back pain Activities of Daily Living and IADL's Indep except has assist for bathing needs from caregivers and assist with IADl needs. Social History Household Members none Living Arrangements House Number of Floors (Floors) One Floor Number of Stairs To Enter/Railing? 2 MARCELINO with grab bar Home Environment High Toilet,Walk in Shower Home Equipment Four Wheel Walker,Quad Cane, Hand Held Shower,Lift Recliner ,Grab Bars Near Toilet,Grab Bars In Shower Employment Status Retired Additional Social History Comment Has adjustable bed. Per notes from recent hospital stay, sons live nearby and stop by daily. Has caregivers 3x/week for 4 hours to assist with housework and meals. M2 OT-IP Current Condition Start: 01/04/23 16:45 Freq: Status: Active Protocol: Document 01/04/23 16:45 [facility] (Rec: 01/04/23 17:08 [facility] [id number]) Occupational Therapy Current Condition Current Condition Evaluation Date 01/04/23 Treatment Diagnosis Subacute CVA Diagnosis Onset Date 01/04/23 M3 OT- IP Subjective and Pain Start: 01/04/23 16:45 Freq: Status: Active Protocol: Document 01/04/23 16:45 [facility] (Rec: 01/04/23 17:08 [facility] [id number]) OT- Subjective Occupational Therapy Visit Comments Patient Comments Pt agreed to get up and wanting to use the bathroom. Patient/Caregiver Goals To go home OT Pain Assessment Pain When Pain Assessed During Mobility Pain Present Pain Present Pain Reported Location Low back Pain Behaviors Calling Out,Holding Area M4 OT- IP ADL's Start: 01/04/23 16:45 Freq: Status: Active Protocol: Document 01/04/23 16:45 [facility] (Rec: 01/04/23 17:08 [facility] [id number]) OT LWS-[id number] Comments OT Self-Feeding Comments NOt at meal time, no issues anticipated. OT ADL-Grooming Comments OT Grooming Comments Pt able to wash her hands at the sink. OT ADL-Oral Care Comments Oral Care Comments Not performed. OT ADL-Dressing General Eval Lower Body Dressing Ability Standby Assistance Comments OT Dressing Comments Pt able to do brief management on her own while on the toilet. Pt states does not wear socks at home and just slippers. OT ADL-Toileting General Evaluation Toileting Ability Standby Assistance Comments OT Toileting Comments SBA for safety. Pt able to wipe on her own independently. OT ADL-Bathing Comments OT Bathing Comments Not performed, pt has assist at home for showers via caregivers. M5 OT- IP IADL's Start: 01/04/23 16:45 Freq: Status: Active Protocol: Document 01/04/23 16:45 [facility] (Rec: 01/04/23 17:08 [facility] [id number]) OT-Instrumental Activities of Daily Living Home Safety Awareness Awareness of Need for Assistance at Home Good Awareness Home Safety Comments Pt a a bit tired and forgetting to lock and unlock the brakes on the 4ww, however 4ww not her own and the hospital one which she is not as familiar with. Medication Management Medication Management No Deficits Identified Medication Management Comments Pt use a pill box Money Management Money Management Caregiver Provides Assistance Fieldwork Coordinator Fieldwork Coordinator Caregiver Provides Assist Driving Driving Concerns Identified Regarding Safety Driving Comments Pt states drives in town only but to have her son drive her. M6 OT- IP Functional Cognition Start: 01/04/23 16:45 Freq: Status: Active Protocol: Document 01/04/23 16:45 [facility] (Rec: 01/04/23 17:08 [facility] [id number]) Cognitive Factors Limiting Selfcare Function Cognitive Ability Level of Alertness Alert Patient Orientation Name,Place,Situation Attention Span Ability Capable of Focused Attention, Capable of Sustained Attention Ability to Follow Commands Able to Follow One Step Commands Memory Description Short Term Impaired Problem Solving Ability No deficits Noted Cognitive Comments Cognitive Assessment Comments Pt a little forgetful and forgetting to use the 4ww after washing her hands and forgetting to lock and unlock the brakes initially. It would be beneficial to have to son stay with her initially. OT- Vision and Hearing OT- Hearing Assessment OT- Hearing Assessment Use of Hearing Aids OT- Vision Assessment Visual Acuity Glasses All The Time Visual Attentiveness WFL Occular Pursuits WFL Visual Convergence WFL Visual Perez Impaired Diplopia Absent Vision Assessment Comments Right eye upper quadrant decreased however her right eyelid compared to the left droops down lower which may also affect her vision. M7 OT- IP Mobility and Balance Start: 01/04/23 16:45 Freq: Status: Active Protocol: Document 01/04/23 16:45 [facility] (Rec: 01/04/23 17:08 [facility] [id number]) OT- Bed Mobility Assessment Rolling Level of Assistance Minimal Assistance Supine to Sit Supine to Sit Assist Minimal Assistance OT-Transfer Assessment Sit to and From Stand Sit to and from Stand Standby Assistance Transfers Transfer Ability Standby Assistance Technique Transfer Destination Bed,Chair,Toilet Transfer Technique Stand Step Pivot Devices Transfer Assistive Devices 4 Wheeled Walker Comments Mobility Comments Educating pt of log rolling to help decrease her lower back pain. Pt will benefit from continued practice. At this time due to her back pain , best to use the 4ww. OT- Balance Assessment Sitting Balance and Reactions Static Sitting Balance Ability Good Dynamic Sitting Balance Ability Good Standing Balance and Reactions Static Standing Balance Ability Good Dynamic Standing Balance Ability Fair M8 OT- IP Objective Assessments Start: 01/04/23 16:45 Freq: Status: Active Protocol: Document 01/04/23 16:45 [facility] (Rec: 01/04/23 17:08 [facility] [id number]) OT Gross Range of Motion Upper Extremity Range of Motion Assessment Within Functional Limits OT Strength Upper Extremity Strength Assessment Within Functional Limits Comments Strength Comments WFl for age and lifestyle OT- Coordination Assessment Upper Extremity Finger to Nose Test Within Functional Limits Finger Tapping Test Within Functional Limits Comments Coordination Comments Pt intact to be able to osmel/ doff her watch and for diadochokinesis. OT-Muscle Tone Assessment Muscle Tone WNL Yes OT Sensation Assessment Comments Summary Comments Intact for light touch. M9 OT- IP Assessment and Plan Start: 01/04/23 16:45 Freq: Status: Active Protocol: Document 01/04/23 16:45 [facility] (Rec: 01/04/23 17:08 [facility] [id number]) OT Summary Assessment and Plan Potential Rehabilitation Potential Good Analytic Complexity at Evaluation Moderate Summary OT Impairments Pain,Balance,Functional Mobility,Bathing,Shower Transfers,Activity Tolerance Progress Towards Goals Progressing Toward Goals Assessment Summary Pt MOD complexity and main barriers are back pain, decreased right eye upper vision, and needing cues for safety for 4ww. It was suggested to pt when bringing her 4ww and quad cane to the bedroom instead of using the quad cane with her left hand and pushing the 4ww with her right hand to hang the quad cane on the 4ww for safety to prevent from tripping over the wheels. Pt appears close to her baseline but would benefit from her son to stay with her initially and go to outpt PT from her back pain. Goals Dressing Goal Independent Toilet Transfer Goal Independent Days to Meet Goals 3 Frequency of Treatment Frequency Of Treatment Once a Day Treatment Plan OT Treatment Plan ADL Training,Functional Mobility,Vision Retraining, Patient/Family Education, Discharge Planning Other Treatment Recommendations and Next To reassess her vision Treatment Focus Discharge Recommendations OT Discharge Recommendations Home with Assistance, Outpatient PT Transportation Needs at Discharge Private Vehicle
--- NOTE | 2023-01-04 16:19 | PT.IIE ---
Surgical History (Last Reviewed 01/04/23 @ 11:24 by Tyrell Sawyer MD) History of bilateral knee replacement Medical History (Last Reviewed 01/04/23 @ 11:24 by Tyrell Sawyer MD) Acute postoperative pain of knee Atrial fibrillation Atrial fibrillation with RVR CVA (cerebral vascular accident) Dehydration Diarrhea Multiple myeloma not having achieved remission Vertigo Physical Therapy Inpatient Evaluation/Re-Eval M1 PT/OT-IP Prior Functional Status Start: 01/04/23 16:00 Freq: NEEDED Status: Active Protocol: Document 01/04/23 16:00 [facility] (Rec: 01/04/23 16:19 [facility] [id number]) Medical Review Prior Functional Status Medical History Reviewed Yes Communication Indep with hearing aids Mobility and Gait Indep with quad cane and 4WW, has been using 4WW more due to low back pain Activities of Daily Living and IADL's Indep Social History Household Members none Living Arrangements House Number of Floors (Floors) One Floor Number of Stairs To Enter/Railing? 2 MARCELINO with grab bar Home Environment High Toilet,Walk in Shower Home Equipment Four Wheel Walker,Quad Cane, Hand Held Shower,Lift Recliner ,Grab Bars Near Toilet,Grab Bars In Shower Employment Status Retired Additional Social History Comment Has adjustable bed. Per notes from recent hospital stay, sons live nearby and stop by daily. Has caregivers 3x/week for 4 hours to assist with housework and meals. M2 PT-IP Current Condition Start: 01/04/23 16:00 Freq: NEEDED Status: Active Protocol: Document 01/04/23 16:00 [facility] (Rec: 01/04/23 16:19 [facility] [id number]) Physical Therapy Current Condition Current Condition Evaluation Date 01/04/23 Treatment Diagnosis Subacute stroke Onset Date 01/04/23 M3 PT-IP Subjective Start: 01/04/23 16:00 Freq: NEEDED Status: Active Protocol: Document 01/04/23 16:00 [facility] (Rec: 01/04/23 16:19 [facility] [id number]) Subjective Physical Therapy Visit Type Type Initial Evaluation Visit Start Time 15:34 Visit Stop Time 15:57 Total Visit Minutes 23 Notes OT present Physical Therapy Visit Comments Patient Comments Patient reported that her low back has been hurting her since her last hospitalization in November after sleeping in a hospital bed. She has been sleeping in both her bed and her lift chair at home. The pain has not been getting better with the exercises she was given in HHPT and with walking. It affects her ability to get in/out of bed and up/down from chairs. Patient reported her vision is better now. Therapy Pain Assessment Pain When Pain Assessed During Mobility Pain Present Pain Present Pain Reported Location Low back Description With Movement Pain Management Techniques Re-positioning M4 PT-IP Mobility and Gait Start: 01/04/23 16:00 Freq: NEEDED Status: Active Protocol: Document 01/04/23 16:00 [facility] (Rec: 01/04/23 16:19 [facility] [id number]) PT-Bed Mobility Assessment Rolling Type of Rolling Log Rolling,Roll to Right Level of Assist Minimal Assistance Supine to Sit Supine to Sit Minimal Assistance,Head of Bed Elevated Scooting Scooting to Edge of Bed Standby Assistance PT-Transfer Assessment Sit to and From Stand Sit to and from Stand Standby Assistance,Use of Upper Extremities Equipment Transfer Assistive Device 4 Wheeled Walker Transfers Transfer Destination Chair,Toilet Transfer Technique Ambulation Transfer Ability Level of Assist Standby Assistance,Use of Upper Extremities Comments Mobility Comments Instructed patient in log rolling technique for supine to sit to reduce back pain. Patient reported decreased pain but required min A to complete due to trunk weakness . Patient up in recliner at end of session. Gait Assessment Gait Gait Assistance Required: Standby Assistance Distance (Feet) 20 Assistive Devices Assistive Device 4 Wheeled Walker Gait Deviations General Gait Pattern Decreased Stride Length, Decreased Feet Clearance, Flexed Trunk Factors Limiting Gait Function Factors Limiting Gait Function Decreased Strength,Pain Comments Gait Comments Able to take some steps without AD, though advised against this and to always have 4WW or cane with her to reduce fall risk. PT-Balance Assessment Sitting Balance and Reactions Static Sitting Balance Ability Good Dynamic Sitting Balance Ability Good Standing Balance and Reactions Static Standing Balance Ability Good Dynamic Standing Balance Ability Fair Device Used 4WW M5 PT-IP Objective Assessments Start: 01/04/23 16:00 Freq: NEEDED Status: Active Protocol: Document 01/04/23 16:00 [facility] (Rec: 01/04/23 16:19 [facility] [id number]) Orientation Orientation/Cognition Level of Alertness Alert Language Function Ability No Deficits Noted Safety Awareness Decreased Safety Awareness Memory Description No Deficits Noted Gross Range of Motion Upper Extremity ROM Assessment Within Functional Limits Lower Extremity ROM Assessment Within Functional Limits Strength Upper Extremity Strength Assessment Within Functional Limits Lower Extremity Strength Assessment Within Functional Limits Comments Strength Comments No significant deficits L vs R noted. Difficulty with L SLR due to back pain. Coordination Assessment Gross Coordination Gross Coordination WNL Assessment Finger to Nose Test Normal Performance Pronation/Supination Test Normal Performance Foot Tapping Test Normal Performance Heel on Foster Test Normal Performance Sensation Assessment Sensation Gross Sensation WNL Light Touch Intact Other Assessments Other Other Assessments Deficit in upper visual field of R eye, otherwise normal. M6 PT-IP Treatment Start: 01/04/23 16:00 Freq: NEEDED Status: Active Protocol: Document 01/04/23 16:00 [facility] (Rec: 01/04/23 16:19 [facility] [id number]) Physical Therapy Treatment Education Education Provided Safety Other Treatments Other Treatment Performed Educated patient to always have AD with her when ambulating. Education on use of call light for assistance. M7 PT-IP Assessment and Plan Start: 01/04/23 16:00 Freq: NEEDED Status: Active Protocol: Document 01/04/23 16:00 [facility] (Rec: 01/04/23 16:19 ES [id number]) PT Summary Assessment and Plan Potential Rehabilitation Potential Good Status of Condition at Evaluation Stable Summary Impairments Pain,Strength,Balance,Bed Mobility,Activity Tolerance Assessment Summary Patient is a 87 year old female who presents with primary problem of R visual field deficit, along with presence of low back pain. She had no significant deficits in strength, ROM, sensation, and coordination. She required assistance to perform log roll in order to reduce her back pain. She demonstrates increased risk for falls and would benefit from use of AD at all times to increase safety. She would benefit from OP PT to address low back pain to improve her activity tolerance. She will benefit from IP PT to educate and train body mechanics to reduce back pain with activity especially bed mobility and transfers. Otherwise, anticipate she will be able to d/c home with family assistance when medically stable. Goals Bed Mobility Goal Independent Transfer Goal Independent,Cane,Four Wheeled Walker Gait Goal Independent,Cane,Four Wheel Walker Gait Distance 100 Other Goals Patient will be able to ascend /descend 2 stairs with single rail indep. Patient will be able to perform log roll for supine to /from sit indep without use of rail. Frequency of Treatment Frequency Of Treatment Once a Day Treatment Plan Physical Therapy Treatment Plan Bed Mobility Training,Transfer Training,Gait Training, Therapeutic Exercise,Discharge Planning,Hot or Cold Pack Recommendations To Nursing Amount of Assist Needed 1 Person Assist Discharge Recommendations PT Discharge Recommendations Home with Assistance, Outpatient PT Transportation Needs at Discharge Private Vehicle
--- NOTE | 2023-01-04 18:36 | PM.HP.1 ---
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 Patient awakened I believe last on December 29 and had some fuzzy bluish discolored revision. Improved and she is had it every morning goes away during the day and overall it is improved but she went to the eye doctor today. The eye doctor wanted her to see her PCP and have further testing done to rule out carotid artery disease and she called the office and was instructed to go to the ER. On exam at the [employer] a large plaque at 1st bifurcation of central retinal already, attenuation of the inferior artery with blanching of inferior retina was found.? Superior visual field defect right eye. In the ER a blood workup was unremarkable and CT a was negative. An MRI showed a right posterior periventricular small lacunar infarct, subacute and patient was admitted for further evaluation. Of note her INR was 3.5 on January 02 and was 2.8 today. Patient takes 2.5 mg daily of warfarin. She takes this for her paroxysmal atrial fibrillation Patient was admitted for approximately 4 days with bacteremia positive for strep B and was adequately treated and has recovered from this. Patient has been feeling great without any other complaints. She has not had any fevers or shaking chills she has not had any palpitations or lightheadedness or dizziness. No rashes. She is been sleeping great. Really she is felt incredible. She is had no neurologic symptoms. She is had vision. She is had no scotoma no neurologic symptoms of paresthesias, numbness or tingling. No loss of motor function no difficulty with speech. Otherwise patient has been in her usual state of health Past medical history: 1. Paroxysmal atrial fibrillation 2. Chronic anticoagulation with warfarin 3. Hypertension 4. TIA with no residual symptoms 5. Hypomagnesemia, treated 6. Hyponatremia, treated 7. Depression 8. COPD 9. 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 Stage 3 chronic kidney disease 11. Monoclonal gammopathy of undetermined significance 12. Psoriasis Medications patient was taken off her amlodipine at her last hospitalization. She takes losartan, warfarin, amiodarone, sertraline, vitamin-D and vitamin B12 Patient has multiple drug allergies Social history, past surgical history, health related behavior and family history are unchanged from her last dictation and admission which was on 11/28/2022 12 point review of systems is negative other than HPI [facility] Medical History Acute postoperative pain of knee Atrial fibrillation Atrial fibrillation with RVR CVA (cerebral vascular accident) Dehydration Diarrhea Multiple myeloma not having achieved remission Vertigo Surgical History History of bilateral knee replacement Social History household members: none Smoking Status: Never smoker alcohol intake: current Meds Home Medications and Allergies Home Medications Medication Instructions Recorded Confirmed Type cholecalciferol (vitamin D3) 25 1,000 unit PO DAILY ##0 10/01/12 01/04/23 History mcg (1,000 unit) capsule (Vitamin D3) cyanocobalamin (vitamin B-12) 1,000 mcg PO DAILY ##0 10/01/12 01/04/23 History 1,000 mcg tablet (Vitamin B-12) warfarin 5 mg tablet (Coumadin) See Rx Instructions .Route 12/14/16 01/04/23 History .COMPLEX ##0 omega 6-yrt-pjy-fish oil 1,000 mg 1,000 mg PO DAILY ##0 04/12/17 01/04/23 History (120 mg-180 mg) capsule (Fish Oil) Ocuvite Vitamin 1 tab PO DAILY 05/16/19 01/04/23 History losartan 100 mg tablet 50 mg PO DAILY #0 tabs 10/09/20 01/04/23 Rx sertraline 50 mg tablet (Zoloft) 50 mg PO BEDTIME #1 tab 10/09/20 01/04/23 Rx magnesium oxide 400 mg (241.3 mg 400 mg PO DAILY 01/04/23 01/04/23 History magnesium) tablet Allergies Allergy/AdvReac Type Severity Reaction Status Date / Time hydrochlorothiazide Allergy Severe unknown Verified 01/04/23 10:38 sotalol Allergy Severe unknown Verified 01/04/23 10:38 amoxicillin Allergy Mild BREAK OUT Verified 01/04/23 10:38 ampicillin Allergy Mild BREAK OUT Verified 01/04/23 10:38 cephalexin Allergy Mild BREAK OUT Verified 01/04/23 10:38 piroxicam AdvReac Unknown ITCHING Verified 01/04/23 10:38 Exam Vital Signs (past 8 hours): - 01/04/23 10:40 01/04/23 11:06 01/04/23 11:30 Temperature 99.0 F Pulse Rate 72 82 75 Respiratory Rate 19 15 21 Blood Pressure 151/72 H Pulse Oximetry 98 94 96 Oxygen Delivery Method Room Air Room Air 01/04/23 12:25 01/04/23 12:26 01/04/23 12:26 Temperature Pulse Rate 80 77 Respiratory Rate 22 20 Blood Pressure 190/81 H Pulse Oximetry 97 Oxygen Delivery Method 01/04/23 12:30 01/04/23 12:30 01/04/23 13:00 Temperature Pulse Rate 74 Respiratory Rate 18 Blood Pressure 184/67 H 171/77 H Pulse Oximetry 96 Oxygen Delivery Method Room Air 01/04/23 13:00 01/04/23 13:30 01/04/23 14:00 Temperature Pulse Rate 75 74 74 Respiratory Rate 21 19 20 Blood Pressure Pulse Oximetry 97 96 96 Oxygen Delivery Method Room Air 01/04/23 14:44 Temperature 97.7 F Pulse Rate 80 Respiratory Rate 20 Blood Pressure 171/79 H Pulse Oximetry 97 Oxygen Delivery Method Oxygen Delivery Method Room Air Narrative Exam Narrative: Patient is alert and oriented x3. She is sitting upright in the hospital chair and looks great. Afebrile vital signs are stable except for slightly elevated blood pressure on arrival HEENT is unremarkable Specifically extraocular muscles are intact and pupils equal round reactive to light Neck: Supple without masses or thyromegaly or jugular venous distention or bruit Cor: Irregularly irregular rhythm at a well-controlled rate in the 80s Abdomen: Positive bowel sounds, soft, nontender, nondistended Chest: Clear to auscultation without wheezes rhonchi or crackles Extremities no edema. Pulses intact Neurologic exam is nonfocal, cranial nerves 2-12 intact. Bilateral upper and lower extremities show strength is 5/5 in all large muscle groups. Sensations intact to light touch Skin: No evidence of skin breakdown. Well-healed incisions from bilateral knee replacement Objective Labs 01/04/23 10:36 01/04/23 10:36 Labs: Laboratory Results - last 24 hr 01/04/23 01/04/23 01/04/23 10:36 10:36 10:36 WBC 6.2 RBC 3.60 L Hgb 11.0 L Hct 32.3 L MCV 89.7 MCH 30.4 MCHC 33.9 RDW 13.9 Plt Count 367 Neut % (Auto) 55.8 Lymph % (Auto) 33.1 [place] % (Auto) 9.3 Eos % (Auto) 1.2 L Baso % (Auto) 0.6 Neut # (Auto) 3500 Lymph # (Auto) 2100 [place] # (Auto) 600 Eos # (Auto) 100 Baso # (Auto) 0 PT 31.9 H D INR 2.8 H APTT 52 H Sodium 136 L Potassium 3.6 Chloride 103 Carbon Dioxide 28 BUN 9 Creatinine 1.05 H Estimated GFR 51 L BUN/Creatinine Ratio 8.6 Glucose 115 H Calcium 9.6 Total Bilirubin 0.6 AST 40 H ALT 28 Alkaline Phosphatase 81 Total Creatine Kinase 66 CK-MB (CK-2) TNP CK-MB (CK-2) Rel Index TNP Troponin I < 0.012 Total Protein 9.1 H Albumin 3.5 Globulin 5.6 H Albumin/Globulin Ratio 0.6 L Assessment & Plan Assessment & Plan narrative: 87-year-old female admitted for possible CVA with findings of a subacute posterior right periventricular lacunar infarct which maybe contributing to her visual symptoms. This happened about a week ago. Patient was therapeutic on her Coumadin for her AFib Assessment 1. CVA. Case was discussed with [facility] stroke team and they recommended admission for further workup and monitoring Plan: Will admit to the hospital and put patient on telemetry. Will continue warfarin and monitor daily. Will discuss with patient adding baby aspirin although this will have risk and may improve benefits from CVA. Will check lipids in a.m. and consider statin therapy. We have previously discussed this. Will repeat echo tomorrow to rule out septic embolized etiology though I think this is a very low likely from her previous bacteremia Will have Physical therapy and Occupational therapy evaluate her but I do not think she meets any criteria. Assessment 2. Hypertension blood pressure is elevated initially. Will monitor overnight consider adding amlodipine back into her regimen. Continue outpatient losartan Assessment 3. Recent bacteremia. Patient without any white count or fever and is feeling great. Plan repeat blood cultures were done Assessment 4. Hyponatremia improved Plan: Will monitor Assessment 5. Monoclonal gammopathy of undetermined significance Plan: Will monitor Assessment 6. Chronic kidney disease stage 3 Plan: Will continue to follow stable currently Code status is DNR Disposition likely home in morning pending how she does 75 minutes was spent with patient in discussing with physicians, nursing, patient, reviewing her workup and meeting with patient and formulating a plan and documentation Quality VTE Deep Vein Thrombosis/Pulmonary Embolism Present on Admission: No
[2023-01-04 18:40] LABS: Appearance Urine UA CLEAR; Bilirubin Urine UA NEGATIVE (NEGATIVE); Color Urine UA YELLOW; Glucose Urine UA NEGATIVE (Negative); Ketones Urine UA NEGATIVE (NEGATIVE); Leukocyte Esterase Urine UA 1+ (NEGATIVE); Nitrite Urine UA NEGATIVE (Negative); Occult Blood Urine UA NEGATIVE (Negative); Protein Urine UA NEGATIVE (Negative); Urobilinogen Urine UA 0.2 E.U./dL (0.2)
[2023-01-04 18:54] LABS: Amorphous Sediment Urine 1+; Bacteria Urine Occasional (0-1); Culture Indicated Urine Specimen Cultured; RBC Urine None Seen (0-5/HPF); Renal Epithelial Cells Urine 1-5/HPF (0-1/HPF); Squamous Epithelial Cell Urine 5-10 /HPF (0-5/HPF); WBC Urine 5-10/HPF (0-5/HPF)
[2023-01-04] MEDS: LOSARTAN 50 MG TABLET PO (22:27)
[2023-01-04] MEDS: WARFARIN 5 MG TABLET 2.5 MG PO (22:28)
[2023-01-05 05:08] LABS: INR 2.8 (0.9-1.3); Prothrombin Time 32.8 SECONDS (10.1-12.7)
[2023-01-05 05:09] LABS: Add Manual Diff / Slide Review NO; Basophils Absolute Auto 100 /uL (0-100); Basophils Percent Auto 1.2 % (0-2); Eosinophils Absolute Auto 100 /uL (0-450); Hemoglobin 10.2 g/dL (12.0-16.0); Lymphocytes Absolute Auto 1500 /uL (1100-4500); Lymphocytes Percent Auto 27.2 % (25-40); Mean Corpuscular HGB Conc 34.2 % (30-36); Mean Corpuscular Hemoglobin 30.2 PG (26-34); Mean Corpuscular Volume 88.2 fL (80-100); Monocytes Absolute Auto 500 /uL (0-900); Monocytes Percent Auto 9.9 % (3-14); Neutrophils Absolute Auto 3300 /uL (1500-7000); Neutrophils Percent Auto 59.7 % (50-75); Platelet Count 328 X10^3/uL (150-400); Red Cell Distribution Width 13.6 % (11.6-14.8); White Blood Cell Count 5.5 X10^3/uL (4.5-11.0)
[2023-01-05 05:17] VITALS: BP 143/63; PULSE 67; RESP 18; TEMP 36.7; O2SAT 97
[2023-01-05 05:17] LABS: BUN Creatinine Ratio 7.1 (6-22); Blood Urea Nitrogen 7 mg/dL (7-17); Calcium 8.9 mg/dL (8.4-10.2); Carbon Dioxide 28 mmol/L (22-32); Chloride 103 mmol/L (98-107); Cholesterol 87 mg/dL (140-199); Estimated Glomerular Filt Rate 56 mL/min (>60); Glucose 88 mg/dL (80-110); HDL Cholesterol 36 mg/dL (40-60); HEMOLYSIS < 15 (0-50); LDL Cholesterol Calculated 34 mg/dL (<100); Magnesium 1.7 mg/dL (1.6-2.3); Potassium 3.7 mmol/L (3.4-5.1); Sodium 134 mmol/L (137-145); Triglycerides 83 mg/dL (35-150)
--- NOTE | 2023-01-05 08:28 | PC.NURSE ---
Assess- Patients is alert and oriented x4, she denies discomfort. Vision is clear, patient is able to read stroke packet. She has no drift in arms or legs, and speech is clear. Sitting up in the chair and tolerating breakfast well.
--- NOTE | 2023-01-05 08:43 | PM.DS.1 ---
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 Patient awakened I believe last on December 29 and had some fuzzy bluish discolored revision. Improved and she is had it every morning goes away during the day and overall it is improved but she went to the eye doctor today. The eye doctor wanted her to see her PCP and have further testing done to rule out carotid artery disease and she called the office and was instructed to go to the ER. 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 Superior visual field defect right eye. In the ER a blood workup was unremarkable and CT a was negative. An MRI showed a right posterior periventricular small lacunar infarct, subacute and patient was admitted for further evaluation. Of note her INR was 3.5 on January 02 and was 2.8 today. Patient takes 2.5 mg daily of warfarin. She takes this for her paroxysmal atrial fibrillation Patient was admitted for approximately 4 days with bacteremia positive for strep B and was adequately treated and has recovered from this. Patient has been feeling great without any other complaints. She has not had any fevers or shaking chills she has not had any palpitations or lightheadedness or dizziness. No rashes. She is been sleeping great. Really she is felt incredible. She is had no neurologic symptoms. She is had vision. She is had no scotoma no neurologic symptoms of paresthesias, numbness or tingling. No loss of motor function no difficulty with speech. Otherwise patient has been in her usual state of health Past medical history: 1. Paroxysmal atrial fibrillation 2. Chronic anticoagulation with warfarin 3. Hypertension 4. TIA with no residual symptoms 5. Hypomagnesemia, treated 6. Hyponatremia, treated 7. Depression 8. COPD 9. 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 Stage 3 chronic kidney disease 11. Monoclonal gammopathy of undetermined significance 12. Psoriasis Medications patient was taken off her amlodipine at her last hospitalization. She takes losartan, warfarin, amiodarone, sertraline, vitamin-D and vitamin B12 Patient has multiple drug allergies Social history, past surgical history, health related behavior and family history are unchanged from her last dictation and admission which was on 11/28/2022 12 point review of systems is negative other than HPI Discharge Providers Provider Date of admission: 01/04/23 13:13 Discharge Date: 01/05/23 Primary care physician: Tianna Cartagena MD Consults: 01/04/23 15:00 Consult to Occupational Therapy Evaluate & Treat Comment: Physician Instructions: Evaluate and treat Consult to Physical Therapy Evaluate & Treat Comment: Physician Instructions: Evaluate and Treat Discharge provider: Tianna Cartagena MD Summary Hospital Course Discharge Diagnosis: 1. Lacunar infarct, subacute 2. Paroxysmal atrial fibrillation 3. Chronic anticoagulation, therapeutic 4. MGUS 5. Hypertension 6. Depression Hospital Course: Patient admitted to the hospital with stroke that occurred 1 week prior affecting her vision which had resolved. MRI showed right posterior periventricular lacunar infarct, subacute. Patient was therapeutic on her warfarin which she takes for her AFib. Patient was admitted to the hospital and had no further problems. She was recently admitted with group B strep bacteremia with sepsis and so repeat blood cultures were done as well as echo. The echo is pending. Patient is in stable condition with no neurologic deficit at this time. She will be discharged home today follow up with me in 2 weeks. Continue with same medications. PT and OT met with patient found no deficit. Apparently ER doctor had consulted with Neurology who recommended hospitalization 35 minutes spent in hospital discharge Status at Discharge Cognitive/behavioral status at discharge: oriented Functional status at discharge: independent ambulation Overall status at discharge: patient is back to baseline Exam Vital Signs (past 8 hours): - 01/05/23 05:17 Temperature 98.1 F Pulse Rate 67 Respiratory Rate 18 Blood Pressure 143/63 H Pulse Oximetry 97 Oxygen Flow Rate 0 Oxygen Delivery Method Room Air Oxygen Flow Rate 0 Narrative Exam Narrative: Alert and oriented x3 excellent historian HEENT unremarkable Neck supple without adenopathy Chest: Clear to auscultation without wheezes rhonchi or crackles Cor irregularly irregular rhythm and a well-controlled rate Abdomen benign Extremities no edema Neurologic exam nonfocal Objective Labs 01/05/23 04:36 01/05/23 04:36 Labs: Laboratory Results - last 24 hr 06/07/23 06/07/23 06/07/23 10:36 10:36 10:36 WBC 6.2 RBC 3.60 L Hgb 11.0 L Hct 32.3 L MCV 89.7 MCH 30.4 MCHC 33.9 RDW 13.9 Plt Count 367 Neut % (Auto) 55.8 Lymph % (Auto) 33.1 [place] % (Auto) 9.3 Eos % (Auto) 1.2 L Baso % (Auto) 0.6 Neut # (Auto) 3500 Lymph # (Auto) 2100 [place] # (Auto) 600 Eos # (Auto) 100 Baso # (Auto) 0 PT 31.9 H D INR 2.8 H APTT 52 H Sodium 136 L Potassium 3.6 Chloride 103 Carbon Dioxide 28 BUN 9 Creatinine 1.05 H Estimated GFR 51 L BUN/Creatinine Ratio 8.6 Glucose 115 H Calcium 9.6 Magnesium Total Bilirubin 0.6 AST 40 H ALT 28 Alkaline Phosphatase 81 Total Creatine Kinase 66 CK-MB (CK-2) TNP CK-MB (CK-2) Rel Index TNP Troponin I < 0.012 Total Protein 9.1 H Albumin 3.5 Globulin 5.6 H Albumin/Globulin Ratio 0.6 L Triglycerides Cholesterol LDL Cholesterol, Calc HDL Cholesterol Urine Color Urine Appearance Urine pH Ur Specific [place] Urine Protein Urine Glucose (UA) Urine Ketones Urine Occult Blood Urine Nitrate Urine Bilirubin Urine Urobilinogen Ur Leukocyte Esterase Urine RBC Urine WBC Ur Squamous Epith Cells Ur Renal Epithelial Cell Amorphous Sediment Urine Bacteria Ur Culture Indicated? 01/04/23 01/05/23 01/05/23 18:25 04:36 04:36 WBC 5.5 RBC 3.40 L Hgb 10.2 L Hct 30.0 L MCV 88.2 MCH 30.2 MCHC 34.2 RDW 13.6 Plt Count 328 Neut % (Auto) 59.7 Lymph % (Auto) 27.2 [place] % (Auto) 9.9 Eos % (Auto) 2.0 Baso % (Auto) 1.2 Neut # (Auto) 3300 Lymph # (Auto) 1500 [place] # (Auto) 500 Eos # (Auto) 100 Baso # (Auto) 100 PT 32.8 H INR 2.8 H APTT Sodium Potassium Chloride Carbon Dioxide BUN Creatinine Estimated GFR BUN/Creatinine Ratio Glucose Calcium Magnesium Total Bilirubin AST ALT Alkaline Phosphatase Total Creatine Kinase CK-MB (CK-2) CK-MB (CK-2) Rel Index Troponin I Total Protein Albumin Globulin Albumin/Globulin Ratio Triglycerides Cholesterol LDL Cholesterol, Calc HDL Cholesterol Urine Color Yellow Urine Appearance Clear Urine pH 8.0 Ur Specific [place] 1.010 Urine Protein Negative Urine Glucose (UA) Negative Urine Ketones Negative Urine Occult Blood Negative Urine Nitrate Negative Urine Bilirubin Negative Urine Urobilinogen 0.2 Ur Leukocyte Esterase 1+ H Urine RBC None seen Urine WBC 5-10/hpf H Ur Squamous Epith Cells 5-10 /hpf H Ur Renal Epithelial Cell 1-5/hpf H Amorphous Sediment 1+ Urine Bacteria Occasional (0-1) Ur Culture Indicated? Specimen cultured 01/05/23 04:36 WBC RBC Hgb Hct MCV MCH MCHC RDW Plt Count Neut % (Auto) Lymph % (Auto) [place] % (Auto) Eos % (Auto) Baso % (Auto) Neut # (Auto) Lymph # (Auto) [place] # (Auto) Eos # (Auto) Baso # (Auto) PT INR APTT Sodium 134 L Potassium 3.7 Chloride 103 Carbon Dioxide 28 BUN 7 Creatinine 0.98 Estimated GFR 56 L BUN/Creatinine Ratio 7.1 Glucose 88 Calcium 8.9 Magnesium 1.7 Total Bilirubin AST ALT Alkaline Phosphatase Total Creatine Kinase CK-MB (CK-2) CK-MB (CK-2) Rel Index Troponin I Total Protein Albumin Globulin Albumin/Globulin Ratio Triglycerides 83 Cholesterol 87 L LDL Cholesterol, Calc 34 HDL Cholesterol 36 L Urine Color Urine Appearance Urine pH Ur Specific [place] Urine Protein Urine Glucose (UA) Urine Ketones Urine Occult Blood Urine Nitrate Urine Bilirubin Urine Urobilinogen Ur Leukocyte Esterase Urine RBC Urine WBC Ur Squamous Epith Cells Ur Renal Epithelial Cell Amorphous Sediment Urine Bacteria Ur Culture Indicated? [facility] Medical History Acute postoperative pain of knee Atrial fibrillation Atrial fibrillation with RVR CVA (cerebral vascular accident) Dehydration Diarrhea Multiple myeloma not having achieved remission Vertigo Surgical History History of bilateral knee replacement Social History household members: none Smoking Status: Never smoker alcohol intake: current Discharge Assessment & Plan Assessment and Plan Assessment: 1. Lacunar infarct, subacute 2. Paroxysmal atrial fibrillation 3. Chronic anticoagulation, therapeutic 4. MGUS 5. Hypertension 6. Depression Plan of Treatment: Discharge to home follow-up with me in 2 weeks. Protime next Monday. Continue same other medications. Discussed addition of baby aspirin to help prevent further CVA. Discussed risk of bleeding and other complications and patient declines. She will continue on a statin. She will continue on warfarin. We discussed switching to 1 of the newer agents for stroke prevention due to failure of Coumadin and patient declines at this time. Cost would definitely be an issue. Discharge Plan Discharge Plan Patient Disposition: Home Discharge orders & Medications Prescriptions: Continued cyanocobalamin (vitamin B-12) [Vitamin B-12] 1,000 mcg Tablet 1,000 mcg PO DAILY Qty: 0 cholecalciferol (vitamin D3) [Vitamin D3] 1,000 unit Capsule 1,000 unit PO DAILY Qty: 0 warfarin [Coumadin] 5 MG tablet See Rx Instructions .ROUTE .COMPLEX Qty: 0 Patient Comments: PATIENT TOOK 2.5 MG 10/07 Rx Instructions: 5 mg x 4 days. then 2.5mg. repeat omega 6-rem-ght-fish oil [Fish Oil] 1,000 MG capsule 1,000 mg PO DAILY Qty: 0 Ocuvite Vitamin 1 tab PO DAILY sertraline [Zoloft] 50 mg Tablet 50 mg PO BEDTIME Qty: 1 0RF losartan 100 mg tablet 50 mg PO DAILY Qty: 0 0RF Patient Comments: Patient only takes 50 mg magnesium oxide 400 mg (241.3 mg magnesium) tablet 400 mg PO DAILY Patient Comments: TAKE 1 TABLET BY MOUTH ONCE DAILY amiodarone 200 mg tablet 100 mg PO DAILY Follow up/Referrals: Tianna Cartagena MD [Primary Care Provider] - Visit Report/Discharge Packet Stand Alone Forms: Patient Portal/API, Stroke Signs & Symptoms Discharge Data Primary Care Provider: Tianna Cartagena Attending Provider: Tianna Cartagena Admit Date/Time: 01/04/23 13:13 Quality VTE Deep Vein Thrombosis/Pulmonary Embolism Present on Admission: No
[2023-01-05 08:59] VITALS: BP 136/63; PULSE 67; RESP 16; TEMP 36.8; O2SAT 98
--- NOTE | 2023-01-05 09:04 | OT.IP.TRT ---
Occupational Therapy Treatment Note M2 OT-IP Current Condition Start: 01/04/23 16:45 Freq: Status: Active Protocol: Document 01/04/23 16:45 [facility] (Rec: 01/04/23 17:08 [facility] [id number]) Occupational Therapy Current Condition Current Condition Evaluation Date 01/04/23 Treatment Diagnosis Subacute CVA Diagnosis Onset Date 01/04/23 M3 OT- IP Subjective and Pain Start: 01/04/23 16:45 Freq: Status: Active Protocol: Document 01/05/23 08:55 [facility] (Rec: 01/05/23 09:21 [facility] [id number]) OT- Subjective Occupational Therapy Visit Type Type Treatment Note Visit Start Time 08:55 Visit Stop Time 09:04 Total Visit Minutes 9 Occupational Therapy Visit Comments Patient Comments Pt agreed to get up to brush her hair but just wanting to go home to shower. Patient/Caregiver Goals To go home. OT Pain Assessment Pain When Pain Assessed During Mobility Pain Present Pain Present Pain Reported M4 OT- IP ADL's Start: 01/04/23 16:45 Freq: Status: Active Protocol: Document 01/05/23 08:55 [facility] (Rec: 01/05/23 09:21 [facility] [id number]) OT [id number] General Evaluation Self-Feeding Ability Independent OT ADL-Grooming General Evaluation Grooming Ability Independent OT ADL-Dressing Comments OT Dressing Comments Pt not wanting to do at this time. OT ADL-Bathing Comments OT Bathing Comments Not performed, pt has assist at home for showers via caregivers. M5 OT- IP IADL's Start: 01/04/23 16:45 Freq: Status: Active Protocol: Document 01/04/23 16:45 [facility] (Rec: 01/04/23 17:08 [facility] [id number]) OT-Instrumental Activities of Daily Living Home Safety Awareness Awareness of Need for Assistance at Home Good Awareness Home Safety Comments Pt a a bit tired and forgetting to lock and unlock the brakes on the 4ww, however 4ww not her own and the hospital one which she is not as familiar with. Medication Management Medication Management No Deficits Identified Medication Management Comments Pt use a pill box Money Management Money Management Caregiver Provides Assistance Mathematical Engineer Mathematical Engineer Caregiver Provides Assist Driving Driving Concerns Identified Regarding Safety Driving Comments Pt states drives in town only but to have her son drive her. M6 OT- IP Functional Cognition Start: 01/04/23 16:45 Freq: Status: Active Protocol: Document 01/05/23 08:55 [facility] (Rec: 01/05/23 09:21 [facility] [id number]) Cognitive Factors Limiting Selfcare Function Cognitive Ability Level of Alertness Alert Patient Orientation Name,Place,Situation Attention Span Ability Capable of Focused Attention, Capable of Sustained Attention Ability to Follow Commands Able to Follow Multi-Step Commands Memory Description No Deficits Noted Problem Solving Ability No deficits Noted Cognitive Comments Cognitive Assessment Comments Pt able to recall detail of yesterday's eval and to lock and unlock the 4ww today. Pt appears more alert at her baseline for cognitive needs. OT- Vision and Hearing OT- Vision Assessment Vision Assessment Comments Right eye upper vision still impaired. Pt has good understanding to look up to help to compensate for visual deficit. M7 OT- IP Mobility and Balance Start: 01/04/23 16:45 Freq: Status: Active Protocol: Document 01/05/23 08:55 [facility] (Rec: 01/05/23 09:21 [facility] [id number]) OT-Transfer Assessment Comments Mobility Comments Pt not wanting to practice log rolling today but agreed to walk around in the room with the 4ww. Pt states it was easier to get out on the left side of the bed this morning with nursing versus right at home, asked pt if her bed could be moved or just more her pillow so able to get out on the left. OT- Balance Assessment Sitting Balance and Reactions Static Sitting Balance Ability Good Dynamic Sitting Balance Ability Good Standing Balance and Reactions Static Standing Balance Ability Good Dynamic Standing Balance Ability Fair M8 OT- IP Objective Assessments Start: 01/04/23 16:45 Freq: Status: Active Protocol: Document 01/04/23 16:45 [facility] (Rec: 01/04/23 17:08 [facility] [id number]) OT Gross Range of Motion Upper Extremity Range of Motion Assessment Within Functional Limits OT Strength Upper Extremity Strength Assessment Within Functional Limits Comments Strength Comments WFl for age and lifestyle OT- Coordination Assessment Upper Extremity Finger to Nose Test Within Functional Limits Finger Tapping Test Within Functional Limits Comments Coordination Comments Pt intact to be able to osmel/ doff her watch and for diadochokinesis. OT-Muscle Tone Assessment Muscle Tone WNL Yes OT Sensation Assessment Comments Summary Comments Intact for light touch. M9 OT- IP Assessment and Plan Start: 01/04/23 16:45 Freq: Status: Active Protocol: Document 01/05/23 08:55 [facility] (Rec: 01/05/23 09:21 [facility] [id number]) OT Summary Assessment and Plan Potential Rehabilitation Potential Good Analytic Complexity at Evaluation Moderate Summary OT Impairments Pain,Balance,Functional Mobility,Bathing,Shower Transfers,Activity Tolerance Progress Towards Goals Progressing Toward Goals Assessment Summary Pt doing better today and more alert and thinking better and appears to be at her baseline except for her right eye upper vision deficits. Pt has caregivers that assist her 3x/week for 4 hours, and son that check on her daily and has a Life Alert. Pt to go home with assist and would benefit from outpt PT for her back pain. Able to go over energy conservation strategies with pt. Goals Dressing Goal Independent Toilet Transfer Goal Independent Days to Meet Goals 1 Frequency of Treatment Frequency Of Treatment Once a Day Treatment Plan OT Treatment Plan ADL Training,Functional Mobility,Vision Retraining, Patient/Family Education, Discharge Planning Discharge Recommendations OT Discharge Recommendations Home with Assistance, Outpatient PT Transportation Needs at Discharge Private Vehicle
[2023-01-05] MEDS: VIT C/E/ZN/COPPR/LUTEIN/ZEAXAN CAPSULE 1 CAP PO (09:35)
[2023-01-05] MEDS: SERTRALINE 50 MG TABLET PO (09:35)
[2023-01-05] MEDS: MAGNESIUM OXIDE 400 MG TABLET PO (09:35)
[2023-01-05] MEDS: FISH OIL 1,000 MG CAPSULE 1000 MG PO (09:35)
[2023-01-05] MEDS: CHOLECALCIFEROL (VITAMIN D3) 1,000 UNIT TABLET 1000 UNIT PO (09:35)
[2023-01-05] MEDS: CYANOCOBALAMIN (VITAMIN B-12) 500 MCG TABLET 1000 MCG PO (09:35)
--- NOTE | 2023-01-05 14:18 | CM.DANOTE ---
Addendum entered by LEVI Mak 01/05/23 14:40: ADD: Patient has [facility] services which will be resumed, no new order needed according to Storm at [facility] Original Note: Initial DCP Assessment Note Patient is an 87 yo female, resident of [place] presents from her sales market leader concerned about CVA. patient admitted for further work up and inevitably cleared for discharge home w/family and caregiver assist PCP Patsy MCKENZIE/Gonzalo Chart reviewed, patient going through discharge instructions w/RN Lynn this morning. Patient back to functional baseline, eager to return home. information from initial assessment done in November 2022 by Shabana Kennedy confirmed as accurate: they confirm pt still resides at home in [place] alone but MARILU Tsang lives about 2 blocks away. Pt now has PP CG that comes in 3x a week for 4 hours a day to assist with chores, cleaning, meal prep, etc.. Pt states she typically uses a quad cane for ambulation but has a walker for longer distances if needed. Plan: Discharge home today w/supportive family and close outpatient follow up LEVI Porras Discharge Planning/Care Management CM Discharge Assessment Start: 01/05/23 14:07 Freq: Status: Discharge Protocol: Document 01/05/23 14:07 [facility] (Rec: 01/05/23 14:16 [facility] [id number]) Discharge Planning Assessment Assigned Bankruptcy Processor LEVI Chacko DPOA/Assigned Designee Name remy Winn Contact Information [phone] Advance Directives? Yes Advance Directives on File Yes History Provided By Patient,Family Member,Medical Record Prior Living Arrangements House Household Members none Type of transporation used prior to Relies on Others admit Independent with ADL's Yes Is patient alert and oriented? Yes Needs Assistance With Meal Prep,Home Chores / Shopping Patient/Family Preference Home with Home Health Barriers to Discharge No Comment Home w/family Discharge Plan Home with Home Health Transportation Arrangement home w/son Referrals Initiated None needed
== END 2023-01-05 10:38 | disposition home or self-care (01) | DRG 65 ==
LOC: ED 11:32 → AC 14:07
PROVIDERS: Admitting Provider Family Medicine; Emergency Provider Emergency Medicine; PCP Family Medicine; Referring Provider Emergency Medicine; Visit Provider Family Medicine
DX: I63.81 Other cerebral infarction due to occlusion or stenosis of small artery (principal); E87.1 Hypo-osmolality and hyponatremia; D47.2 Monoclonal gammopathy; N18.30 Chronic kidney disease, stage 3 unspecified; I48.0 Paroxysmal atrial fibrillation; F32.A Depression, unspecified; I12.9 Hypertensive chronic kidney disease with stage 1 through stage 4 chronic kidney disease, or unspecified chronic kidney disease; H53.8 Other visual disturbances; R29.701 NIHSS score 1; Z79.01 Long term (current) use of anticoagulants; Z66 Do not resuscitate; Z20.822 Contact with and (suspected) exposure to COVID-19
CPT/HCPCS: 36415; 70496; 70498; 70551; 80048; 80053; 80061; 81001; 82550; 83735; 84484; 85025; 85610; 85730; 87040; 87086; 93005; 93010; 93306; 97162; 97166; 97530; 99285; A9270; Q9967

== ENCOUNTER → 2023-01-12 10:15 | Outpatient (ROUT) | payer MEDICARE, OTHER, SELFPAY ==
[2023-01-04 14:43] VITALS: BMI 26.9
[2023-01-12 10:22] LABS: INR 2.9 (0.9-1.3); Prothrombin Time 33.4 SECONDS (10.1-12.7)
== END ==
PROVIDERS: Family Provider Family Medicine; PCP Family Medicine; Visit Provider Family Medicine
DX: Z79.01 Long term (current) use of anticoagulants (principal); I48.0 Paroxysmal atrial fibrillation
CPT/HCPCS: 85610

== ENCOUNTER → 2023-01-24 08:07 | Outpatient (ROUT) | payer MEDICARE, OTHER, SELFPAY ==
[2023-01-04 14:43] VITALS: BMI 26.9
[2023-01-24 08:29] LABS: INR 2.9 (0.9-1.3); Prothrombin Time 33.2 SECONDS (10.1-12.7)
== END ==
PROVIDERS: Family Provider Family Medicine; PCP Family Medicine; Visit Provider Family Medicine
DX: I48.0 Paroxysmal atrial fibrillation (principal)
CPT/HCPCS: 85610

== ENCOUNTER → 2023-02-14 09:05 | Outpatient (ROUT) | payer MEDICARE, OTHER, SELFPAY ==
[2023-01-04 14:43] VITALS: BMI 26.9
[2023-02-14 09:40] LABS: INR 1.8 (0.9-1.3); Prothrombin Time 20.9 SECONDS (10.1-12.7)
== END ==
PROVIDERS: Family Provider Family Medicine; PCP Family Medicine; Visit Provider Family Medicine
DX: Z79.01 Long term (current) use of anticoagulants (principal)
CPT/HCPCS: 85610

== ENCOUNTER → 2023-03-08 10:13 | Outpatient (ROUT) | payer MEDICARE, OTHER, SELFPAY ==
[2023-01-04 14:43] VITALS: BMI 26.9
[2023-03-08 10:37] LABS: INR 1.3 (0.9-1.3); Prothrombin Time 14.4 SECONDS (10.1-12.7)
== END ==
PROVIDERS: Family Provider Family Medicine; PCP Family Medicine; Visit Provider Family Medicine
DX: I48.0 Paroxysmal atrial fibrillation (principal)
CPT/HCPCS: 85610

== ENCOUNTER → 2023-03-20 10:26 | Outpatient (ROUT) | payer MEDICARE, OTHER, SELFPAY ==
[2023-01-04 14:43] VITALS: BMI 26.9
[2023-03-20 11:10] LABS: INR 2.1 (0.9-1.3); Prothrombin Time 23.8 SECONDS (10.1-12.7)
== END ==
PROVIDERS: Family Provider Family Medicine; PCP Family Medicine; Visit Provider Family Medicine
DX: Z79.01 Long term (current) use of anticoagulants (principal)
CPT/HCPCS: 85610

== ENCOUNTER → 2023-03-29 15:36 | Outpatient (ROUT) | payer MEDICARE, OTHER, SELFPAY ==
[2023-01-04 14:43] VITALS: BMI 26.9
[2023-03-29 15:57] LABS: INR 1.9 (0.9-1.3); Prothrombin Time 22.5 SECONDS (10.1-12.7)
== END ==
PROVIDERS: Family Provider Family Medicine; PCP Family Medicine; Visit Provider Family Medicine
DX: I48.0 Paroxysmal atrial fibrillation (principal); Z79.01 Long term (current) use of anticoagulants
CPT/HCPCS: 85610

== ENCOUNTER → 2023-04-24 10:16 | Outpatient (ROUT) | payer MEDICARE, OTHER, SELFPAY ==
[2023-01-04 14:43] VITALS: BMI 26.9
[2023-04-24 10:32] LABS: Prothrombin Time 23.1 SECONDS (10.1-12.7)
== END ==
PROVIDERS: Family Provider Family Medicine; PCP Family Medicine; Visit Provider Family Medicine
DX: I48.0 Paroxysmal atrial fibrillation (principal); Z79.01 Long term (current) use of anticoagulants
CPT/HCPCS: 85610

== ENCOUNTER → 2023-05-22 10:45 | Outpatient (ROUT) | payer MEDICARE, OTHER, SELFPAY ==
[2023-01-04 14:43] VITALS: BMI 26.9
[2023-05-22 10:54] LABS: INR 1.8 (0.9-1.3); Prothrombin Time 21.1 SECONDS (10.1-12.7)
== END ==
PROVIDERS: Family Provider Family Medicine; PCP Family Medicine; Visit Provider Family Medicine
DX: I48.0 Paroxysmal atrial fibrillation (principal)
CPT/HCPCS: 85610

== ENCOUNTER → 2023-06-09 10:14 | Outpatient (ROUT) | payer MEDICARE, OTHER, SELFPAY ==
[2023-01-04 14:43] VITALS: BMI 26.9
[2023-06-09 10:30] LABS: INR 1.5 (0.9-1.3); Prothrombin Time 17.2 SECONDS (10.1-12.7)
== END ==
PROVIDERS: Family Provider Family Medicine; PCP Family Medicine; Visit Provider Family Medicine
DX: I48.0 Paroxysmal atrial fibrillation (principal)
CPT/HCPCS: 85610

== ENCOUNTER 2023-06-12 09:39 | Inpatient (IN) | payer MEDICARE, OTHER, SELFPAY ==
[2023-01-04 14:43] VITALS: BMI 26.9
[2023-06-12] VITALS (29 sets, daily range): BP systolic 102–139; BP diastolic 57–77; PULSE 69–110; RESP 16–96; TEMP 36.5–37.2; O2SAT 88–98; BMI 26.4
--- NOTE | 2023-06-12 09:55 | DI.RAD.S_ITS ---
PROCEDURE: XR CHEST 1V INDICATIONS: chest pain TECHNIQUE: One view of the chest was acquired. COMPARISON: [facility], CT, CT CHEST ABD PEL W CON, 11/27/2022, 22:09. [facility], CR, XR CHEST 1V, 11/27/2022, 21:10. [facility], CR, XR CHEST 1V, 06/16/2020, 7:01. FINDINGS: Surgical changes and devices: None. Lungs and pleura: Mild bibasilar opacity. Blunting of the left costophrenic angle likely due to small pleural effusion. No pneumothorax. Mediastinum: Mediastinal contours appear normal. Heart size is normal. Bones and chest wall: No suspicious bony lesions. Overlying soft tissues appear unremarkable. IMPRESSION: Small left pleural effusion. Bibasilar hazy opacity most consistent with atelectasis. Dictated by: Tk Norton M.D. on 06/12/2023 at 10:37 Approved by: Tk Norton M.D. on 06/12/2023 at 10:41
[2023-06-12 10:12] LABS: Add Manual Diff / Slide Review NO; Basophils Absolute Auto 100 /uL (0-100); Eosinophils Absolute Auto 0 /uL (0-450); Eosinophils Percent Auto 0.4 % (2-4); Hematocrit 31.4 % (36-46); Hemoglobin 10.8 g/dL (12.0-16.0); Lymphocytes Absolute Auto 1400 /uL (1100-4500); Lymphocytes Percent Auto 18.2 % (25-40); Mean Corpuscular HGB Conc 34.6 % (30-36); Mean Corpuscular Hemoglobin 31.1 PG (26-34); Mean Corpuscular Volume 89.8 fL (80-100); Monocytes Absolute Auto 700 /uL (0-900); Monocytes Percent Auto 8.7 % (3-14); Neutrophils Absolute Auto 5500 /uL (1500-7000); Neutrophils Percent Auto 71.7 % (50-75); Platelet Count 267 X10^3/uL (150-400); Red Blood Cell Count 3.49 X10^6/uL (4.0-5.2); Red Cell Distribution Width 14.7 % (11.6-14.8); White Blood Cell Count 7.7 X10^3/uL (4.5-11.0)
[2023-06-12 10:17] LABS: COVID19 -Nasal RAPID Negative (Negative)
--- NOTE | 2023-06-12 10:22 | PC.NURSE ---
For the past 2x days patient has been SOB, worsening today. Her home staging specialist came to assist her today (usually visits mondays and fridays for 4hours each day) and checked her SPO2 monitor which read 84% on room air. Pt denies oxygen home use at home, denies history of COPD or asthma, doesnt smoke tobacco. Pt's only complaint is SOB, fatigue, and cough with no sputum production.
[2023-06-12 10:23] LABS: D Dimer 1059 ng/ml (<500)
[2023-06-12 10:24] LABS: Alanine Aminotransferase 74 IU/L (<35); Albumin 3.4 g/dL (3.5-5.0); Albumin Globulin Ratio 0.7 (1.0-2.8); Alkaline Phosphatase 60 U/L (38-126); Aspartate Aminotransferase 92 IU/L (14-36); BUN Creatinine Ratio 15.3 (6-22); Bilirubin Total 1.1 mg/dL (0.2-1.3); Blood Urea Nitrogen 21 mg/dL (7-17); Calcium 9.4 mg/dL (8.4-10.2); Carbon Dioxide 25 mmol/L (22-32); Chloride 106 mmol/L (98-107); Creatine Kinase 137 U/L (30-135); Estimated Glomerular Filt Rate 37 mL/min (>60); Globulin 5.2 g/dL (1.7-4.1); Glucose 142 mg/dL (80-110); HEMOLYSIS < 15 (0-50); Lipase 81 U/L (23-300); Potassium 3.3 mmol/L (3.4-5.1); Sodium 135 mmol/L (137-145); Total Protein 8.6 g/dL (6.3-8.2)
--- NOTE | 2023-06-12 10:24 | ED_ITS ---
HPI - SOB/Dyspnea General Chief Complaint: Shortness of Breath/Dyspnea Stated Complaint: SOB/N/ oxygen is 84 Time Seen by Provider: 06/12/23 09:53 Source: patient and other Mode of arrival: Ambulatory Limitations: no limitations History of Present Illness HPI Narrative: Patient is a 88-year-old male who has a history of CVA, paroxysmal atrial fibrillation on chronic anticoagulation, COPD presents today with increasing fatigue and weakness. She was checked on by her caregiver found to be hypoxic and brought POV to the ED. She is actually 83% on room air. She reports feeling weak and fatigued. She reports significant shortness of breath with exertion. She denies any chest pain. She actually does not have any obvious respiratory distress at rest. She is able to speak in full sentences. She does have mild nonproductive cough. No fever or chills. She denies any nausea or vomiting or abdominal pain. No significant swelling in her legs. No history of congestive heart failure. Related Data Home Medications Medication Instructions Recorded Confirmed cholecalciferol (vitamin D3) 25 1,000 unit PO DAILY ##0 10/01/12 06/12/23 mcg (1,000 unit) capsule (Vitamin D3) cyanocobalamin (vitamin B-12) 1,000 mcg PO DAILY ##0 10/01/12 06/12/23 1,000 mcg tablet (Vitamin B-12) warfarin 5 mg tablet (Coumadin) 2.5 mg PO DAILY ##0 12/14/16 06/12/23 omega 7-iqt-sly-fish oil 1,000 mg 1,000 mg PO DAILY ##0 04/12/17 06/12/23 (120 mg-180 mg) capsule (Fish Oil) Ocuvite Vitamin 1 tab PO DAILY 05/16/19 06/12/23 amiodarone 200 mg tablet 100 mg PO DAILY 01/04/23 06/12/23 magnesium oxide 400 mg (241.3 mg 400 mg PO DAILY 01/04/23 06/12/23 magnesium) tablet atorvastatin 10 mg tablet 10 mg PO DAILY 06/12/23 06/12/23 famciclovir 500 mg tablet 500 mg PO Q8H 06/12/23 06/12/23 losartan 100 mg tablet 100 mg PO DAILY 06/12/23 06/12/23 sertraline 50 mg tablet (Zoloft) 75 mg PO DAILY 06/12/23 06/12/23 Allergies Allergy/AdvReac Type Severity Reaction Status Date / Time hydrochlorothiazide Allergy Severe unknown Verified 01/04/23 10:38 sotalol Allergy Severe unknown Verified 01/04/23 10:38 amoxicillin Allergy Mild BREAK OUT Verified 01/04/23 10:38 ampicillin Allergy Mild BREAK OUT Verified 01/04/23 10:38 cephalexin Allergy Mild BREAK OUT Verified 01/04/23 10:38 piroxicam AdvReac Unknown ITCHING Verified 01/04/23 10:38 Patient History Medical History Multiple myeloma not having achieved remission CVA (cerebral vascular accident) Diarrhea Dehydration Atrial fibrillation with RVR Vertigo Atrial fibrillation Acute postoperative pain of knee Surgical History History of bilateral knee replacement Social History household members: none Smoking Status: Never smoker alcohol intake: current Smoking Status: Never smoker alcohol intake frequency: holidays/special occasions only Substance Use Type: does not use Exam Initial Vital Signs Initial Vital Signs: Vital Signs Pulse Rate 84 06/12/23 09:54 Respiratory Rate 29 H 06/12/23 09:54 Blood Pressure 135/68 06/12/23 09:54 Pulse Oximetry 89 L 06/12/23 09:54 Oxygen Delivery Method Nasal Cannula 06/12/23 09:54 Oxygen Flow Rate 6 06/12/23 09:54 GENERAL: Alert week 88-year-old female HEENT: Head atraumatic,EOMI, pupils reactive, face symmetric, moist mucous membranes CARDIOVASCULAR: Regular rate and rhythm without murmurs, rubs or gallops. RESPIRATORY: Decreased breath sounds bilaterally no significant tachypnea no conversational dyspnea no rales or crackles ABDOMEN: Soft, nontender. Normoactive bowel sounds all 4 quadrants. No guarding or rebound. EXTREMITIES: Normal range of motion, no clubbing or edema. Neurovascularly intact NEUROLOGICAL: Alert and oriented x4.Normal gait and speech. SKIN: Warm, dry, no laceration, no petechiae, no rashes or lesions. Course Orders Ordered: ED Orders 06/12/23 09:50 COVID19 -Nasal RAPID Stat 06/12/23 09:55 XR chest 1V Stat EKG-12 Lead Stat 06/12/23 10:00 PTT Partial Thromboplastin Jake Stat Prothrombin Time INR Stat 06/12/23 10:02 Complete Blood Count AUTO DIFF Stat Comprehensive Metabolic Panel Stat D Dimer Stat Lactate (Lactic Acid) Stat Lipase Stat NT-proBNP (BNP-Adult 18+) Stat Troponin & CK Cardiac Panel Stat 06/12/23 10:31 CT angio chest PE protocol Stat 06/12/23 11:13 Blood Culture Stat 06/12/23 12:50 ABG [Arterial Blood Gas] Stat Potassium Chloride (Potassium Chloride 20 Meq Tab) 40 meq PO Q6H OSIRIS Stop: 06/12/23 23:31 Last Admin: 06/12/23 17:38 Dose: 40 meq Documented By: RUPERT Discontinued Medications Albuterol/Ipratropium (Albuterol/Ipratropium 3 Ml Ampul) 3 ml INH NOW ONE Stop: 06/12/23 10:48 Last Admin: 06/12/23 10:54 Dose: 3 ml Documented By: ROSENDA Furosemide (Furosemide 40 Mg/4 Ml Vial) 40 mg IV NOW ONE Stop: 06/12/23 14:22 Last Admin: 06/12/23 14:48 Dose: 40 mg Documented By: RAMÓN Furosemide (Furosemide 40 Mg/4 Ml Vial) 40 mg IV NOW ONE Stop: 06/12/23 14:52 Last Admin: 06/12/23 15:14 Dose: Not Given Documented By: RAMÓN Ceftriaxone Sodium 2,000 mg/ (Sodium Chloride) 100 mls @ 200 mls/hr IV NOW ONE Stop: 06/12/23 11:49 Last Infusion: 06/12/23 13:04 Dose: Infused Documented By: Admin: 06/12/23 12:24 Dose: 200 mls/hr Documented By: RAMÓN Azithromycin 500 mg/ Dextrose 250 mls @ 250 mls/hr IV NOW ONE Stop: 06/12/23 11:49 Last Infusion: 06/12/23 14:47 Dose: Infused Documented By: Admin: 06/12/23 13:23 Dose: 250 mls/hr Documented By: RAMÓN Methylprednisolone (Methylprednisolone 125 Mg/2 Ml Vial) 125 mg IV NOW ONE Stop: 06/12/23 10:48 Last Admin: 06/12/23 11:39 Dose: 125 mg Documented By: RAMÓN Vital Signs Vital signs: Vital Signs - 8 hr 06/12/23 09:54 06/12/23 09:54 06/12/23 09:58 Temperature 98.5 F Pulse Rate 84 80 Respiratory Rate 29 H 96 H Blood Pressure 135/68 135/68 Pulse Oximetry 89 L 96 Oxygen Delivery Method Nasal Cannula Nasal Cannula Oxygen Flow Rate 6 6 Fraction of Inspired Oxygen 06/12/23 10:00 06/12/23 10:30 06/12/23 10:54 Temperature Pulse Rate 80 77 78 Respiratory Rate 27 H 21 18 Blood Pressure Pulse Oximetry 88 L 96 93 Oxygen Delivery Method Nasal Cannula Nasal Cannula Oxygen Flow Rate 6 6 Fraction of Inspired Oxygen 44 06/12/23 11:13 06/12/23 11:30 06/12/23 11:31 Temperature Pulse Rate 74 74 Respiratory Rate 29 H 26 H 18 Blood Pressure Pulse Oximetry 91 Oxygen Delivery Method Nasal Cannula Oxygen Flow Rate 4 Fraction of Inspired Oxygen 06/12/23 11:31 06/12/23 11:46 06/12/23 11:46 Temperature Pulse Rate 74 Respiratory Rate 28 H Blood Pressure 120/58 L 128/61 Pulse Oximetry 92 Oxygen Delivery Method Oxygen Flow Rate Fraction of Inspired Oxygen 06/12/23 12:00 06/12/23 12:00 06/12/23 12:15 Temperature Pulse Rate 71 Respiratory Rate 20 Blood Pressure 123/57 L 122/60 Pulse Oximetry 94 Oxygen Delivery Method Oxygen Flow Rate Fraction of Inspired Oxygen 06/12/23 12:15 Temperature Pulse Rate 72 Respiratory Rate 30 H Blood Pressure Pulse Oximetry 93 Oxygen Delivery Method Oxygen Flow Rate Fraction of Inspired Oxygen MDM - SOB/Dyspnea Lab Data 06/12/23 10:02 06/12/23 10:02 Labs: Lab Results 06/12/23 06/12/23 06/12/23 Range/Units 09:50 10:00 10:02 WBC 7.7 (4.5-11.0) X10^3/uL RBC 3.49 L (4.0-5.2) X10^6/uL Hgb 10.8 L (12.0-16.0) g/dL Hct 31.4 L (36-46) % MCV 89.8 (80-100) fL MCH 31.1 (26-34) PG MCHC 34.6 (30-36) % RDW 14.7 (11.6-14.8) % Plt Count 267 (150-400) X10^3/uL Neut % (Auto) 71.7 (50-75) % Lymph % (Auto) 18.2 L (25-40) % [place] % (Auto) 8.7 (3-14) % Eos % (Auto) 0.4 L (2-4) % Baso % (Auto) 1.0 (0-2) % Neut # (Auto) 5500 (3258-7190) /uL Lymph # (Auto) 1400 (8455-8513) /uL [place] # (Auto) 700 (0-900) /uL Eos # (Auto) 0 (0-450) /uL Baso # (Auto) 100 (0-100) /uL PT 19.8 H (10.1-12.7) SECONDS INR 1.7 H (0.9-1.3) APTT 42 H (26-36) SECONDS D-Dimer 1059 H (<500) ng/ml Sodium 135 L (137-145) mmol/L Potassium 3.3 L (3.4-5.1) mmol/L Chloride 106 (98-107) mmol/L Carbon Dioxide 25 (22-32) mmol/L BUN 21 H (7-17) mg/dL Creatinine 1.37 H (0.52-1.04) mg/dL Estimated GFR 37 L (>60) mL/min BUN/Creatinine Ratio 15.3 (6-22) Glucose 142 H (80-110) mg/dL Lactate 1.8 (0.7-2.1) mmol/L Calcium 9.4 (8.4-10.2) mg/dL Total Bilirubin 1.1 (0.2-1.3) mg/dL AST 92 H (14-36) IU/L ALT 74 H (<35) IU/L Alkaline Phosphatase 60 (38-126) U/L Total Creatine Kinase 137 H (30-135) U/L Troponin I 0.014 (0.01-0.034) ng/mL NT-Pro-B Natriuret Pep 2880 H (<450) pg/mL Total Protein 8.6 H (6.3-8.2) g/dL Albumin 3.4 L (3.5-5.0) g/dL Globulin 5.2 H (1.7-4.1) g/dL Albumin/Globulin Ratio 0.7 L (1.0-2.8) Lipase 81 (23-300) U/L SARS-CoV-2 (PCR) Negative (Negative) Imaging Data Chest x-ray: Radiologist's Impression: PROCEDURE: XR CHEST 1V INDICATIONS: chest pain TECHNIQUE: One view of the chest was acquired. COMPARISON: [facility], CT, CT CHEST ABD PEL W CON, 11/27/2022, 22:09. [facility], CR, XR CHEST 1V, 11/27/2022, 21:10. [facility], CR, XR CHEST 1V, 06/16/2020, 7:01. FINDINGS: Surgical changes and devices: None. Lungs and pleura: Mild bibasilar opacity. Blunting of the left costophrenic angle likely due to small pleural effusion. No pneumothorax. Mediastinum: Mediastinal contours appear normal. Heart size is normal. Bones and chest wall: No suspicious bony lesions. Overlying soft tissues appear unremarkable. IMPRESSION: Small left pleural effusion. Bibasilar hazy opacity most consistent with atelectasis. Dictated by: Tk Norton M.D. on 06/12/2023 at 10:37 CT scan - chest: Radiologist's Impression: PROCEDURE: CT ANGIO CHEST PE PROTOCOL INDICATIONS: hypoxia TECHNIQUE: After the administration of intravenous contrast, 2 mm thick sections acquired from the pulmonary apices to the posterior costophrenic angles. 3-dimensional maximum intensity projection (MIP) coronal and sagittal reformats were then acquired through the thorax. For radiation dose reduction, the following was used: automated exposure control, adjustment of mA and/or kV according to patient size. COMPARISON: None. FINDINGS: Image quality: Excellent. Pulmonary arteries: Pulmonary arteries demonstrate no intraluminal filling defects to suggest central pulmonary embolism. Main pulmonary artery is enlarged measuring 3.3 cm. Lungs and pleura: Mild bilateral effusions slightly more prominent on the left with superimposed consolidations. Mild appearance of increased pulmonary vascularity is present. Mediastinum: Heart size is enlarged, without pericardial effusion. No mediastinal or hilar adenopathy. Thoracic aorta is normal in caliber and enhancement. Esophagus is normal in caliber, mild hiatal hernia. Bones and chest wall: No suspicious bony lesions. Ribs and thoracic spine appear intact throughout. Thyroid gland is unremarkable. No axillary or supraclavicular adenopathy. Abdomen: Visualized upper abdominal solid organs appear normal in the early arterial phase of enhancement. IMPRESSION: Bilateral effusions with superimposed consolidations, the latter suggestive of atelectasis although developing pneumonia cannot be excluded. Overall appearance of mild increased vascularity suggestive of edema. No pulmonary embolism. Enlargement of the main pulmonary artery suggestive of pulmonary artery hypertension. Dictated by: Tesha Hill M.D. on 06/12/2023 at 11:23 ECG Data Interpretation: Sinus rhythm rate 80 SD interval 176 QRS 78 QTC 465 changes no T-wave inversion similar prior MDM Narrative Medical decision making narrative: Patient presents today with hypoxia. Patient actually reports that she checks her oxygen level regularly and at home it is normally 90% she says however the last 2 days it has been an 80s. Home health came today and checked it and was 84% on room air. She actually has no conversational dyspnea or evidence of respiratory distress. However she is requiring up to 6 L of nasal cannula. ABG confirms that she is hypoxic on 6 L nasal cannula with a PaO2 of 58. She is not acidotic. She reports that she has been having some weakness fatigue and cough the last couple days. Both CT and x-ray do show pleural effusions no pulmonary embolism. She does not sound wet or appear fluid overloaded on exam. She does have history of COPD she was given albuterol and Solu-Medrol much improvement. Concern for possible pneumonia with weakness fatigue and cough she is given Rocephin and azithromycin. However she is no evidence of sepsis she has no leukocytosis no anemia Patient continues to appear comfortable despite hypoxia. Dr. Cartagena, updated patient's symptoms test results agrees with admission request Lasix 40 mg Discharge Plan Departure Patient Disposition: Admitted As Inpatient Clinical Impression: Hypoxia Admit Date/Time: 06/12/23 12:28 Admit Provider: Tianna Cartagena
--- NOTE | 2023-06-12 10:31 | DI.CT.S_ITS ---
PROCEDURE: CT ANGIO CHEST PE PROTOCOL INDICATIONS: hypoxia TECHNIQUE: After the administration of intravenous contrast, 2 mm thick sections acquired from the pulmonary apices to the posterior costophrenic angles. 3-dimensional maximum intensity projection (MIP) coronal and sagittal reformats were then acquired through the thorax. For radiation dose reduction, the following was used: automated exposure control, adjustment of mA and/or kV according to patient size. COMPARISON: None. FINDINGS: Image quality: Excellent. Pulmonary arteries: Pulmonary arteries demonstrate no intraluminal filling defects to suggest central pulmonary embolism. Main pulmonary artery is enlarged measuring 3.3 cm. Lungs and pleura: Mild bilateral effusions slightly more prominent on the left with superimposed consolidations. Mild appearance of increased pulmonary vascularity is present. Mediastinum: Heart size is enlarged, without pericardial effusion. No mediastinal or hilar adenopathy. Thoracic aorta is normal in caliber and enhancement. Esophagus is normal in caliber, mild hiatal hernia. Bones and chest wall: No suspicious bony lesions. Ribs and thoracic spine appear intact throughout. Thyroid gland is unremarkable. No axillary or supraclavicular adenopathy. Abdomen: Visualized upper abdominal solid organs appear normal in the early arterial phase of enhancement. IMPRESSION: Bilateral effusions with superimposed consolidations, the latter suggestive of atelectasis although developing pneumonia cannot be excluded. Overall appearance of mild increased vascularity suggestive of edema. No pulmonary embolism. Enlargement of the main pulmonary artery suggestive of pulmonary artery hypertension. Dictated by: Tesha Hill M.D. on 06/12/2023 at 11:23 Approved by: Tesha Hill M.D. on 06/12/2023 at 11:25
[2023-06-12 10:35] LABS: NT-proBNP (BNP-Adult 18+) 2880 pg/mL (<450); Troponin I 0.014 ng/mL (0.01-0.034)
[2023-06-12] MEDS: ALBUTEROL/IPRATROPIUM 3 ML AMPUL INH (10:54)
[2023-06-12 10:56] LABS: INR 1.7 (0.9-1.3); Prothrombin Time 19.8 SECONDS (10.1-12.7)
[2023-06-12 10:58] LABS: PTT Partial Thromboplastin Tim 42 SECONDS (26-36)
[2023-06-12 11:01] LABS: Lactate (Lactic Acid) 1.8 mmol/L (0.7-2.1)
[2023-06-12] MEDS: methylPREDNISolone 125 MG/2 ML VIAL IV (11:39)
[2023-06-12] MEDS: cefTRIAXone 2,000 MG in SODIUM CHLORIDE 0.9% 100 ML 200 MG IV (12:24)
[2023-06-12 13:20] LABS: Allen Test for ABG Passed? Yes, Passed; Blood Gas Collection Site Right Radial; Fractionated Inspired Oxygen 44; HCO3 ABG 24 mmol/L (23-27); Oxygen Saturation ABG 91 % (95-100); PCO2 ABG 33.7 mmHg (35-45); PO2 ABG 58 mmHg (80-100); TCO2 ABG 25 mmol/L (23-27); pH ABG 7.45 (7.35-7.45)
[2023-06-12] MEDS: AZITHROMYCIN 500 MG in DEXTROSE 5% IN WATER 250 ML 250 MG IV (13:23)
--- NOTE | 2023-06-12 14:17 | PM.HP.1 ---
History of Present Illness History of Present Illness Date Patient Seen: 06/12/23 Time Patient Seen: 14:18 Chief complaint: SOB/N/ oxygen is 84 Narrative: 88 y/o F w/ PMHx of TIA, HTN, paroxsymal afib on warfarin, COPD, MGUS, degenerative arthritis w/ multiple joint replacements, spinal stenosis w/ lumbar radiculopathy and shingles who presents to the ER at recommendation of PCP with one day of fatigue and decreased O2 saturation of 83% on at-home pulse ox. Yesterday, Monica noticed that she became more fatigued than usual. She also developed a mild dry cough and had a little bit more difficulty breathing. She first noticed her symptoms at rest, while sitting. Her symptoms became worse with movement, for example when she was entering her vehicle. She has a puls ox at home and noted that her O2 saturation decreased, and was as low as 83%. Although she felt tired, she did not feel sick. The next morning, her forex trader arrived and brought her to the ED. Sleeps with the head of her bed elevated, for the purpose of comfort due to hx of degenerative arthritis and spinal injury. Of note, recently diagnosed with shingles and started taking famciclovir last week. Her vesicular rash was improving with this medication. Hx of COPD without the use of an inhaler. Has never been hospitalized for breathing concerns or hypoxia. She has never smoked. No chest pain, palpitations or leg swelling. No fever or chills. No sputum production or hemoptysis. No pain with breathing. No nausea or vomiting. No diarrhea. No headache, lightheadedness or dizziness. Past medical history: 1. Paroxysmal atrial fibrillation on amiodarone 2. Chronic anticoagulation with Coumadin 3. Monoclonal gammopathy of undetermined significance, stable for years. Followed by Hematology 4. TIA 5. Hypertension 6. Hyperlipidemia 7. Hospitalized in November for sepsis [facility], [facility] Medical History Multiple myeloma not having achieved remission CVA (cerebral vascular accident) Diarrhea Dehydration Atrial fibrillation with RVR Vertigo Atrial fibrillation Acute postoperative pain of knee Surgical History History of bilateral knee replacement Social History household members: none Smoking Status: Never smoker alcohol intake: current Meds Home Medications and Allergies Home Medications Medication Instructions Recorded Confirmed Type cholecalciferol (vitamin D3) 25 1,000 unit PO DAILY ##0 10/01/12 06/12/23 History mcg (1,000 unit) capsule (Vitamin D3) cyanocobalamin (vitamin B-12) 1,000 mcg PO DAILY ##0 10/01/12 06/12/23 History 1,000 mcg tablet (Vitamin B-12) warfarin 5 mg tablet (Coumadin) 2.5 mg PO DAILY ##0 12/14/16 06/12/23 History omega 0-nld-lvw-fish oil 1,000 mg 1,000 mg PO DAILY ##0 04/12/17 06/12/23 History (120 mg-180 mg) capsule (Fish Oil) Ocuvite Vitamin 1 tab PO DAILY 05/16/19 06/12/23 History amiodarone 200 mg tablet 100 mg PO DAILY 01/04/23 06/12/23 History magnesium oxide 400 mg (241.3 mg 400 mg PO DAILY 01/04/23 06/12/23 History magnesium) tablet atorvastatin 10 mg tablet 10 mg PO DAILY 06/12/23 06/12/23 History famciclovir 500 mg tablet 500 mg PO Q8H 06/12/23 06/12/23 History losartan 100 mg tablet 100 mg PO DAILY 06/12/23 06/12/23 History sertraline 50 mg tablet (Zoloft) 75 mg PO DAILY 06/12/23 06/12/23 History Allergies Allergy/AdvReac Type Severity Reaction Status Date / Time hydrochlorothiazide Allergy Severe unknown Verified 01/04/23 10:38 sotalol Allergy Severe unknown Verified 01/04/23 10:38 amoxicillin Allergy Mild BREAK OUT Verified 01/04/23 10:38 ampicillin Allergy Mild BREAK OUT Verified 01/04/23 10:38 cephalexin Allergy Mild BREAK OUT Verified 01/04/23 10:38 piroxicam AdvReac Unknown ITCHING Verified 01/04/23 10:38 Review of Systems Review of Systems Narrative: ROS negative except for what is mentioned above. Exam Vital Signs (past 8 hours): - 06/12/23 09:54 06/12/23 09:54 06/12/23 09:58 Temperature 98.5 F Pulse Rate 84 80 Respiratory Rate 29 H 96 H Blood Pressure 135/68 135/68 Pulse Oximetry 89 L 96 Oxygen Delivery Method Nasal Cannula Nasal Cannula Oxygen Flow Rate 6 6 Fraction of Inspired Oxygen 06/12/23 10:00 06/12/23 10:30 06/12/23 10:54 Temperature Pulse Rate 80 77 78 Respiratory Rate 27 H 21 18 Blood Pressure Pulse Oximetry 88 L 96 93 Oxygen Delivery Method Nasal Cannula Nasal Cannula Oxygen Flow Rate 6 6 Fraction of Inspired Oxygen 44 06/12/23 11:13 06/12/23 11:30 06/12/23 11:31 Temperature Pulse Rate 74 74 Respiratory Rate 29 H 26 H 18 Blood Pressure Pulse Oximetry 91 Oxygen Delivery Method Nasal Cannula Oxygen Flow Rate 4 Fraction of Inspired Oxygen 06/12/23 11:31 06/12/23 11:46 06/12/23 11:46 Temperature Pulse Rate 74 Respiratory Rate 28 H Blood Pressure 120/58 L 128/61 Pulse Oximetry 92 Oxygen Delivery Method Oxygen Flow Rate Fraction of Inspired Oxygen 06/12/23 12:00 06/12/23 12:00 06/12/23 12:15 Temperature Pulse Rate 71 Respiratory Rate 20 Blood Pressure 123/57 L 122/60 Pulse Oximetry 94 Oxygen Delivery Method Oxygen Flow Rate Fraction of Inspired Oxygen 06/12/23 12:15 06/12/23 12:30 06/12/23 12:30 Temperature Pulse Rate 72 71 Respiratory Rate 30 H 20 Blood Pressure 131/63 Pulse Oximetry 93 93 Oxygen Delivery Method Nasal Cannula Oxygen Flow Rate 4 Fraction of Inspired Oxygen 06/12/23 12:45 06/12/23 12:45 06/12/23 13:00 Temperature Pulse Rate 71 Respiratory Rate 26 H Blood Pressure 132/61 129/62 Pulse Oximetry 91 Oxygen Delivery Method Oxygen Flow Rate Fraction of Inspired Oxygen 06/12/23 13:00 06/12/23 13:15 06/12/23 13:15 Temperature Pulse Rate 71 72 Respiratory Rate 24 27 H Blood Pressure 129/64 Pulse Oximetry 92 94 Oxygen Delivery Method Nasal Cannula Oxygen Flow Rate 4 Fraction of Inspired Oxygen Fraction of Inspired Oxygen 44 SaO2/FiO2 Ratio 211 Oxygen Delivery Method Nasal Cannula Oxygen Flow Rate 4 Narrative Exam Narrative: Const: laying down, alert, not in acute distress, afebrile, vital signs stable but heart rate in 100-120s. O2 sat stable from 6L to now 2L by [place]. HEENT: moist mucous membranes, no scleral icterus, no lymphadenopathy Cardio: irregularly irregular rhythm, no friction rub, no JVD, no LE pitting edema Pulm: fine bibasilar crackles, regular work of breathing, no rhonchi or wheezing Abdomen: normal bowel sounds, soft, non-tender, non-distended Skin: warm, dry, no rash on visible skin Neuro: non-focal, alert and oriented x3 Objective Imaging Chest x-ray: Radiologist's impression: Small left pleural effusion. Bibasilar hazy opacity most consistent with atelectasis. CT scan - chest: Radiologist's impression: Bilateral effusions with superimposed consolidations, the latter suggestive of atelectasis although developing pneumonia cannot be excluded. Overall appearance of mild increased vascularity suggestive of edema. No pulmonary embolism. Enlargement of the main pulmonary artery suggestive of pulmonary artery hypertension. Labs 06/13/23 04:20 06/13/23 04:20 Labs: Laboratory Results - last 24 hr 06/12/23 06/12/23 06/12/23 09:50 10:00 10:02 WBC 7.7 RBC 3.49 L Hgb 10.8 L Hct 31.4 L MCV 89.8 MCH 31.1 MCHC 34.6 RDW 14.7 Plt Count 267 Neut % (Auto) 71.7 Lymph % (Auto) 18.2 L [place] % (Auto) 8.7 Eos % (Auto) 0.4 L Baso % (Auto) 1.0 Neut # (Auto) 5500 Lymph # (Auto) 1400 [place] # (Auto) 700 Eos # (Auto) 0 Baso # (Auto) 100 PT 19.8 H INR 1.7 H APTT 42 H D-Dimer 1059 H ABG Sample Site ABG pH ABG pCO2 ABG pO2 ABG HCO3 ABG Total CO2 ABG O2 Saturation ABG Base Excess FiO2 Sodium 135 L Potassium 3.3 L Chloride 106 Carbon Dioxide 25 BUN 21 H Creatinine 1.37 H Estimated GFR 37 L BUN/Creatinine Ratio 15.3 Glucose 142 H Lactate 1.8 Calcium 9.4 Total Bilirubin 1.1 AST 92 H ALT 74 H Alkaline Phosphatase 60 Total Creatine Kinase 137 H Troponin I 0.014 NT-Pro-B Natriuret Pep 2880 H Total Protein 8.6 H Albumin 3.4 L Globulin 5.2 H Albumin/Globulin Ratio 0.7 L Lipase 81 SARS-CoV-2 (PCR) Negative 06/12/23 12:50 WBC RBC Hgb Hct MCV MCH MCHC RDW Plt Count Neut % (Auto) Lymph % (Auto) [place] % (Auto) Eos % (Auto) Baso % (Auto) Neut # (Auto) Lymph # (Auto) [place] # (Auto) Eos # (Auto) Baso # (Auto) PT INR APTT D-Dimer ABG Sample Site Right radial ABG pH 7.45 ABG pCO2 33.7 L ABG pO2 58 L ABG HCO3 24 ABG Total CO2 25 ABG O2 Saturation 91 L ABG Base Excess 0.0 FiO2 44 Sodium Potassium Chloride Carbon Dioxide BUN Creatinine Estimated GFR BUN/Creatinine Ratio Glucose Lactate Calcium Total Bilirubin AST ALT Alkaline Phosphatase Total Creatine Kinase Troponin I NT-Pro-B Natriuret Pep Total Protein Albumin Globulin Albumin/Globulin Ratio Lipase SARS-CoV-2 (PCR) Assessment & Plan Assessment and plan (1) Hypoxia: Status: Acute Plan -admit to hospital for further eval and treatment -diureses with Lasix 40mg IV -empiric abx with ceftriaxone 2000mg and azithromycin 500mg -continue 4L O2 by [place], titrate down as tolerated -continue telemetry -continue home meds -repeat CXR tomorrow -discontinue methylprednisolone and Duoneb -trend labs, including CBC, CMP Assessment & Plan narrative: 88 y/o F w/ PMHx of TIA, HTN, afib on warfarin, COPD, presenting with 1 day of acute hypoxemic respiratory failure. 1. Acute hypoxemic respiratory failure Presenting with fatigue, low O2 saturations and hypoxemia on ABG, most consistent with acute hypoxemic respiratory failure 2/2 bilateral pleural effusions. Most likely etiology of pleural effusion is paroxysmal afib with RVR leading to transient features of acute heart failure. CTA without evidence of PE. No evidence of heart failure on most recent echo in December. Pneumonia less likely without fever or leukocytosis, but cannot rule out. Plan is first diuresis with Lasix. Also started on empiric abx and blood cultures sent. Will continue to trend CBC, CMP. Repeat CXR tomorrow and monitor for clinical improvement. Anticipate discharge in two days. 2. Anemia Stable relative to baseline. Continue to trend blood counts. 3. Acute kidney injury Mildly elevated relative to baseline. Continue to trend CMP. 4. Afib on warfarin Stable. Continue rhythm control with amiodarone. 5. HTN Stable. Continue at-home losartan. 6. MGUS Continue expectant management. 7. Acute on CKD Continue to trend eGFR. 8. Hypomagnesemia Continue at-home magnesium oxide. 9. Depression Continue at-home sertraline. Anticipate patient will be discharged home with current caregiver and supportive family Reviewed code status again with patient and pulse form was filled out again and patient is DNR. 76 minutes was spent with patient and discussing with physicians, nursing meeting with patient and her son, reviewing diagnostic workup in the ER and formulating a plan and documentation
[2023-06-12] MEDS: FUROSEMIDE 40 MG/4 ML VIAL IV (14:48)
[2023-06-12] MEDS: POTASSIUM CHLORIDE 20 MEQ TAB 40 MEQ PO ×2 (17:38→23:16)
--- NOTE | 2023-06-12 18:12 | PC.NURSE ---
Addendum entered by Neeta Pascual R.N. 06/12/23 19:26: Pt's own Famcyclovir obtained and sent to pharmacy. emphasized to patient that she should obtain the bottle when she is discharged. Relayed on information to night RN. Original Note: Patient arrived on floor, VSS, Afib RVR rates 100s-110s - provider aware. O2 turned down from 4L [place] to 2L, sats remain in 90s. Pt resting comfortably in bed with son Sharan visiting. Pt states hospital has Advanced Directive on file, RN unable to find in chart at this time. POLST form recieved from patient and provider - copies made, placed in chart, given to physician, and original returned to patient.
[2023-06-12 19:39] LABS: Adenovirus F 40/41 Not Detected (Not Detect); Astrovirus Not Detected (Not Detect); Campylobacter Not Detected (Not Detect); Clostridium difficile toxin AB Not Detected (Not Detect); Cryptosporidium Not Detected (Not Detect); Cyclospora cayetanensis Not Detected (Not Detect); Entamoeba histolytica Not Detected (Not Detect); Enteroaggregative E.coli Not Detected (Not Detect); Enteropathogenic E.coli Not Detected (Not Detect); Enterotoxigenic E.coli It/st Not Detected (Not Detect); Giardia lamblia Not Detected (Not Detect); Norovirus GI/GII Not Detected (Not Detect); Plesiomonsa shigelloides Not Detected (Not Detect); Rotavirus A Not Detected (Not Detect); Salmonella Not Detected (Not Detect); Sapovirus Not Detected (Not Detect); Shiga-like toxin-prod E.coli Not Detected (Not Detect); Shigella/Enteroinvasive E.coli Not Detected (Not Detect); Vibrio Not Detected (Not Detect); Vibrio cholerae Not Detected (Not Detect); Yersinia enterocolitica Not Detected (Not Detect)
[2023-06-12] MEDS: POLYVINYL ALCOHOL DROPS 1 DROPS EYE-BOTH (20:52)
[2023-06-12] MEDS: ATORVASTATIN 20 MG TABLET 10 MG PO (20:52)
[2023-06-12] MEDS: LOSARTAN 50 MG TABLET 100 MG PO (21:08)
[2023-06-12] MEDS: WARFARIN 5 MG TABLET 2.5 MG PO (21:09)
[2023-06-13] VITALS (8 sets, daily range): BP systolic 111–148; BP diastolic 53–82; PULSE 72–82; RESP 16–19; TEMP 36.3–36.9; O2SAT 93–98
[2023-06-13 05:11] LABS: Add Manual Diff / Slide Review NO; Basophils Absolute Auto 0 /uL (0-100); Basophils Percent Auto 0.1 % (0-2); Eosinophils Absolute Auto 0 /uL (0-450); Lymphocytes Absolute Auto 1200 /uL (1100-4500); Lymphocytes Percent Auto 13.7 % (25-40); Mean Corpuscular HGB Conc 34.4 % (30-36); Mean Corpuscular Volume 90.2 fL (80-100); Monocytes Absolute Auto 200 /uL (0-900); Monocytes Percent Auto 2.5 % (3-14); Neutrophils Absolute Auto 7300 /uL (1500-7000); Neutrophils Percent Auto 83.7 % (50-75); Platelet Count 293 X10^3/uL (150-400); Red Blood Cell Count 3.55 X10^6/uL (4.0-5.2); Red Cell Distribution Width 14.6 % (11.6-14.8); White Blood Cell Count 8.7 X10^3/uL (4.5-11.0)
[2023-06-13 05:21] LABS: Alanine Aminotransferase 73 IU/L (<35); Albumin 3.4 g/dL (3.5-5.0); Albumin Globulin Ratio 0.6 (1.0-2.8); Alkaline Phosphatase 55 U/L (38-126); Aspartate Aminotransferase 76 IU/L (14-36); BUN Creatinine Ratio 20.3 (6-22); Bilirubin Total 0.6 mg/dL (0.2-1.3); Blood Urea Nitrogen 25 mg/dL (7-17); Calcium 9.8 mg/dL (8.4-10.2); Carbon Dioxide 24 mmol/L (22-32); Chloride 106 mmol/L (98-107); Estimated Glomerular Filt Rate 42 mL/min (>60); Globulin 5.4 g/dL (1.7-4.1); Glucose 139 mg/dL (80-110); HEMOLYSIS < 15 (0-50); Potassium 4.5 mmol/L (3.4-5.1); Sodium 136 mmol/L (137-145); Total Protein 8.8 g/dL (6.3-8.2)
--- NOTE | 2023-06-13 07:00 | DI.RAD.S_ITS ---
PROCEDURE: XR CHEST 2V INDICATIONS: hypoxemia TECHNIQUE: 2 views of the chest were acquired. COMPARISON: , CT, CT ANGIO CHEST PE PROTOCOL, 06/12/2023, 10:38. , CR, XR CHEST 1V, 06/12/2023, 10:04. FINDINGS: Surgical changes and devices: None. Lungs and pleura: Small pleural effusions bilaterally. No pneumothorax. Mild bilateral pulmonary interstitial prominence. Mediastinum: Mediastinal contours are normal. Heart size is normal. Bones and chest wall: No suspicious bony abnormalities. Soft tissues appear unremarkable. IMPRESSION: 1. Mild bilateral interstitial prominence and small pleural effusions bilaterally. Differential diagnoses are pulmonary edema versus bilateral pneumonia. Dictated by: Vipul Adams M.D. on 06/13/2023 at 10:29 Approved by: Vipul Adams M.D. on 06/13/2023 at 10:33
--- NOTE | 2023-06-13 08:51 | P.PN_ITS ---
Subjective Subjective Interval history: 88 y/o F w/ PMHx of TIA, HTN, afib on warfarin, COPD, presenting with 1 day of acute hypoxemic respiratory failure. -no acute events overnight -afebrile, vital signs stable on 2L O2 by [place] -sinus rhythm, no events on telemetry -overall Monica is doing well -shares that she slept very comfortably last night -her breathing continues to be stable on oxygen -continues to have a mild persistent dry cough -has not yet attempted to ambulate since admission -maintains a good appetite -shingles rash continues to improve -no chest pain, SOB, palpitations, leg swelling -no fever, chills, nausea, vomiting, diarrhea, abdominal pain -no headaches, lightheadedness, dizziness -no new muscle pain or joint pain Exam Vital Signs (past 8 hours): - 06/13/23 04:00 06/13/23 07:33 Temperature 97.8 F Pulse Rate 72 81 Respiratory Rate 17 Blood Pressure 126/82 Pulse Oximetry 98 93 Oxygen Delivery Method Nasal Cannula Humidification Oxygen Flow Rate 2 2 Fraction of Inspired Oxygen 28 Fraction of Inspired Oxygen 28 SaO2/FiO2 Ratio 332 Oxygen Delivery Method Nasal Cannula,Humidification Oxygen Flow Rate 2 Narrative Exam Narrative: Const: laying down, alert, not in acute distress, afebrile, vital signs stable. O2 sat stable on 2L by [place]. HEENT: moist mucous membranes, no scleral icterus, no lymphadenopathy Cardio: regular rate and rhythm with occasional ectopic beats, no murmurs, gallops or friction rub, no JVD, no LE pitting edema Pulm: fine crackles in L lower lung, regular work of breathing, no rhonchi or wheezing Abdomen: normal bowel sounds, soft, non-tender, non-distended Skin: warm, dry, no rash on visible skin Neuro: non-focal, alert and oriented x3 Objective Labs 06/14/23 04:15 06/14/23 04:15 Labs: Laboratory Results - last 24 hr 06/12/23 06/12/23 06/12/23 09:50 10:00 10:02 WBC 7.7 RBC 3.49 L Hgb 10.8 L Hct 31.4 L MCV 89.8 MCH 31.1 MCHC 34.6 RDW 14.7 Plt Count 267 Neut % (Auto) 71.7 Lymph % (Auto) 18.2 L [place] % (Auto) 8.7 Eos % (Auto) 0.4 L Baso % (Auto) 1.0 Neut # (Auto) 5500 Lymph # (Auto) 1400 [place] # (Auto) 700 Eos # (Auto) 0 Baso # (Auto) 100 PT 19.8 H INR 1.7 H APTT 42 H D-Dimer 1059 H ABG Sample Site ABG pH ABG pCO2 ABG pO2 ABG HCO3 ABG Total CO2 ABG O2 Saturation ABG Base Excess FiO2 Sodium 135 L Potassium 3.3 L Chloride 106 Carbon Dioxide 25 BUN 21 H Creatinine 1.37 H Estimated GFR 37 L BUN/Creatinine Ratio 15.3 Glucose 142 H Lactate 1.8 Calcium 9.4 Total Bilirubin 1.1 AST 92 H ALT 74 H Alkaline Phosphatase 60 Total Creatine Kinase 137 H Troponin I 0.014 NT-Pro-B Natriuret Pep 2880 H Total Protein 8.6 H Albumin 3.4 L Globulin 5.2 H Albumin/Globulin Ratio 0.7 L Lipase 81 Stl C. cayetanensis PCR Stool Rotavirus (PCR) Stool Adenovirus (PCR) Stool Astrovirus (PCR) Stool Cryptosporidium PCR Stl E.coli Shiga Tox PCR St Sh/Enteroin Ecoli PCR Stl Enterotoxigenic E PCR Stool EPEC (PCR) Stl E. histolytica PCR Stool Giardia Lamblia PCR Stool Sapovirus (PCR) Stl P. shigelloides PCR St Y.enterocolitica PCR Stool Vibrio (PCR) Stl Vibrio cholerae PCR Stl Enteroaggr Ecoli PCR Stl Norovirus GI/GII PCR Campylobacter (PCR) C. difficile Tox (PCR) SARS-CoV-2 (PCR) Negative Salmonella (PCR) 06/12/23 06/12/23 06/13/23 12:50 15:25 04:20 WBC 8.7 RBC 3.55 L Hgb 11.0 L Hct 32.0 L MCV 90.2 MCH 31.0 MCHC 34.4 RDW 14.6 Plt Count 293 Neut % (Auto) 83.7 H Lymph % (Auto) 13.7 L [place] % (Auto) 2.5 L Eos % (Auto) 0.0 L Baso % (Auto) 0.1 Neut # (Auto) 7300 H Lymph # (Auto) 1200 [place] # (Auto) 200 Eos # (Auto) 0 Baso # (Auto) 0 PT INR APTT D-Dimer ABG Sample Site Right radial ABG pH 7.45 ABG pCO2 33.7 L ABG pO2 58 L ABG HCO3 24 ABG Total CO2 25 ABG O2 Saturation 91 L ABG Base Excess 0.0 FiO2 44 Sodium 136 L Potassium 4.5 D Chloride 106 Carbon Dioxide 24 BUN 25 H Creatinine 1.23 H Estimated GFR 42 L BUN/Creatinine Ratio 20.3 Glucose 139 H Lactate Calcium 9.8 Total Bilirubin 0.6 AST 76 H ALT 73 H Alkaline Phosphatase 55 Total Creatine Kinase Troponin I NT-Pro-B Natriuret Pep Total Protein 8.8 H Albumin 3.4 L Globulin 5.4 H Albumin/Globulin Ratio 0.6 L Lipase Stl C. cayetanensis PCR Not detected Stool Rotavirus (PCR) Not detected Stool Adenovirus (PCR) Not detected Stool Astrovirus (PCR) Not detected Stool Cryptosporidium PCR Not detected Stl E.coli Shiga Tox PCR Not detected St Sh/Enteroin Ecoli PCR Not detected Stl Enterotoxigenic E PCR Not detected Stool EPEC (PCR) Not detected Stl E. histolytica PCR Not detected Stool Giardia Lamblia PCR Not detected Stool Sapovirus (PCR) Not detected Stl P. shigelloides PCR Not detected St Y.enterocolitica PCR Not detected Stool Vibrio (PCR) Not detected Stl Vibrio cholerae PCR Not detected Stl Enteroaggr Ecoli PCR Not detected Stl Norovirus GI/GII PCR Not detected Campylobacter (PCR) Not detected C. difficile Tox (PCR) Not detected SARS-CoV-2 (PCR) Salmonella (PCR) Not detected PFSH Medical History Multiple myeloma not having achieved remission CVA (cerebral vascular accident) Diarrhea Dehydration Atrial fibrillation with RVR Vertigo Atrial fibrillation Acute postoperative pain of knee Surgical History History of bilateral knee replacement Social History household members: none Smoking Status: Never smoker alcohol intake: current Comment: Past medical history: 1. Paroxysmal atrial fibrillation on amiodarone 2. Chronic anticoagulation with Coumadin 3. Monoclonal gammopathy of undetermined significance, stable for years. Followed by Hematology 4. TIA 5. Hypertension 6. Hyperlipidemia 7. Hospitalized in November for sepsis Assessment & Plan Assessment and plan (1) Hypoxia: Status: Acute Plan -chest xray pending -blood cultures pending -continue empiric abx with ceftriaxone 2000mg and azithromycin 500mg -continue 2L O2 by [place], titrate as tolerated -continue telemetry -continue home meds -physical therapy -trend labs, including CBC, CMP, INR Assessment & Plan narrative: 88 y/o F w/ PMHx of TIA, HTN, afib on warfarin, COPD, MGUS, presenting with 1 day of acute hypoxemic respiratory failure, s/p diuresis and empiric abx, stable on 2L O2. 1. Acute hypoxemic respiratory failure Presented with fatigue, shortness of breath and hypoxemia on ABG, most consistent with acute hypoxemic respiratory failure, with bilateral pleural effusions on imaging. Most likely etiology is paroxysmal afib with RVR leading to transient features of acute heart failure. CTA without evidence of PE. No evidence of heart failure on most recent echo in December. Pneumonia less likely without fever or leukocytosis, but cannot rule out. Pt not currently septic. Pt in sinus rhythm overnight on telemetry. Continues to improve clinically. Repeat chest xray pending. Blood cultures pending, will continue on empiric abx. On 2L O2 by [place], plan is to titrate down as tolerated. Physical therapy ordered. Will trend labs, including CBC, CMP and INR. Anticipate discharge with continued clinical improvement, repeat CXR results, blood culture results and titration of O2 to RA. 2. Anemia, secondary to chronic disease Improved from yesterday. Continue to trend blood counts. 3. Acute kidney injury, acute on chronic kidney disease Mildly elevated relative to baseline. Continue to trend CMP. 4. Afib on warfarin, now in sinus rhythm Stable. Continue rhythm control with amiodarone. 5. HTN Stable. Continue at-home losartan. 6. MGUS Continue expectant management. No acute issues 7. Acute on CKD eGFR improved from yesterday. Continue to trend eGFR. 8. Hypomagnesemia magnesium was normal on admit Continue at-home magnesium oxide. 9. Depression Continue at-home sertraline. T/L/D: none Diet: full diet DVT ppx: on warfarin Discharge: Anticipate patient will be discharged home with current caregiver and supportive family. Re-evaluation in the evening patient was weaned off oxygen and was able to ambulate with physical therapy. Patient is tolerating p.o.. 53 minutes was spent with patient in reviewing chart, discussing with nursing, meeting with patient, formulating plan and documentation Quality VTE Deep Vein Thrombosis/Pulmonary Embolism Present on Admission: No
[2023-06-13] MEDS: FISH OIL 1,000 MG CAPSULE 1000 MG PO (09:46)
[2023-06-13] MEDS: CYANOCOBALAMIN (VITAMIN B-12) 500 MCG TABLET 1000 MCG PO (09:46)
[2023-06-13] MEDS: VIT C/E/ZN/COPPR/LUTEIN/ZEAXAN CAPSULE 1 CAP PO (09:47)
[2023-06-13] MEDS: CHOLECALCIFEROL (VITAMIN D3) 1,000 UNIT TABLET 1000 UNIT PO (09:47)
[2023-06-13] MEDS: MAGNESIUM OXIDE 400 MG TABLET PO (09:47)
[2023-06-13] MEDS: AMIODARONE 200 MG TABLET 100 MG PO (09:47)
[2023-06-13] MEDS: SERTRALINE 50 MG TABLET 75 MG PO (09:47)
[2023-06-13] MEDS: cefTRIAXone 2,000 MG in SODIUM CHLORIDE 0.9% 100 ML 200 MG IV (09:48)
[2023-06-13] MEDS: POLYVINYL ALCOHOL DROPS 1 DROPS EYE-BOTH ×2 (09:52→21:09)
[2023-06-13] MEDS: AZITHROMYCIN 500 MG in DEXTROSE 5% IN WATER 250 ML 250 MG IV (10:54)
--- NOTE | 2023-06-13 11:25 | PC.NURSE ---
Addendum entered by Lynn Tilley R.N. 06/13/23 14:01: Patient is sitting up in her chair and comfortable. Tolerated all antibiotics well. She is on room air and sats are 94-96%. Lung sounds clear. Original Note: Assess- Patient is sitting up in her chair, she is on room air and not having any sob. IV antibiotics infusing and patient is visiting with her son.
--- NOTE | 2023-06-13 14:43 | PT.IIE ---
Current Diagnoses Unspecified atrial fibrillation (06/12/23) Hypoxemia (06/12/23) Surgical History (Last Reviewed 06/12/23 @ 14:18 by Tianna Cartagena MD) History of bilateral knee replacement Medical History (Last Reviewed 06/12/23 @ 18:21 by Tianna Cartagena MD) Acute postoperative pain of knee Atrial fibrillation Atrial fibrillation with RVR CVA (cerebral vascular accident) Dehydration Diarrhea Multiple myeloma not having achieved remission Vertigo Physical Therapy Inpatient Evaluation/Re-Eval M1 PT/OT-IP Prior Functional Status Start: 06/13/23 16:06 Freq: NEEDED Status: Active Protocol: Document 06/13/23 16:06 AB (Rec: 06/13/23 16:31 AB [id number]) Medical Review Prior Functional Status Medical History Reviewed Yes Diet/Fluid Consistency Regular Communication Pt is able to express all needs. Mobility and Gait Pt reports she ambulates 4WW for household and community use. Activities of Daily Living and IADL's Pt is IND with ADLs but has a caregiver that assists her 3x/ week with showering and cleaning. Social History Household Members none Living Arrangements House Number of Floors (Floors) One Floor Number of Stairs To Enter/Railing? 2 MARCELINO with left hand rail Home Environment Walk in Shower Home Equipment Four Wheel Walker,Quad Cane, Raised Toilet Seat w/Armrests, Shower Seat without Backrest, Hand Held Shower,Grab Bars Near Toilet,Grab Bars In Shower Additional Social History Comment Pt reports her daughter can also assist her as needed. M2 PT-IP Current Condition Start: 06/13/23 16:06 Freq: NEEDED Status: Active Protocol: Document 06/13/23 16:06 AB (Rec: 06/13/23 16:31 AB [id number]) Physical Therapy Current Condition Current Condition Evaluation Date 06/13/23 Treatment Diagnosis acute hypoxemic respiratory failure; generalized weakness Onset Date 06/12/23 M3 PT-IP Subjective Start: 06/13/23 16:06 Freq: NEEDED Status: Active Protocol: Document 06/13/23 16:06 AB (Rec: 06/13/23 16:31 AB [id number]) Subjective Physical Therapy Visit Type Type Initial Evaluation Visit Start Time 14:23 Visit Stop Time 14:43 Total Visit Minutes 20 Physical Therapy Visit Comments Patient Comments Pt presents seated in chair with daughter present, and is agreeable to PT evaluation. Therapy Pain Assessment Pain When Pain Assessed At Rest Pain Present Pain Present Denied Pain M4 PT-IP Mobility and Gait Start: 06/13/23 16:06 Freq: NEEDED Status: Active Protocol: Document 06/13/23 16:06 AB (Rec: 06/13/23 16:31 AB [id number]) PT-Bed Mobility Assessment Rolling Type of Rolling Bilateral Level of Assist Independent Supine to Sit Supine to Sit Standby Assistance Sit to Supine Sit to Supine Standby Assistance Scooting Scooting to Edge of Bed Standby Assistance PT-Transfer Assessment Sit to and From Stand Sit to and from Stand Standby Assistance,Use of Upper Extremities Equipment Transfer Assistive Device Gait Belt,Front Wheeled Walker Transfers Transfer Destination Bed,Chair Transfer Technique ambulated Transfer Ability Level of Assist Standby Assistance,Use of Upper Extremities Comments Mobility Comments The pt is able to transfer from bed with stand step pivot technique with SBA and FWW. The pt then performed bed mobility with SBA. She then performed STS with SBA and FWW , then ambulated 50ft with FWW and SBA. The pt demonstrated increased SOB/fatigue and required verbal cues for proper use of FWW. Upon returning to room, the pt sat back in chair with all needs met and call light within reach. RN was notified of findings. Gait Assessment Gait Gait Assistance Required: Standby Assistance Distance (Feet) 50 Assistive Devices Assistive Device Gait Belt,Front Wheeled Walker Gait Deviations General Gait Pattern Decreased Stride Length,Flexed Trunk Factors Limiting Gait Function Factors Limiting Gait Function Decreased Activity Tolerance, Decreased Strength Comments Gait Comments See mobility comments. Stair Climbing Assessment Comments Stair Climbing Comments Not performed due to weakness/ fatigue. PT-Balance Assessment Sitting Balance and Reactions Static Sitting Balance Ability Normal Dynamic Sitting Balance Ability Normal Standing Balance and Reactions Static Standing Balance Ability Good Dynamic Standing Balance Ability Good Device Used FWW M5 PT-IP Objective Assessments Start: 06/13/23 16:06 Freq: NEEDED Status: Active Protocol: Document 06/13/23 16:06 AB (Rec: 06/13/23 16:31 AB [id number]) Orientation Orientation/Cognition Level of Alertness Alert Orientation Name,Age,Birthday,Month,Date, Year,Day of Week,Place, Situation Language Function Ability No Deficits Noted Safety Awareness Understands Safety Issues Memory Description No Deficits Noted Gross Range of Motion Upper Extremity ROM Assessment Within Functional Limits Lower Extremity ROM Assessment Within Functional Limits Strength Upper Extremity Strength Assessment Within Functional Limits Lower Extremity Strength Assessment Within Functional Limits M6 PT-IP Treatment Start: 06/13/23 16:06 Freq: NEEDED Status: Active Protocol: Document 06/13/23 16:06 AB (Rec: 06/13/23 16:31 AB [id number]) Physical Therapy Treatment Education Education Provided Safety Brace Education Patient M7 PT-IP Assessment and Plan Start: 06/13/23 16:06 Freq: NEEDED Status: Active Protocol: Document 06/13/23 16:06 AB (Rec: 06/13/23 16:31 AB [id number]) PT Summary Assessment and Plan Potential Rehabilitation Potential Good Status of Condition at Evaluation Stable Summary Impairments Strength,Balance,Bed Mobility, Transfers,Gait,Activity Tolerance Assessment Summary Monica Rodgers is an 88 year old female patient presenting with generalized weakness due to acute hypoxemic respiratory failure. Currently, her impairments are limiting her ability to perform functional mobility at her PLOF, as she required SBA for all functional mobility, with endurance being her greatest limiting factor. Stairs were not performed today due to weakness and fatigue and should be assessed as tolerated, as well as use of 4WW, to ensure she is able to return home safely. Based on her current level of function, PT recommends discharge to home with assistance. Referral to home health PT or outpatient PT should be made if the pt continues with deficits. The pt would benefit from continued skilled PT at this time. Goals Bed Mobility Goal Independent Transfer Goal Independent,Front Wheeled Walker,Four Wheeled Walker Gait Goal Independent,Front Wheel Walker ,Four Wheel Walker Gait Distance 150 Other Goals Pt to perform transfers independently with LRAD or no AD to show improving functional mobility. Pt to ambulate independently with LRAD to show improving tolerance to activity and endurance. Pt to ascend/descend 2 steps with left hand rail independently to show improving strength. Days to Meet Goals 10 Frequency of Treatment Frequency Of Treatment Once a Day Treatment Plan Physical Therapy Treatment Plan Bed Mobility Training,Transfer Training,Gait Training, Therapeutic Exercise,Balance Retraining,Discharge Planning, Hot or Cold Pack,Neuromuscular Re-ed,Coordination Retraining ,Manual Therapy Other Recommendations and Next Treatment Perform mobility with 4WW to Focus assess safety, ascend/descend steps. Recommendations To Nursing Amount of Assist Needed Standby Assistance Discharge Recommendations PT Discharge Recommendations Home with Assistance Transportation Needs at Discharge Private Vehicle
--- NOTE | 2023-06-13 18:22 | CM.DPNOTE ---
DCP Note CARRY IN WORKER reviewed EMR. Patient is a 88yo F here following hypoxia/SOB. CARRY IN WORKER unable to meet with today due to triaging needs. Per PT eval, rec home with assistance. Per PT note, patient is indep with ADLs but has caregivers that assist her 3x/week with showering and cleaning. Per H&P, provider anticipates Dc home with caregivers and supportive family. Anticipate discharge 06/14. CARRY IN WORKER received copy of assessment and care plan from Home instead. CARRY IN WORKER received call from Imani, day care teacher, at home instead. (ph [phone]). Imani reports patient is indep for they most part and they assist with cleaning and showering. Imani requested to be informed at patient's discharge. CARRY IN WORKER unable to meet with patient today due to triaging needs. Plan: likely home with Home instead caregivers and family support. CM team will continue to follow as needed. LEVI Miller
[2023-06-13] MEDS: LOSARTAN 50 MG TABLET 100 MG PO (21:07)
[2023-06-13] MEDS: ATORVASTATIN 20 MG TABLET 10 MG PO (21:07)
[2023-06-13] MEDS: WARFARIN 5 MG TABLET 2.5 MG PO (21:09)
[2023-06-14] VITALS: BP 140/77; PULSE 82; RESP 18; TEMP 36.2; O2SAT 93
[2023-06-14 04:00] VITALS: BP 143/62; PULSE 88; RESP 19; TEMP 36.1; O2SAT 93
[2023-06-14 04:49] LABS: INR 2.1 (0.9-1.3); Prothrombin Time 24.1 SECONDS (10.1-12.7)
[2023-06-14 04:55] LABS: Alanine Aminotransferase 109 IU/L (<35); Albumin 3.2 g/dL (3.5-5.0); Albumin Globulin Ratio 0.6 (1.0-2.8); Alkaline Phosphatase 62 U/L (38-126); Aspartate Aminotransferase 110 IU/L (14-36); BUN Creatinine Ratio 20.6 (6-22); Bilirubin Total 0.5 mg/dL (0.2-1.3); Blood Urea Nitrogen 20 mg/dL (7-17); Calcium 9.5 mg/dL (8.4-10.2); Carbon Dioxide 24 mmol/L (22-32); Chloride 107 mmol/L (98-107); Estimated Glomerular Filt Rate 56 mL/min (>60); Globulin 5.2 g/dL (1.7-4.1); Glucose 99 mg/dL (80-110); HEMOLYSIS < 15 (0-50); Potassium 3.7 mmol/L (3.4-5.1); Sodium 138 mmol/L (137-145); Total Protein 8.4 g/dL (6.3-8.2)
[2023-06-14 04:57] LABS: Add Manual Diff / Slide Review NO; Basophils Absolute Auto 0 /uL (0-100); Basophils Percent Auto 0.4 % (0-2); Eosinophils Absolute Auto 100 /uL (0-450); Hematocrit 32.1 % (36-46); Hemoglobin 10.9 g/dL (12.0-16.0); Lymphocytes Absolute Auto 1500 /uL (1100-4500); Lymphocytes Percent Auto 17.5 % (25-40); Mean Corpuscular HGB Conc 34.1 % (30-36); Mean Corpuscular Hemoglobin 30.9 PG (26-34); Mean Corpuscular Volume 90.6 fL (80-100); Monocytes Absolute Auto 400 /uL (0-900); Monocytes Percent Auto 4.5 % (3-14); Neutrophils Absolute Auto 6600 /uL (1500-7000); Neutrophils Percent Auto 76.6 % (50-75); Platelet Count 328 X10^3/uL (150-400); Red Blood Cell Count 3.54 X10^6/uL (4.0-5.2); Red Cell Distribution Width 14.9 % (11.6-14.8); White Blood Cell Count 8.6 X10^3/uL (4.5-11.0)
[2023-06-14 08:03] VITALS: BP 143/77; PULSE 80; RESP 18; TEMP 36.5; O2SAT 96
[2023-06-14] MEDS: SERTRALINE 50 MG TABLET 75 MG PO (09:32)
[2023-06-14] MEDS: MAGNESIUM OXIDE 400 MG TABLET PO (09:32)
[2023-06-14] MEDS: CHOLECALCIFEROL (VITAMIN D3) 1,000 UNIT TABLET 1000 UNIT PO (09:32)
[2023-06-14] MEDS: FISH OIL 1,000 MG CAPSULE 1000 MG PO (09:32)
[2023-06-14] MEDS: CYANOCOBALAMIN (VITAMIN B-12) 500 MCG TABLET 1000 MCG PO (09:33)
[2023-06-14] MEDS: VIT C/E/ZN/COPPR/LUTEIN/ZEAXAN CAPSULE 1 CAP PO (09:33)
[2023-06-14] MEDS: AMIODARONE 200 MG TABLET 100 MG PO (09:33)
[2023-06-14] MEDS: POLYVINYL ALCOHOL DROPS 1 DROPS EYE-BOTH (09:34)
--- NOTE | 2023-06-14 10:12 | P.DS_ITS ---
History of Present Illness History of Present Illness Date Patient Seen: 06/14/23 Time Patient Seen: 10:13 Chief complaint: SOB/N/ oxygen is 84 Narrative: 88 y/o F w/ PMHx of TIA, HTN, paroxsymal afib on warfarin, COPD, MGUS, degenerative arthritis w/ multiple joint replacements, spinal stenosis w/ lumbar radiculopathy and shingles who presents to the ER at recommendation of PCP with one day of fatigue and decreased O2 saturation of 83% on at-home pulse ox. Yesterday, Monica noticed that she became more fatigued than usual. She also developed a mild dry cough and had a little bit more difficulty breathing. She first noticed her symptoms at rest, while sitting. Her symptoms became worse with movement, for example when she was entering her vehicle. She has a puls ox at home and noted that her O2 saturation decreased, and was as low as 83%. Although she felt tired, she did not feel sick. The next morning, her dialysis clinical manager arrived and brought her to the ED. Sleeps with the head of her bed elevated, for the purpose of comfort due to hx of degenerative arthritis and spinal injury. Of note, recently diagnosed with shingles and started taking famciclovir last week. Her vesicular rash was improving with this medication. Hx of COPD without the use of an inhaler. Has never been hospitalized for breathing concerns or hypoxia. She has never smoked. No chest pain, palpitations or leg swelling. No fever or chills. No sputum production or hemoptysis. No pain with breathing. No nausea or vomiting. No diarrhea. No headache, lightheadedness or dizziness. Past medical history: 1. Paroxysmal atrial fibrillation on amiodarone 2. Chronic anticoagulation with Coumadin 3. Monoclonal gammopathy of undetermined significance, stable for years. Followed by Hematology 4. TIA 5. Hypertension 6. Hyperlipidemia 7. Hospitalized in November for sepsis Discharge Providers Provider Date of admission: 06/12/23 12:28 Discharge Date: 06/14/23 Primary care physician: Tianan Cartagena MD Consults: 06/12/23 17:06 Consult to Pastoral Services Routine Comment: per pt request 06/12/23 18:13 Consult to Physical Therapy Evaluate & Treat Comment: Physician Instructions: Evaluate and Treat Discharge provider: Tianna Cartagena MD Summary Hospital Course Discharge Diagnosis: Hypoxemia of unclear etiology question AFib with RVR causing heart failure with preserved ejection fraction versus community-acquired pneumonia, treated for both and improved AFib with RVR converted to sinus rhythm stable on amiodarone with well- controlled rate Hypertension MGUS Hyperlipidemia Hospital Course: Patient presents to the hospital with hypoxemia. In the ER was requiring 6 L of nasal cannula oxygen with a tentative diagnosis of community-acquired pneumonia. Patient was given IV ceftriaxone and azithromycin. Patient was brought to the floor and was quickly weaned to 2 L nasal cannula oxygen ABG did not show any hypercapnia. Normal PH. No fever, no leukocytosis, chest x-ray and CT scan showed no PE but bibasilar pleural effusions. Patient had echo in December that showed normal EF. Patient treated empirically for pneumonia was quickly weaned off to room air. Patient received 40 mg of IV Lasix with good diuresis and I think this mainly improved her oxygenation. Patient is discharged home in stable condition on hospital day 3. With 2 more days of azithromycin, 5 days of Lasix 20 mg p.o. and all her home medication she will follow up with me next Monday at 9:15 a.m.. Exam Vital Signs (past 8 hours): - 06/14/23 04:00 06/14/23 08:03 Temperature 97.0 F L 97.7 F Pulse Rate 88 80 Respiratory Rate 19 18 Blood Pressure 143/62 H 143/77 H Pulse Oximetry 93 96 Oxygen Flow Rate 0 0 Fraction of Inspired Oxygen 28 SaO2/FiO2 Ratio 332 Oxygen Delivery Method Nasal Cannula,Humidification Oxygen Flow Rate 0 Narrative Exam Narrative: Afebrile vital signs are stable stable on room air sitting in hospital bed in no apparent distress HEENT unremarkable Neck is supple Chest: Bibasilar crackles but otherwise lungs are clear Cor regular rate and rhythm with distant S1-S2 Abdomen positive bowel sounds, soft, nontender Extremities no edema Neurologic exam nonfocal Objective Labs 06/14/23 04:15 06/14/23 04:15 Labs: Laboratory Results - last 24 hr 06/13/23 06/14/23 12:21 04:15 WBC 8.6 RBC 3.54 L Hgb 10.9 L Hct 32.1 L MCV 90.6 MCH 30.9 MCHC 34.1 RDW 14.9 H Plt Count 328 Neut % (Auto) 76.6 H Lymph % (Auto) 17.5 L Osborne % (Auto) 4.5 Eos % (Auto) 1.0 L Baso % (Auto) 0.4 Neut # (Auto) 6600 Lymph # (Auto) 1500 Osborne # (Auto) 400 Eos # (Auto) 100 Baso # (Auto) 0 PT 23.0 H 24.1 H INR 2.0 H 2.1 H Sodium 138 Potassium 3.7 Chloride 107 Carbon Dioxide 24 BUN 20 H Creatinine 0.97 Estimated GFR 56 L BUN/Creatinine Ratio 20.6 Glucose 99 Calcium 9.5 Total Bilirubin 0.5 AST 110 H ALT 109 H Alkaline Phosphatase 62 Total Protein 8.4 H Albumin 3.2 L Globulin 5.2 H Albumin/Globulin Ratio 0.6 L PFSH Medical History Multiple myeloma not having achieved remission CVA (cerebral vascular accident) Diarrhea Dehydration Atrial fibrillation with RVR Vertigo Atrial fibrillation Acute postoperative pain of knee Surgical History History of bilateral knee replacement Social History household members: none Smoking Status: Never smoker alcohol intake: current Discharge Assessment & Plan Assessment and Plan Assessment: Hypoxemia of unclear etiology question AFib with RVR causing heart failure with preserved ejection fraction versus community-acquired pneumonia, treated for both and improved AFib with RVR converted to sinus rhythm stable on amiodarone with well- controlled rate Hypertension MGUS Hyperlipidemia Plan of Treatment: Discharge to home Will do 2 days of azithromycin at 500 mg daily. We will stop cephalosporin due to preliminary blood cultures are negative and patient with a history previously of cephalosporin allergy. She received 2 days of ceftriaxone. I have a low index of suspicion that this was actually a pneumonia. More likely heart failure with preserved ejection fraction due to AFib with RVR. Will see her back on Monday at 9:15 a.m. Will do 5 days of Lasix 20 mg daily. Will continue other same medications. Azithromycin, Lasix, magnesium was sent to her pharmacy She will call or come in with any concerns in the meantime. 36 minutes was spent with patient in discharge, discussing with nursing, formulating a plan and documentation Discharge Plan Discharge Plan Patient Disposition: Home Discharge orders & Medications Prescriptions: New azithromycin 500 mg tablet 500 mg PO DAILY 3 Days Qty: 3 0RF Rx Instructions: start on day 2 of therapy furosemide [Lasix] 20 mg tablet 20 mg PO DAILY Qty: 5 0RF Continued cyanocobalamin (vitamin B-12) [Vitamin B-12] 1,000 mcg Tablet 1,000 mcg PO DAILY Qty: 0 cholecalciferol (vitamin D3) [Vitamin D3] 1,000 unit Capsule 1,000 unit PO DAILY Qty: 0 warfarin [Coumadin] 5 MG tablet 2.5 mg PO DAILY Qty: 0 Patient Comments: PATIENT TOOK 2.5 MG 10/07 Rx Instructions: 2.5mg omega 3-[id number]-fish oil [Fish Oil] 1,000 MG capsule 1,000 mg PO DAILY Qty: 0 Ocuvite Vitamin 1 tab PO DAILY famciclovir 500 mg Tablet 500 mg PO Q8H atorvastatin 10 mg tablet 10 mg PO DAILY losartan 100 mg tablet 100 mg PO DAILY sertraline [Zoloft] 50 mg tablet 75 mg PO DAILY magnesium oxide 400 mg (241.3 mg magnesium) tablet 400 mg PO DAILY Qty: 90 0RF amiodarone 200 mg tablet 100 mg PO DAILY Follow up/Referrals: Tianna Cartagena MD [Primary Care Provider] - Discharge Health Status Multidrug resistant organism: No MDRO Diet/Activity/Treatments Diet: Diet as Tolerated and Low-sodium Visit Report/Discharge Packet Stand Alone Forms: Patient Portal/API, Stroke Signs & Symptoms Discharge Data Primary Care Provider: Tianna Cartagena Quality VTE Deep Vein Thrombosis/Pulmonary Embolism Present on Admission: No
[2023-06-14] MEDS: AZITHROMYCIN 250 MG TABLET 500 MG PO (11:04)
--- NOTE | 2023-06-14 11:37 | PT.IPTN ---
Current Diagnoses Unspecified atrial fibrillation (06/12/23) Hypoxemia (06/12/23) Physical Therapy Treatment Note M2 PT-IP Current Condition Start: 06/13/23 16:06 Freq: NEEDED Status: Active Protocol: Document 06/13/23 16:06 AB (Rec: 06/13/23 16:31 AB [id number]) Physical Therapy Current Condition Current Condition Evaluation Date 06/13/23 Treatment Diagnosis acute hypoxemic respiratory failure; generalized weakness Onset Date 06/12/23 M3 PT-IP Subjective Start: 06/13/23 16:06 Freq: NEEDED Status: Active Protocol: Document 06/14/23 12:25 AB (Rec: 06/14/23 12:35 AB [id number]) Subjective Physical Therapy Visit Type Type Treatment Note Visit Start Time 11:22 Visit Stop Time 11:37 Total Visit Minutes 15 Physical Therapy Visit Comments Patient Comments Pt presents seated in chair and is agreeable to PT session . Therapy Pain Assessment Pain When Pain Assessed At Rest Pain Present Pain Present Denied Pain M4 PT-IP Mobility and Gait Start: 06/13/23 16:06 Freq: NEEDED Status: Active Protocol: Document 06/14/23 12:25 AB (Rec: 06/14/23 12:35 AB [id number]) PT-Transfer Assessment Sit to and From Stand Sit to and from Stand Independent,Use of Upper Extremities Equipment Transfer Assistive Device Gait Belt,Front Wheeled Walker Transfers Transfer Destination Chair Transfer Technique ambulated Transfer Ability Level of Assist Independent,Use of Upper Extremities Comments Mobility Comments The pt performed STS with independence, demonstrating good safety awareness and proper hand placement. The pt performed gait training with 4WW, demonstrating no significant gait abnormalities and good safety awareness when walking 120ft x2 with SBA. She was also able to perform stairs as below. Upon returning to room, the pt requested to return to chair and rest, stating she is feeling fatigued after the long walk and stairs. The pt was left in chair with call light within reach and all needs met. Gait Assessment Gait Gait Assistance Required: Standby Assistance Distance (Feet) 120 Assistive Devices Assistive Device Gait Belt,4 Wheeled Walker Gait Deviations General Gait Pattern Within Normal Limits Factors Limiting Gait Function Factors Limiting Gait Function Decreased Activity Tolerance, Decreased Strength Comments Gait Comments See mobility comments. Stair Climbing Assessment Evaluation Level of Assist On Stairs Standby Assistance Devices Stair Climbing Assistive Devices Left Railing,Right Railing Technique/Endurance Stair Climbing Direction Ascend and Descend Stair Climbing Technique Step to Step Number of Steps Climbed 3 Stair Climbing Set # Repetitions (reps) 1 PT-Balance Assessment Sitting Balance and Reactions Static Sitting Balance Ability Normal Dynamic Sitting Balance Ability Normal Standing Balance and Reactions Static Standing Balance Ability Good Dynamic Standing Balance Ability Good Device Used 4WW M5 PT-IP Objective Assessments Start: 06/13/23 16:06 Freq: NEEDED Status: Active Protocol: Document 06/13/23 16:06 AB (Rec: 06/13/23 16:31 AB [id number]) Orientation Orientation/Cognition Level of Alertness Alert Orientation Name,Age,Birthday,Month,Date, Year,Day of Week,Place, Situation Language Function Ability No Deficits Noted Safety Awareness Understands Safety Issues Memory Description No Deficits Noted Gross Range of Motion Upper Extremity ROM Assessment Within Functional Limits Lower Extremity ROM Assessment Within Functional Limits Strength Upper Extremity Strength Assessment Within Functional Limits Lower Extremity Strength Assessment Within Functional Limits M6 PT-IP Treatment Start: 06/13/23 16:06 Freq: NEEDED Status: Active Protocol: Document 06/14/23 12:25 AB (Rec: 06/14/23 12:35 AB [id number]) Physical Therapy Treatment Education Education Provided Safety Brace Education Patient M7 PT-IP Assessment and Plan Start: 06/13/23 16:06 Freq: NEEDED Status: Active Protocol: Document 06/14/23 12:25 AB (Rec: 06/14/23 12:35 AB [id number]) PT Summary Assessment and Plan Potential Rehabilitation Potential Good Status of Condition at Evaluation Stable Summary Impairments Strength,Balance,Bed Mobility, Transfers,Gait,Activity Tolerance Assessment Summary The pt demonstrates much improved tolerance to activity today, as she is able to ambulate 120ft x2 with 4WW and SBA, and is able to ascend 3 steps using bilateral hand rails. The pt appears to be at her PLOF and has met goals for PT, therefore will be discharged from PT at this time. Based on her improvement , PT continues to recommend discharge to home with assistance, with referral to HHPT or outpatient PT as indicated to continue improving any remaining deficits. PT should be reconsulted if there is a change in status. Goals Bed Mobility Goal Independent Transfer Goal Independent,Front Wheeled Walker,Four Wheeled Walker Gait Goal Independent,Front Wheel Walker ,Four Wheel Walker Gait Distance 150 Other Goals Pt to perform transfers independently with LRAD or no AD to show improving functional mobility. Pt to ambulate independently with LRAD to show improving tolerance to activity and endurance. Pt to ascend/descend 2 steps with left hand rail independently to show improving strength. Days to Meet Goals 10 Frequency of Treatment Frequency Of Treatment Discharge Treatment Plan Physical Therapy Treatment Plan Bed Mobility Training,Transfer Training,Gait Training, Therapeutic Exercise,Balance Retraining,Discharge Planning, Hot or Cold Pack,Neuromuscular Re-ed,Coordination Retraining ,Manual Therapy Recommendations To Nursing Amount of Assist Needed Standby Assistance Discharge Recommendations PT Discharge Recommendations Home with Assistance,Home Health,Outpatient PT Transportation Needs at Discharge Private Vehicle
--- NOTE | 2023-06-14 12:53 | PC.NURSE ---
Pt discharged home at 1235, escorted off floor in wheelchair, accompanied by hospital staff. IV removed, tele d/c'd, discharge teaching completed including new medications and worsening symptoms. Questions and concerns addressed. All belongings left with patient.
== END 2023-06-14 12:55 | disposition home or self-care (01) | DRG 308 ==
LOC: ED 10:46 → AC 12:29
PROVIDERS: Admitting Provider Family Medicine; Emergency Provider Emergency Medicine; Family Provider Family Medicine; PCP Family Medicine; Referring Provider Emergency Medicine; Visit Provider Family Medicine
DX: I48.0 Paroxysmal atrial fibrillation (principal); I50.31 Acute diastolic (congestive) heart failure; J96.01 Acute respiratory failure with hypoxia; J18.9 Pneumonia, unspecified organism; I13.0 Hypertensive heart and chronic kidney disease with heart failure and stage 1 through stage 4 chronic kidney disease, or unspecified chronic kidney disease; I48.91 Unspecified atrial fibrillation; D47.2 Monoclonal gammopathy; N18.9 Chronic kidney disease, unspecified; E83.42 Hypomagnesemia; F32.A Depression, unspecified; D63.1 Anemia in chronic kidney disease; Z79.01 Long term (current) use of anticoagulants; Z66 Do not resuscitate
CPT/HCPCS: 36415; 36600; 71045; 71046; 71275; 80053; 82550; 82805; 83605; 83690; 83880; 84484; 85025; 85379; 85610; 85730; 87040; 87507; 87635; 93005; 93010; 94762; 96365; 96367; 96375; 97161; 97530; 99285; C9803; A9270; J0696; J1940; J2930; Q9967

== ENCOUNTER → 2023-06-21 10:16 | Outpatient (ROUT) | payer MEDICARE, OTHER, SELFPAY ==
[2023-06-12 12:41] VITALS: BMI 26.4
[2023-06-21 10:31] LABS: INR 2.1 (0.9-1.3)
[2023-06-21 10:32] LABS: Prothrombin Time 23.8 SECONDS (9.4-12.5)
== END ==
PROVIDERS: Family Provider Family Medicine; PCP Family Medicine; Visit Provider Family Medicine
DX: I48.0 Paroxysmal atrial fibrillation (principal); Z79.01 Long term (current) use of anticoagulants
CPT/HCPCS: 85610

== ENCOUNTER → 2023-07-12 10:41 | Outpatient (ROUT) | payer MEDICARE, OTHER, SELFPAY ==
[2023-06-12 12:41] VITALS: BMI 26.4
[2023-07-12 10:59] LABS: INR 2.4 (0.9-1.3); Prothrombin Time 27.7 SECONDS (9.4-12.5)
== END ==
PROVIDERS: Family Provider Family Medicine; PCP Family Medicine; Visit Provider Family Medicine
DX: I48.0 Paroxysmal atrial fibrillation (principal); Z79.01 Long term (current) use of anticoagulants
CPT/HCPCS: 85610

== ENCOUNTER → 2023-07-14 10:00 | Outpatient (CLI) | payer MEDICARE, OTHER, SELFPAY ==
[2023-06-12 12:41] VITALS: BMI 26.4
--- NOTE | 2023-07-14 | DI.RAD.S_ITS ---
PROCEDURE: XR CHEST 2V INDICATIONS: Hypoxemia TECHNIQUE: 2 views of the chest were acquired. COMPARISON: [facility], CT, CT ANGIO CHEST PE PROTOCOL, 06/12/2023, 10:38. [facility], CR, XR CHEST 2V, 06/13/2023, 6:15. [facility], CR, XR CHEST 1V, 06/12/2023, 10:04. FINDINGS: Surgical changes and devices: None. Lungs and pleura: Prominent pulmonary markings with cephalization in the upper lobes. No consolidation. No pneumothorax. No significant pleural effusion. Mediastinum: Mediastinal contours are normal. Heart size is normal. Bones and chest wall: No suspicious bony abnormalities. Soft tissues appear unremarkable. IMPRESSION: Suspect pulmonary vasculature engorgement. Dictated by: Tk Norton M.D. on 07/14/2023 at 11:52 Approved by: Tk Norton M.D. on 07/14/2023 at 11:54
== END ==
PROVIDERS: Family Provider Family Medicine; PCP Family Medicine; Referring Provider Family Medicine; Visit Provider Family Medicine
DX: R09.02 Hypoxemia (principal)
CPT/HCPCS: 71046

== ENCOUNTER → 2023-08-04 10:38 | Outpatient (ROUT) | payer MEDICARE, OTHER, SELFPAY ==
[2023-06-12 12:41] VITALS: BMI 26.4
[2023-08-04 10:50] LABS: INR 1.9 (0.9-1.3)
== END ==
PROVIDERS: Family Provider Family Medicine; PCP Family Medicine; Visit Provider Family Medicine
DX: I48.0 Paroxysmal atrial fibrillation (principal); Z79.01 Long term (current) use of anticoagulants
CPT/HCPCS: 85610

== ENCOUNTER → 2023-08-23 11:09 | Outpatient (ROUT) | payer MEDICARE, OTHER, SELFPAY ==
[2023-06-12 12:41] VITALS: BMI 26.4
[2023-08-23 11:25] LABS: INR 1.4 (0.9-1.3); Prothrombin Time 15.9 SECONDS (9.4-12.5)
== END ==
PROVIDERS: Family Provider Family Medicine; PCP Family Medicine; Visit Provider Family Medicine
DX: I48.0 Paroxysmal atrial fibrillation (principal); Z79.01 Long term (current) use of anticoagulants
CPT/HCPCS: 85610

== ENCOUNTER → 2023-09-04 09:34 | Outpatient (ROUT) | payer MEDICARE, OTHER, SELFPAY ==
[2023-06-12 12:41] VITALS: BMI 26.4
[2023-09-04 09:39] LABS: INR 1.8 (0.9-1.3); Prothrombin Time 21.2 SECONDS (9.4-12.5)
== END ==
PROVIDERS: Family Provider Family Medicine; PCP Family Medicine; Visit Provider Family Medicine
DX: I48.0 Paroxysmal atrial fibrillation (principal); Z79.01 Long term (current) use of anticoagulants
CPT/HCPCS: 85610

== ENCOUNTER → 2023-09-13 13:26 | Outpatient (ROUT) | payer MEDICARE, OTHER, SELFPAY ==
[2023-06-12 12:41] VITALS: BMI 26.4
[2023-09-13 13:37] LABS: INR 2.1 (0.9-1.3); Prothrombin Time 24.8 SECONDS (9.4-12.5)
== END ==
PROVIDERS: Family Provider Family Medicine; PCP Family Medicine; Visit Provider Family Medicine
DX: I48.0 Paroxysmal atrial fibrillation (principal); Z79.01 Long term (current) use of anticoagulants
CPT/HCPCS: 85610

== ENCOUNTER → 2023-09-27 10:47 | Outpatient (ROUT) | payer MEDICARE, OTHER, SELFPAY ==
[2023-06-12 12:41] VITALS: BMI 26.4
== END ==
PROVIDERS: Family Provider Family Medicine; PCP Family Medicine; Visit Provider Family Medicine
DX: I48.0 Paroxysmal atrial fibrillation (principal); Z79.01 Long term (current) use of anticoagulants
CPT/HCPCS: 85610

== ENCOUNTER → 2023-12-22 11:44 | Outpatient (ROUT) | payer MEDICARE, OTHER, SELFPAY ==
[2023-06-12 12:41] VITALS: BMI 26.4
[2023-12-22 11:57] LABS: INR 2.9 (0.9-1.3); Prothrombin Time 34.2 SECONDS (9.4-12.5)
== END ==
LOC: LAB 11:44
PROVIDERS: Family Provider Family Medicine; PCP Family Medicine; Visit Provider Family Medicine
DX: I48.0 Paroxysmal atrial fibrillation (principal); Z79.01 Long term (current) use of anticoagulants
CPT/HCPCS: 85610

== ENCOUNTER → 2024-01-03 09:51 | Outpatient (ROUT) | payer MEDICARE, OTHER, SELFPAY ==
[2023-06-12 12:41] VITALS: BMI 26.4
[2024-01-03 10:05] LABS: INR 2.5 (0.9-1.3); Prothrombin Time 29.3 SECONDS (9.4-12.5)
== END ==
PROVIDERS: Family Provider Family Medicine; PCP Family Medicine; Visit Provider Family Medicine
DX: I48.0 Paroxysmal atrial fibrillation (principal); Z79.01 Long term (current) use of anticoagulants
CPT/HCPCS: 85610

== ENCOUNTER → 2024-01-19 10:38 | Outpatient (ROUT) | payer MEDICARE, OTHER, SELFPAY ==
[2023-06-12 12:41] VITALS: BMI 26.4
[2024-01-19 11:02] LABS: Prothrombin Time 34.5 SECONDS (9.4-12.5)
== END ==
PROVIDERS: Family Provider Family Medicine; PCP Family Medicine; Visit Provider Family Medicine
DX: I48.0 Paroxysmal atrial fibrillation (principal); Z79.01 Long term (current) use of anticoagulants
CPT/HCPCS: 85610

== ENCOUNTER → 2024-01-29 09:42 | Outpatient (ROUT) | payer MEDICARE, OTHER, SELFPAY ==
[2023-06-12 12:41] VITALS: BMI 26.4
[2024-01-29 09:50] LABS: INR 2.1 (0.9-1.3); Prothrombin Time 24.8 SECONDS (9.4-12.5)
== END ==
PROVIDERS: Family Provider Family Medicine; PCP Family Medicine; Visit Provider Family Medicine
DX: I48.0 Paroxysmal atrial fibrillation (principal); Z79.01 Long term (current) use of anticoagulants
CPT/HCPCS: 85610

== ENCOUNTER → 2024-02-16 09:48 | Outpatient (ROUT) | payer MEDICARE, OTHER, SELFPAY ==
[2023-06-12 12:41] VITALS: BMI 26.4
[2024-02-16 10:13] LABS: INR 2.3 (0.9-1.3); Prothrombin Time 26.5 SECONDS (9.4-12.5)
== END ==
PROVIDERS: Family Provider Family Medicine; PCP Family Medicine; Visit Provider Family Medicine
DX: I48.0 Paroxysmal atrial fibrillation (principal); Z79.01 Long term (current) use of anticoagulants
CPT/HCPCS: 85610

== ENCOUNTER → 2024-03-04 10:11 | Outpatient (ROUT) | payer MEDICARE, OTHER, SELFPAY ==
[2023-06-12 12:41] VITALS: BMI 26.4
[2024-03-04 10:29] LABS: INR 2.2 (0.9-1.3); Prothrombin Time 25.6 SECONDS (9.4-12.5)
== END ==
PROVIDERS: Family Provider Family Medicine; PCP Family Medicine; Visit Provider Family Medicine
DX: I48.0 Paroxysmal atrial fibrillation (principal); Z79.01 Long term (current) use of anticoagulants
CPT/HCPCS: 85610

== ENCOUNTER → 2024-03-18 11:08 | Outpatient (ROUT) | payer MEDICARE, OTHER, SELFPAY ==
[2023-06-12 12:41] VITALS: BMI 26.4
[2024-03-18 11:22] LABS: INR 2.8 (0.9-1.3); Prothrombin Time 32.7 SECONDS (9.4-12.5)
== END ==
PROVIDERS: Family Provider Family Medicine; PCP Family Medicine; Visit Provider Family Medicine
DX: I48.0 Paroxysmal atrial fibrillation (principal); Z79.01 Long term (current) use of anticoagulants
CPT/HCPCS: 85610

== ENCOUNTER → 2024-04-22 09:42 | Outpatient (ROUT) | payer MEDICARE, OTHER, SELFPAY ==
[2023-06-12 12:41] VITALS: BMI 26.4
[2024-04-22 10:01] LABS: INR 2.8 (0.9-1.3); Prothrombin Time 32.8 SECONDS (9.4-12.5)
== END ==
PROVIDERS: Family Provider Family Medicine; PCP Family Medicine; Visit Provider Family Medicine
DX: I48.0 Paroxysmal atrial fibrillation (principal); Z79.01 Long term (current) use of anticoagulants
CPT/HCPCS: 85610

== ENCOUNTER → 2024-05-27 12:03 | Outpatient (ROUT) | payer MEDICARE, OTHER, SELFPAY ==
[2023-06-12 12:41] VITALS: BMI 26.4
[2024-05-27 12:21] LABS: INR 3.3 (0.9-1.3); Prothrombin Time 37.8 SECONDS (9.4-12.5)
== END ==
PROVIDERS: Family Provider Family Medicine; PCP Family Medicine; Visit Provider Family Medicine
DX: I48.0 Paroxysmal atrial fibrillation (principal); Z79.01 Long term (current) use of anticoagulants
CPT/HCPCS: 85610

== ENCOUNTER → 2024-07-08 11:02 | Outpatient (ROUT) | payer MEDICARE, OTHER, SELFPAY ==
[2024-06-30 18:13] VITALS: BMI 27.8
[2024-07-08 12:25] LABS: Prothrombin Time 21.9 SECONDS (9.4-12.5)
== END ==
PROVIDERS: Family Provider Family Medicine; PCP Family Medicine; Visit Provider Family Medicine
DX: I48.0 Paroxysmal atrial fibrillation (principal); R23.3 Spontaneous ecchymoses
CPT/HCPCS: 85610

== ENCOUNTER → 2024-07-22 18:13 | Outpatient (ROUT) | payer MEDICARE, OTHER, SELFPAY ==
[2024-07-09 19:17] VITALS: BMI 29.0
[2024-07-22 18:26] LABS: INR 2.2 (0.9-1.3); Prothrombin Time 24.7 SECONDS (9.4-12.5)
== END ==
PROVIDERS: Family Provider Family Medicine; PCP Family Medicine; Visit Provider Family Medicine
DX: I48.0 Paroxysmal atrial fibrillation (principal); Z79.01 Long term (current) use of anticoagulants
CPT/HCPCS: 85610

== ENCOUNTER → 2024-08-05 11:35 | Outpatient (ROUT) | payer MEDICARE, OTHER, SELFPAY ==
[2024-07-09 19:17] VITALS: BMI 29.0
[2024-08-05 11:57] LABS: INR 1.8 (0.9-1.3); Prothrombin Time 20.1 SECONDS (9.4-12.5)
== END ==
PROVIDERS: Family Provider Family Medicine; PCP Family Medicine; Visit Provider Family Medicine
DX: I48.0 Paroxysmal atrial fibrillation (principal); Z79.01 Long term (current) use of anticoagulants
CPT/HCPCS: 85610

== ENCOUNTER → 2024-08-23 | Outpatient (CLI) | payer MEDICARE, OTHER, SELFPAY ==
[2024-07-09 19:17] VITALS: BMI 29.0
--- NOTE | 2024-08-23 11:53 | DI.RAD.S_ITS ---
PROCEDURE: XR CERVICAL SPINE 4V OR 5V INDICATIONS: NECK PAIN TECHNIQUE: 5 views of the cervical spine acquired. COMPARISON: [facility], CR, XR CERVICAL SPINE 2V OR 3V, 04/26/2024, 12:57. FINDINGS: Bones: No fractures or dislocations to the C7 level. Multilevel facet and uncovertebral arthropathy, degenerative disc disease, endplate osteophytes and anterior flowing osteophytes affecting C4-C6. Soft tissues: No prevertebral soft tissue swelling. IMPRESSION: Moderate multilevel degeneration throughout the cervical spine. MRI of the cervical spine may be obtained if there is concern for nerve impingement. Dictated by: Jose Valladares M.D. on 08/23/2024 at 12:34 Approved by: Jose Valladares M.D. on 08/23/2024 at 12:48
--- NOTE | 2024-08-23 11:53 | DI.RAD.S_ITS ---
PROCEDURE: XR LUMBAR SPINE MIN 4V INDICATIONS: BACK PAIN TECHNIQUE: 5 views of the lumbar spine were acquired, including bilateral oblique views. COMPARISON: [facility], , XR LUMBAR SPINE MIN 4V, 07/10/2024, 14:34. FINDINGS: Bones: 5 [id number]-[id number]-xflmaar vertebrae are present. Degenerative straightening in mild levoscoliosis of the lumbar spine. No vertebral body compression fractures. Large bridging osteophytes are seen throughout the lower thoracic and lumbar spine moderate facet arthropathy severe osseous neural foraminal stenosis at L5-S1. Moderate multilevel disc height loss at C3-S1.. No suspicious bony lesions. Soft tissues: Moderate aortoiliac arterial atherosclerotic calcification. Overlying bowel gas pattern is normal. Oblique images: No pars defects. IMPRESSION: Moderate osseous neural foraminal stenosis at L5-S1 and moderate facet arthropathy at L3-S1, unchanged from prior. MRI of the lumbar spine may be obtained to assess for nerve impingement. Dictated by: Jose Valladares M.D. on 08/23/2024 at 12:50 Approved by: Joes Valladares M.D. on 08/23/2024 at 12:58
--- NOTE | 2024-08-23 11:53 | DI.RAD.S_ITS ---
PROCEDURE: IR THORACIC SPINE 2V COMPARISON: None. 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 No displaced fracture. Dictated by: Jose Worthington M.D. on 08/23/2024 at 13:01 Approved by: Jose Worthington M.D. on 08/23/2024 at 13:02
== END ==
LOC: RAD 11:52
PROVIDERS: Family Provider Family Medicine; PCP Family Medicine; Referring Provider Physical Medicine & Rehabilitation; Visit Provider Physical Medicine & Rehabilitation
DX: M51.34 Other intervertebral disc degeneration, thoracic region (principal); S32.020A Wedge compression fracture of second lumbar vertebra, initial encounter for closed fracture; M50.30 Other cervical disc degeneration, unspecified cervical region; M47.812 Spondylosis without myelopathy or radiculopathy, cervical region; M47.816 Spondylosis without myelopathy or radiculopathy, lumbar region; M48.07 Spinal stenosis, lumbosacral region; M47.817 Spondylosis without myelopathy or radiculopathy, lumbosacral region; I48.0 Paroxysmal atrial fibrillation; I10 Essential (primary) hypertension; R07.81 Pleurodynia; Z79.01 Long term (current) use of anticoagulants
CPT/HCPCS: 72050; 72072; 72110; 85610

== ENCOUNTER 2024-12-31 09:44 | Emergency (ER) | payer MEDICARE, OTHER, SELFPAY ==
[2024-07-09 19:17] VITALS: BMI 29.0
[2024-12-31 09:52] VITALS: BP 142/65; PULSE 70; RESP 18; TEMP 36.8; O2SAT 99; BMI 29.8
--- NOTE | 2024-12-31 10:29 | ED.FALL ---
HPI - Fall General Chief Complaint: Trauma Stated Complaint: fell and hurt her back on Sat on blood thinners Time Seen by Provider: 12/31/24 10:21 Source: patient and family Mode of arrival: Family Vehicle History of Present Illness HPI Narrative: Patient is an 89-year-old female with a history of compression fracture of the L2 vertebra, congestive heart failure, pancreatic mass, previous TIA, atrial fibrillation with rapid ventricular response, and multiple myeloma who presents after a fall on Monday. The patient reports she was walking, bumped into something, lost her balance, and fell onto her bottom. She denies hitting her head or losing consciousness. Since the fall, she has experienced increased pain in the same area as her prior lumbar compression fracture. She continues to ambulate with a walker, which is her baseline, but reports increased pain. She denies new numbness or tingling in her legs, saddle anesthesia, bowel or bladder dysfunction, or symptoms suggestive of spinal cord compromise. She has a history of a right ankle sprain a few months ago with some residual numbness, but no new symptoms since the fall. She has been managing her pain at home with Tylenol. She is currently on Eliquis for atrial fibrillation, having previously been on warfarin. She denies chest pain, abdominal pain, or presyncope. Pertinent ROS: Positive for increased back pain. Negative for head trauma, loss of consciousness, new numbness or tingling in the legs, saddle anesthesia, bowel or bladder dysfunction, chest pain, abdominal pain, or presyncope. Medications: Tylenol for pain, Eliquis for atrial fibrillation (previously on warfarin). Past Medical History: Compression fracture of L2, congestive heart failure, pancreatic mass, previous TIA, atrial fibrillation with RVR, multiple myeloma, right ankle sprain. Surgical History: Not mentioned. Allergies: Not mentioned. Related Data Home Medications ?Medication ?Instructions ?Recorded ?Confirmed cholecalciferol (vitamin D3) 25 1,000 unit PO DAILY ##0 10/01/12 08/26/24 mcg (1,000 unit) capsule (Vitamin D3) cyanocobalamin (vitamin B-12) 1,000 mcg PO DAILY ##0 10/01/12 08/26/24 1,000 mcg tablet (Vitamin B-12) omega 7-smx-piq-fish oil 1,000 mg 1,000 mg PO DAILY ##0 04/12/17 08/26/24 (120 mg-180 mg) capsule (Fish Oil) amiodarone 200 mg tablet 100 mg PO DAILY 01/04/23 08/26/24 atorvastatin 10 mg tablet 10 mg PO DAILY 06/12/23 08/26/24 losartan 100 mg tablet 100 mg PO DAILY 06/12/23 08/26/24 gabapentin 100 mg capsule 100 mg PO 3XD 06/30/24 08/26/24 magnesium oxide 400 mg (241.3 mg 400 mg PO BID 06/30/24 08/26/24 magnesium) tablet amlodipine 2.5 mg tablet 2.5 mg PO DAILY 08/26/24 08/26/24 apixaban 2.5 mg tablet (Eliquis) 2.5 mg PO BID 08/26/24 08/26/24 calcitonin (salmon) 200 intranasal 08/26/24 08/26/24 unit/actuation nasal spray furosemide 20 mg tablet 20 mg PO DAILY 08/26/24 08/26/24 prednisone 5 mg tablet 5 mg PO DAILY 08/26/24 08/26/24 sertraline 25 mg tablet 25 mg PO DAILY 08/26/24 08/26/24 Previous Rx's ?Medication ?Instructions ?Recorded acetaminophen 325 mg tablet 650 mg (2 x 325 mg) PO Q6HR PRN 07/12/24 Fever/Mild Pain (1-3) #30 tabs ascorbic acid (vitamin C) 500 mg 500 mg PO DAILY #30 tabs 07/12/24 tablet (Vitamin C) bisacodyl 10 mg rectal suppository 10 mg MA DAILY PRN Constipation 07/12/24 #30 ea calcium carbonate 1,000 mg (5 x 200 mg calcium (500 07/12/24 mg)) PO Q4HR PRN Dyspepsia #30 tabs ferrous sulfate 325 mg (65 mg 325 mg PO DAILY #30 tabs 07/12/24 iron) tablet potassium chloride 20 mEq 40 meq (2 x 20 mEq) PO DAILYCC #30 07/12/24 tablet,extended tabs release(part/cryst) (Klor-Con M) sennosides 8.6 mg tablet (senna) 17.2 mg (2 x 8.6 mg) PO BEDTIME 07/12/24 #30 tabs warfarin 2.5 mg tablet 2.5 mg PO SuTuThFrSa@1700 #20 tabs 07/12/24 warfarin 5 mg tablet 5 mg PO MoWe@1700 #20 tabs 07/12/24 Allergies Allergy/AdvReac Type Severity Reaction Status Date / Time hydrochlorothiazide Allergy Severe unknown Verified 12/31/24 09:52 sotalol Allergy Severe unknown Verified 12/31/24 09:52 amoxicillin Allergy Mild BREAK OUT Verified 12/31/24 09:52 ampicillin Allergy Mild BREAK OUT Verified 12/31/24 09:52 cephalexin Allergy Mild BREAK OUT Verified 12/31/24 09:52 piroxicam AdvReac Unknown ITCHING Verified 12/31/24 09:52 Review of Systems Review of Systems ROS Unobtainable: All systems reviewed & are unremarkable except as noted in HPI and below Patient History Medical History (Updated 12/31/24 @ 11:18 by Leonidas Murphy MD) Rotator cuff tear Multiple myeloma not having achieved remission CVA (cerebral vascular accident) Diarrhea Dehydration Atrial fibrillation with RVR Vertigo Atrial fibrillation Acute postoperative pain of knee Surgical History History of bilateral knee replacement Social History household members: none alcohol intake: current alcohol intake frequency: holidays/special occasions only Exam Narrative Exam Narrative: General: Well appearing, well nourished, in no distress. Skin: Good turgor, no rash, unusual bruising or prominent lesions Head: Normocephalic, atraumatic HEENT: Conjunctiva clear, EOM intact, PERRL, Mucous membranes moist. Neck: Supple, normal ROM Heart: Regular rate and rhythm, no murmur or gallop or rubs Lungs: Clear to auscultation. No rales rhonchi or wheezes. Abdomen: Soft and nontender. Bowel sounds normal. No mass or hernia Back: Spine normal without deformity or tenderness, no CVA tenderness midline tenderness to palpation on lumbar spine without step-offs or deformity Extremities: No deformities, edema. peripheral pulses intact, able to lift both legs up off of the floor, states that she is walking with a walker which is her baseline Neurologic: CN 2-12 normal. Normal sensation and motor exam. Psychiatric: Oriented X3. normal mood and affect. Initial Vital Signs Initial Vital Signs: Vital Signs Temperature 98.2 F 12/31/24 09:52 Pulse Rate 70 12/31/24 09:52 Respiratory Rate 18 12/31/24 09:52 Blood Pressure 142/65 H 12/31/24 09:52 Pulse Oximetry 99 12/31/24 09:52 Oxygen Delivery Method Room Air 12/31/24 09:52 Course Orders Ordered: Discontinued Medications Acetaminophen (Acetaminophen 325 Mg Tablet) 650 mg PO NOW ONE Stop: 12/31/24 10:29 Last Admin: 12/31/24 11:05 Dose: 650 mg Documented By: Lidocaine (Lidocaine 5% Patch) 1 each TOP NOW ONE Stop: 12/31/24 10:29 Last Admin: 12/31/24 11:05 Dose: 1 each Documented By: Vital Signs Vital signs: Vital Signs - 8 hr 12/31/24 09:52 Temperature 98.2 F Pulse Rate 70 Respiratory Rate 18 Blood Pressure 142/65 H Pulse Oximetry 99 Oxygen Delivery Method Room Air MDM - Fall Imaging Data Lumbar CT: Radiologist's Impression: here is diffuse degenerative change with multilevel severe disc height loss, large anterior osteophytes, and prominent multilevel facet arthropathy. There is been remote posterior decompression at L2-L3 through L4-L5. There is severe bilateral lateral recess stenosis at L2-L3. Reference axial image 47 of series 2. Soft tissues: No retroperitoneal masses or hematomas. Visualized aorta is normal in caliber. IMPRESSION: 1. No acute bony abnormality. 2. Extensive degenerative change with multilevel remote posterior decompression. 3. Severe bilateral lateral recess stenosis at L2-L3. [facility] Narrative Medical decision making narrative: 89-year-old female with ground level fall onto her back several days ago presenting with worsening lumbar pain in the context of previous L2 compression fracture INITIAL EVALUATION AND PLAN: - CT scan of the lumbar spine to evaluate for new or worsened compression fracture - Consider continued use of lumbar brace if helpful - Will review CT results and reassess for further management ED Course: An 89-year-old female presented to the ED after a fall with complaints of increased back pain at the site of a prior lumbar compression fracture. Initial evaluation included a CT scan of the lumbar spine to assess for new or worsened compression fractures. The patient was advised to consider continued use of a lumbar brace if it provides relief. Further management decisions were deferred pending review of the CT scan results. Differential Diagnoses: Lumbar Compression Fracture, Back Pain, Spinal Cord Injury, Epidural Hematoma, Hip Fracture Complexity of Problems Addressed: The patient presents with increased back pain following a fall, localized to the site of a prior lumbar compression fracture. This raises concern for a potential acute, complicated injury requiring imaging to evaluate for a new or worsened compression fracture. Additionally, the patient's history of multiple comorbidities, including congestive heart failure, atrial fibrillation on anticoagulation therapy, and multiple myeloma, increases the risk of complications and morbidity associated with the fall and potential injury. Ordered Tests/Imaging: - CT scan of the lumbar spine - considered laboratory evaluation however given patient is remote from the time of the fall has had no syncope, collapse lightheadedness or symptoms of anemia very low suspicion for bleed after the fall, patient did not strike her head and it has been multiple days since the incident do not believe CT of the head or neck is required at this time. Patient has been eating and drinking well without vomiting, or diarrhea lower suspicion for electrolyte abnormalities contributing. - patient's CT imaging appears to show no signs of fractures or significant displacement, there is evidence of ongoing stenosis at the L2-L3 level however patient fortunately does not have any signs of significant peripheral neuropathy, radiculopathy or spinal cord impingement. Patient will need to follow up outpatient with PT/orthopedic services. Patient passed a road test without significant pain, walking at baseline levels. Patient discharged with return precautions Discharge Plan Departure Patient Disposition: Home Clinical Impression: Lumbar foraminal stenosis Activity Restrictions/Additional Instructions: You were seen in the emergency department today for a fall, fortunately the CT of your lumbar spine showed no fractures, does show some generalized degenerative changes of the lumbar spine however fortunately there is no signs of spinal cord impingement at this time on your exam or imaging. You will need to follow up with physical therapy/ orthopedic surgery in the future for ongoing management of your chronic low back pain. Prescriptions: No Action cyanocobalamin (vitamin B-12) [Vitamin B-12] 1,000 mcg Tablet 1,000 mcg PO DAILY Qty: 0 cholecalciferol (vitamin D3) [Vitamin D3] 1,000 unit Capsule 1,000 unit PO DAILY Qty: 0 omega 5-yta-zpe-fish oil [Fish Oil] 1,000 MG capsule 1,000 mg PO DAILY Qty: 0 atorvastatin 10 mg tablet 10 mg PO DAILY losartan 100 mg tablet 100 mg PO DAILY magnesium oxide 400 mg (241.3 mg magnesium) tablet 400 mg PO BID gabapentin 100 mg capsule 100 mg PO 3XD amiodarone 200 mg tablet 100 mg PO DAILY sennosides [senna] 8.6 mg Tablet 17.2 mg PO BEDTIME Qty: 30 0RF acetaminophen 325 mg Tablet 650 mg PO Q6HR PRN (Reason: Fever/Mild Pain (1-3)) Qty: 30 0RF warfarin 2.5 mg Tablet 2.5 mg PO SuTuThFrSa@1700 Qty: 20 0RF potassium chloride [Klor-Con M20] 20 mEq Tablet,Er Particles/Crystals 40 meq PO DAILYCC Qty: 30 0RF ascorbic acid (vitamin C) [Vitamin C] 500 mg Tablet 500 mg PO DAILY Qty: 30 0RF bisacodyl 10 mg Suppository 10 mg MA DAILY PRN (Reason: Constipation) Qty: 30 0RF ferrous sulfate 325 mg (65 mg iron) Tablet 325 mg PO DAILY Qty: 30 0RF warfarin 5 mg Tablet 5 mg PO MoWe@1700 Qty: 20 0RF calcium carbonate 200 mg calcium (500 mg) Tablet,Chewable 1,000 mg PO Q4HR PRN (Reason: Dyspepsia) Qty: 30 0RF furosemide 20 mg tablet 20 mg PO DAILY amlodipine 2.5 mg tablet 2.5 mg PO DAILY prednisone 5 mg tablet 5 mg PO DAILY Patient Comments: [NO ORIGINAL SIG] sertraline 25 mg tablet 25 mg PO DAILY Patient Comments: [NO ORIGINAL SIG] calcitonin (salmon) 200 unit/actuation spray,non-aerosol intranasal Eliquis 2.5 mg tablet 2.5 mg PO BID Referrals: Tianna Cartagena MD [Primary Care Provider, Family Practice] Stand Alone Forms: Patient Portal/API
--- NOTE | 2024-12-31 10:35 | DI.CT.S_ITS ---
PROCEDURE: CT LUMBAR SPINE WO CON INDICATIONS: fall, previous L2 compression fx TECHNIQUE: Noncontrast 3 mm thick sections acquired from the T12 level to the sacrum. Sagittal and coronal reformats were constructed. For radiation dose reduction, the following was used: automated exposure control. COMPARISON: None. FINDINGS: Image quality: Excellent. Bones: Trace anterolisthesis of L3 on L4. No acute vertebral body compression fractures. No suspicious lytic or blastic bony lesions. No pars defects. There is diffuse degenerative change with multilevel severe disc height loss, large anterior osteophytes, and prominent multilevel facet arthropathy. There is been remote posterior decompression at L2-L3 through L4-L5. There is severe bilateral lateral recess stenosis at L2-L3. Reference axial image 47 of series 2. Soft tissues: No retroperitoneal masses or hematomas. Visualized aorta is normal in caliber. IMPRESSION: 1. No acute bony abnormality. 2. Extensive degenerative change with multilevel remote posterior decompression. 3. Severe bilateral lateral recess stenosis at L2-L3. Dictated by: Enoc Zeng M.D. on 12/31/2024 at 11:03 Approved by: Enoc Zeng M.D. on 12/31/2024 at 11:06
--- NOTE | 2024-12-31 10:50 | INF.NOTE ---
Assumed cares from JAYNE Reyes. Pt sitting up in WC. Discussed plan of care, understands.
[2024-12-31] MEDS: LIDOCAINE 5% PATCH 1 EACH TOP (11:05)
[2024-12-31] MEDS: ACETAMINOPHEN 325 MG TABLET 650 MG PO (11:05)
== END 2024-12-31 11:55 | disposition home or self-care (01) ==
PROVIDERS: Emergency Provider Emergency Medicine; Family Provider Family Medicine; PCP Family Medicine
DX: G03.9 Meningitis, unspecified (principal)
CPT/HCPCS: 72131; 99284

== ENCOUNTER 2025-01-07 09:18 | Emergency (ER) | payer MEDICARE, OTHER, SELFPAY ==
[2025-01-02 11:33] VITALS: BMI 29.0
[2025-01-07] VITALS (26 sets, daily range): BP systolic 121–194; BP diastolic 56–84; PULSE 65–74; RESP 17–20; TEMP 36.8–37; O2SAT 91–98; BMI 25.6
--- NOTE | 2025-01-07 10:22 | ED.FALL ---
HPI - Fall <Tyrell Sawyer MD - Last Filed: 01/14/25 07:12> General Chief Complaint: Fall Stated Complaint: Legs are weak can't stand UP X 2 days Time Seen by Provider: 01/07/25 10:06 Source: patient Mode of arrival: Wheelchair History of Present Illness HPI Narrative: Patient is seen here 1 week ago December 31 for a follow up. CT lumbar spine was ordered. No acute finding found. Please see notes for HPI down below from that visit. Patient brought here today by her sons for increased weakness unable to walk now. Patient is getting outpatient physical therapy. Primary care is Dr. Tianna Cartagena. Denies any leg pain. Just too weak to stand. One week ago she was able to stand and walk with assist. She did go to physical therapy yesterday. No new injuries. Has had leg swelling right greater than left. There is some abrasions to the lower legs they are erythematous. No fever or chills. No bowel or bladder retention. Stated Complaint: fell and hurt her back on Sat on blood thinners Time Seen by Provider: 12/31/24 10:21 Source: patient and family Mode of arrival: Family Vehicle History of Present Illness HPI Narrative: Patient is an 89-year-old female with a history of compression fracture of the L2 vertebra, congestive heart failure, pancreatic mass, previous TIA, atrial fibrillation with rapid ventricular response, and multiple myeloma who presents after a fall on Monday. The patient reports she was walking, bumped into something, lost her balance, and fell onto her bottom. She denies hitting her head or losing consciousness. Since the fall, she has experienced increased pain in the same area as her prior lumbar compression fracture. She continues to ambulate with a walker, which is her baseline, but reports increased pain. She denies new numbness or tingling in her legs, saddle anesthesia, bowel or bladder dysfunction, or symptoms suggestive of spinal cord compromise. She has a history of a right ankle sprain a few months ago with some residual numbness, but no new symptoms since the fall. She has been managing her pain at home with Tylenol. She is currently on Eliquis for atrial fibrillation, having previously been on warfarin. She denies chest pain, abdominal pain, or presyncope. Related Data Home Medications ?Medication ?Instructions ?Recorded ?Confirmed cholecalciferol (vitamin D3) 25 1,000 unit PO DAILY ##0 10/01/12 08/26/24 mcg (1,000 unit) capsule (Vitamin D3) cyanocobalamin (vitamin B-12) 1,000 mcg PO DAILY ##0 10/01/12 08/26/24 1,000 mcg tablet (Vitamin B-12) omega 3-pbw-dzi-fish oil 1,000 mg 1,000 mg PO DAILY ##0 04/12/17 08/26/24 (120 mg-180 mg) capsule (Fish Oil) amiodarone 200 mg tablet 100 mg PO DAILY 01/04/23 08/26/24 atorvastatin 10 mg tablet 10 mg PO DAILY 06/12/23 08/26/24 losartan 100 mg tablet 100 mg PO DAILY 06/12/23 08/26/24 gabapentin 100 mg capsule 100 mg PO 3XD 06/30/24 08/26/24 magnesium oxide 400 mg (241.3 mg 400 mg PO BID 06/30/24 08/26/24 magnesium) tablet amlodipine 2.5 mg tablet 2.5 mg PO DAILY 08/26/24 08/26/24 apixaban 2.5 mg tablet (Eliquis) 2.5 mg PO BID 08/26/24 08/26/24 calcitonin (salmon) 200 intranasal 08/26/24 08/26/24 unit/actuation nasal spray furosemide 20 mg tablet 20 mg PO DAILY 08/26/24 08/26/24 prednisone 5 mg tablet 5 mg PO DAILY 08/26/24 08/26/24 sertraline 25 mg tablet 25 mg PO DAILY 08/26/24 08/26/24 Previous Rx's ?Medication ?Instructions ?Recorded acetaminophen 325 mg tablet 650 mg (2 x 325 mg) PO Q6HR PRN 07/12/24 Fever/Mild Pain (1-3) #30 tabs ascorbic acid (vitamin C) 500 mg 500 mg PO DAILY #30 tabs 07/12/24 tablet (Vitamin C) bisacodyl 10 mg rectal suppository 10 mg HI DAILY PRN Constipation 07/12/24 #30 ea calcium carbonate 1,000 mg (5 x 200 mg calcium (500 07/12/24 mg)) PO Q4HR PRN Dyspepsia #30 tabs ferrous sulfate 325 mg (65 mg 325 mg PO DAILY #30 tabs 07/12/24 iron) tablet potassium chloride 20 mEq 40 meq (2 x 20 mEq) PO DAILYCC #30 07/12/24 tablet,extended tabs release(part/cryst) (Klor-Con M) sennosides 8.6 mg tablet (senna) 17.2 mg (2 x 8.6 mg) PO BEDTIME 07/12/24 #30 tabs warfarin 2.5 mg tablet 2.5 mg PO SuTuThFrSa@1700 #20 tabs 07/12/24 warfarin 5 mg tablet 5 mg PO MoWe@1700 #20 tabs 07/12/24 Allergies Allergy/AdvReac Type Severity Reaction Status Date / Time hydrochlorothiazide Allergy Severe unknown Verified 12/31/24 09:52 sotalol Allergy Severe unknown Verified 12/31/24 09:52 amoxicillin Allergy Mild BREAK OUT Verified 12/31/24 09:52 ampicillin Allergy Mild BREAK OUT Verified 12/31/24 09:52 cephalexin Allergy Mild BREAK OUT Verified 12/31/24 09:52 piroxicam AdvReac Unknown ITCHING Verified 12/31/24 09:52 Review of Systems <Tyrell Sawyer MD - Last Filed: 01/14/25 07:12> Review of Systems Narrative: GENERAL: Negative chills, positive fatigue, malaise, negative fever, sweats. HEENT: Negative sinus pain, ear pain, sore throat RESPIRATORY: Negative dyspnea, cough CARDIOVASCULAR: Negative chest pain, palpitations GASTROINTESTINAL: Negative vomiting, nausea, abdominal pain : Negative dysuria, frequency, hematuria MUSCULOSKELETAL: Negative muscle or bony pain SKIN: Negative rash, skin lesions NEUROLOGIC: Negative weakness, numbness ROS Unobtainable: All systems reviewed & are unremarkable except as noted in HPI and below Patient History <Tyrell Sawyer MD - Last Filed: 01/14/25 07:12> Medical History (Updated 01/07/25 @ 17:42 by Tyrell Sawyer MD) Rotator cuff tear Multiple myeloma not having achieved remission CVA (cerebral vascular accident) Diarrhea Dehydration Atrial fibrillation with RVR Vertigo Atrial fibrillation Acute postoperative pain of knee Surgical History History of bilateral knee replacement Social History household members: none Smoking Status: Never smoker alcohol intake: current Smoking Status: Never smoker alcohol intake frequency: holidays/special occasions only Exam <Tyrell Sawyer MD - Last Filed: 01/14/25 07:12> Narrative Exam Narrative: GENERAL: in no distress, not toxic not dyspneic HEAD: Normocephalic. EYES: Pupils equal round ENT: Mucous membranes moist. NECK: Trachea midline. CARDIOVASCULAR: Regular rate and rhythm RESPIRATORY: Clear to auscultation. Breath sounds equal bilaterally. No wheezes, rales, or rhonchi. GASTROINTESTINAL: Abdomen soft, non-tender EXTREMITIES: No gross deformities. They are scattered areas of skin abrasions on bilateral legs. There is surrounding erythema. No crepitus, nontender. Feet otherwise warm soft pink brisk cap refills light touch intact to foot and toes. There is right greater than left edema around the entire right ankle. No signs of compartment syndrome. Patient able to flex and extend at each ankle without any pain. BACK: No flank tenderness. NEURO: AOx4. Clear speech. Patient requires full 2 person assist to mobilize her. Patient very weak with trying to elevate her legs off of the bed. SKIN: Warm and dry PSYCH: Not anxious, is cooperative Initial Vital Signs Initial Vital Signs: Vital Signs Temperature 98.6 F 01/07/25 09:53 <Solange Gtz DO - Last Filed: 01/10/25 17:17> Initial Vital Signs Initial Vital Signs: Vital Signs Temperature 98.6 F 01/07/25 09:53 Course <Tyrell Sawyer MD - Last Filed: 01/14/25 07:12> Orders Ordered: ED Orders 01/07/25 10:21 Consult to PRODUCER DIRECTOR - Platemaker Stat Consult to Physical Therapy Evaluate & Treat 01/07/25 10:24 MR lumbar spine wo con Stat US periph venous low extrem bi Stat 01/07/25 10:25 XR ankle RT min 3V Stat 01/07/25 10:40 CBC Auto Diff [Complete Blood Count AUTO DIFF] Stat CMP [Comprehensive Metabolic Panel] Stat 01/07/25 16:00 Urinalysis and Microscopic Stat Urine Culture Stat Vital Signs Vital signs: Vital Signs - 8 hr 01/07/25 09:53 01/07/25 10:00 01/07/25 10:11 Temperature 98.6 F Pulse Rate 74 70 Respiratory Rate 17 Blood Pressure 144/60 H Pulse Oximetry 97 92 Oxygen Delivery Method Room Air Oxygen Flow Rate 01/07/25 10:21 01/07/25 10:21 01/07/25 10:30 Temperature Pulse Rate 73 Respiratory Rate Blood Pressure 151/67 H 138/65 Pulse Oximetry 91 Oxygen Delivery Method Oxygen Flow Rate 01/07/25 10:30 01/07/25 11:00 01/07/25 11:00 Temperature Pulse Rate 69 71 Respiratory Rate Blood Pressure 141/65 H Pulse Oximetry 92 92 Oxygen Delivery Method Oxygen Flow Rate 01/07/25 11:30 01/07/25 11:30 01/07/25 12:00 Temperature Pulse Rate 69 68 Respiratory Rate Blood Pressure 157/72 H Pulse Oximetry 91 91 Oxygen Delivery Method Oxygen Flow Rate 01/07/25 12:00 01/07/25 12:30 01/07/25 12:30 Temperature Pulse Rate 67 Respiratory Rate Blood Pressure 136/62 143/64 H Pulse Oximetry 96 Oxygen Delivery Method Oxygen Flow Rate 01/07/25 13:00 01/07/25 13:00 01/07/25 13:30 Temperature Pulse Rate 67 65 Respiratory Rate 18 Blood Pressure 142/66 H Pulse Oximetry 96 97 Oxygen Delivery Method Oxygen Flow Rate 2 01/07/25 13:30 01/07/25 14:00 01/07/25 14:00 Temperature Pulse Rate 68 Respiratory Rate Blood Pressure 139/62 147/65 H Pulse Oximetry 97 Oxygen Delivery Method Oxygen Flow Rate 01/07/25 14:03 01/07/25 14:03 01/07/25 14:53 Temperature Pulse Rate 69 71 Respiratory Rate Blood Pressure 139/67 Pulse Oximetry 96 98 Oxygen Delivery Method Oxygen Flow Rate 01/07/25 15:00 01/07/25 15:30 01/07/25 15:55 Temperature Pulse Rate 73 69 67 Respiratory Rate Blood Pressure Pulse Oximetry 96 96 Oxygen Delivery Method Oxygen Flow Rate 01/07/25 15:55 01/07/25 16:00 01/07/25 16:00 Temperature Pulse Rate 67 Respiratory Rate Blood Pressure 121/60 127/56 L Pulse Oximetry 97 Oxygen Delivery Method Oxygen Flow Rate 01/07/25 16:30 01/07/25 16:30 01/07/25 17:00 Temperature Pulse Rate 67 67 Respiratory Rate Blood Pressure 144/65 H Pulse Oximetry 96 96 Oxygen Delivery Method Oxygen Flow Rate 01/07/25 17:00 Temperature Pulse Rate Respiratory Rate 18 Blood Pressure 164/72 H Pulse Oximetry 97 Oxygen Delivery Method Nasal Cannula Oxygen Flow Rate 2 <Solange Gtz, - Last Filed: 01/10/25 17:17> Orders Ordered: ED Orders 01/07/25 10:21 Consult to PRODUCER DIRECTOR - Platemaker Stat Consult to Physical Therapy Evaluate & Treat 01/07/25 10:24 MR lumbar spine wo con Stat US periph venous low extrem bi Stat 01/07/25 10:25 XR ankle RT min 3V Stat 01/07/25 10:40 CBC Auto Diff [Complete Blood Count AUTO DIFF] Stat CMP [Comprehensive Metabolic Panel] Stat 01/07/25 16:00 Urinalysis and Microscopic Stat Urine Culture Stat Vital Signs Vital signs: Vital Signs - 8 hr 01/07/25 09:53 01/07/25 10:00 01/07/25 10:11 Temperature 98.6 F Pulse Rate 74 70 Respiratory Rate 17 Blood Pressure 144/60 H Pulse Oximetry 97 92 Oxygen Delivery Method Room Air Oxygen Flow Rate 01/07/25 10:21 01/07/25 10:21 01/07/25 10:30 Temperature Pulse Rate 73 Respiratory Rate Blood Pressure 151/67 H 138/65 Pulse Oximetry 91 Oxygen Delivery Method Oxygen Flow Rate 01/07/25 10:30 01/07/25 11:00 01/07/25 11:00 Temperature Pulse Rate 69 71 Respiratory Rate Blood Pressure 141/65 H Pulse Oximetry 92 92 Oxygen Delivery Method Oxygen Flow Rate 01/07/25 11:30 01/07/25 11:30 01/07/25 12:00 Temperature Pulse Rate 69 68 Respiratory Rate Blood Pressure 157/72 H Pulse Oximetry 91 91 Oxygen Delivery Method Oxygen Flow Rate 01/07/25 12:00 01/07/25 12:30 01/07/25 12:30 Temperature Pulse Rate 67 Respiratory Rate Blood Pressure 136/62 143/64 H Pulse Oximetry 96 Oxygen Delivery Method Oxygen Flow Rate 01/07/25 13:00 01/07/25 13:00 01/07/25 13:30 Temperature Pulse Rate 67 65 Respiratory Rate 18 Blood Pressure 142/66 H Pulse Oximetry 96 97 Oxygen Delivery Method Oxygen Flow Rate 2 01/07/25 13:30 01/07/25 14:00 01/07/25 14:00 Temperature Pulse Rate 68 Respiratory Rate Blood Pressure 139/62 147/65 H Pulse Oximetry 97 Oxygen Delivery Method Oxygen Flow Rate 01/07/25 14:03 01/07/25 14:03 01/07/25 14:53 Temperature Pulse Rate 69 71 Respiratory Rate Blood Pressure 139/67 Pulse Oximetry 96 98 Oxygen Delivery Method Oxygen Flow Rate 01/07/25 15:00 01/07/25 15:30 01/07/25 15:55 Temperature Pulse Rate 73 69 67 Respiratory Rate Blood Pressure Pulse Oximetry 96 96 Oxygen Delivery Method Oxygen Flow Rate 01/07/25 15:55 01/07/25 16:00 01/07/25 16:00 Temperature Pulse Rate 67 Respiratory Rate Blood Pressure 121/60 127/56 L Pulse Oximetry 97 Oxygen Delivery Method Oxygen Flow Rate 01/07/25 16:30 01/07/25 16:30 01/07/25 17:00 Temperature Pulse Rate 67 67 Respiratory Rate Blood Pressure 144/65 H Pulse Oximetry 96 96 Oxygen Delivery Method Oxygen Flow Rate 01/07/25 17:00 Temperature Pulse Rate Respiratory Rate 18 Blood Pressure 164/72 H Pulse Oximetry 97 Oxygen Delivery Method Nasal Cannula Oxygen Flow Rate 2 MDM - Fall <Tyrell Sawyer MD - Last Filed: 01/14/25 07:12> Lab Data 01/07/25 10:40 01/07/25 10:40 Labs: Lab Results 01/07/25 01/07/25 Range/Units 10:40 16:00 WBC 9.8 (4.5-11.0) X10^3/uL RBC 3.76 L (4.0-5.2) X10^6/uL Hgb 11.9 L (12.0-16.0) g/dL Hct 35.0 L (36-46) % MCV 93.2 (80-100) fL MCH 31.7 (26-34) PG MCHC 34.0 (30-36) % RDW 14.8 (11.6-14.8) % Plt Count 293 (150-400) X10^3/uL Neut % (Auto) 84.1 H (50-75) % Lymph % (Auto) 8.1 L (25-40) % [place] % (Auto) 7.1 (3-14) % Eos % (Auto) 0.1 L (2-4) % Baso % (Auto) 0.6 (0-2) % Neut # (Auto) 8200 H (7296-9992) /uL Lymph # (Auto) 800 L (8271-2862) /uL [place] # (Auto) 700 (0-900) /uL Eos # (Auto) 0 (0-450) /uL Baso # (Auto) 100 (0-100) /uL Sodium 136 L (137-145) mmol/L Potassium 4.0 (3.4-5.1) mmol/L Chloride 104 (98-107) mmol/L Carbon Dioxide 26 (22-32) mmol/L BUN 23 H (7-17) mg/dL Creatinine 1.29 H (0.52-1.04) mg/dL Estimated GFR 40 L (>60) mL/min BUN/Creatinine Ratio 17.8 (6-22) Glucose 154 H (70-99) mg/dL Calcium 9.2 (8.4-10.2) mg/dL Total Bilirubin 0.9 (0.2-1.3) mg/dL AST 39 H (14-36) IU/L ALT 31 (<35) IU/L Alkaline Phosphatase 118 (38-126) U/L Total Protein 8.3 H (6.3-8.2) g/dL Albumin 3.7 (3.5-5.0) g/dL Globulin 4.6 H (1.7-4.1) g/dL Albumin/Globulin Ratio 0.8 L (1.0-2.8) Urine Color Yellow Urine Appearance Cloudy Urine pH 7.5 (4.5-8.0) Ur Specific [place] 1.015 (1.000-1.035) Urine Protein Negative (Negative) Urine Glucose (UA) Negative (Negative) g/dL Urine Ketones Negative (NEGATIVE) Urine Occult Blood Negative (Negative) Urine Nitrate Positive H (Negative) Urine Bilirubin Negative (NEGATIVE) Urine Urobilinogen 0.2 (0.2) E.U./dL Ur Leukocyte Esterase Negative (NEGATIVE) Urine RBC 0-1/hpf (0-5/HPF) Urine WBC 0-1/hpf (0-5/HPF) Ur Squamous Epith Cells 0-1 /hpf (0-5/HPF) Urine Bacteria Many (>30) H (None) Ur Culture Indicated? Specimen cultured Vol Urine Centrifuged 10ml (spun) Imaging Data MRI lumbar spine: Radiologist's Impression: [address] [address] Magnetic Resonance Report Signed Patient: Monica Rodgers MR#: [id number] : 1935 Acct:[id number] Age/Sex: 89 / F Date of Service: 01/07/25 Loc: ED Accession Number: [id number] Procedure: MR lumbar spine wo con Ordering Provider: Tyrell Sawyer MD PROCEDURE: MR LUMBAR SPINE WO CON INDICATIONS: Leg weakness TECHNIQUE: Noncontrast sagittal T1 spin echo and T2 fast echo, sagittal STIR, and T2 fast spin echo through the lumbar spine. In cases with scoliosis, additional coronal T2 fast spin echo may be performed. COMPARISON: [facility], CT, CT LUMBAR SPINE WO CON, 12/31/2024, 10:37. [facility], MR, L-SPINE WITHOUT CONTRAST, 04/28/2015, 17:15. [facility], CR, XR LUMBAR SPINE MIN 4V, 08/23/2024, 11:56. FINDINGS: Image quality: Excellent. Alignment and Curvature: There is minimal retrolisthesis at L1-L2. There is mild grade 1 anterolisthesis at L3-L4. Mild retrolisthesis can be seen at L5-S1. Bone Marrow: Marrow is of normal overall signal. No acute vertebral body compression fractures. Spinal Cord: Conus medullaris terminates at the L1 level. Visualized cord demonstrates normal signal and size. Clumping and peripheral location of the distal nerve roots can be seen. Paraspinous Soft Tissues: No paravertebral masses. Multiple levels of postoperative change can be seen, with removal of portions of the posterior elements. The postoperative changes better demonstrated on the recent prior CT. T12-L1: Mild loss of disc height is seen. Loss of disc signal is seen. Moderate disc bulge is seen, which is eccentric to the right. Moderate generalized disc bulge is seen. There is a central disc extrusion at this level, with inferior migration of the disc material. The extruded disc material measures 16 mm craniocaudal. Moderate facet joint hypertrophy is seen. Associated hypertrophy of the ligamentum flavum can be seen. There is moderate left-sided and at least moderate right-sided neural foraminal narrowing. There is severe central canal narrowing. These imaging findings have progressed compared to the prior study. L1-L2: Moderate loss of disc height is seen. Loss of disc signal is seen. Moderate generalized disc bulge is seen. There is a superimposed central disc protrusion. Mild facet joint hypertrophy is seen. Moderate bilateral neural foraminal narrowing can be seen, right worse than left. Moderate central canal narrowing is seen. There is mild progression compared to 2015. L2-L3: [id number] loss of disc height and disc signal can be seen. Moderate generalized disc bulge is seen. There is a superimposed central disc protrusion. At least moderate facet hypertrophy can be seen. There is at least moderate bilateral neural foraminal narrowing. Severe central canal narrowing is seen at this level, as on series 8, image 11. These imaging findings have progressed compared to the prior study. L3-L4: At least moderate loss of disc height and disc signal can be seen. At least moderate disc bulge is seen. There is a superimposed central disc osteophyte protrusion. At least moderate facet hypertrophy is seen at this level. There is at least moderate right-sided and moderate to severe left-sided neural foraminal narrowing. Moderate to severe central canal narrowing is seen. When comparison is made with the prior images, these findings are similar. L4-L5: Moderate loss of disc height is seen. Loss of disc signal is seen. Moderate generalized disc bulge is seen, which is eccentric to the left. At least moderate facet hypertrophy is seen at this level. There is moderate to severe bilateral neural foraminal narrowing seen, with an associated degree of compression seen upon the exiting nerve roots. Moderate central canal narrowing is seen. When comparison is made with the prior images, these findings are similar. L5-S1: Moderate loss of disc height is seen. Loss of disc signal is seen. Reactive marrow endplate changes are seen anteriorly, which are hyperintense on T1-weighted and T2-weighted imaging and most consistent with fatty metaplasia (Modic type II changes). Moderate generalized disc bulge is seen. There is a superimposed central disc osteophyte protrusion. Moderate facet joint hypertrophy is seen. There is moderate to severe bilateral neural foraminal narrowing seen, with an associated degree of compression seen upon the exiting nerve roots. Moderate central canal narrowing is seen. When comparison is made with the prior images, these findings are similar. IMPRESSION: There is an L1-L2 disc extrusion seen, which is worse than in 2015. Multiple levels of degenerative change can be seen elsewhere, which are progressed at several levels compared to 2015. 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 Prior postoperative change seen, with removal of portions of the posterior elements. These postoperative changes are better demonstrated on the recent prior CT. Dictated by: Tariq Michael M.D. on 01/07/2025 at 14:03 Approved by: Tariq Michael M.D. on 01/07/2025 at 14:11 US - DVT: Radiologist's Impression: [address] [address] Ultrasound Report Signed Patient: Monica Rodgers MR#: [id number] : 1935 Acct:[id number] Age/Sex: 89 / F Date of Service: 01/07/25 Loc: ED Accession Number: [id number] Procedure: US periph venous low extrem bi Ordering Provider: Tyrell Sawyer MD PROCEDURE: US PERIPH VENOUS LOW EXTREM BI INDICATIONS: Leg swelling TECHNIQUE: Real-time imaging, as well as color and pulse Doppler interrogation, were performed of the deep veins of both legs from the inguinal ligament to the popliteal fossa, with documentation of the visualized calf veins. COMPARISON: None. FINDINGS: Right: The common femoral, femoral, popliteal, and the visualized calf veins are normally compressible, and free of intraluminal thrombus. Color and pulse Doppler demonstrate normal phasic intravascular flow. There is normal augmentation response to distal compression maneuver. Left: The common femoral, femoral, popliteal, and the visualized calf veins are normally compressible, and free of intraluminal thrombus. Color and pulse Doppler demonstrate normal phasic intravascular flow. There is normal augmentation response to distal compression maneuver. IMPRESSION: No findings of deep venous thrombosis in either lower extremity. Dictated by: Fransisco Darden M.D. on 01/07/2025 at 11:11 Approved by: Fransisco Darden M.D. on 01/07/2025 at 11:13 Extremity x-ray #1: Radiologist's Impression: [address] [address] XRay Report Signed Patient: Monica Rodgers MR#: [id number] : 1935 Acct:[id number] Age/Sex: 89 / F Date of Service: 01/07/25 Loc: ED Accession Number: [id number] Procedure: XR ankle RT min 3V Ordering Provider: Tyrell Sawyer MD PROCEDURE: XR ANKLE RT MIN 3V INDICATIONS: Pain and swelling TECHNIQUE: 3 views of the ankle were acquired. COMPARISON: [facility], CR, XR ANKLE LT MIN 3V, 12/27/2024, 11:26. FINDINGS: Bones: No fractures or dislocations. Moderate midfoot and hindfoot joint osteoarthritic changes are seen most notably involving tibiotalar joint and subtalar joint. Ankle mortise is normally aligned. No suspicious bony lesions. Dorsal calcaneal enthesophyte. Soft tissues: Diffuse soft tissue swelling around ankle joint. No tibiotalar joint effusion. Achilles tendon appears normal. IMPRESSION: Marked soft tissue swelling. No gross acute ankle fracture or dislocation. Moderate midfoot and hindfoot joint osteoarthritis. Dictated by: Fransisco Darden M.D. on 01/07/2025 at 10:43 Approved by: Fransisco Darden M.D. on 01/07/2025 at 10:45 [facility] Narrative Medical decision making narrative: Patient is seen here 1 week ago December 31 for a follow up. CT lumbar spine was ordered. No acute finding found. Please see notes for HPI down below from that visit. Patient brought here today by her sons for increased weakness unable to walk now. Patient is getting outpatient physical therapy. Primary care is Dr. Tianna Cartagena. Denies any leg pain. Just too weak to stand. One week ago she was able to stand and walk with assist. She did go to physical therapy yesterday. No new injuries. Has had leg swelling right greater than left. There is some abrasions to the lower legs they are erythematous. No fever or chills. No bowel or bladder retention. After history and exam, social work consult physical therapy consult MRI lumbar spine CBC CMP ultrasound legs [facility] Medical records reviewed: ER visit CT done December 31 here. Differential considered: Includes but not limited to lumbar degenerative disc disease cauda equina DVT SVT Lab Test results independently reviewed as above. Pertinent findings: WBC 9.8 hemoglobin 11.9 sodium 136 potassium 4.0 BUN 23 creatinine 1.29 urinalysis positive nitrate Imaging studies independently reviewed: MRI lumbar spine arachnoiditis, x-ray right ankle no acute finding, ultrasound bilateral legs no acute finding Consultations: 5:14 p.m.. Spoke with [facility] spine surgery dr kwok, he has reviewed MRI, he would like patient transferred to their emergency department now. Re-evaluations: 5:20 p.m.. Spoke with patient and her 2 sons, they do agree for transfer to [facility] to meet with the surgeon and discussed about surgery. Discussion: Appropriate for transfer for higher level of care. We do not have neurosurgery/spine surgery here. Diagnosis: Arachnoiditis <Solange Gtz, - Last Filed: 01/10/25 17:17> Lab Data Labs: Lab Results 01/07/25 01/07/25 Range/Units 10:40 16:00 WBC 9.8 (4.5-11.0) X10^3/uL RBC 3.76 L (4.0-5.2) X10^6/uL Hgb 11.9 L (12.0-16.0) g/dL Hct 35.0 L (36-46) % MCV 93.2 (80-100) fL MCH 31.7 (26-34) PG MCHC 34.0 (30-36) % RDW 14.8 (11.6-14.8) % Plt Count 293 (150-400) X10^3/uL Neut % (Auto) 84.1 H (50-75) % Lymph % (Auto) 8.1 L (25-40) % [place] % (Auto) 7.1 (3-14) % Eos % (Auto) 0.1 L (2-4) % Baso % (Auto) 0.6 (0-2) % Neut # (Auto) 8200 H (9343-0887) /uL Lymph # (Auto) 800 L (3873-1217) /uL [place] # (Auto) 700 (0-900) /uL Eos # (Auto) 0 (0-450) /uL Baso # (Auto) 100 (0-100) /uL Sodium 136 L (137-145) mmol/L Potassium 4.0 (3.4-5.1) mmol/L Chloride 104 (98-107) mmol/L Carbon Dioxide 26 (22-32) mmol/L BUN 23 H (7-17) mg/dL Creatinine 1.29 H (0.52-1.04) mg/dL Estimated GFR 40 L (>60) mL/min BUN/Creatinine Ratio 17.8 (6-22) Glucose 154 H (70-99) mg/dL Calcium 9.2 (8.4-10.2) mg/dL Total Bilirubin 0.9 (0.2-1.3) mg/dL AST 39 H (14-36) IU/L ALT 31 (<35) IU/L Alkaline Phosphatase 118 (38-126) U/L Total Protein 8.3 H (6.3-8.2) g/dL Albumin 3.7 (3.5-5.0) g/dL Globulin 4.6 H (1.7-4.1) g/dL Albumin/Globulin Ratio 0.8 L (1.0-2.8) Urine Color Yellow Urine Appearance Cloudy Urine pH 7.5 (4.5-8.0) Ur Specific [place] 1.015 (1.000-1.035) Urine Protein Negative (Negative) Urine Glucose (UA) Negative (Negative) g/dL Urine Ketones Negative (NEGATIVE) Urine Occult Blood Negative (Negative) Urine Nitrate Positive H (Negative) Urine Bilirubin Negative (NEGATIVE) Urine Urobilinogen 0.2 (0.2) E.U./dL Ur Leukocyte Esterase Negative (NEGATIVE) Urine RBC 0-1/hpf (0-5/HPF) Urine WBC 0-1/hpf (0-5/HPF) Ur Squamous Epith Cells 0-1 /hpf (0-5/HPF) Urine Bacteria Many (>30) H (None) Ur Culture Indicated? Specimen cultured Vol Urine Centrifuged 10ml (spun) MDM Narrative Medical decision making narrative: Patient is seen here 1 week ago December 31 for a follow up. CT lumbar spine was ordered. No acute finding found. Please see notes for HPI down below from that visit. Patient brought here today by her sons for increased weakness unable to walk now. Patient is getting outpatient physical therapy. Primary care is Dr. Tianna Cartagena. Denies any leg pain. Just too weak to stand. One week ago she was able to stand and walk with assist. She did go to physical therapy yesterday. No new injuries. Has had leg swelling right greater than left. There is some abrasions to the lower legs they are erythematous. No fever or chills. No bowel or bladder retention. After history and exam, social work consult physical therapy consult MRI lumbar spine CBC CMP ultrasound legs [facility] Medical records reviewed: ER visit CT done December 31 here. Differential considered: Includes but not limited to lumbar degenerative disc disease cauda equina DVT SVT Lab Test results independently reviewed as above. Pertinent findings: WBC 9.8 hemoglobin 11.9 sodium 136 potassium 4.0 BUN 23 creatinine 1.29 urinalysis positive nitrate Imaging studies independently reviewed: MRI lumbar spine arachnoiditis, x-ray right ankle no acute finding, ultrasound bilateral legs no acute finding Consultations: 5:14 p.m.. Spoke with [facility] spine surgery dr kwok, he has reviewed MRI, he would like patient transferred to their emergency department now. Re-evaluations: 5:20 p.m.. Spoke with patient and her 2 sons, they do agree for transfer to [facility] to meet with the surgeon and discussed about surgery. Discussion: Appropriate for transfer for higher level of care. We do not have neurosurgery/spine surgery here. Diagnosis: Arachnoiditis Dr. Gtz urine culture shows Klebsiella pneumoniae 90,000-100,000 CFU, patient was transferred to [facility] culture was faxed patient still there Discharge Plan Departure Patient Disposition: [facility] Clinical Impression: Arachnoiditis of spine Prescriptions: No Action cyanocobalamin (vitamin B-12) [Vitamin B-12] 1,000 mcg Tablet 1,000 mcg PO DAILY Qty: 0 cholecalciferol (vitamin D3) [Vitamin D3] 1,000 unit Capsule 1,000 unit PO DAILY Qty: 0 omega 2-xrz-sqr-fish oil [Fish Oil] 1,000 MG capsule 1,000 mg PO DAILY Qty: 0 atorvastatin 10 mg tablet 10 mg PO DAILY losartan 100 mg tablet 100 mg PO DAILY magnesium oxide 400 mg (241.3 mg magnesium) tablet 400 mg PO BID gabapentin 100 mg capsule 100 mg PO 3XD amiodarone 200 mg tablet 100 mg PO DAILY sennosides [senna] 8.6 mg Tablet 17.2 mg PO BEDTIME Qty: 30 0RF acetaminophen 325 mg Tablet 650 mg PO Q6HR PRN (Reason: Fever/Mild Pain (1-3)) Qty: 30 0RF warfarin 2.5 mg Tablet 2.5 mg PO SuTuThFrSa@1700 Qty: 20 0RF potassium chloride [Klor-Con M20] 20 mEq Tablet,Er Particles/Crystals 40 meq PO DAILYCC Qty: 30 0RF ascorbic acid (vitamin C) [Vitamin C] 500 mg Tablet 500 mg PO DAILY Qty: 30 0RF bisacodyl 10 mg Suppository 10 mg HI DAILY PRN (Reason: Constipation) Qty: 30 0RF ferrous sulfate 325 mg (65 mg iron) Tablet 325 mg PO DAILY Qty: 30 0RF warfarin 5 mg Tablet 5 mg PO MoWe@1700 Qty: 20 0RF calcium carbonate 200 mg calcium (500 mg) Tablet,Chewable 1,000 mg PO Q4HR PRN (Reason: Dyspepsia) Qty: 30 0RF furosemide 20 mg tablet 20 mg PO DAILY amlodipine 2.5 mg tablet 2.5 mg PO DAILY prednisone 5 mg tablet 5 mg PO DAILY Patient Comments: [NO ORIGINAL SIG] sertraline 25 mg tablet 25 mg PO DAILY Patient Comments: [NO ORIGINAL SIG] calcitonin (salmon) 200 unit/actuation spray,non-aerosol intranasal Eliquis 2.5 mg tablet 2.5 mg PO BID Referrals: Tianna Cartagena MD [Primary Care Provider, Family Practice]
--- NOTE | 2025-01-07 10:25 | DI.RAD.S_ITS ---
PROCEDURE: XR ANKLE RT MIN 3V INDICATIONS: Pain and swelling TECHNIQUE: 3 views of the ankle were acquired. COMPARISON: [facility], CR, XR ANKLE LT MIN 3V, 12/27/2024, 11:26. FINDINGS: Bones: No fractures or dislocations. Moderate midfoot and hindfoot joint osteoarthritic changes are seen most notably involving tibiotalar joint and subtalar joint. Ankle mortise is normally aligned. No suspicious bony lesions. Dorsal calcaneal enthesophyte. Soft tissues: Diffuse soft tissue swelling around ankle joint. No tibiotalar joint effusion. Achilles tendon appears normal. IMPRESSION: Marked soft tissue swelling. No gross acute ankle fracture or dislocation. Moderate midfoot and hindfoot joint osteoarthritis. Dictated by: Fransisco Darden M.D. on 01/07/2025 at 10:43 Approved by: Fransisco Darden M.D. on 01/07/2025 at 10:45
[2025-01-07 10:49] LABS: Add Manual Diff / Slide Review NO; Basophils Absolute Auto 100 /uL (0-100); Basophils Percent Auto 0.6 % (0-2); Eosinophils Absolute Auto 0 /uL (0-450); Eosinophils Percent Auto 0.1 % (2-4); Hemoglobin 11.9 g/dL (12.0-16.0); Lymphocytes Absolute Auto 800 /uL (1100-4500); Lymphocytes Percent Auto 8.1 % (25-40); Mean Corpuscular Hemoglobin 31.7 PG (26-34); Mean Corpuscular Volume 93.2 fL (80-100); Monocytes Absolute Auto 700 /uL (0-900); Monocytes Percent Auto 7.1 % (3-14); Neutrophils Absolute Auto 8200 /uL (1500-7000); Neutrophils Percent Auto 84.1 % (50-75); Platelet Count 293 X10^3/uL (150-400); Red Blood Cell Count 3.76 X10^6/uL (4.0-5.2); Red Cell Distribution Width 14.8 % (11.6-14.8); White Blood Cell Count 9.8 X10^3/uL (4.5-11.0)
[2025-01-07 11:10] LABS: Alanine Aminotransferase 31 IU/L (<35); Albumin 3.7 g/dL (3.5-5.0); Albumin Globulin Ratio 0.8 (1.0-2.8); Alkaline Phosphatase 118 U/L (38-126); Aspartate Aminotransferase 39 IU/L (14-36); BUN Creatinine Ratio 17.8 (6-22); Bilirubin Total 0.9 mg/dL (0.2-1.3); Blood Urea Nitrogen 23 mg/dL (7-17); Calcium 9.2 mg/dL (8.4-10.2); Carbon Dioxide 26 mmol/L (22-32); Chloride 104 mmol/L (98-107); Estimated Glomerular Filt Rate 40 mL/min (>60); Globulin 4.6 g/dL (1.7-4.1); Glucose 154 mg/dL (70-99); HEMOLYSIS < 15 (0-50); Sodium 136 mmol/L (137-145); Total Protein 8.3 g/dL (6.3-8.2)
--- NOTE | 2025-01-07 13:35 | PT.IIE ---
Surgical History (Last Reviewed 08/26/24 @ 10:44 by Anmol Oconnor DO) History of bilateral knee replacement Medical History (Last Updated 08/26/24 @ 11:03 by Anmol Oconnor DO) Acute postoperative pain of knee Atrial fibrillation Atrial fibrillation with RVR CVA (cerebral vascular accident) Dehydration Diarrhea Multiple myeloma not having achieved remission Rotator cuff tear Vertigo Physical Therapy Inpatient Evaluation/Re-Eval M1 PT/OT-IP Prior Functional Status Start: 01/07/25 16:03 Freq: Status: Active Protocol: Document 01/07/25 13:35 AB (Rec: 01/07/25 16:21 AB [id number]) Medical Review Prior Functional Status Medical History Yes Reviewed Communication able to answer questions but slow to respond Mobility and Gait pt's sons in room and provided most of pt's info: pt was modified independent with all mobilities and ambulation using a 4WW up until last MondayJanuary 04 when she was not able to stand and ambulate. son stated that pt was able to go to her outpt PT yesterday but did not walk and son stand pivot pt on a w/c. Social History Household Members none Number of Floors ( One Floor Floors) Number of Stairs To 2 steps R rail ascending Enter/Railing? Home Environment High Toilet,Walk in Shower Home Equipment Front Wheel Walker,Four Wheel Walker,Straight Cane, Shower Seat without Backrest,Hand Held Shower,Leg Commercial Leasing Manager,Grab Bars Near Toilet,Grab Bars In Shower Additional Social pt has caregivers that comes in M,Th,F for 8 hours and History Comment Tuesdays for 4 hours; son comes in on Monday for ~ 4 hours; pt is by herself on the weekends pt has an adjustable bed M2 PT-IP Current Condition Start: 01/07/25 16:03 Freq: Status: Active Protocol: Document 01/07/25 13:35 AB (Rec: 01/07/25 16:21 AB [id number]) Physical Therapy Current Condition Current Condition Evaluation Date 01/07/25 Treatment Diagnosis weakness Onset Date 01/07/25 M3 PT-IP Subjective Start: 01/07/25 16:03 Freq: Status: Active Protocol: Document 01/07/25 13:35 AB (Rec: 01/07/25 16:21 AB [id number]) Subjective Physical Therapy Visit Type Type Initial Evaluation Visit Start Time 13:35 Visit Stop Time 14:25 Number of VACCINE CUSTOMER REPRESENTATIVE Visits 0 Physical Therapy Visit Comments Patient Comments I cannot stand. I cannot walk M4 PT-IP Mobility and Gait Start: 01/07/25 16:03 Freq: Status: Active Protocol: Document 01/07/25 13:35 AB (Rec: 01/07/25 16:21 AB [id number]) PT-Bed Mobility Assessment Supine to Sit Supine to Sit Maximum Assistance,1 Person Assistance,Head of Bed Elevated,Bedrails Sit to Supine Sit to Supine Maximum Assistance,2 Person Assistance PT-Transfer Assessment Sit to and From Stand Sit to and from Maximum Assistance,2 Person Assistance,Use of Upper Stand Extremities Equipment Transfer Assistive Gait Belt,Front Wheeled Walker Device Orthotic/Prosthetic No Devices or Brace: Comments Mobility Comments pt in bed. pt's sons in room with pt. obtained PLOF and home setup. pt stated that she had a L ankle sprain ~ 1 month ago and since then had increase L foot numbness. Sensation assessed and pt able to decipher light touch on LLE but stated that sensation is less compared to the R side. pt completed supine to sit max A and cues. able to sit on EOB mod A. pt with increase retrolean and cued to rebalance. sit to stand max A x 2 and max cues. pt only able to partial stand with heavy leaning against the EOB. assisted pt back to bed. max A x 2 for sit to supine. positioned pt in bed. Left pt with NAC. informed pt regarding pt's level of assistance. PT-Balance Assessment Sitting Balance and Reactions Static Sitting Fair Balance Ability Dynamic Sitting Poor Balance Ability Standing Balance and Reactions Static Standing Poor Balance Ability Dynamic Standing Poor Balance Ability Device Used FWW M5 PT-IP Objective Assessments Start: 01/07/25 16:03 Freq: Status: Active Protocol: Document 01/07/25 13:35 AB (Rec: 01/07/25 16:21 AB [id number]) Orientation Orientation/Cognition Level of Alertness Alert Orientation Name,Place,Situation Language Function Hard of Hearing Ability Safety Awareness Decreased Safety Awareness Memory Description Short Term Impaired Gross Range of Motion Lower Extremity ROM Assessment Within Functional Limits Strength Lower Extremity Strength Assessment Bilaterally Impaired Comments Strength Comments RLE: 3+/5 LLE: 3-/5 Sensation Assessment Sensation Gross Sensation Left LE Impaired Light Touch Impaired Sensation Numbness Description Muscle Tone Muscle Tone WNL Yes M6 PT-IP Treatment Start: 01/07/25 16:03 Freq: Status: Active Protocol: Document 01/07/25 13:35 AB (Rec: 01/07/25 16:21 AB [id number]) Physical Therapy Treatment Education Education Provided Safety M7 PT-IP Assessment and Plan Start: 01/07/25 16:03 Freq: Status: Active Protocol: Document 01/07/25 13:35 AB (Rec: 01/07/25 16:21 AB [id number]) PT Summary Assessment and Plan Potential Rehabilitation Fair Potential Status of Condition Evolving at Evaluation Summary Impairments Pain,ROM,Strength,Balance,Coordination,Sensation,Tone, Cognition,Bed Mobility,Transfers,Gait,Activity Tolerance Assessment Summary pt is an 89 y/o F who visited the ED December 31 due to a fall. pt now back in the ED due to weakness and unable to ambulate. pt requiring max A x 2 for bed mobility and sit to stand but unable to get to full upright position and unable to ambulate. pt will require SNF rehab to improve mobility. Goals Bed Mobility Goal Minimal Assistance Transfer Goal Minimal Assistance Gait Goal Minimal Assistance Gait Distance 50 Other Goals improve bed mobility, transfers, ambulation using FWW ~ 100 ft SBA up/down 2 steps R rail ascending SBA Days to Meet Goals 10 Frequency of Treatment Frequency Of Once a Day Treatment Treatment Plan Physical Therapy Bed Mobility Training,Transfer Training,Gait Training, Treatment Plan Therapeutic Exercise,Balance Retraining,Discharge Planning,Hot or Cold Pack,Neuromuscular Re-ed, Coordination Retraining,Manual Therapy Precautions Other Precautions fall risk Recommendations To Nursing Amount of Assist Mechanical Lift Needed Discharge Recommendations PT Discharge SNF Rehab Recommendations Transportation Needs Wheelchair/Cabulance,Stretcher/Ambulance at Discharge - PT assist 2
[2025-01-07 16:05] LABS: Appearance Urine UA CLOUDY; Bilirubin Urine UA NEGATIVE (NEGATIVE); Color Urine UA YELLOW; Glucose Urine UA NEGATIVE (Negative); Ketones Urine UA NEGATIVE (NEGATIVE); Leukocyte Esterase Urine UA NEGATIVE (NEGATIVE); Nitrite Urine UA POSITIVE (Negative); Occult Blood Urine UA NEGATIVE (Negative); Protein Urine UA NEGATIVE (Negative); Specific Gravity Urine UA 1.015 (1.000-1.035); Urobilinogen Urine UA 0.2 E.U./dL (0.2)
[2025-01-07 16:06] LABS: pH Urine UA 7.5 (4.5-8.0)
[2025-01-07 16:12] LABS: Bacteria Urine Many (>30); Culture Indicated Urine Specimen Cultured; RBC Urine 0-1/HPF (0-5/HPF); Squamous Epithelial Cell Urine 0-1 /HPF (0-5/HPF); Urine Volume 10mL (spun); WBC Urine 0-1/HPF (0-5/HPF)
--- NOTE | 2025-01-07 17:26 | CM.SWNOTE ---
ED ASSISTANT PROFESSOR OF NURSING Note Patient is 89 y/o female who presents to ED via POV due to concern for difficulty ambulating, leg weakness and numbness and recent GLFs. Patient states she last ambulated a week ago. Patient's PCP is Dr. Cartagena, patient has Medicare insurance. Patient resides alone in [place] and has local sons as supports. Patient has a caregiver from [employer] 4 days a week for 8 hours most days and 4 hours on Tuesdays. Patient has FWW, cane, shower chair, and grab bars in home. Patient relies on others for transportation. Patient just had outpatient PT yesterday and it was reported that she did not ambulate there. PT evaluates patient and recommends SNF rehab, patient is two person assist. Patient's two sons are in room and had limited weight bearing in assisting patient. Patient had MRI this afternoon and ED provider consulted with [facility], it is reported that is recommending surgery based on reviewed results. Patient to transfer via BLS to [facility] ED for surgery. Love Wilhelm, PHYSICIAN ASSISTANT PSYCHIATRY
--- NOTE | 2025-01-07 18:16 | PC.NURSE ---
right pedal pulse 3+
== END 2025-01-07 19:24 | disposition short-term general hospital (02) ==
PROVIDERS: Emergency Provider Emergency Medicine; Family Provider Family Medicine; PCP Family Medicine
DX: G03.9 Meningitis, unspecified (principal)
CPT/HCPCS: 36415; 72148; 73610; 80053; 81001; 85025; 87077; 87086; 87186; 93970; 97163; 97530; 99284

== ENCOUNTER → 2025-01-14 09:50 | Outpatient (CLI) | payer MEDICARE, OTHER, SELFPAY ==
[2025-01-02 11:33] VITALS: BMI 29.0
--- NOTE | 2025-01-14 09:52 | DI.US.S_ITS ---
PROCEDURE: US PERIPH VENOUS LOW EXTREM RT INDICATIONS: RULE OUT DVT TECHNIQUE: Real-time imaging, as well as color and pulse Doppler interrogation, were performed of the lower extremity deep veins from the inguinal ligament to the popliteal fossa, with documentation of the visualized calf veins. COMPARISON: None. FINDINGS: The common femoral, femoral, popliteal, and the visualized calf veins are normally compressible, and free of intraluminal thrombus. Color and pulse Doppler demonstrate normal phasic intraluminal flow. There is normal augmentation response to distal compression maneuver. IMPRESSION: No findings of lower extremity deep venous thrombosis. Approved by: Figueroa Agrawal M.D. on 01/14/2025 at 16:09
== END ==
PROVIDERS: Family Provider Family Medicine; PCP Family Medicine; Referring Provider Family Medicine; Visit Provider Family Medicine
DX: R60.0 Localized edema (principal)
CPT/HCPCS: 93971